=== PATIENT | female | born 1985 | race Caucasian/White ===

== ENCOUNTER → 2016-05-26 | Outpatient (CLI) | payer OTHER ==
[2016-05-26 08:51] LABS: FERRITIN 7 NG/ML (8-252); MAGNESIUM LEVEL 2.4 MG/DL (1.8-2.4)
[2016-05-26 09:04] LABS: CORTISOL AM 15.9 UG/DL (4.3-22.4); THYROID PEROXIDASE ANTIBODY < 28.0 U/ML (<60.0)
[2016-05-26 09:05] LABS: VITAMIN B12 LEVEL 273 PG/ML (247-911)
[2016-05-30 00:10] LABS: Lyme Disease IgG/IgM Antibodie <0.91 ISR (0.00-0.90); Lyme Disease IgM Ab Quantitati <0.80 index (0.00-0.79); VITAMIN E LEVEL 8.3 mg/L (5.3-16.8)
== END ==
LOC: M LAB 07:33
PROVIDERS: ATTEND Physician Assistant
DX: Q79.6 Ehlers-Danlos syndromes (principal)

== ENCOUNTER → 2016-05-27 | Outpatient (REF) | payer OTHER | LOC: M SFHCLERA 14:50 | PROVIDERS: ATTEND Nurse Practitioner Family | DX: R50.9 Fever, unspecified (principal) ==

== ENCOUNTER → 2016-06-09 | Outpatient (CLI) | payer OTHER ==
--- NOTE | 2016-06-09 16:21 | REP ---
THYROID ULTRASOUND: Real-time sonographic evaluation of the thyroid performed and demonstrates the right lobe to measure 5.3 x 1.4 x 1.6 cm and left lobe 4.6 x 1.5 x 1.3 cm. In the upper right lobe is a tiny cyst with a calcification measuring 3 x 2 x 2 mm. A 2 mm cyst is also seen in the lower right lobe. In the isthmus, there is a 3 mm nodule identified. There is a 2 mm cyst in the mid left lobe. IMPRESSION: Mildly enlarged right lobe. Tiny cysts are identified as described above with one 3 mm solid nodule in the isthmus. Signed by Lg Duarte MD 06/09/2016 04:50 P
== END ==
LOC: M RAD 15:12
PROVIDERS: ATTEND Physician Assistant
DX: E05.90 Thyrotoxicosis, unspecified without thyrotoxic crisis or storm (principal)

== ENCOUNTER → 2016-06-12 | Outpatient (REF) | payer OTHER ==
[2016-06-12 09:46] LABS: TOTAL VOLUME, URINE 1350 ML
[2016-06-12 10:08] LABS: SODIUM 24 HOUR URINE 205 MEQ/24HR (40-220)
== END ==
LOC: M SFHCLERA 09:38
PROVIDERS: ATTEND Physician Assistant
DX: R39.89 Other symptoms and signs involving the genitourinary system (principal)

== ENCOUNTER → 2016-06-15 | Outpatient (CLI) | payer OTHER | LOC: M SMT 08:05 | PROVIDERS: ATTEND Physician Assistant | DX: Z00.00 Encounter for general adult medical examination without abnormal findings (principal); Z13.220 Encounter for screening for lipoid disorders; E55.9 Vitamin D deficiency, unspecified ==

== ENCOUNTER → 2016-06-16 | Outpatient (REF) | payer OTHER ==
[2016-06-16 21:22] LABS: CHOLESTEROL LEVEL 207 MG/DL (<200); FREE T4 1.06 NG/DL (0.76-1.46); PERCENT SATURATION 3.7 % (13.2-37.4); TOTAL IRON BINDING CAPACITY 643 UG/DL (250-450); TRIGLYCERIDES LEVEL 66 MG/DL (<150)
[2016-06-16 21:37] LABS: MEAN CORPUSCULAR HEMOGLOBIN 22.2 pg (27.0-33.0); MEAN CORPUSCULAR HGB CONC 29.3 g/dl (32.0-36.5); MEAN CORPUSCULAR VOLUME 75.7 fl (80.0-96.0); RED CELL DISTRIBUTION WIDTH 15.1 % (11.5-14.5); WHITE BLOOD COUNT 9.7 K/mm3 (4.0-10.0)
[2016-06-20 08:06] LABS: IgG P18 AB Absent (.); IgG P23 AB Absent (.); IgG P28 AB Absent (.); IgG P30 AB Present (.); IgG P41 AB Absent (.); IgG P45 AB Absent (.); IgG P58 AB Absent (.); IgG P66 AB Absent (.); IgG P93 AB Absent (.); IgM P39 AB Absent (.); IgM P41 AB Absent (.)
== END ==
LOC: M SFHCLERA 16:36
PROVIDERS: ATTEND Physician Assistant
DX: M25.50 Pain in unspecified joint (principal); D64.9 Anemia, unspecified; E04.1 Nontoxic single thyroid nodule; Z13.220 Encounter for screening for lipoid disorders; Q79.6 Ehlers-Danlos syndromes

== ENCOUNTER → 2016-07-28 | Outpatient (CLI) | payer OTHER | LOC: M SMT 15:14 | PROVIDERS: ATTEND Physician Assistant | DX: R23.2 Flushing (principal); R61 Generalized hyperhidrosis; R11.0 Nausea ==

== ENCOUNTER → 2016-08-04 | Outpatient (CLI) | payer OTHER ==
--- NOTE | 2016-08-04 10:22 | REP ---
GASTRIC EMPTYING STUDY: 08/04/2016. Clinical history: Nausea, bloating, reflux, dysphagia. Upper abdominal pain. Technique: The patient received 1.04 mCi technetium 99m sulfur colloid in two scrambled eggs with 6 ounces of water. Anterior and posterior imaging over the abdomen with region of interest drawn around the stomach with gastric emptying curve calculated by a semiautomated method. Findings: During the 90-minute observation period, there were no episodes of reflux demonstrated on the anterior or posterior images. Gastric emptying at 90 minutes is 13%. Normal T1/2 of gastric emptying is 90 minutes. Impression: 1. Gastroparesis with only 13% gastric emptying at 90 minutes. Signed by David Hazel MD 08/04/2016 02:45 P
== END ==
LOC: M RAD 08:11
PROVIDERS: ATTEND Physician Assistant
DX: R11.0 Nausea (principal); R14.0 Abdominal distension (gaseous); R12 Heartburn; K21.9 Gastro-esophageal reflux disease without esophagitis; R13.10 Dysphagia, unspecified; R49.0 Dysphonia; R07.0 Pain in throat; R10.9 Unspecified abdominal pain; K59.00 Constipation, unspecified; R10.84 Generalized abdominal pain; D50.9 Iron deficiency anemia, unspecified; R23.2 Flushing; R61 Generalized hyperhidrosis

== ENCOUNTER → 2016-09-29 | Outpatient (CLI) | payer OTHER ==
[2016-09-29 13:40] LABS: MEAN CORPUSCULAR HEMOGLOBIN 22.8 pg (27.0-33.0); MEAN CORPUSCULAR HGB CONC 29.4 g/dl (32.0-36.5); MEAN CORPUSCULAR VOLUME 77.4 fl (80.0-96.0); WHITE BLOOD COUNT 6.7 K/mm3 (4.0-10.0)
[2016-09-29 14:12] LABS: ALBUMIN 3.5 GM/DL (3.2-5.2); ALBUMIN/GLOBULIN RATIO 0.95 (1.00-1.93); ALKALINE PHOSPHATASE 67 U/L (45-117); ALT/SGPT 14 U/L (12-78); ANION GAP 7 MEQ/L (8-16); AST/SGOT 11 U/L (15-37); BILIRUBIN,TOTAL 0.2 MG/DL (0.2-1.0); BLOOD UREA NITROGEN 6 MG/DL (7-18); CALCIUM LEVEL 9.5 MG/DL (8.5-10.1); CARBON DIOXIDE LEVEL 25 MEQ/L (21-32); CHLORIDE LEVEL 105 MEQ/L (98-107); CREATININE FOR GFR 0.69 MG/DL (0.55-1.02); FERRITIN 5 NG/ML (8-252); FREE T4 1.07 NG/DL (0.76-1.46); GLOMERULAR FILTRATION RATE > 60.0 (>60); GLUCOSE, FASTING 133 MG/DL (70-105); POTASSIUM SERUM 4.5 MEQ/L (3.5-5.1); SODIUM LEVEL 137 MEQ/L (136-145); TOTAL PROTEIN 7.2 GM/DL (6.4-8.2)
== END ==
LOC: M SMT 08:11
PROVIDERS: ATTEND Physician Assistant
DX: D64.9 Anemia, unspecified (principal); G90.9 Disorder of the autonomic nervous system, unspecified; E05.90 Thyrotoxicosis, unspecified without thyrotoxic crisis or storm

== ENCOUNTER → 2017-01-27 | Outpatient (CLI) | payer OTHER ==
[2017-01-29 04:44] LABS: MAGNESIUM LEVEL 2.1 MG/DL (1.8-2.4)
== END ==
LOC: M WUC 15:22
PROVIDERS: ATTEND Internal Medicine Gastroenterology
DX: K21.9 Gastro-esophageal reflux disease without esophagitis (principal); K22.70 Barrett's esophagus without dysplasia; K44.9 Diaphragmatic hernia without obstruction or gangrene; R14.0 Abdominal distension (gaseous)

== ENCOUNTER → 2017-02-05 | Outpatient (REF) | payer OTHER | LOC: M LAB REF 09:53 | PROVIDERS: ATTEND Dermatology | DX: D23.4 Other benign neoplasm of skin of scalp and neck (principal) ==

== ENCOUNTER → 2017-05-30 | Outpatient (REF) | payer OTHER | LOC: M SFHCLERA 07:59 | DX: R42 Dizziness and giddiness (principal); Z53.20 Procedure and treatment not carried out because of patient's decision for unspecified reasons ==

== ENCOUNTER → 2017-05-30 | Outpatient (CLI) | payer OTHER ==
[2017-05-30 18:14] LABS: HEMATOCRIT 32.6 % (36.0-47.0); HEMOGLOBIN 10.1 g/dl (12.0-16.0); MEAN CORPUSCULAR HEMOGLOBIN 25.8 pg (27.0-33.0); MEAN CORPUSCULAR VOLUME 83.2 fl (80.0-96.0); PLATELET COUNT, AUTOMATED 402 10^3/uL (150-450); RED BLOOD COUNT 3.92 10^6/uL (4.00-5.40); WHITE BLOOD COUNT 10.2 10^3/uL (4.0-10.0)
[2017-05-30 18:30] LABS: VITAMIN B12 LEVEL 249 PG/ML (247-911)
[2017-05-30 18:31] LABS: ALBUMIN 3.6 GM/DL (3.2-5.2); ALBUMIN/GLOBULIN RATIO 0.95 (1.00-1.93); ALKALINE PHOSPHATASE 64 U/L (45-117); ALT/SGPT 14 U/L (12-78); ANION GAP 8 MEQ/L (8-16); AST/SGOT 15 U/L (7-37); BILIRUBIN,TOTAL 0.3 MG/DL (0.2-1.0); BLOOD UREA NITROGEN 10 MG/DL (7-18); CALCIUM LEVEL 8.4 MG/DL (8.5-10.1); CARBON DIOXIDE LEVEL 27 MEQ/L (21-32); CHLORIDE LEVEL 98 MEQ/L (98-107); GLOMERULAR FILTRATION RATE > 60.0 (>60); GLUCOSE, FASTING 81 MG/DL (70-100); POTASSIUM SERUM 3.2 MEQ/L (3.5-5.1); SODIUM LEVEL 133 MEQ/L (136-145); THYROID STIMULATING HORMONE 0.758 uIU/ML (0.358-3.740); TOTAL PROTEIN 7.4 GM/DL (6.4-8.2)
== END ==
LOC: M LAB 17:22
DX: R42 Dizziness and giddiness (principal)
CPT/HCPCS: 84443

== ENCOUNTER → 2017-07-03 | Outpatient (CLI) | payer OTHER ==
[2017-07-03 18:50] LABS: BASO # 0.1 10^3/uL (0.0-0.2); BASO % 0.6 % (0.0-1.0); EOS # 0.1 10^3/uL (0.0-0.50); EOS % 1.3 % (0.0-3.0); HEMATOCRIT 35.2 % (36.0-47.0); IMMATURE GRANULOCYTE % 0.2 % (0-3.0); LYMPH # 3.1 10^3/uL (1.5-4.5); LYMPH % 33.6 % (24.0-44.0); MEAN CORPUSCULAR HEMOGLOBIN 25.3 pg (27.0-33.0); MEAN CORPUSCULAR HGB CONC 31.3 g/dl (32.0-36.5); MEAN CORPUSCULAR VOLUME 80.9 fl (80.0-96.0); MONO # 0.5 10^3/uL (0.0-0.8); MONO % 5.1 % (0.0-5.0); NEUTROPHILS # 5.5 10^3/uL (1.8-7.7); NEUTROPHILS % 59.2 % (36.0-66.0); PLATELET COUNT, AUTOMATED 376 10^3/uL (150-450); RED BLOOD COUNT 4.35 10^6/uL (4.00-5.40); RED CELL DISTRIBUTION WIDTH 13.4 % (11.5-14.5); WHITE BLOOD COUNT 9.3 10^3/uL (4.0-10.0)
[2017-07-03 19:22] LABS: COMPLEMENT C3 131 MG/DL (90-180)
[2017-07-03 19:22] LABS: C REACTIVE PROTEIN QUANTITATIV 0.32 MG/DL (0.00-0.30); COMPLEMENT C4 15.4 MG/DL (10-40)
[2017-07-03 19:46] LABS: APPEARANCE, URINE CLEAR (CLEAR); BACTERIA, URINE AUTO NEGATIVE (NEGATIVE); BILIRUBIN, URINE AUTO NEGATIVE (NEGATIVE); BLOOD, URINE BLOOD 1+ (NEGATIVE); COLOR, URINE COLORLESS (YELLOW); GLUCOSE, URINE (UA) AUTO NEGATIVE (NEGATIVE); KETONE, URINE AUTO NEGATIVE (NEGATIVE); LEUKOCYTE ESTERASE, URINE AUTO NEGATIVE (NEGATIVE); NITRITE, URINE AUTO NEGATIVE (NEGATIVE); PROTEIN, URINE AUTO NEGATIVE (NEGATIVE); RBC, URINE AUTO 0 /HPF (0-3); SQUAMOUS EPITHELIAL CELL UR AU 0 /HPF (0-6); UROBILINOGEN, URINE AUTO 0.2 mg/dL (0.0-2.0); WBC, URINE AUTO 0 /HPF (0-3)
[2017-07-03 22:43] LABS: ERYTHROCYTE SEDIMENTATION RATE 12 mm/hr (0-20)
== END ==
LOC: M LAB 17:31
DX: R50.9 Fever, unspecified (principal)
CPT/HCPCS: 86160

== ENCOUNTER → 2017-07-27 | Outpatient (CLI) | payer OTHER ==
[2017-07-27 13:32] LABS: HEMATOCRIT 38.5 % (36.0-47.0); HEMOGLOBIN 11.6 g/dl (12.0-15.5); MEAN CORPUSCULAR HEMOGLOBIN 24.8 pg (27.0-33.0); MEAN CORPUSCULAR HGB CONC 30.1 g/dl (32.0-36.5); MEAN CORPUSCULAR VOLUME 82.4 fl (80.0-96.0); PLATELET COUNT, AUTOMATED 369 10^3/uL (150-450); RED BLOOD COUNT 4.67 10^6/uL (4.00-5.40); RED CELL DISTRIBUTION WIDTH 13.7 % (11.5-14.5); WHITE BLOOD COUNT 5.8 10^3/uL (4.0-10.0)
[2017-07-27 13:50] LABS: VITAMIN B12 LEVEL 894 PG/ML (247-911)
[2017-07-27 13:57] LABS: ALBUMIN 3.9 GM/DL (3.2-5.2); ALBUMIN/GLOBULIN RATIO 0.93 (1.00-1.93); ALKALINE PHOSPHATASE 67 U/L (45-117); ALT/SGPT 15 U/L (12-78); ANION GAP 6 MEQ/L (8-16); AST/SGOT 16 U/L (7-37); BILIRUBIN,TOTAL 0.3 MG/DL (0.2-1.0); BLOOD UREA NITROGEN 9 MG/DL (7-18); CALCIUM LEVEL 8.8 MG/DL (8.5-10.1); CARBON DIOXIDE LEVEL 29 MEQ/L (21-32); CHLORIDE LEVEL 104 MEQ/L (98-107); CREATININE FOR GFR 0.85 MG/DL (0.55-1.30); GLOMERULAR FILTRATION RATE > 60.0 (>60); GLUCOSE, FASTING 95 MG/DL (70-100); POTASSIUM SERUM 3.7 MEQ/L (3.5-5.1); SODIUM LEVEL 139 MEQ/L (136-145); TOTAL PROTEIN 8.1 GM/DL (6.4-8.2)
== END ==
LOC: M SMT 08:05
DX: R42 Dizziness and giddiness (principal)
CPT/HCPCS: 84443

== ENCOUNTER → 2017-08-06 | Outpatient (REF) | payer OTHER ==
[2017-08-07 12:33] LABS: BASO # 0.1 10^3/uL (0.0-0.2); BASO % 1.2 % (0.0-1.0); EOS # 0.1 10^3/uL (0.0-0.50); EOS % 1.5 % (0.0-3.0); HEMATOCRIT 36.1 % (36.0-47.0); HEMOGLOBIN 10.9 g/dl (12.0-15.5); IMMATURE GRANULOCYTE % 0.2 % (0-3.0); LYMPH # 2.2 10^3/uL (1.5-4.5); LYMPH % 36.2 % (24.0-44.0); MEAN CORPUSCULAR HEMOGLOBIN 24.7 pg (27.0-33.0); MEAN CORPUSCULAR HGB CONC 30.2 g/dl (32.0-36.5); MEAN CORPUSCULAR VOLUME 81.9 fl (80.0-96.0); MONO # 0.4 10^3/uL (0.0-0.8); MONO % 6.1 % (0.0-5.0); NEUTROPHILS # 3.3 10^3/uL (1.8-7.7); NEUTROPHILS % 54.8 % (36.0-66.0); PLATELET COUNT, AUTOMATED 327 10^3/uL (150-450); RED BLOOD COUNT 4.41 10^6/uL (4.00-5.40); RED CELL DISTRIBUTION WIDTH 13.6 % (11.5-14.5); WHITE BLOOD COUNT 6.1 10^3/uL (4.0-10.0)
[2017-08-07 13:39] LABS: MAGNESIUM LEVEL 2.2 MG/DL (1.8-2.4)
[2017-08-07 13:39] LABS: FERRITIN 4 NG/ML (8-252); IRON (FE) 86 UG/DL (50-170); PERCENT SATURATION 16.2 % (13.2-45.0); TOTAL IRON BINDING CAPACITY 532 UG/DL (250-450)
== END ==
LOC: M SFHCLERA 08:19
DX: D50.9 Iron deficiency anemia, unspecified (principal); M62.838 Other muscle spasm

== ENCOUNTER → 2017-08-09 | Outpatient (CLI) | payer OTHER ==
[2017-08-10 10:56] LABS: HEPATITIS B SURFACE ANTIGEN NEGATIVE (NEGATIVE)
[2017-08-10 11:17] LABS: HEPATITIS C VIRUS ABY INDEX 0.1 INDEX (<0.8)
[2017-08-10 11:17] LABS: HEPATITIS B CORE ANTIBODY IGM NEGATIVE (NEGATIVE)
[2017-08-10 11:18] LABS: HIV 1&2 SCREEN CENTAUR NEGATIVE (NEGATIVE)
[2017-08-10 11:19] LABS: HEPATITIS A ANTIBODY IGM NEGATIVE (NEGATIVE)
[2017-08-10 13:05] LABS: CHLAMYDIA DNA AMPLIFICATION NEGATIVE (NEGATIVE); GC DNA AMPLIFICATION NEGATIVE (NEGATIVE)
[2017-08-16 14:16] LABS: HPV HYBRID CAPTURE II Negative (Negative)
== END ==
LOC: M SMT 08:40
DX: Z11.3 Encounter for screening for infections with a predominantly sexual mode of transmission (principal); Z11.51 Encounter for screening for human papillomavirus (HPV)
CPT/HCPCS: 87340

== ENCOUNTER → 2017-08-24 | Outpatient (REF) | payer OTHER ==
[2017-08-28 14:16] LABS: HPV HYBRID CAPTURE II Negative (Negative)
== END ==
LOC: M LAB REF 17:11
DX: R87.615 Unsatisfactory cytologic smear of cervix (principal)

== ENCOUNTER 2017-08-28 07:04 | Outpatient (CLI) | payer OTHER ==
[2017-08-28] MEDS: IRON SUCROSE 100 MG in NS 100 ML IV (07:47)
== END 2017-08-28 09:20 | disposition home or self-care (01) ==
LOC: M INFU 07:04
DX: D50.9 Iron deficiency anemia, unspecified (principal); Z91.040 Latex allergy status; Z88.8 Allergy status to other drugs, medicaments and biological substances; Z91.02 Food additives allergy status; Z79.899 Other long term (current) drug therapy
CPT/HCPCS: J1756

== ENCOUNTER 2017-09-03 06:58 | Outpatient (CLI) | payer OTHER ==
[2017-09-03] MEDS: IRON SUCROSE 100 MG in NS 100 ML IV (07:56)
== END 2017-09-03 10:15 | disposition home or self-care (01) ==
LOC: M INFU 06:58
DX: D50.9 Iron deficiency anemia, unspecified (principal); I49.9 Cardiac arrhythmia, unspecified; K21.9 Gastro-esophageal reflux disease without esophagitis; M12.9 Arthropathy, unspecified; Z79.899 Other long term (current) drug therapy; Z91.040 Latex allergy status; Z88.8 Allergy status to other drugs, medicaments and biological substances
CPT/HCPCS: J1756

== ENCOUNTER 2017-09-03 12:34 | Emergency (ER) | payer OTHER ==
[2017-09-03] MEDS: NS 1,000 ML IV (15:15)
[2017-09-03] MEDS: ONDANSETRON 4MG/2ML VIAL (J2405) IV (15:15)
[2017-09-03 15:53] LABS: BASO # 0.1 10^3/uL (0.0-0.2); BASO % 0.7 % (0.0-1.0); EOS # 0.1 10^3/uL (0.0-0.50); HEMATOCRIT 37.8 % (36.0-47.0); HEMOGLOBIN 11.6 g/dl (12.0-15.5); IMMATURE GRANULOCYTE % 0.3 % (0-3.0); LYMPH # 1.7 10^3/uL (1.5-4.5); LYMPH % 19.3 % (24.0-44.0); MEAN CORPUSCULAR HEMOGLOBIN 24.6 pg (27.0-33.0); MEAN CORPUSCULAR HGB CONC 30.7 g/dl (32.0-36.5); MEAN CORPUSCULAR VOLUME 80.1 fl (80.0-96.0); MONO # 0.3 10^3/uL (0.0-0.8); MONO % 3.9 % (0.0-5.0); NEUTROPHILS # 6.5 10^3/uL (1.8-7.7); NEUTROPHILS % 74.8 % (36.0-66.0); PLATELET COUNT, AUTOMATED 319 10^3/uL (150-450); RED BLOOD COUNT 4.72 10^6/uL (4.00-5.40); RED CELL DISTRIBUTION WIDTH 15.9 % (11.5-14.5); WHITE BLOOD COUNT 8.7 10^3/uL (4.0-10.0)
[2017-09-03 15:59] LABS: CONTROL LINE UCG INT CTR LINE PRESENT; URINE PREG TEST NEGATIVE (NEGATIVE)
[2017-09-03 16:03] LABS: KETONE, URINE AUTO RFX NEGATIVE (NEGATIVE); LEUKOCYTE ESTERASE UR AUTO RFX NEGATIVE (NEGATIVE); MUCUS, URINE RFX LARGE (NEGATIVE); NITRITE, URINE AUTO RFX NEGATIVE (NEGATIVE); RBC, URINE AUTO RFX 3 /HPF (0-3); SPECIFIC GRAVITY UR AUTO RFX 1.014 (1.002-1.035); SQUAM EPITHELIAL CELL UR AURFX 1 /HPF (0-6); WBC, URINE AUTO RFX 4 /HPF (0-3)
[2017-09-03 16:25] LABS: ALBUMIN 3.5 GM/DL (3.2-5.2); ALKALINE PHOSPHATASE 56 U/L (45-117); ALT/SGPT 13 U/L (12-78); AMYLASE 47 U/L (25-115); ANION GAP 10 MEQ/L (8-16); AST/SGOT 10 U/L (7-37); BILIRUBIN,DIRECT < 0.1 MG/DL (0.0-0.2); BILIRUBIN,TOTAL 0.2 MG/DL (0.2-1.0); BLOOD UREA NITROGEN 10 MG/DL (7-18); CALCIUM LEVEL 8.3 MG/DL (8.5-10.1); CARBON DIOXIDE LEVEL 24 MEQ/L (21-32); CHLORIDE LEVEL 108 MEQ/L (98-107); CK-MB VALUE MASS < 1.0 NG/ML (<3.6); CPK CREATINE PHOSPHOKINASE 57 U/L (26-192); CREATININE FOR GFR 0.82 MG/DL (0.55-1.30); GLOMERULAR FILTRATION RATE > 60.0 (>60); GLUCOSE, FASTING 85 MG/DL (70-100); LIPASE 82 U/L (73-393); MB/CK RELATIVE INDEX 1.75 (< OR =4); POTASSIUM SERUM 3.8 MEQ/L (3.5-5.1); SODIUM LEVEL 142 MEQ/L (136-145); TOTAL PROTEIN 7.4 GM/DL (6.4-8.2); TROPONIN I < 0.02 NG/ML (< 0.10)
== END 2017-09-03 16:54 | disposition home or self-care (01) ==
LOC: M ED 12:34
DX: R51 Headache (principal); R11.0 Nausea; D50.9 Iron deficiency anemia, unspecified; K21.9 Gastro-esophageal reflux disease without esophagitis; Z79.899 Other long term (current) drug therapy; Z86.69 Personal history of other diseases of the nervous system and sense organs; Z87.19 Personal history of other diseases of the digestive system; Z88.8 Allergy status to other drugs, medicaments and biological substances; Z91.040 Latex allergy status; Z91.02 Food additives allergy status
CPT/HCPCS: J2405

== ENCOUNTER 2017-09-10 12:19 | Outpatient (CLI) | payer OTHER ==
[2017-09-10] MEDS: ONDANSETRON 4MG/2ML VIAL (J2405) IV (12:57)
[2017-09-10] MEDS: IRON SUCROSE 100 MG in NS 100 ML IV (13:00)
[2017-09-10] MEDS ORDERED: NS 500 ML IV (14:00)
== END 2017-09-10 16:00 | disposition home or self-care (01) ==
LOC: M INFU 12:19
DX: D50.9 Iron deficiency anemia, unspecified (principal); Z88.8 Allergy status to other drugs, medicaments and biological substances; Z91.02 Food additives allergy status; Z91.040 Latex allergy status; Z79.899 Other long term (current) drug therapy
CPT/HCPCS: J2405

== ENCOUNTER → 2017-09-11 | Outpatient (REF) | payer OTHER | LOC: M SFHCLERA 17:04 | DX: N30.00 Acute cystitis without hematuria (principal) ==

== ENCOUNTER → 2017-09-21 | Outpatient (REF) | payer OTHER ==
[2017-09-21 17:41] LABS: BLOOD UREA NITROGEN 9 MG/DL (7-18); CREATININE FOR GFR 0.87 MG/DL (0.55-1.30); GLUCOSE, FASTING 80 MG/DL (70-100)
[2017-09-21 17:42] LABS: ALBUMIN 3.9 GM/DL (3.2-5.2); ANION GAP 7 MEQ/L (8-16); CALCIUM LEVEL 8.6 MG/DL (8.5-10.1); CARBON DIOXIDE LEVEL 29 MEQ/L (21-32); CHLORIDE LEVEL 102 MEQ/L (98-107); GLOMERULAR FILTRATION RATE > 60.0 (>60); HCG, SERUM QUANTITATIVE < 1.0 MIU/ML; PHOSPHORUS LEVEL 3.1 MG/DL (2.5-4.9); POTASSIUM SERUM 4.2 MEQ/L (3.5-5.1); SODIUM LEVEL 138 MEQ/L (136-145)
[2017-09-21 20:31] LABS: APPEARANCE, URINE CLEAR (CLEAR); BACTERIA, URINE AUTO NEGATIVE (NEGATIVE); BILIRUBIN, URINE AUTO NEGATIVE (NEGATIVE); BLOOD, URINE BLOOD NEGATIVE (NEGATIVE); COLOR, URINE STRAW (YELLOW); GLUCOSE, URINE (UA) AUTO NEGATIVE (NEGATIVE); KETONE, URINE AUTO NEGATIVE (NEGATIVE); LEUKOCYTE ESTERASE, URINE AUTO NEGATIVE (NEGATIVE); MUCUS, URINE SMALL (NEGATIVE); NITRITE, URINE AUTO NEGATIVE (NEGATIVE); PROTEIN, URINE AUTO NEGATIVE (NEGATIVE); RBC, URINE AUTO 1 /HPF (0-3); SPECIFIC GRAVITY URINE AUTO 1.002 (1.002-1.035); SQUAMOUS EPITHELIAL CELL UR AU 0 /HPF (0-6); UROBILINOGEN, URINE AUTO 0.2 mg/dL (0.0-2.0); WBC, URINE AUTO 0 /HPF (0-3)
== END ==
LOC: M SFHCLERA 11:36
DX: R31.9 Hematuria, unspecified (principal)

== ENCOUNTER 2017-09-25 19:37 | Emergency (ER) | payer OTHER ==
[2017-09-25] MEDS: predniSONE 20 MG TAB PO (22:41)
[2017-09-25 23:01] LABS: BASO # 0.1 10^3/uL (0.0-0.2); BASO % 0.9 % (0.0-1.0); EOS # 0.2 10^3/uL (0.0-0.50); HEMATOCRIT 36.6 % (36.0-47.0); HEMOGLOBIN 11.3 g/dl (12.0-15.5); IMMATURE GRANULOCYTE % 0.2 % (0-3.0); LYMPH # 2.5 10^3/uL (1.5-4.5); LYMPH % 29.3 % (24.0-44.0); MEAN CORPUSCULAR HEMOGLOBIN 26.1 pg (27.0-33.0); MEAN CORPUSCULAR HGB CONC 30.9 g/dl (32.0-36.5); MEAN CORPUSCULAR VOLUME 84.5 fl (80.0-96.0); MONO # 0.4 10^3/uL (0.0-0.8); MONO % 4.7 % (0.0-5.0); NEUTROPHILS # 5.4 10^3/uL (1.8-7.7); NEUTROPHILS % 62.9 % (36.0-66.0); PLATELET COUNT, AUTOMATED 317 10^3/uL (150-450); RED BLOOD COUNT 4.33 10^6/uL (4.00-5.40); RED CELL DISTRIBUTION WIDTH 18.2 % (11.5-14.5); WHITE BLOOD COUNT 8.6 10^3/uL (4.0-10.0)
[2017-09-25 23:26] LABS: ERYTHROCYTE SEDIMENTATION RATE 13 mm/hr (0-20)
[2017-09-25 23:32] LABS: ANION GAP 5 MEQ/L (8-16); BLOOD UREA NITROGEN 12 MG/DL (7-18); CALCIUM LEVEL 8.8 MG/DL (8.5-10.1); CARBON DIOXIDE LEVEL 29 MEQ/L (21-32); CHLORIDE LEVEL 107 MEQ/L (98-107); CREATININE FOR GFR 0.79 MG/DL (0.55-1.30); FREE THYROXINE INDEX 3.9 % (1.3-4.8); GLOMERULAR FILTRATION RATE > 60.0 (>60); GLUCOSE, FASTING 98 MG/DL (70-100); MAGNESIUM LEVEL 2.3 MG/DL (1.8-2.4); SODIUM LEVEL 141 MEQ/L (136-145); T UPTAKE 30 % (30-39); THYROID STIMULATING HORMONE 0.965 uIU/ML (0.358-3.740); THYROXINE (T4) 12.9 UG/DL (4.5-12.0)
== END 2017-09-26 00:43 | disposition home or self-care (01) ==
LOC: M ED 09-26 00:43
DX: R20.2 Paresthesia of skin (principal); R51 Headache; D50.9 Iron deficiency anemia, unspecified; K31.84 Gastroparesis; E03.9 Hypothyroidism, unspecified; Z79.899 Other long term (current) drug therapy; Z91.040 Latex allergy status; Z91.02 Food additives allergy status; Z88.8 Allergy status to other drugs, medicaments and biological substances
CPT/HCPCS: 70450

== ENCOUNTER → 2017-10-05 | Outpatient (REF) | payer OTHER ==
[2017-10-05 17:54] LABS: APPEARANCE, URINE HAZY (CLEAR); BACTERIA, URINE AUTO 1+ (NEGATIVE); BILIRUBIN, URINE AUTO NEGATIVE (NEGATIVE); BLOOD, URINE BLOOD NEGATIVE (NEGATIVE); COLOR, URINE YELLOW (YELLOW); GLUCOSE, URINE (UA) AUTO NEGATIVE (NEGATIVE); KETONE, URINE AUTO NEGATIVE (NEGATIVE); LEUKOCYTE ESTERASE, URINE AUTO 1+ (NEGATIVE); MUCUS, URINE SMALL (NEGATIVE); NITRITE, URINE AUTO NEGATIVE (NEGATIVE); PROTEIN, URINE AUTO NEGATIVE (NEGATIVE); RBC, URINE AUTO 6 /HPF (0-3); SPECIFIC GRAVITY URINE AUTO 1.021 (1.002-1.035); SQUAMOUS EPITHELIAL CELL UR AU 0 /HPF (0-6); UROBILINOGEN, URINE AUTO 0.2 mg/dL (0.0-2.0); WBC, URINE AUTO 2 /HPF (0-3)
== END ==
LOC: M SMT 17:00
DX: R31.0 Gross hematuria (principal)

== ENCOUNTER → 2017-10-19 | Outpatient (CLI) | payer OTHER ==
[2017-10-19 10:41] LABS: BASO # 0.1 10^3/uL (0.0-0.2); BASO % 0.5 % (0.0-1.0); EOS # 0.1 10^3/uL (0.0-0.50); EOS % 0.9 % (0.0-3.0); HEMATOCRIT 40.8 % (36.0-47.0); HEMOGLOBIN 12.7 g/dl (12.0-15.5); IMMATURE GRANULOCYTE % 0.3 % (0-3.0); LYMPH # 1.6 10^3/uL (1.5-4.5); MEAN CORPUSCULAR HEMOGLOBIN 26.7 pg (27.0-33.0); MEAN CORPUSCULAR HGB CONC 31.1 g/dl (32.0-36.5); MEAN CORPUSCULAR VOLUME 85.7 fl (80.0-96.0); MONO # 0.4 10^3/uL (0.0-0.8); MONO % 3.7 % (0.0-5.0); NEUTROPHILS # 7.5 10^3/uL (1.8-7.7); NEUTROPHILS % 77.6 % (36.0-66.0); PLATELET COUNT, AUTOMATED 331 10^3/uL (150-450); RED BLOOD COUNT 4.76 10^6/uL (4.00-5.40); RED CELL DISTRIBUTION WIDTH 15.9 % (11.5-14.5); WHITE BLOOD COUNT 9.6 10^3/uL (4.0-10.0)
[2017-10-19 11:05] LABS: ESTIMATED AVERAGE GLUCOSE 105 MG/DL (60-110); HEMOGLOBIN A1c 5.3 %
[2017-10-19 11:10] LABS: ERYTHROCYTE SEDIMENTATION RATE 8 mm/hr (0-20)
[2017-10-19 11:32] LABS: VITAMIN B12 LEVEL 589 PG/ML
[2017-10-19 11:33] LABS: FOLATE > 24.0 NG/ML
[2017-10-19 11:34] LABS: ALBUMIN 4.1 GM/DL (3.2-5.2); ALBUMIN/GLOBULIN RATIO 0.98 (1.00-1.93); ALKALINE PHOSPHATASE 59 U/L (45-117); ALT/SGPT 17 U/L (12-78); ANION GAP 7 MEQ/L (8-16); AST/SGOT 9 U/L (7-37); BILIRUBIN,TOTAL 0.3 MG/DL (0.2-1.0); BLOOD UREA NITROGEN 15 MG/DL (7-18); CALCIUM LEVEL 9.5 MG/DL (8.5-10.1); CARBON DIOXIDE LEVEL 27 MEQ/L (21-32); CHLORIDE LEVEL 107 MEQ/L (98-107); CREATININE FOR GFR 0.82 MG/DL (0.55-1.30); GLOMERULAR FILTRATION RATE > 60.0 (>60); GLUCOSE, FASTING 96 MG/DL (70-100); POTASSIUM SERUM 4.2 MEQ/L (3.5-5.1); RHEUMATOID FACTOR QUANT < 10.0 IU/ML (<15.0); SODIUM LEVEL 141 MEQ/L (136-145); THYROID STIMULATING HORMONE 0.544 uIU/ML (0.358-3.740); TOTAL PROTEIN 8.3 GM/DL (6.4-8.2)
[2017-10-21 00:06] LABS: Lyme Disease IgG/IgM Antibodie <0.91 ISR (0.00-0.90); Lyme Disease IgM Ab Quantitati <0.80 index (0.00-0.79); SSA SJOGRENS A <0.2 AI (0.0-0.9); SSB SJOGRENS B <0.2 AI (0.0-0.9)
[2017-10-23 00:06] LABS: VITAMIN E(ALPHA TOCOPHEROL) 9.6 mg/L (5.9-19.4); VITAMIN E(GAMMA TOCOPHEROL) 1.6 mg/L (0.7-4.9)
[2017-10-23 08:44] LABS: ANCA-ATYPICAL <1:20 titer (Neg:<1:20); ANTI DOUBLE STRAND-DNA AB 2 IU/mL (0-9); ANTINUCLEAR ANTIBODIES DIRECT Negative (Negative); COPPER PLASMA 120 ug/dL (72-166); CYTOPLASMIC NEUTROP AB ANCA-C <1:20 titer (Neg:<1:20); LEAD BLOOD ADULT <1 ug/dL (0-19); MERCURY LEVEL None Detected ug/L (0.0-14.9); PERINUCLEAR AB ANCA-P <1:20 titer (Neg:<1:20)
[2017-10-23 10:12] LABS: PTT LUPUS TYPE ANTICOAG SCREEN 0.9 (0-1.2)
[2017-10-24 08:06] LABS: VITAMIN B1 LEVEL WHOLE BLOOD 73.7 nmol/L (66.5-200.0); VITAMIN B6,PYRIDOXAL PHOSPHATE 3.2 ug/L (2.0-32.8)
[2017-10-24 11:39] LABS: ALBUMIN 4.61 GM/DL (3.29-5.55); ALBUMIN % 55.6 % (55.8-66.1); ALPHA-1-GLOBULIN % 5.1 % (2.9-4.9); ALPHA-1-GLOBULINS 0.42 GM/DL (0.17-0.41); ALPHA-2-GLOBULINS 0.81 GM/DL (0.42-0.99); ALPHA-2-GLOBULINS % 9.8 % (7.1-11.8); BETA-1-GLOBULINS 0.66 GM/DL (0.28-0.60); BETA-1-GLOBULINS % 7.9 % (4.7-7.2); BETA-2-GLOBULINS 0.38 GM/DL (0.19-0.55); BETA-2-GLOBULINS % 4.6 % (3.2-6.5); GAMMA GLOBULINS 1.41 GM/DL (0.65-1.58)
== END ==
LOC: M LAB 09:59
DX: G62.9 Polyneuropathy, unspecified (principal)
CPT/HCPCS: 82525

== ENCOUNTER → 2017-11-02 | Outpatient (REF) | payer OTHER | LOC: M SFHCLERA 18:11 | DX: J02.9 Acute pharyngitis, unspecified (principal) ==

== ENCOUNTER → 2017-11-06 | Outpatient (CLI) | payer OTHER | LOC: M LRY 17:57 | DX: R59.1 Generalized enlarged lymph nodes (principal) | CPT/HCPCS: 71046 ==

== ENCOUNTER → 2017-11-06 | Outpatient (REF) | payer OTHER ==
[2017-11-06 19:38] LABS: BASO # 0.1 10^3/uL (0.0-0.2); BASO % 1.4 % (0.0-1.0); EOS # 0.4 10^3/uL (0.0-0.50); EOS % 4.6 % (0.0-3.0); HEMATOCRIT 33.3 % (36.0-47.0); HEMOGLOBIN 10.1 g/dl (12.0-15.5); IMMATURE GRANULOCYTE % 0.1 % (0-3.0); LYMPH # 2.4 10^3/uL (1.5-4.5); LYMPH % 26.7 % (24.0-44.0); MEAN CORPUSCULAR HEMOGLOBIN 26.4 pg (27.0-33.0); MEAN CORPUSCULAR HGB CONC 30.3 g/dl (32.0-36.5); MEAN CORPUSCULAR VOLUME 86.9 fl (80.0-96.0); MONO # 0.5 10^3/uL (0.0-0.8); MONO % 5.4 % (0.0-5.0); NEUTROPHILS # 5.5 10^3/uL (1.8-7.7); NEUTROPHILS % 61.8 % (36.0-66.0); PLATELET COUNT, AUTOMATED 267 10^3/uL (150-450); RED BLOOD COUNT 3.83 10^6/uL (4.00-5.40); RED CELL DISTRIBUTION WIDTH 14.8 % (11.5-14.5); WHITE BLOOD COUNT 8.9 10^3/uL (4.0-10.0)
[2017-11-06 20:32] LABS: ERYTHROCYTE SEDIMENTATION RATE 26 mm/hr (0-20)
== END ==
LOC: M SFHCLERA 17:53
DX: R59.1 Generalized enlarged lymph nodes (principal)

== ENCOUNTER → 2017-11-20 | Outpatient (CLI) | payer OTHER ==
[2017-11-20 19:20] LABS: BASO # 0.1 10^3/uL (0.0-0.2); BASO % 1.6 % (0.0-1.0); EOS # 0.2 10^3/uL (0.0-0.50); EOS % 2.9 % (0.0-3.0); HEMATOCRIT 34.4 % (36.0-47.0); HEMOGLOBIN 10.8 g/dl (12.0-15.5); IMMATURE GRANULOCYTE % 0.1 % (0-3.0); LYMPH # 2.5 10^3/uL (1.5-4.5); LYMPH % 34.3 % (24.0-44.0); MEAN CORPUSCULAR HEMOGLOBIN 26.1 pg (27.0-33.0); MEAN CORPUSCULAR HGB CONC 31.4 g/dl (32.0-36.5); MEAN CORPUSCULAR VOLUME 83.1 fl (80.0-96.0); MONO # 0.4 10^3/uL (0.0-0.8); NEUTROPHILS # 4.1 10^3/uL (1.8-7.7); NEUTROPHILS % 56.1 % (36.0-66.0); PLATELET COUNT, AUTOMATED 323 10^3/uL (150-450); RED BLOOD COUNT 4.14 10^6/uL (4.00-5.40); RED CELL DISTRIBUTION WIDTH 13.6 % (11.5-14.5); RETIC HEMOGLOBIN EQUIVALENT 27.7 pg (24-36); RETICULOCYTE # 38.9 10^9/L (17-77); RETICULOCYTE % 0.9 % (0.5-1.5); WHITE BLOOD COUNT 7.3 10^3/uL (4.0-10.0)
[2017-11-20 19:43] LABS: ERYTHROCYTE SEDIMENTATION RATE 15 mm/hr (0-20)
[2017-11-20 19:54] LABS: ALBUMIN/GLOBULIN RATIO 1.03 (1.00-1.93); ALKALINE PHOSPHATASE 72 U/L (45-117); ALT/SGPT 20 U/L (12-78); ANION GAP 10 MEQ/L (8-16); AST/SGOT 17 U/L (7-37); BILIRUBIN,TOTAL 0.2 MG/DL (0.2-1.0); BLOOD UREA NITROGEN 11 MG/DL (7-18); C REACTIVE PROTEIN QUANTITATIV 0.44 MG/DL (0.00-0.30); CALCIUM LEVEL 9.1 MG/DL (8.5-10.1); CARBON DIOXIDE LEVEL 26 MEQ/L (21-32); CHLORIDE LEVEL 100 MEQ/L (98-107); CREATININE FOR GFR 0.78 MG/DL (0.55-1.30); FERRITIN 8 NG/ML (8-252); GLOMERULAR FILTRATION RATE > 60.0 (>60); GLUCOSE, FASTING 84 MG/DL (70-100); IRON (FE) 104 UG/DL (50-170); LDH LACTATE DEHYDROGENASE 108 U/L (84-246); PERCENT SATURATION 20.6 % (13.2-45.0); POTASSIUM SERUM 3.4 MEQ/L (3.5-5.1); SODIUM LEVEL 136 MEQ/L (136-145); TOTAL IRON BINDING CAPACITY 504 UG/DL (250-450); TOTAL PROTEIN 7.9 GM/DL (6.4-8.2)
[2017-11-21 12:08] LABS: HEPATITIS B SURFACE ANTIGEN NEGATIVE (NEGATIVE)
[2017-11-21 12:32] LABS: HEPATITIS C VIRUS ABY INDEX 0.2 INDEX (<0.8)
[2017-11-21 12:33] LABS: HEPATITIS B CORE ANTIBODY IGM NEGATIVE (NEGATIVE)
[2017-11-21 12:34] LABS: HIV 1&2 SCREEN CENTAUR NEGATIVE (NEGATIVE)
[2017-11-21 12:35] LABS: HEPATITIS A ANTIBODY IGM NEGATIVE (NEGATIVE)
[2017-11-23 00:06] LABS: EBV VIRAL CAPSID AG IgM <36.0 U/mL (0.0-35.9); QUANTIFERON GOLD TB Negative (Negative); TB Test (QFT) Antigen 0.04 IU/mL (.); TB Test (QFT) Antigen Minus Ni <0.01 IU/mL (.); TB Test (QFT) Mitogen 7.44 IU/mL (.); TB Test (QFT) Nil 0.05 IU/mL (.)
[2017-11-24 00:07] LABS: HAPTOGLOBIN 137 mg/dL (34-200)
[2017-11-24 00:07] LABS: TRYPTASE 3.5 ug/L (2.2-13.2)
== END ==
LOC: M LAB 17:33
DX: R50.9 Fever, unspecified (principal); D50.9 Iron deficiency anemia, unspecified
CPT/HCPCS: 83010

== ENCOUNTER → 2017-11-20 | Outpatient (CLI) | payer OTHER ==
[2017-11-20 20:06] LABS: IMMUNOGLOBULIN G 1390 MG/DL (681-1648); IMMUNOGLOBULIN M 93.5 MG/DL (40-230); THYROID STIMULATING HORMONE 0.568 uIU/ML (0.358-3.740); THYROXINE (T4) 9.5 UG/DL (4.5-12.0)
[2017-11-20 20:27] LABS: IMMUNOGLOBULIN E 12.6 IU/ML (<100)
[2017-11-20 20:34] LABS: RUBELLA IgG QUALITATIVE IMMUNE (IMMUNE)
[2017-11-24 14:10] LABS: DIPTHERIA ANTIBODY TITER 1.02 IU/mL (<0.10)
[2017-11-26 14:17] LABS: STREP PNEUMO TYPE 1 6.4 ug/mL (>1.3); STREP PNEUMO TYPE 12F <0.1 ug/mL (>1.3); STREP PNEUMO TYPE 14 2.5 ug/mL (>1.3); STREP PNEUMO TYPE 18C 1.1 ug/mL (>1.3); STREP PNEUMO TYPE 19F 5.4 ug/mL (>1.3); STREP PNEUMO TYPE 23F 1.6 ug/mL (>1.3); STREP PNEUMO TYPE 3 6.8 ug/mL (>1.3); STREP PNEUMO TYPE 4 <0.1 ug/mL (>1.3); STREP PNEUMO TYPE 6B 7.9 ug/mL (>1.3); STREP PNEUMO TYPE 7F 0.4 ug/mL (>1.3); STREP PNEUMO TYPE 8 2.5 ug/mL (>1.3); STREP PNEUMO TYPE 9N 1.4 ug/mL (>1.3); STREP PNEUMO TYPE 9V 6.8 ug/mL (>1.3)
[2017-11-27 00:07] LABS: IGE RECEPTOR ABY 1 3.2 (<10); IgG SUBCLASS 4(ONLY) 51 mg/dL (2-96)
== END ==
LOC: M LAB 17:39
DX: J32.9 Chronic sinusitis, unspecified (principal); L50.1 Idiopathic urticaria
CPT/HCPCS: 82785

== ENCOUNTER 2017-12-05 08:02 | Outpatient (CLI) | payer OTHER ==
[2017-12-05] MEDS: ONDANSETRON 4MG/2ML VIAL (J2405) IV (08:36)
[2017-12-05] MEDS: IRON SUCROSE 100 MG in NS 100 ML IV (09:02)
[2017-12-05] MEDS ORDERED: NS 500 ML IV (09:30)
== END 2017-12-05 11:15 | disposition home or self-care (01) ==
LOC: M INFU 08:02
DX: D50.9 Iron deficiency anemia, unspecified (principal); R51 Headache; K21.9 Gastro-esophageal reflux disease without esophagitis; Z79.899 Other long term (current) drug therapy; Z88.8 Allergy status to other drugs, medicaments and biological substances
CPT/HCPCS: J2405

== ENCOUNTER 2017-12-12 07:54 | Outpatient (CLI) | payer OTHER ==
[2017-12-12] MEDS: ONDANSETRON 4MG/2ML VIAL (J2405) IV (08:21)
[2017-12-12] MEDS: IRON SUCROSE 100 MG in NS 100 ML OVER 1 HR IV (08:46)
[2017-12-12] MEDS ORDERED: NS 500 ML IV (10:00)
== END 2017-12-12 11:15 | disposition home or self-care (01) ==
LOC: M INFU 07:54
DX: D50.9 Iron deficiency anemia, unspecified (principal); Z91.040 Latex allergy status; Z88.8 Allergy status to other drugs, medicaments and biological substances
CPT/HCPCS: J2405

== ENCOUNTER → 2017-12-12 | Outpatient (CLI) | payer OTHER | LOC: M LRY 17:20 | DX: J06.9 Acute upper respiratory infection, unspecified (principal) ==

== ENCOUNTER 2017-12-14 16:45 | Emergency (ER) | payer OTHER ==
[2017-12-14] MEDS: IPRATROPIUM 0.5MG/ALBUTEROL 2.5MG INH SOL UD 3ML (DUONEB)(J7620) NEB ×3 (18:22→18:31)
[2017-12-14] MEDS: NS 1,000 ML IV (18:26)
[2017-12-14 18:33] LABS: BASO # 0.1 10^3/uL (0.0-0.2); BASO % 1.7 % (0.0-1.0); EOS # 0.2 10^3/uL (0.0-0.50); EOS % 3.9 % (0.0-3.0); HEMATOCRIT 38.5 % (36.0-47.0); IMMATURE GRANULOCYTE % 0.2 % (0-3.0); LYMPH # 1.7 10^3/uL (1.5-4.5); LYMPH % 35.7 % (24.0-44.0); MEAN CORPUSCULAR HEMOGLOBIN 26.8 pg (27.0-33.0); MEAN CORPUSCULAR HGB CONC 31.2 g/dl (32.0-36.5); MEAN CORPUSCULAR VOLUME 85.9 fl (80.0-96.0); MONO # 0.5 10^3/uL (0.0-0.8); MONO % 10.3 % (0.0-5.0); NEUTROPHILS # 2.3 10^3/uL (1.8-7.7); NEUTROPHILS % 48.2 % (36.0-66.0); PLATELET COUNT, AUTOMATED 272 10^3/uL (150-450); RED BLOOD COUNT 4.48 10^6/uL (4.00-5.40); RED CELL DISTRIBUTION WIDTH 14.4 % (11.5-14.5); WHITE BLOOD COUNT 4.8 10^3/uL (4.0-10.0)
[2017-12-14 19:10] LABS: ALBUMIN 4.1 GM/DL (3.2-5.2); ALBUMIN/GLOBULIN RATIO 1.03 (1.00-1.93); ALKALINE PHOSPHATASE 72 U/L (45-117); ALT/SGPT 23 U/L (12-78); ANION GAP 8 MEQ/L (8-16); AST/SGOT 15 U/L (7-37); BILIRUBIN,DIRECT < 0.1 MG/DL (0.0-0.2); BILIRUBIN,TOTAL 0.2 MG/DL (0.2-1.0); BLOOD UREA NITROGEN 15 MG/DL (7-18); CALCIUM LEVEL 9.6 MG/DL (8.5-10.1); CARBON DIOXIDE LEVEL 30 MEQ/L (21-32); CHLORIDE LEVEL 104 MEQ/L (98-107); CK-MB VALUE MASS < 1.0 NG/ML (<3.6); CPK CREATINE PHOSPHOKINASE 86 U/L (26-192); CREATININE FOR GFR 0.79 MG/DL (0.55-1.30); GLOMERULAR FILTRATION RATE > 60.0 (>60); GLUCOSE, FASTING 90 MG/DL (70-100); MB/CK RELATIVE INDEX 1.16 (< OR =4); POTASSIUM SERUM 3.7 MEQ/L (3.5-5.1); SODIUM LEVEL 142 MEQ/L (136-145); THYROID STIMULATING HORMONE 0.819 uIU/ML (0.358-3.740); THYROXINE (T4) 10.4 UG/DL (4.5-12.0); TOTAL PROTEIN 8.1 GM/DL (6.4-8.2); TROPONIN I < 0.02 NG/ML (< 0.10)
[2017-12-14 19:30] LABS: D-DIMER QUANT 324.8 ng/ml (<500)
== END 2017-12-14 20:32 | disposition home or self-care (01) ==
LOC: M ED 16:45
DX: J98.01 Acute bronchospasm (principal); B34.9 Viral infection, unspecified; Z98.0 Intestinal bypass and anastomosis status; Z82.49 Family history of ischemic heart disease and other diseases of the circulatory system; Z91.040 Latex allergy status; Z88.8 Allergy status to other drugs, medicaments and biological substances; Z79.899 Other long term (current) drug therapy; Z86.2 Personal history of diseases of the blood and blood-forming organs and certain disorders involving the immune mechanism
CPT/HCPCS: 93005

== ENCOUNTER 2017-12-19 12:23 | Outpatient (CLI) | payer OTHER ==
[2017-12-19] MEDS: ONDANSETRON 4MG/2ML VIAL (J2405) IV (12:45)
[2017-12-19] MEDS: SODIUM CHLORIDE 0.9% 1000ML IV (12:45)
[2017-12-19] MEDS: IRON SUCROSE 100 MG in NS 100 ML IV (13:00)
== END 2017-12-19 15:30 | disposition home or self-care (01) ==
LOC: M INFU 12:23
DX: D50.9 Iron deficiency anemia, unspecified (principal); Z88.8 Allergy status to other drugs, medicaments and biological substances; Z91.040 Latex allergy status
CPT/HCPCS: J2405

== ENCOUNTER 2018-01-01 12:12 | Outpatient (CLI) | payer OTHER ==
[2018-01-01] MEDS ORDERED: NS 500 ML IV (13:00)
[2018-01-01] MEDS: ONDANSETRON 4MG/2ML VIAL (J2405) IV (13:03)
[2018-01-01] MEDS: IRON SUCROSE 100 MG in NS 100 ML OVER 1 HR IV (13:17)
== END 2018-01-01 15:30 | disposition home or self-care (01) ==
LOC: M INFU 12:12
DX: D50.9 Iron deficiency anemia, unspecified (principal); Z91.040 Latex allergy status; Z88.8 Allergy status to other drugs, medicaments and biological substances
CPT/HCPCS: J2405

== ENCOUNTER → 2018-01-25 | Outpatient (REF) | payer OTHER ==
[2018-01-25 17:50] LABS: APPEARANCE, URINE HAZY (CLEAR); BACTERIA, URINE AUTO 2+ (NEGATIVE); BILIRUBIN, URINE AUTO NEGATIVE (NEGATIVE); BLOOD, URINE BLOOD 1+ (NEGATIVE); COLOR, URINE YELLOW (YELLOW); GLUCOSE, URINE (UA) AUTO NEGATIVE (NEGATIVE); KETONE, URINE AUTO TRACE mg/dL (NEGATIVE); LEUKOCYTE ESTERASE, URINE AUTO 2+ (NEGATIVE); MUCUS, URINE MODERATE (NEGATIVE); NITRITE, URINE AUTO NEGATIVE (NEGATIVE); PROTEIN, URINE AUTO NEGATIVE (NEGATIVE); RBC, URINE AUTO 7 /HPF (0-3); SPECIFIC GRAVITY URINE AUTO 1.018 (1.002-1.035); SQUAMOUS EPITHELIAL CELL UR AU 2 /HPF (0-6); UROBILINOGEN, URINE AUTO 0.2 mg/dL (0.0-2.0); WBC, URINE AUTO 24 /HPF (0-3)
== END ==
LOC: M SMT 17:04
DX: R39.13 Splitting of urinary stream (principal)

== ENCOUNTER → 2018-02-15 | Outpatient (CLI) | payer OTHER ==
[2018-02-15 19:56] LABS: APPEARANCE, URINE HAZY (CLEAR); BACTERIA, URINE AUTO 2+ (NEGATIVE); BILIRUBIN, URINE AUTO NEGATIVE (NEGATIVE); BLOOD, URINE BLOOD NEGATIVE (NEGATIVE); COLOR, URINE YELLOW (YELLOW); GLUCOSE, URINE (UA) AUTO NEGATIVE (NEGATIVE); KETONE, URINE AUTO NEGATIVE (NEGATIVE); LEUKOCYTE ESTERASE, URINE AUTO 3+ (NEGATIVE); MUCUS, URINE SMALL (NEGATIVE); NITRITE, URINE AUTO NEGATIVE (NEGATIVE); PROTEIN, URINE AUTO NEGATIVE (NEGATIVE); RBC, URINE AUTO 8 /HPF (0-3); SPECIFIC GRAVITY URINE AUTO 1.015 (1.002-1.035); SQUAMOUS EPITHELIAL CELL UR AU 4 /HPF (0-6); UROBILINOGEN, URINE AUTO 0.2 mg/dL (0.0-2.0); WBC, URINE AUTO 18 /HPF (0-3); YEAST LIKE CELL URINE AUTO SMALL
== END ==
LOC: M LAB 19:09
DX: R30.0 Dysuria (principal)
CPT/HCPCS: 36415

== ENCOUNTER → 2018-02-15 | Outpatient (CLI) | payer OTHER ==
[2018-02-15 20:06] LABS: POTASSIUM SERUM 3.6 MEQ/L (3.5-5.1)
== END ==
LOC: M LAB 19:05
DX: L70.0 Acne vulgaris (principal)
CPT/HCPCS: 84132

== ENCOUNTER 2018-03-02 02:10 | Emergency (ER) | payer BC, OTHER ==
[2018-03-02] MEDS: NS 1,000 ML IV (03:30)
[2018-03-02] MEDS ORDERED: VECURONIUM BROMIDE 10 MG VIAL IV (04:15)
[2018-03-02 04:33] LABS: ANION GAP 6 MEQ/L (8-16); BLOOD UREA NITROGEN 21 MG/DL (7-18); CALCIUM LEVEL 7.9 MG/DL (8.5-10.1); CARBON DIOXIDE LEVEL 32 MEQ/L (21-32); CHLORIDE LEVEL 101 MEQ/L (98-107); CREATININE FOR GFR 0.74 MG/DL (0.55-1.30); GLOMERULAR FILTRATION RATE > 60.0 (>60); GLUCOSE, FASTING 92 MG/DL (70-100); POTASSIUM SERUM 3.7 MEQ/L (3.5-5.1); SODIUM LEVEL 139 MEQ/L (136-145)
[2018-03-02] MEDS: CALCIUM CARBONATE 500 MG CHEW U/D PO (05:01)
== END 2018-03-02 05:14 | disposition home or self-care (01) ==
LOC: M ED 02:10
DX: E86.0 Dehydration (principal); E83.51 Hypocalcemia; K21.9 Gastro-esophageal reflux disease without esophagitis; G35 Multiple sclerosis; K58.9 Irritable bowel syndrome, unspecified; D50.9 Iron deficiency anemia, unspecified; Z79.899 Other long term (current) drug therapy; Z88.8 Allergy status to other drugs, medicaments and biological substances; Z91.040 Latex allergy status
CPT/HCPCS: 80048

== ENCOUNTER 2018-03-07 04:16 | Day surgery (SDC) | payer BC ==
[~2018-03-07] VITALS: Ht 165.1 cm; Wt 66.4 kg
[~2018-03-07 04:16] MED LIST: AMIT10TA PO; BOTO10VL IM; CARB20TA PO; CONC36TA4 PO; FURO20TA2 PO; INTR1TAB PO; K-TA10TA2 PO; LANS30CA PO; MIDO2.5T PO; MIDRCAP PO; NADO20TA PO; NEUR300C PO; PROAAER10 INH; PROT1TAB2 PO; QUASTAB PO; SPIR100T3 PO; SUMA4INJ3 INJ; TRET0.1C19 TOP; VALA1TAB2 PO; VITA10002 PO
[2018-03-07] MEDS ORDERED: CARB20TA PO (04:22)
[2018-03-07 05:36] LABS: HEMATOCRIT 29.6 % (36.0-47.0); HEMOGLOBIN 9.5 g/dl (12.0-15.5); MEAN CORPUSCULAR HEMOGLOBIN 29.9 pg (27.0-33.0); MEAN CORPUSCULAR HGB CONC 32.1 g/dl (32.0-36.5); MEAN CORPUSCULAR VOLUME 93.1 fl (80.0-96.0); PLATELET COUNT, AUTOMATED 304 10^3/uL (150-450); RED BLOOD COUNT 3.18 10^6/uL (4.00-5.40); WHITE BLOOD COUNT 17.2 10^3/uL (4.0-10.0)
[2018-03-07 05:40] LABS: HCG, SERUM QUALITATIVE NEGATIVE (NEGATIVE)
[2018-03-07 05:52] LABS: ALBUMIN 3.3 GM/DL (3.2-5.2); ALT/SGPT 18 U/L (12-78); BILIRUBIN,DIRECT < 0.1 MG/DL (0.0-0.2); BILIRUBIN,TOTAL 0.1 MG/DL (0.2-1.0); BLOOD UREA NITROGEN 10 MG/DL (7-18); CALCIUM LEVEL 8.2 MG/DL (8.5-10.1); CARBON DIOXIDE LEVEL 28 MEQ/L (21-32); CHLORIDE LEVEL 103 MEQ/L (98-107); CREATININE FOR GFR 0.77 MG/DL (0.55-1.30); GLOMERULAR FILTRATION RATE > 60.0 (>60); GLUCOSE, FASTING 95 MG/DL (70-100); LIPASE 79 U/L (73-393); SODIUM LEVEL 140 MEQ/L (136-145); TOTAL PROTEIN 6.6 GM/DL (6.4-8.2)
[2018-03-07] MEDS ORDERED: MORPHINE 2 MG/ML 1ML SYRINGE (J2270) IV ONE (06:00)
[2018-03-07] MEDS ORDERED: NS 1,000 ML IV ONE (06:00)
[2018-03-07] MEDS ORDERED: ONDANSETRON 4MG/2ML VIAL (J2405) IV ONE ×2 (06:00→09:00)
[2018-03-07 06:09] LABS: LYMPHOCYTES 37 % (16-52); MONOCYTES 2 % (0-8); NEUTROPHILS 61 % (35-75)
[2018-03-07 06:15] LABS: ANISOCYTOSIS 1+; POLYCHROMASIA 1+
[2018-03-07 06:16] LABS: PLATELET ESTIMATE NORMAL (NORMAL)
[2018-03-07] MEDS: GASTROGRAFIN SOLUTION 30ML PO SCH (06:45)
[2018-03-07] MEDS ORDERED: ISOVUE-370 76% 100ML VIAL (Q9967) As Ordered ONE (07:40)
--- NOTE | 2018-03-07 08:27 | REPVR ---
EXAM: CT Abdomen and Pelvis With Contrast EXAM DATE/TIME: 03/07/18 (5:59am) CLINICAL HISTORY: 32 year old female with RLQ pain TECHNIQUE: Axial computed tomography images of the abdomen and pelvis with intravenous contrast. All CT scans at this facility use at least one of these dose optimization techniques: automated exposure control; mA and/or kV adjustment per patient size (includes targeted exams where dose is matched to clinical indication); or iterative reconstruction. Coronal and sagittal reformatted images were created and reviewed. CONTRAST: 100 ml of Isovue 370 administered intravenously COMPARISON: US PELVIS of 12/02/14 FINDINGS: Lower thorax: No acute findings. No pleural effusions. ABDOMEN: Liver: Normal. No solid mass. Gallbladder and bile ducts: Normal. No calcified stones. No ductal dilatation. Pancreas: Normal. No ductal dilatation. Spleen: Normal. No splenomegaly. Adrenals: Normal. No mass. Kidneys and ureters: Normal. No hydronephrosis. Stomach and bowel: Distended stomach, filled with oral contrast, food debris and air. No bowel obstruction. No mucosal thickening. Appendix: Distended, inflamed appendix, with a large appendicolith (6 mm size) at its origin. Additional smaller appendicoliths noted more distally in the dilated appendix. its origin PELVIS: Bladder: Distended urinary bladder. No mass nor stones. Reproductive: Unremarkable as visualized. ABDOMEN and PELVIS: Intraperitoneal space: Normal. No free air. No significant fluid collection. Bones/joints: No acute fracture nor dislocation. Soft tissues: Unremarkable. Vasculature: Normal. No abdominal aortic aneurysm. Lymph nodes: Normal. No enlarged lymph nodes. IMPRESSION: Findings compatible with acute nonperforated appendicitis. Appendicoliths are present. No abscess. No free air. No bowel obstruction. Electronically signed by: Liz Mayer On 03/07/2018 08:27:09 AM
[2018-03-07] MEDS: MORPHINE 4 MG/ML 1ML VIAL/SYRINGE (J2270) IV PRN ×2 (08:57→11:44)
[2018-03-07] MEDS ORDERED: PIPERACILLIN/TAZOBACTAM SOD 3.375 GM in D5W MINI-BAG PLUS 50 ML IV ONE (09:00)
[2018-03-07] MEDS ORDERED: KCL 10MEQ/100ML SWI (KRUN) 10 MEQ in APPROPRIATE DILUENT 1 EA IV ONE (09:00)
[2018-03-07] MEDS ORDERED: ESOM1CAP5 PO (09:37)
[2018-03-07] MEDS ORDERED: CEFD1CAP8 PO (09:37)
[2018-03-07] MEDS ORDERED: TRUL3TAB PO (09:37)
[2018-03-07] MEDS ORDERED: VENTAER INH (09:41)
[2018-03-07] MEDS ORDERED: MONT10TA2 PO (09:41)
[2018-03-07] MEDS ORDERED: RANI15TA PO (09:41)
[2018-03-07] MEDS ORDERED: ERYT25CAEC PO (09:55)
[2018-03-07] MEDS ORDERED: LEVOTAB10 PO (10:00)
[2018-03-07] MEDS ORDERED: NS 1,000 ML IV SCH (10:45)
[2018-03-07] MEDS ORDERED: ROCURONIUM BROMIDE 50 MG/5 ML VIAL ONE (12:01)
[2018-03-07] MEDS ORDERED: PROPOFOL 200 MG/20 ML VIAL ONE (12:01)
[2018-03-07] MEDS ORDERED: SUGAMMADEX SODIUM 500 MG/5 ML VIAL (BRIDION) ONE (12:01)
[2018-03-07] MEDS ORDERED: KETOROLAC 60 MG/2 ML VIAL (J1885) ONE (12:01)
[2018-03-07] MEDS ORDERED: ONDANSETRON 4MG/2ML VIAL (J2405) ONE (12:01)
[2018-03-07] MEDS ORDERED: dexameTHASONE 4 MG/ML 1ML VIAL (J1100) ONE (12:01)
[2018-03-07] MEDS ORDERED: LIDOCAINE 2% INJ 100 MG/5 ML SDV (FOR ANES.) ONE (12:01)
--- NOTE | 2018-03-07 14:37 | REP ---
Chest two views HISTORY: Chest pain Comparison: 04/18/2015 There is tenting of the left hemidiaphragm consistent with scarring. The lungs are clear. The heart is normal in size. The pulmonary vasculature is normal in appearance. The bony structure is intact. IMPRESSION: No acute disease. Electronically Signed by Salvatore Liang MD 03/07/2018 02:29 P
[2018-03-07] MEDS ORDERED: MORPHINE 2 MG/ML 1ML SYRINGE (J2270) As Ordered ONE (14:44)
[2018-03-07] MEDS ORDERED: ZOSYN 3.375 GM VIAL (J2543) As Ordered ONE (14:44)
[2018-03-07] MEDS ORDERED: ONDANSETRON 4MG/2ML VIAL (J2405) IV PRN (14:45)
[2018-03-07] MEDS ORDERED: ONDANSETRON 4MG/2ML VIAL (J2405) As Ordered ONE (14:45)
[2018-03-07] MEDS ORDERED: MORPHINE 4 MG/ML 1ML VIAL/SYRINGE (J2270) IV PRN ×3 (14:45→17:30)
[2018-03-07] MEDS ORDERED: PIPERACILLIN/TAZOBACTAM SOD 3.375 GM in D5W MINI-BAG PLUS 50 ML IV SCH ×2 (15:00→18:00)
[2018-03-07] MEDS ORDERED: LR 1,000 ML IV SCH ×2 (15:15→18:00)
[2018-03-07] MEDS ORDERED: BUPIVACAINE/EPIN 0.25% 30 ML VIAL As Ordered ONE (15:53)
[2018-03-07] MEDS ORDERED: MIDAZOLAM INJ 2 MG/2 ML VIAL (J2250) ONE (15:55)
[2018-03-07] MEDS ORDERED: fentaNYL 100 MCG/2 ML INJECTION (J3010) ONE ×2 (15:56→17:04)
[2018-03-07] MEDS ORDERED: fentaNYL 100 MCG/2 ML INJECTION (J3010) As Ordered ONE (17:29)
[2018-03-07] MEDS ORDERED: PROMETHAZINE INJ 25 MG/ML VIAL (J2550) IV PRN (17:30)
[2018-03-07] MEDS ORDERED: KETOROLAC 30 MG/ML VIAL (J1885) IV PRN (17:30)
[2018-03-07] MEDS ORDERED: NORCO, ANEXSIA 5/325MG TABLET (HYDROcodone/ACETAMINOPHEN) PO PRN (18:00)
[2018-03-07] MEDS ORDERED: fentaNYL 100 MCG/2 ML INJECTION (J3010) IV PRN (18:00)
[2018-03-07] MEDS: PERCOCET 5MG/325MG TAB PO PRN ×2 (18:05→19:50)
[2018-03-07] MEDS: ONDANSETRON 4MG/2ML VIAL (J2405) IV PRN (18:06)
[2018-03-07 18:26] VITALS: BP 125/73
[2018-03-07] MEDS: D5W/LR 1,000 ML IV SCH (18:54)
[2018-03-07 19:00] VITALS: BP 132/77
[2018-03-07 19:30] VITALS: BP 116/61
[2018-03-07 20:30] VITALS: BP 112/61
[2018-03-07] MEDS: PIPERACILLIN/TAZOBACTAM SOD 3.375 GM in D5W MINI-BAG PLUS 50 ML IV SCH (20:41)
[2018-03-07 21:30] VITALS: BP 103/62
[2018-03-07 22:30] VITALS: BP 110/68
[2018-03-08 02:00] VITALS: BP 103/52
[2018-03-08] MEDS: PIPERACILLIN/TAZOBACTAM SOD 3.375 GM in D5W MINI-BAG PLUS 50 ML IV SCH ×4 (03:05→20:47)
[2018-03-08] MEDS: D5W/LR 1,000 ML IV SCH ×2 (03:05→14:28)
[2018-03-08] MEDS: PERCOCET 5MG/325MG TAB PO PRN ×4 (03:06→20:48)
[2018-03-08 06:00] VITALS: BP 102/66
[2018-03-08] MEDS: ONDANSETRON 4MG/2ML VIAL (J2405) IV PRN ×2 (08:51→20:47)
[2018-03-08 10:00] VITALS: BP 97/57
[2018-03-08] MEDS: KETOROLAC 30 MG/ML VIAL (J1885) IV SCH ×2 (11:52→17:16)
[2018-03-08 14:00] VITALS: BP 96/54
[2018-03-08] MEDS ORDERED: PERCOCET PO (15:36)
[2018-03-08] MEDS ORDERED: AMOX500T2 PO (15:36)
--- NOTE | 2018-03-08 15:36 | RO ---
DATE OF PROCEDURE: 03/07/2018 PREOPERATIVE DIAGNOSIS: Acute appendicitis. POSTOPERATIVE DIAGNOSIS: Acute appendicitis. PROCEDURE: Laparoscopic appendectomy. SURGEON: Micah Alan MD ANESTHESIA: General endotracheal anesthesia. ESTIMATED BLOOD LOSS: Minimal. FLUIDS: Crystalloid. BRIEF OPERATIVE SUMMARY: The patient was taken operating room and was given general anesthesia. After adequate anesthesia and preoperative antibiotics were given the patient was prepped and draped in sterile fashion. Next, a supraumbilical incision was made with skin knife. Blunt dissection was carried down to fascia. Fascia was grasped with Stephanie clamps, elevated and Veress needle placed into the abdominal cavity insufflated to 15 mm of pressure. A dilating 12 mm trocar was placed at this time and under direct visualization a suprapubic left lower quadrant 5 mm trocars were placed. Next, the patient was placed in Trendelenburg position left side down and the appendix was seen mobilized off the right pelvic wall using blunt dissection and harmonic scalpel. The base of the appendix was cleared of surrounding mesentery and that is mesoappendix was taken down with the harmonic scalpel. Once this was mobilized adequately the FERMIN endoscopic blue load was used to transect the base of the appendix. The appendix was placed in an EndoCatch bag brought out through the umbilicus. Right lower quadrant was copiously irrigated until clear. Staple line and right lower quadrant was clean, dry without any drainage or perforation. All her trocars were removed under direct visualization. #0 Vicryl was used close the fascia at the umbilicus and all incisions were used were closed with #4-0 Vicryl. Steri-Strips and a dry sterile dressing was applied. The patient was awakened, extubated, brought to recovery room, awake, alert and hemodynamically stable. Sponge and needle counts correct times two.
--- NOTE | 2018-03-08 15:48 | HPE ---
DATE: 03/07/2018 PRINCIPAL DIAGNOSIS: Appendicitis. BRIEF HISTORY OF PRESENT ILLNESS: The patient is a 32-year-old female who presents with right lower quadrant pain for 24 hours initially was feeling poorly over several days but noticed that really within the last 12 days that she has had some right lower quadrant pain that was acute in onset. She has had some sinus infections and treatment for this and she has been recently treated with some steroids for questionable MS diagnosis. In any case, presents with his right lower quadrant pain without diarrhea, without nausea, without vomiting. PAST MEDICAL HISTORY: Her past medical history is significant for history of attention deficit disorder, chronic headaches, irritable bowel syndrome (IBS), esophageal reflux, allergic rhinitis, hematuria, gastroparesis, gastritis, history of gastric ulcers, Humberto-Danlos syndrome, postural orthostatic tachycardia syndrome, hyperhidrosis of axilla. MEDICATIONS: Medications include the following: albuterol, Tegretol, vitamin B12, erythromycin, Concerta, montelukast, nadolol, ranitidine, spironolactone, and valacyclovir. PHYSICAL EXAMINATION: Reveals a 32-year-old female who looks older than stated age. HEENT is unremarkable. Neck: Supple without adenopathy. Lungs: Are clear to auscultation without crackles, wheezes or rhonchi. Heart is regular without murmur. Abdomen: Softly distended, tender in the right lower quadrant with guarding, rebound, and without peritoneal signs. Extremities: Warm and well-perfused. IMPRESSION AND PLAN: The patient has evidence of appendicitis on CAT scan, evidence of right lower quadrant pain with elevated white count, all consistent with acute appendicitis. Does not appear to have perforation at this time. We will plan with proceeding with laparoscopic appendectomy. Risks as well as benefits have been discussed with her and she would like to proceed with this as soon as possible.
[2018-03-08 18:00] VITALS: BP 114/68
[2018-03-08 22:00] VITALS: BP 100/53
[2018-03-09] MEDS: KETOROLAC 30 MG/ML VIAL (J1885) IV SCH ×4 (00:11→18:00)
[2018-03-09 02:00] VITALS: BP 103/51
[2018-03-09] MEDS: PIPERACILLIN/TAZOBACTAM SOD 3.375 GM in D5W MINI-BAG PLUS 50 ML IV SCH ×3 (03:52→15:35)
[2018-03-09 06:00] VITALS: BP 112/58
[2018-03-09] MEDS: ONDANSETRON 4MG/2ML VIAL (J2405) IV PRN (09:17)
[2018-03-09 10:00] VITALS: BP 98/61
[2018-03-09 14:00] VITALS: BP 107/59
[2018-03-09] MEDS: PERCOCET 5MG/325MG TAB PO PRN (17:59)
--- NOTE | 2018-03-10 10:55 | IPN ---
DATE: 03/09/2018 HISTORY: The patient is now postop day 2 from a laparoscopic appendectomy for appendicitis. Dr. Alan did not feel she was ready for discharge yesterday and she is here today with the expectation that she would likely be ready for discharge home. She reports little pain and has been tolerating a diet. Vital signs show that she has been afebrile with the exception of a single low grade temperature to 100.2 this morning. Her pulse and blood pressure are good. Intake and output: She had 1420 of oral intake yesterday with an excellent urine output and she has an adequate intake and urine output today. PHYSICAL EXAMINATION: The patient is a thin woman lying quietly in the hospital bed. She is alert and oriented. She denies significant pain currently. She has had some mild nausea. Heart exam reveals a regular rate and rhythm. The lungs are clear. The abdomen shows active bowel sounds. Her small Tegaderm covered dressings remain intact with no staining. The abdomen is soft without undue tenderness. LABORATORY STUDIES: The patient has no new labs today. IMPRESSION: The patient is doing very well now two days postop from her laparoscopic appendectomy. She has been tolerating a diet well. She has had some mild nausea, which may well be related to her pain medication. PLAN: The patient will be discharged home today as anticipated by Dr. Alan. He had already sent in prescriptions for Percocet and for an antibiotic. She should follow up in his office. She can take a diet as tolerated and shower when she sees fit.
--- NOTE | 2018-03-27 11:24 | DSES ---
DATE OF ADMISSION: 03/07/2018 DATE OF DISCHARGE: 03/09/2018 PRINCIPAL DIAGNOSIS: Acute appendicitis. ASSOCIATED DIAGNOSES: History of attention deficit disorder. History of chronic headaches. History of irritable bowel syndrome. History of gastroesophageal reflux. History of allergic rhinitis. History of hematuria. Gastroparesis. Gastritis. History of gastric ulcers. History of Humberto-Danlos syndrome. History of postural orthostatic tachycardia syndrome. BRIEF HISTORY OF PRESENT ILLNESS: The patient is a 32-year-old female with right lower quadrant pain, for 24 hours prior to admission. Developed increasing pain and discomfort over the last 12 hours prior to admission. She was seen in the emergency room with an elevated white count and evidence of appendicitis on CT scan. HOSPITAL COURSE SUMMARY: The patient was admitted with the above diagnosis. She was taken to the operating room where she underwent laparoscopic appendectomy and tolerated the procedure quite well. Postoperatively the patient did well, had some postoperative discomfort and pain that eventually improved by the time of discharge and was discharged home on her usual medications, which include albuterol, Tegretol, vitamin B12, Nexium, Introvale, Prevacid, levocetirizine, hydrochloride, Concerta montelukast, Trulance, Zantac, and sumatriptan. She was discharged to home with instruction to follow-up in my office in 2 weeks, or sooner if there is any question, concerns, fevers or chills. Otherwise, will follow-up with her primary care provider for her numerous multiple medical issues as well.
== END 2018-03-09 18:32 | disposition home or self-care (01) ==
LOC: M ED 04:16 → M SDC 12:00 → M MSPAV 18:30 → M SDC 03-09 18:32
PROVIDERS: ATTEND Surgery
DX: K35.890 Other acute appendicitis without perforation or gangrene (principal); K58.8 Other irritable bowel syndrome; K21.9 Gastro-esophageal reflux disease without esophagitis; Q79.6 Ehlers-Danlos syndromes; Z79.899 Other long term (current) drug therapy; F90.9 Attention-deficit hyperactivity disorder, unspecified type
CPT/HCPCS: 44970; 71046; 74177; 80048; 80076; 81001; 83690; 84703; 85025; 88302; 96361; 96365; 96366; 96375; 96376; 99284; J1100; J1885; J2250; J2270; J2405; J2543; J3010; Q9963; Q9967

== ENCOUNTER 2018-03-14 14:15 | Inpatient (IN) | payer BC ==
[~2018-03-14] VITALS: Ht 165.1 cm; Wt 62.2 kg
[~2018-03-14 14:15] MED LIST changes: +AMOX500T2 PO; +CEFD1CAP8 PO; +ERYT25CAEC PO; +ESOM1CAP5 PO; +LEVOTAB10 PO; +MONT10TA2 PO; +PERCOCET PO; +RANI15TA PO; +TRUL3TAB PO; +VENTAER INH
[2018-03-14] MEDS ORDERED: NS 1,000 ML IV ONE ×2 (14:45→16:00)
[2018-03-14 15:08] LABS: BASO % 0.4 % (0.0-1.0); HEMATOCRIT 34.3 % (36.0-47.0); HEMOGLOBIN 11.1 g/dl (12.0-15.5); LYMPH # 0.6 10^3/uL (1.5-4.5); LYMPH % 8.5 % (24.0-44.0); MEAN CORPUSCULAR HEMOGLOBIN 29.1 pg (27.0-33.0); MEAN CORPUSCULAR HGB CONC 32.4 g/dl (32.0-36.5); MONO # 0.1 10^3/uL (0.0-0.8); MONO % 1.2 % (0.0-5.0); NEUTROPHILS # 6.2 10^3/uL (1.8-7.7); NEUTROPHILS % 89.6 % (36.0-66.0); PLATELET COUNT, AUTOMATED 437 10^3/uL (150-450); RED BLOOD COUNT 3.81 10^6/uL (4.00-5.40)
--- NOTE | 2018-03-14 15:26 | REP ---
Portable chest x-ray: Single view. History: Chest pain. Comparison study: March 07, 2018. Findings: There is slight tenting of the left hemidiaphragm again noted unchanged from several prior studies. The lungs are well inflated and otherwise clear. Pleural angles are sharp. Cardiomediastinal silhouette is unremarkable. EKG monitoring electrodes overlie the chest. Impression: No active disease. Electronically Signed by Tc James MD 03/14/2018 03:18 P
[2018-03-14 15:27] LABS: INR 1.01; PROTHROMBIN TIME 13.4 SECONDS (12.1-14.4)
[2018-03-14 15:28] LABS: PARTIAL THROMBOPLASTIN TIME 26.4 SECONDS (25.4-37.6)
[2018-03-14 15:45] LABS: HCG, SERUM QUALITATIVE NEGATIVE (NEGATIVE)
[2018-03-14 15:49] LABS: ALT/SGPT 18 U/L (12-78); BILIRUBIN,DIRECT < 0.1 MG/DL (0.0-0.2); BILIRUBIN,TOTAL 0.3 MG/DL (0.2-1.0); BLOOD UREA NITROGEN 19 MG/DL (7-18); CALCIUM LEVEL 9.4 MG/DL (8.5-10.1); CARBON DIOXIDE LEVEL 27 MEQ/L (21-32); CHLORIDE LEVEL 99 MEQ/L (98-107); CK-MB VALUE MASS < 1.0 NG/ML (<3.6); CPK CREATINE PHOSPHOKINASE 30 U/L (26-192); CREATININE FOR GFR 1.08 MG/DL (0.55-1.30); GLOMERULAR FILTRATION RATE > 60.0 (>60); GLUCOSE, FASTING 137 MG/DL (70-100); LIPASE 75 U/L (73-393); MB/CK RELATIVE INDEX 3.33 (< OR =4); POTASSIUM SERUM 3.3 MEQ/L (3.5-5.1); SODIUM LEVEL 138 MEQ/L (136-145); THYROID STIMULATING HORMONE 0.349 uIU/ML (0.358-3.740); TOTAL PROTEIN 7.9 GM/DL (6.4-8.2); TROPONIN I < 0.02 NG/ML (< 0.10)
[2018-03-14] MEDS ORDERED: ISOVUE-370 76% 100ML VIAL (Q9967) As Ordered ONE (16:14)
--- NOTE | 2018-03-14 16:35 | REP ---
CT pulmonary angiogram: With IV contrast. History: Tachycardia. Comparison studies: Comparison CT pulmonary angiogram September 08, 2013. Contrast dose: 100 cc's of Isovue [address] technique: Helical scanning is acquired and overlapping 1.5 mm and contiguous 3 mm axial images are reformatted. In addition, maximum intensity projection and multiplanar re-formation images are generated in sagittal and coronal imaging projections. CT pulmonary angiographic findings: There is good opacification of the pulmonary arterial tree. There is no CT evidence of pulmonary embolus. Maximal intensity projection images show no vessel cutoff or filling defect. The thoracic aorta enhances homogeneously and it is normal in course and caliber. There is no evidence of aneurysm or dissection. No hilar or mediastinal mass or adenopathy is observed. The lung sanchez are clear. No pleural or pericardial effusion is seen. Bone window settings show no fracture or other acute bony abnormality. Impression: No CT evidence of pulmonary embolus. Normal CT pulmonary angiogram with IV contrast. Electronically Signed by Tc James MD 03/14/2018 04:27 P
--- NOTE | 2018-03-14 17:14 | REP ---
CT abdomen and pelvis with IV but without oral contrast: History: Tachycardia. CT contrast dose: 100 ml of intravenous Isovue [address] findings: Digital preliminary side seam machine operator radiograph is unremarkable. The liver and the spleen are normal in size homogeneous in texture. No adrenal lesion is seen. The pancreas is unremarkable. No gallbladder abnormality is observed. The kidneys enhance symmetrically and are morphologically intact. No hydronephrosis is seen. No retroperitoneal mass or adenopathy is observed. The appendix is surgically absent. The urinary bladder is moderately distended at the time of CT scanning. No uterine or ovarian abnormality is seen. Small and large intestinal bowel loops are normal in the pelvis. Impression: The urinary bladder is moderately distended at the time of scanning. Otherwise negative CT study of the abdomen and pelvis with IV contrast. The appendix is surgically absent. Electronically Signed by Tc James MD 03/14/2018 06:21 P
[2018-03-14 19:14] LABS: CK-MB VALUE MASS < 1.0 NG/ML (<3.6); CPK CREATINE PHOSPHOKINASE 28 U/L (26-192); MB/CK RELATIVE INDEX 3.57 (< OR =4); TROPONIN I < 0.02 NG/ML (< 0.10)
[2018-03-14] MEDS ORDERED: NADOLOL 20MG TABLET PO ONE (20:00)
[2018-03-14] MEDS ORDERED: NADOLOL 20MG TABLET PO SCH (21:00)
[2018-03-14] MEDS ORDERED: BISACODYL 5 MG TAB PO PRN (21:30)
[2018-03-14] MEDS ORDERED: BISACODYL 10 MG SUPP PR PRN (21:30)
[2018-03-14] MEDS ORDERED: POTASSIUM CHLORIDE 10 MEQ SR TABLET PO ONE (21:45)
[2018-03-14] MEDS ORDERED: MAGNESIUM OXIDE 400 MG TAB (MAG-OX) PO ONE (21:45)
--- NOTE | 2018-03-14 21:53 | HPEPDOC ---
[facility] Medical History & Physical Date of Admission Mar 14, 2018 Attending Physician: KATHRYN BAY MD History and Physical CHIEF COMPLAINT: [Palpitation] HISTORY OF PRESENT ILLNESS: [31-year-old female with significant past medical history of postural orthostatic tachycardia syndrome seeing a oil lease broker in [place], ADHD, chronic in a, IBS, GERD, history of gastric ulcer, gastroparesis, gastritis who presented complaining at palpitation, chest discomfort, dizziness, weakness, blurry vision, that seems to worsen with ambulation. Patient was evaluated in emergency room and noted to have heart rate of 170. Patient was given increased propanolol with decrease in heart rate into the 110s with improvement of her symptoms. Patient denies any prodrome illness prior to this. Patient denies of smoking, drinking, drug abuse, denies of any caffeine, tea, or energy drink use . Patient also denies of any preceding fact ors or any worsening pain from her recent appendix surgery. Patient was evaluated in the emergency room without significant finding on the CTA of the chest and CT abdomen. Patient had serial cardiac enzyme 2 negative. Surprisingly her lactic was elevated initially but normalized. Patient is being admitted for further evaluation and monitoring along with cardiology consult in the morning either in-house or via phone with patients own oil lease broker at [place]. Review system: 12 point review systems negative other than those described in HPI Past medical history: ADHD, chronic headaches, irritable bowel syndrome (IBS), and GERD, allergic rhinitis, hematuria, gastroparesis, gastritis, history of gastric ulcers, Humberto-Danlos syndrome, postural orthostatic tachycardia syndrome, hyperhidrosis of axilla. Surgical history: Appendectomy March 07 of this year Social history: Patient denies of smoking, drinking, drug abuse, denies of any caffeine, tea, or energy drink use Family medical history: Father has some cholesterol assuring glaucoma, mother has hypertension ALLERGIES: Please see below. HOME MEDICATIONS: Please see below. PHYSICAL EXAMINATION: VITAL SIGNS: Please see below GENERAL APPEARANCE: Resting comfortably HEENT: Normocephalic, PERRLA, Mucous moist, CARDIOVASCULAR: S1,S2, pulse present, tachycardia LUNGS: Equal air entry b/l, no wheezes or crackle ABDOMEN: Soft, BS present, no tenderness, no guarding GENITOURINARY: No [place] EXTREMITIES: B/L no edema, capillary refill present SKIN: Warm, No fever NEUROLOGICAL: Cranial nerves grossly intact PSYCHIATRIC: Normal mood and affect for current situation, father at the bedside EKG: Heart rate of 133, sinus tachycardia LABORATORY DATA: See below. IMAGING: [CXR: No active disease. CTA chest: No CT evidence of pulmonary embolus. Normal CT pulmonary angiogram with IV contrast. CT abd/pelvis: The urinary bladder is moderately distended at the time of scanning. Otherwise negative CT study of the abdomen and pelvis with IV contrast. The appendix is surgically absent.] MICROBIOLOGY: Please see below. Assessment and plan: 31-year-old female with significant past medical history of postural orthostatic tachycardia syndrome seeing a oil lease broker in [place], ADHD, chronic in a, IBS, GERD, history of gastric ulcer, gastroparesis, gastritis who presented complaining at palpitation, chest discomfort, dizziness, weakness, blurry vision, that seems to worsen with ambulation. Sinus tachycardia, etiology unknown at this time and history of positional orthostatic tachycardia syndrome, Hypokalemia and low-dose TSH likely contributing Extra dose of propanolol given in the ER Telemetry, electrolyte replacement, electrolyte monitoring Cardiology consult in a.m. either in-house or via phone with patients own oil lease broker in [place] if no improvement overnight, defer to a.m. team Urine toxicology testing Resume nodolol, spironolactone Hold methylphenidate Recent appendectomy Resume Augmentin and oxycodone Resume essential medication but hold nonessential medicine including any stimulants DVT prophylaxis with heparin subcutaneous and early ambulation Vital Signs Vital Signs Date Time Temp Pulse Resp B/P (MAP) Pulse Ox O2 Delivery O2 Flow Rate FiO2 03/14/18 20:50 115 18 121/81 (94) 96 Room Air 03/14/18 14:16 97.7 Laboratory Data Labs 24H Laboratory Tests 2 03/14/18 14:45: Immature Granulocyte % (Auto) 0.3, White Blood Count 7.0, Red Blood Count 3.81L, Hemoglobin 11.1L, Hematocrit 34.3L, Mean Corpuscular Volume 90.0, Mean Corpuscular Hemoglobin 29.1, Mean Corpuscular Hemoglobin Concent 32.4, Red Cell Distribution Width 13.9, Platelet Count 437, Neutrophils (%) (Auto) 89.6H, Lymphocytes (%) (Auto) 8.5L, Monocytes (%) (Auto) 1.2, Eosinophils (%) (Auto) 0.0, Basophils (%) (Auto) 0.4, Neutrophils # (Auto) 6.2, Lymphocytes # (Auto) 0.6L, Monocytes # (Auto) 0.1, Eosinophils # (Auto) 0.0, Basophils # (Auto) 0.0, Nucleated Red Blood Cells % (auto) 0.0, Prothrombin Time 13.4, Prothromb Time International Ratio 1.01, Activated Partial Thromboplast Time 26.4, Anion Gap 12, Glomerular Filtration Rate > 60.0, Lactic Acid Level 4.2*H, Calcium Level 9.4, Aspartate Amino Transf (AST/SGOT) 12, Alanine Aminotransferase (ALT/SGPT) 18, Alkaline Phosphatase 51, Total Bilirubin 0.3, Direct Bilirubin < 0.1, Total Creatine Kinase 30, Creatine Kinase MB < 1.0, Creatine Kinase MB Relative Index 3.33, Troponin I < 0.02, Total Protein 7.9, Albumin 4.0, Albumin/Globulin Ratio 1.03, Lipase 75, Thyroid Stimulating Hormone (TSH) 0.349L, Free Thyroxine 1.00, Human Chorionic Gonadotropin, Qual NEGATIVE 03/14/18 16:24: Urine Color COLORLESS, Urine Appearance CLEAR, Urine pH 7.0, Urine Specific [employer] 1.004, Urine Protein NEGATIVE, Urine Glucose (UA) NEGATIVE, Urine Ketones NEGATIVE, Urine Blood 1+H, Urine Nitrite NEGATIVE, Urine Bilirubin NEGATIVE, Urine Urobilinogen 0.2, Urine Leukocyte Esterase NEGATIVE, Urine WBC (Auto) 0, Urine RBC (Auto) 1, Urine Hyaline Casts (Auto) 6, Urine Bacteria (Auto) NEGATIVE, Urine Squamous Epithelial Cells 1, Urine Mucus (Auto) SMALL, Urine Sperm (Auto) 03/14/18 18:33: Total Creatine Kinase 28, Creatine Kinase MB < 1.0, Creatine Kinase MB Relative Index 3.57, Troponin I < 0.02 03/14/18 18:50: Lactic Acid Level 1.5 CBC/BMP Laboratory Tests 03/14/18 14:45 Red Blood Count 3.81 L, Mean Corpuscular Volume 90.0, Mean Corpuscular Hemoglobin 29.1, Mean Corpuscular Hemoglobin Concent 32.4, Red Cell Distribution Width 13.9, Neutrophils (%) (Auto) 89.6 H, Lymphocytes (%) (Auto) 8.5 L, Monocytes (%) (Auto) 1.2, Eosinophils (%) (Auto) 0.0, Basophils (%) (Auto) 0.4, Neutrophils # (Auto) 6.2, Lymphocytes # (Auto) 0.6 L, Monocytes # (Auto) 0.1, Eosinophils # (Auto) 0.0, Basophils # (Auto) 0.0 Microbiology Microbiology 03/14/18 Blood Culture, Received Pending 03/14/18 Blood Culture, Received Pending Home Medications Scheduled (Introvale 0.15-0.03 mg) 1 Tab Tab, 1 TAB PO DAILY (Esomeprazole Magnesium) 40 Mg Cap, 40 MG PO BID Amoxicillin/Clavulanate Potas (Amoxicillin/Clavulanate P 500-125 mg) 1 Tab Tab, 1 TAB PO BID STARTED 03/08/2018 Botulinum Toxin Type A (Botox) Unknown Strength Soln, Unknown Dose IM [id number] EVERY TWO MONTHS, LAST INJ 01/18/2018 Carbamazepine (TEGretol) 200 Mg Tab, 200 MG PO BID Cyanocobalamin (Vitamin B-12) 1,000 Mcg Tab, 1,000 MCG PO DAILY Erythromycin (Erythromycin) 250 Mg Cap, 250 MG PO ASDIRECTED USES NEEDED Lansoprazole (Lansoprazole) 30 Mg Cap, 30 MG PO BID Levocetirizine Hydrochloride (Levocetirizine Dihydrochl) 5 Mg Tab, 5 MG PO QHS Methylphenidate HCl (Concerta) 36 Mg Tab, 36 MG PO DAILY Montelukast Sodium (Montelukast Sodium) 10 Mg Tab, 10 MG PO QHS Nadolol (Nadolol) 20 Mg Tab, 20 MG PO BID Plecanatide (Trulance) 3 Mg Tab, 3 MG PO DAILY Ranitidine Hcl (Zantac) 150 Mg Tab, 1 TAB PO BID Spironolactone (Spironolactone) 100 Mg Tab, 100 MG PO QHS Tretinoin (Tretinoin) 0.1 % Cre, 1 APLCT TOP QHS Valacyclovir HCl (Valacyclovir HCl) 1 Gm Tab, 1 GM PO ASDIRECTED USES NEEDED Scheduled PRN Albuterol Sulfate (Ventolin Hfa) 108 Mcg/Act Aer, 2 PUFFS INH Q4-6HP PRN for SHORTNESS OF BREATH Oxycodone/Acetaminophen (Percocet 5-325 mg) 1 Tab Tab, 2 TAB PO Q4H PRN for PAIN Sumatriptan Succinate (Sumatriptan Succinate) 4 Mg/0.5 Ml Inj, 1 DOSE INJ PRN PRN for MIGRAINE Allergies Coded Allergies: Latex (Verified Allergy, Unknown, 08/28/17) Lubiprostone (Verified Allergy, Unknown, 08/28/17) Metoclopramide (Verified Allergy, Unknown, 08/28/17) RAJINDER EASLEY MD Mar 14, 2018 21:53
[2018-03-14] MEDS ORDERED: AMOX500T2 PO (22:12)
[2018-03-14] MEDS ORDERED: PERC5TAB12 PO (22:12)
[2018-03-14] MEDS ORDERED: PERCOCET 5MG/325MG TAB PO PRN (23:15)
[2018-03-15] MEDS: FAMOTIDINE 20 MG TAB PO SCH ×3 (00:22→21:00)
[2018-03-15] MEDS: carBAMazepine 200 MG TAB PO SCH ×3 (00:23→21:00)
[2018-03-15] MEDS: SPIRONOLACTONE 50 MG TAB PO SCH ×2 (00:23→21:00)
[2018-03-15] MEDS: AUGMENTIN 500 MG TAB PO SCH ×2 (01:34→09:15)
[2018-03-15 05:57] LABS: HEMATOCRIT 32.7 % (36.0-47.0); HEMOGLOBIN 10.6 g/dl (12.0-15.5); MEAN CORPUSCULAR HEMOGLOBIN 28.9 pg (27.0-33.0); MEAN CORPUSCULAR HGB CONC 32.4 g/dl (32.0-36.5); MEAN CORPUSCULAR VOLUME 89.1 fl (80.0-96.0); PLATELET COUNT, AUTOMATED 422 10^3/uL (150-450); RED BLOOD COUNT 3.67 10^6/uL (4.00-5.40); WHITE BLOOD COUNT 12.6 10^3/uL (4.0-10.0)
[2018-03-15 06:24] LABS: BLOOD UREA NITROGEN 13 MG/DL (7-18); CARBON DIOXIDE LEVEL 31 MEQ/L (21-32); CHLORIDE LEVEL 100 MEQ/L (98-107); CREATININE FOR GFR 0.71 MG/DL (0.55-1.30); GLOMERULAR FILTRATION RATE > 60.0 (>60); GLUCOSE, FASTING 109 MG/DL (70-100); MAGNESIUM LEVEL 2.4 MG/DL (1.8-2.4); POTASSIUM SERUM 3.9 MEQ/L (3.5-5.1); SODIUM LEVEL 139 MEQ/L (136-145)
[2018-03-15] MEDS: HEPARIN SOD (PORCINE) 5000 UNITS/ML VIAL SC SCH ×3 (06:50→22:00)
[2018-03-15] MEDS: ACETAMINOPHEN TAB 650MG DOSE (2X325MG) PO PRN ×2 (06:51→18:43)
[2018-03-15 08:00] VITALS: BP 121/84
[2018-03-15] MEDS ORDERED: NADOLOL 20MG TABLET PO SCH (09:00)
[2018-03-15] MEDS: CYANOCOBALAMIN 500 MCG TAB PO SCH (09:14)
[2018-03-15] MEDS: PANTOPRAZOLE 40MG TAB (PROTONIX) PO SCH (09:14)
--- NOTE | 2018-03-15 11:07 | ECGEPIP ---
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
--- NOTE | 2018-03-15 11:20 | ECGEPIP ---
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
[2018-03-15 12:00] VITALS: BP 118/72
[2018-03-15] MEDS ORDERED: ERYTHROMYCIN 250 MG TABLET PO PRN (15:30)
[2018-03-15 16:00] VITALS: BP 99/70
--- NOTE | 2018-03-15 16:16 | IPN ---
DATE: 03/15/2018 Was seen in the emergency room (ER) while on an interim bed. She was with tachycardia. I reviewed her history and physical. I reviewed her past history. She had had a recent appendectomy. She felt she was recovering well. She began to be tachycardic yesterday. She has a history of autonomic dysfunction manifested by postural orthostatic tachycardia syndrome (POTS) as well as documented gastroparesis. She is no nadolol 20 mg twice a day. Her feed grinder is in [place], Young Wisdom MD, . Call made. Dr. Wisdom was out of the office today, but his nurse practitioner has been given a message to kindly call me back. PHYSICAL EXAMINATION: Blood pressure 118/72, pulse is between 90-150 over several minutes of examination, 80% oxygen saturation. GENERAL APPEARANCE: She is resting in bed. She looks quite comfortable. Her heart rate will quite abruptly go from 92-140 to as high as 150, all appearing to be sinus tachycardic on telemetry. No thyromegaly. No tremor. LUNGS: Clear. HEART: Regular rate and rhythm. No murmur. Tachycardic. ABDOMEN: Soft, nontender. No peripheral edema. SKIN: No rash. LABORATORY DATA: Looked unremarkable. CBC, CMP unremarkable. TSH was essentially normal at 3.5, free T4 normal at 1. (This patient has had her thyroid functions checked seven time in the last 9 months at this facility alone: It is not her thyroid.) Troponins are flat. IMPRESSION: 1. Tachycardia, probably related to her postural orthostatic tachycardia syndrome (POTS)/autonomic dysfunction. I have a call in to Dr. Wisdom office. He is out of the office today, but his nurse practitioner was given my cell phone number to return to the call. In the meantime, I am increasing the dose of her nadolol. POTS is a challenging condition, and treatment is complicated. We will increase her nadolol dose. 2. Gastroparesis. She takes erythromycin 250 mg on a scheduled basis, which she can continue. 3. She is on Valtrex for suppression. Will continue this. 4. Recent appendectomy. Abdominal exam is unremarkable. 5. Recent sinusitis. She is on Augmentin and will continue. Received a call from Dr. Gonzalez, [facility] feed grinder, from [facility]. He was consulted last night by the admitting physician. At this point, I have cancelled the consultation, as I do have a call in to the patient's personal feed grinder, who is more familiar with the case. Dr. Gonzalez agrees to become involved should the patient's condition become unstable, but at this point I think we would be better served relying on the expertise of the feed grinder who is more familiar with the patient.
[2018-03-15] MEDS ORDERED: SLF 3 ML SYR IV PRN (18:15)
[2018-03-15] MEDS: MONTELUKAST 10 MG TAB PO SCH (21:00)
[2018-03-15] MEDS: SLF 3 ML SYR IV SCH (22:00)
[2018-03-16] VITALS (7 sets, daily range): BP systolic 111–140; BP diastolic 65–85
[2018-03-16] MEDS: NADOLOL 20MG TABLET PO SCH ×3 (00:44→22:25)
[2018-03-16] MEDS: AUGMENTIN 500 MG TAB PO SCH ×3 (00:44→23:00)
[2018-03-16] MEDS: SLF 3 ML SYR IV SCH ×3 (06:00→22:22)
[2018-03-16] MEDS: HEPARIN SOD (PORCINE) 5000 UNITS/ML VIAL SC SCH ×3 (06:49→22:23)
[2018-03-16] MEDS: METHYLPHENIDATE ER 18 MG TABLET (CONCERTA) PO SCH (06:50)
[2018-03-16] MEDS: CYANOCOBALAMIN 500 MCG TAB PO SCH (08:07)
[2018-03-16] MEDS: PANTOPRAZOLE 40MG TAB (PROTONIX) PO SCH (08:07)
[2018-03-16] MEDS: FAMOTIDINE 20 MG TAB PO SCH ×2 (08:07→22:23)
[2018-03-16] MEDS ORDERED: valACYclovir HCL 500 MG TAB PO PRN (09:00)
[2018-03-16] MEDS: carBAMazepine 200 MG TAB PO SCH ×2 (13:04→22:23)
[2018-03-16] MEDS: HYDROCORTISONE 100 MG/2 ML VIAL (J1720) IV SCH (13:05)
--- NOTE | 2018-03-16 13:42 | IPN ---
DATE: 03/16/2018 Lela is seen in progressive care unit (PCU). After rounds yesterday, I spoke with Tena (question exact spelling of her name), who is a provider at Dr. Wisdom' cardiology office in [place]. I appreciate her assistance in managing Lela. We discussed the case. She agreed with increasing the dose of nadolol to 40 mg twice a day and they plan to see her in followup in their office. Lela feels better. She has had no recurrence of the tachycardia that she had in the emergency room, since her nadolol dose was increased. In the emergency room, she would have an abrupt increase in her heart rate from 90 to 100 to 150 to 200 with a sudden abrupt return to previous heart rate, not associated with any perceived change in blood pressure or other symptoms. It happened recurrently during my examination, as documented in the history and physical. She is wondering about empiric steroids. Apparently she had several days of steroids around the time of her recent appendectomy and her legs feel weak and shaky when she tries to walk, which previously responded to empiric mineralocorticoids. PHYSICAL EXAMINATION: 120/78, pulse of 94, sinus rhythm on monitor. Oxygen saturation 100% on room air. GENERAL: Alert, conversant and in no distress. LUNGS: Clear. HEART: Regular rhythm. ABDOMEN: Soft, nontender. EXTREMITIES: No tremor. LABORATORIES: Sodium and potassium are both normal. Electrolytes are unremarkable. White count 12.6, hemoglobin 10.6, platelets 422. IMPRESSION: 1. Tachycardia, probably related to postural orthostatic tachycardia syndrome. Again, I spoke to Dr. Wisdom' nurse practitioner, who increased the nadolol to 40 mg twice a day. I appreciate their assistance with this. She has seemed to have responded well to this. She has had no recurrence of tachycardia on telemetry. 2. Leg weakness. She is concerned about being adrenally insufficient. Her sodium and potassium are normal and I think that this is unlikely. However, she previously has responded to steroid therapy, so I will give her hydrocortisone 50 mg IV today. I expect that she is going to be discharged tomorrow. 3. Gastroparesis. She takes erythromycin 250 mg daily as a prokinetic agent. She has documented delayed gastric emptying on nuclear medicine testing. The rest of her medical conditions are stable.
[2018-03-16] MEDS: SPIRONOLACTONE 50 MG TAB PO SCH (22:23)
[2018-03-16] MEDS: MONTELUKAST 10 MG TAB PO SCH (22:23)
[2018-03-17] VITALS (8 sets, daily range): BP systolic 88–130; BP diastolic 52–83
[2018-03-17] MEDS ORDERED: ONDANSETRON 4MG/2ML VIAL (J2405) IV SCH (03:30)
[2018-03-17] MEDS ORDERED: ONDANSETRON 4MG/2ML VIAL (J2405) IV PRN (03:45)
[2018-03-17 05:47] LABS: HEMOGLOBIN 9.2 g/dl (12.0-15.5); MEAN CORPUSCULAR HEMOGLOBIN 28.2 pg (27.0-33.0); MEAN CORPUSCULAR HGB CONC 31.7 g/dl (32.0-36.5); PLATELET COUNT, AUTOMATED 383 10^3/uL (150-450); RED BLOOD COUNT 3.26 10^6/uL (4.00-5.40)
[2018-03-17] MEDS: SLF 3 ML SYR IV SCH ×3 (06:00→21:02)
[2018-03-17 06:19] LABS: BLOOD UREA NITROGEN 19 MG/DL (7-18); CALCIUM LEVEL 8.7 MG/DL (8.5-10.1); CARBON DIOXIDE LEVEL 31 MEQ/L (21-32); CHLORIDE LEVEL 101 MEQ/L (98-107); CREATININE FOR GFR 0.68 MG/DL (0.55-1.30); GLOMERULAR FILTRATION RATE > 60.0 (>60); GLUCOSE, FASTING 94 MG/DL (70-100); SODIUM LEVEL 140 MEQ/L (136-145)
[2018-03-17] MEDS: HEPARIN SOD (PORCINE) 5000 UNITS/ML VIAL SC SCH ×3 (06:37→21:01)
[2018-03-17] MEDS: METHYLPHENIDATE ER 18 MG TABLET (CONCERTA) PO SCH (06:37)
[2018-03-17] MEDS ORDERED: POTASSIUM CHLORIDE 10 MEQ SR TABLET PO ONE ×2 (08:00→17:00)
[2018-03-17] MEDS: HYDROCORTISONE 100 MG/2 ML VIAL (J1720) IV SCH (08:22)
[2018-03-17] MEDS: CYANOCOBALAMIN 500 MCG TAB PO SCH (08:23)
[2018-03-17] MEDS: FAMOTIDINE 20 MG TAB PO SCH ×2 (08:23→21:01)
[2018-03-17] MEDS: carBAMazepine 200 MG TAB PO SCH ×2 (08:23→21:01)
[2018-03-17] MEDS: PANTOPRAZOLE 40MG TAB (PROTONIX) PO SCH (08:24)
[2018-03-17] MEDS: AUGMENTIN 500 MG TAB PO SCH (08:24)
[2018-03-17] MEDS: NADOLOL 20MG TABLET PO SCH ×2 (08:25→18:46)
[2018-03-17] MEDS ORDERED: NS 1,000 ML IV ONE (17:30)
--- NOTE | 2018-03-17 17:33 | IPNPDOC ---
Date Seen The patient was seen on 03/17/18. Progress Note SUBJECTIVE: pt seen and examined at bedside, in no apparent distress, continues to have episodes of tachycardia up to 160's with minimal exertion, dizziness has improved, now having some loose stools, likely 2/2 Augmentin therapy. pt was to be on augmentin for 1 week post op,. will d/c antbx OBJECTIVE PHYSICAL EXAMINATION: VITAL SIGNS: Please see below. GENERAL: well nourished, NAD HEENT: normocephalic, atraumatic CARDIOVASCULAR: tachycardic, normal s1 and s2, no MGR RESPIRATORY: CTA b/l , no crackles or wheezing ABDOMINAL: soft, non tender, non distended, + BS EXTREMITIES: no edema, no calf tenderness NEUROLOGICAL: alert and oriented X 3. no focal deficits LABORATORY DATA, IMAGING STUDIES, MICROBIOLOGY: Please see below. DVT prophylaxis ordered?: ASSESSMENT AND PLAN: 32 year old w hx of POTS presents with symptomatic tachycardia PROBLEMS: 1. SVT/ symptomatic tachycardia: likely 2/2 POTS. trops neg X 2, eletcrolytes replenishes, FT4 wnl, TSH low ? subclincal hyperthyroid contributing unclear. IVF hydration, nadolol increase. 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 will getr echo 2. Recent appendectomy: stable, atbx stopped 3. acne: continue spironolactone 4. anemia: Hb stable 5. hx of gastric ulcer/ gastritis DISPOSITION: pending echo and improvement of tachycardia VS, I&O, 24H, Fishbone Vital Signs/I&O Vital Signs Date Time Temp Pulse Resp B/P (MAP) Pulse Ox O2 Delivery O2 Flow Rate FiO2 03/17/18 10:00 98.6 114 17 124/79 (94) 98 Room Air I&O- Last 24 Hours up to 6 AM 03/17/18 05:59 Intake Total 1380 ml Output Total 0 ml Balance 1380 ml Laboratory Data 24H LABS Laboratory Tests 2 03/17/18 04:54: Nucleated Red Blood Cells % (auto) 0.0, Anion Gap 8, Glomerular Filtration Rate > 60.0, Blood Urea Nitrogen 19H, Creatinine 0.68, Sodium Level 140, Potassium Level 3.0#L, Chloride Level 101, Carbon Dioxide Level 31, Calcium Level 8.7 CBC/BMP Laboratory Tests 03/17/18 04:54 Red Blood Count 3.26 L, Mean Corpuscular Volume 89.0, Mean Corpuscular Hemo globin 28.2, Mean Corpuscular Hemoglobin Concent 31.7 L, Red Cell Distribution Width 13.9, Calcium Level 8.7 Microbiology Microbiology 03/14/18 Blood Culture - Preliminary, Resulted No Growth after 48 hours. All Specime... 03/14/18 Blood Culture - Preliminary, Resulted No Growth after 72 hours. All specime... SUNDAY,GENESIS SORIANO Mar 17, 2018 17:33
[2018-03-17] MEDS: MONTELUKAST 10 MG TAB PO SCH (21:01)
[2018-03-18] MEDS ORDERED: NS 1,000 ML IV ONE (00:30)
[2018-03-18] MEDS ORDERED: NS 500 ML IV SCH (00:45)
[2018-03-18 02:00] VITALS: BP 89/53
[2018-03-18 05:46] LABS: HEMATOCRIT 28.6 % (36.0-47.0); HEMOGLOBIN 8.8 g/dl (12.0-15.5); MEAN CORPUSCULAR HEMOGLOBIN 28.3 pg (27.0-33.0); MEAN CORPUSCULAR HGB CONC 30.8 g/dl (32.0-36.5); PLATELET COUNT, AUTOMATED 355 10^3/uL (150-450); RED BLOOD COUNT 3.11 10^6/uL (4.00-5.40); WHITE BLOOD COUNT 8.6 10^3/uL (4.0-10.0)
[2018-03-18 06:00] VITALS: BP 98/55
[2018-03-18] MEDS: SLF 3 ML SYR IV SCH ×3 (06:00→21:12)
[2018-03-18 06:22] LABS: BLOOD UREA NITROGEN 26 MG/DL (7-18); CALCIUM LEVEL 8.3 MG/DL (8.5-10.1); CARBON DIOXIDE LEVEL 32 MEQ/L (21-32); CHLORIDE LEVEL 106 MEQ/L (98-107); CREATININE FOR GFR 0.75 MG/DL (0.55-1.30); GLOMERULAR FILTRATION RATE > 60.0 (>60); GLUCOSE, FASTING 90 MG/DL (70-100); POTASSIUM SERUM 3.8 MEQ/L (3.5-5.1); SODIUM LEVEL 142 MEQ/L (136-145)
[2018-03-18] MEDS: HEPARIN SOD (PORCINE) 5000 UNITS/ML VIAL SC SCH ×3 (06:32→21:11)
[2018-03-18] MEDS: METHYLPHENIDATE ER 18 MG TABLET (CONCERTA) PO SCH (06:32)
[2018-03-18] MEDS: PANTOPRAZOLE 40MG TAB (PROTONIX) PO SCH (09:17)
[2018-03-18] MEDS: FAMOTIDINE 20 MG TAB PO SCH ×2 (09:17→21:11)
[2018-03-18] MEDS: CYANOCOBALAMIN 500 MCG TAB PO SCH (09:17)
[2018-03-18] MEDS: HYDROCORTISONE 100 MG/2 ML VIAL (J1720) IV SCH (09:17)
[2018-03-18] MEDS: carBAMazepine 200 MG TAB PO SCH ×2 (09:17→21:11)
[2018-03-18] MEDS: NADOLOL 20MG TABLET PO SCH (09:38)
[2018-03-18 10:00] VITALS: BP 109/60
[2018-03-18 14:00] VITALS: BP 108/62
[2018-03-18] MEDS ORDERED: NS 1,250 ML IV ONE (16:00)
[2018-03-18] MEDS ORDERED: FUROSEMIDE 20 MG/2 ML VIAL (J1940) IV ONE (16:00)
--- NOTE | 2018-03-18 16:12 | IPNPDOC ---
Date Seen The patient was seen on 03/18/18. Progress Note SUBJECTIVE: pt seen and examined at bedside, in no apparent distress, tachycardia has improved w/ dose increase of nadolol 120 mg. pt now complains of oliguria. states she was only able to urinate small amount over last 24 hrs and urine was darkish red as per pt OBJECTIVE PHYSICAL EXAMINATION: VITAL SIGNS: Please see below. GENERAL: well nourished, NAD HEENT: normocephalic, atraumatic CARDIOVASCULAR: RR, normal s1 and s2, no MGR RESPIRATORY: CTA b/l , no crackles or wheezing ABDOMINAL: soft, non tender, non distended, + BS EXTREMITIES: no edema, no calf tenderness NEUROLOGICAL: alert and oriented X 3. no focal deficits LABORATORY DATA, IMAGING STUDIES, MICROBIOLOGY: Please see below. DVT prophylaxis ordered?: ASSESSMENT AND PLAN: 32 year old w hx of POTS presents with symptomatic tachycardia PROBLEMS: 1. Symptomatic tachycardia: likely 2/2 POTS. trops neg X 2, eletcrolytes replenishes, FT4 wnl, TSH low ? subclincal hyperthyroid contributing unclear. IVF hydration, nadolol increase. negative checker [place] pt private negative checker aware. will get echo. Improved with Nadolol 120 mg daily 2. Recent appendectomy: stable, atbx stopped 3. acne: continue spironolactone 4. anemia: Hb stable 5. hx of gastric ulcer/ gastritis 6. Hx of Multiple sclerosis: not on meds 7. Hematuria/ oliguria: will send Urine lytes, UA, CT stone protocol, fluid hydration . DISPOSITION: pending workup for tea colored urine/ oliguria. HR has improved VS, I&O, 24H, Fishbone Vital Signs/I&O Vital Signs Date Time Temp Pulse Resp B/P (MAP) Pulse Ox O2 Delivery O2 Flow Rate FiO2 03/18/18 14:00 97.9 75 20 108/62 (77) 98 Room Air I&O- Last 24 Hours up to 6 AM 03/18/18 05:59 Intake Total 2700 ml Output Total 0 ml Balance 2700 ml Laboratory Data 24H LABS Laboratory Tests 2 03/18/18 05:09: Nucleated Red Blood Cells % (auto) 0.0, Anion Gap 4L, Glomerular Filtration Rate > 60.0, Blood Urea Nitrogen 26H, Creatinine 0.75, Sodium Level 142, Potassium Level 3.8#, Chloride Level 106, Carbon Dioxide Level 32, Calcium Level 8.3L CBC/BMP Laboratory Tests 03/18/18 05:09 Red Blood Count 3.11 L, Mean Corpuscular Volume 92.0, Mean Corpuscular Hemoglobin 28.3, Mean Corpuscular Hemoglobin Concent 30.8 L, Red Cell Distribution Width 14.1, Calcium Level 8.3 L Microbiology Microbiology 03/14/18 Blood Culture - Preliminary, Resulted No Growth after 72 hours. All specime... 03/14/18 Blood Culture - Preliminary, Resulted No Growth after 72 hours. All specime... SUNDAY,GENESIS SORIANO Mar 18, 2018 16:12
[2018-03-18 16:48] LABS: BLOOD UREA NITROGEN 17 MG/DL (7-18); CALCIUM LEVEL 8.5 MG/DL (8.5-10.1); CARBON DIOXIDE LEVEL 31 MEQ/L (21-32); CHLORIDE LEVEL 101 MEQ/L (98-107); CREATININE FOR GFR 0.75 MG/DL (0.55-1.30); GLOMERULAR FILTRATION RATE > 60.0 (>60); GLUCOSE, FASTING 120 MG/DL (70-100); POTASSIUM SERUM 3.7 MEQ/L (3.5-5.1); SODIUM LEVEL 139 MEQ/L (136-145)
--- NOTE | 2018-03-18 16:49 | REP ---
Clinical: Flank pain. Technique: Axial noncontrast images from the lung bases to the pubic symphysis with coronal and sagittal re-formations. Comparison: 03/14/2018. Findings: Lung bases are clear. Liver, spleen, pancreas, gallbladder, bilateral adrenal glands and kidneys are normal. No perinephric stranding, hydroureteronephrosis, intrarenal or obstructing ureteral calculi identified. The enteric system is without obstruction or acute inflammatory process. Findings suggest prior appendectomy. Sigmoid diverticula noted without acute diverticulitis. Pelvis demonstrates normal bladder and age-appropriate uterus/adnexa. No ascites. No free air. No adenopathy. Abdominal aorta without aneurysm. Musculoskeletal structures intact. Impression: Normal noncontrast CT of the abdomen and pelvis. Electronically Signed by Ruy Grubbs MD 03/18/2018 04:41 P
[2018-03-18] MEDS: MONTELUKAST 10 MG TAB PO SCH (21:11)
[2018-03-18 22:00] VITALS: BP 105/53
[2018-03-19 02:00] VITALS: BP 105/55
[2018-03-19 05:29] LABS: AMORPHOUS SEDIMENT SMALL (NEGATIVE); APPEARANCE, URINE CLEAR (CLEAR); BACTERIA, URINE AUTO 1+ (NEGATIVE); BILIRUBIN, URINE AUTO NEGATIVE (NEGATIVE); BLOOD, URINE BLOOD NEGATIVE (NEGATIVE); COLOR, URINE YELLOW (YELLOW); GLUCOSE, URINE (UA) AUTO NEGATIVE (NEGATIVE); KETONE, URINE AUTO NEGATIVE (NEGATIVE); LEUKOCYTE ESTERASE, URINE AUTO NEGATIVE (NEGATIVE); MUCUS, URINE SMALL (NEGATIVE); NITRITE, URINE AUTO NEGATIVE (NEGATIVE); PROTEIN, URINE AUTO NEGATIVE (NEGATIVE); RBC, URINE AUTO 1 /HPF (0-3); SQUAMOUS EPITHELIAL CELL UR AU 1 /HPF (0-6); TRANSITIONAL EPITHELIAL AUTO <1 /HPF; UROBILINOGEN, URINE AUTO 0.2 mg/dL (0.0-2.0); WBC, URINE AUTO 0 /HPF (0-3)
[2018-03-19 05:32] LABS: POTASSIUM RANDOM URINE 28.8 MEQ/L
[2018-03-19 06:00] VITALS: BP 117/62
[2018-03-19 06:24] LABS: HEMATOCRIT 31.5 % (36.0-47.0); HEMOGLOBIN 9.8 g/dl (12.0-15.5); MEAN CORPUSCULAR HEMOGLOBIN 28.2 pg (27.0-33.0); MEAN CORPUSCULAR HGB CONC 31.1 g/dl (32.0-36.5); MEAN CORPUSCULAR VOLUME 90.8 fl (80.0-96.0); PLATELET COUNT, AUTOMATED 371 10^3/uL (150-450); RED BLOOD COUNT 3.47 10^6/uL (4.00-5.40); WHITE BLOOD COUNT 9.8 10^3/uL (4.0-10.0)
[2018-03-19 06:39] LABS: BLOOD UREA NITROGEN 16 MG/DL (7-18); CALCIUM LEVEL 8.6 MG/DL (8.5-10.1); CARBON DIOXIDE LEVEL 30 MEQ/L (21-32); CHLORIDE LEVEL 103 MEQ/L (98-107); CREATININE FOR GFR 0.65 MG/DL (0.55-1.30); GLOMERULAR FILTRATION RATE > 60.0 (>60); GLUCOSE, FASTING 84 MG/DL (70-100); POTASSIUM SERUM 3.6 MEQ/L (3.5-5.1); SODIUM LEVEL 140 MEQ/L (136-145)
[2018-03-19] MEDS: METHYLPHENIDATE ER 18 MG TABLET (CONCERTA) PO SCH (06:47)
[2018-03-19] MEDS: HEPARIN SOD (PORCINE) 5000 UNITS/ML VIAL SC SCH (06:47)
[2018-03-19] MEDS: SLF 3 ML SYR IV SCH (06:48)
[2018-03-19 09:00] VITALS: BP 82/60
[2018-03-19] MEDS: NADOLOL 20MG TABLET PO SCH (09:00)
[2018-03-19] MEDS: carBAMazepine 200 MG TAB PO SCH (09:31)
[2018-03-19] MEDS: FAMOTIDINE 20 MG TAB PO SCH (09:31)
[2018-03-19] MEDS: PANTOPRAZOLE 40MG TAB (PROTONIX) PO SCH (09:31)
[2018-03-19] MEDS: CYANOCOBALAMIN 500 MCG TAB PO SCH (09:31)
[2018-03-19 10:00] VITALS: BP 100/62
[2018-03-19] MEDS ORDERED: NADO80TA PO (10:27)
[2018-03-19] MEDS ORDERED: A-4MIS XX (10:30)
--- NOTE | 2018-03-19 18:30 | DSES ---
DATE OF ADMISSION: 03/17/2018 DATE OF DISCHARGE: 03/19/2018 PRIMARY CARE PROVIDER: Lg Cheng MD FINAL DIAGNOSES: 1. Symptomatic tachycardia. 2. Recent appendectomy. 3. Acne. 4. Anemia. 5. History of gastric ulcer. 6. History of multiple sclerosis. 7. Oliguria. HISTORY OF PRESENT ILLNESS: This is a 31-year-old female patient with underlying medical history of postural orthostatic tachycardia syndrome, sees lining layer in [place], attention deficit hyperactivity disorder (ADHD), chronic irritable bowel syndrome, gastroesophageal reflux disease (GERD), history of gastric ulcer, gastroparesis, gastritis, who presents with complaints of palpitations, chest discomfort, dizziness, weakness, blurry vision, which seems to be worsened with ambulation. The patient was evaluated in the emergency department and was noted to have a heart rate of 170. The patient was given increased dose of nadolol with decreasing heart rate to about 110 with improvement of her symptoms. Denies any prodromal illness prior to this episode. The patient denies smoking, drinking, or other drug abuse. Denies any caffeine, tea or energy drinks. Denies any significant pain from her appendix surgery that was done recently. CT angio of the chest and CT of the abdomen were done and found to be negative. Serial cardiac enzymes were done. The patient subsequently was admitted. HOSPITAL COURSE: The patient was admitted. Case was discussed with the patient's lining layer in [place]. The patient's nadolol dose has been increased. Serial cardiac enzymes have been negative. Electrolytes were supplemented. Thyroid function was appreciated. IV fluids were given. The patient's spironolactone was on hold secondary to hypotension. Other home medication was continued. UA was sent given the patient reported oliguria. IV fluids were provided. The patient's UA has been negative. The patient currently is comfortable, tolerating oral and in no acute distress. Ready to be discharged for further care as an outpatient. VITAL SIGNS: Temperature 97.8, pulse 76, respirations 16, blood pressure 100/62, pulse oximetry 100% on room air. GENERAL: The patient is alert, comfortable and in no acute distress. HEENT: Normocephalic, atraumatic. PULMONARY: Bilaterally clear. CARDIAC: Regular. S1, S2. ABDOMEN: Soft, nontender. Positive bowel sounds. EXTREMITIES: No clubbing, cyanosis or edema. LABORATORY: WBC 9.8, hemoglobin and hematocrit 9.8/31.5, platelets 371. Chemistry: Sodium 140, potassium 3.6, chloride 103, bicarbonate 30, BUN 16, creatinine 0.65. DISCHARGE MEDICATIONS: - continue nadolol 80 mg by mouth daily - Ventolin inhaler every 6 hours as needed - complete course of Augmentin 500/125 by mouth twice a day - Botox every 2 months - Tegretol 200 mg by mouth twice a day - vitamin B12 1000 mcg by mouth daily - erythromycin 250 mg by mouth three times a day as needed - Nexium 40 mg by mouth twice a day - lansoprazole 30 mg by mouth twice a day - Zyrtec 5 mg by mouth at night - Concerta 36 mg by mouth daily - montelukast 10 mg by mouth at night - Percocet 5/325 mg two tablets by mouth every 4 hours as needed - Trulance 3 mg by mouth daily - Zantac 150 mg by mouth twice a day - sumatriptan injections as needed - Tretinoin 0.1% at night - valacyclovir 1 gram by mouth as needed DISCHARGE INSTRUCTIONS: Oral hydration. Please see primary care provider in 7 days. Please see cardiology in 14 days. Adjust nadolol as per lining layer. Please take blood pressure daily at home. Above knee compression stockings. Fall precautions. Return to the hospital if symptoms worsen.
--- NOTE | 2018-03-20 07:21 | ECHO ---
DATE OF PROCEDURE: 03/18/2018 AGE: 32 GENDER: Female REFERRING PHYSICIAN: Dr. Multani Sunday. HEIGHT: 65 inches. WEIGHT: 141 pounds. BODY SURFACE AREA: 1.7 sq m. [facility] INDICATION: Abnormal EKG. MEASUREMENTS: 2D MEASUREMENTS: RV - 3.4 cm LV- 4.4 cm Septum - 1.0 cm Posterior wall - 1.0 cm Aortic root - 2.7 cm LA - 2.9 cm LVEF - 65% DOPPLER MEASUREMENTS: AV - 1.1 m/s LVOT - 0.87 m/s LVOT diameter - 2.0 cm MV-E: 57 A: 30 EA ratio 1.9 Early mitral deacceleration time 236 ms E-prime - 10.6 A-prime - 5 E/E prime ratio 5.4 PV - 0.8 m/s Pulmonary artery acceleration time 140 ms RVSP - 26 mmHg IVC - 1.8 cm COMMENTS: Normal sinus rhythm without intraventricular conduction disturbance. M-mode and two-dimensional echocardiography was performed with pulsed, continuous wave, color flow and tissue Doppler studies. Normal left ventricular size, wall thickness and wall motion. Normal left atrial size and Doppler assessment of LV diastolic function and estimated mean left atrial pressure. Normal right heart chamber sizes and motion and estimated pulmonary arterial pressure. Normal IVC size and collapse against an elevated central venous pressure. Normal-appearing mitral and aortic valvular apparatus without functional valvular abnormality. No apparent intracardiac mass or pericardial effusion. Normal aortic root size.
== END 2018-03-19 12:21 | disposition home or self-care (01) | DRG 201 ==
LOC: M ED 14:15 → M ED INP 21:22 → M PCU 03-16 00:08 → M MSPAV 03-16 21:35 → OBSVTOIN 03-17 07:10
PROVIDERS: ADMIT Internal Medicine; ATTEND Hospitalist
DX: I49.8 Other specified cardiac arrhythmias (principal); E87.6 Hypokalemia; F90.9 Attention-deficit hyperactivity disorder, unspecified type; R00.2 Palpitations; K58.9 Irritable bowel syndrome, unspecified; K21.9 Gastro-esophageal reflux disease without esophagitis; L70.9 Acne, unspecified; D64.9 Anemia, unspecified; R51 Headache; Z90.49 Acquired absence of other specified parts of digestive tract; Z79.899 Other long term (current) drug therapy; Z91.040 Latex allergy status; Z88.8 Allergy status to other drugs, medicaments and biological substances

== ENCOUNTER → 2018-03-25 | Outpatient (REF) | payer BC ==
[~2018-03-25] MED LIST changes: +A-4MIS XX; +NADO80TA PO; +PERC5TAB12 PO
== END ==
LOC: M SFHCLERA 15:44
PROVIDERS: ATTEND Family Medicine
DX: Z53.9 Procedure and treatment not carried out, unspecified reason (principal); D64.9 Anemia, unspecified

== ENCOUNTER → 2018-03-25 | Outpatient (CLI) | payer BC ==
[2018-03-25 18:23] LABS: BASO # 0.1 10^3/uL (0.0-0.2); BASO % 0.5 % (0.0-1.0); EOS # 0.1 10^3/uL (0.0-0.50); EOS % 0.7 % (0.0-3.0); HEMATOCRIT 29.7 % (36.0-47.0); LYMPH % 33.6 % (24.0-44.0); MEAN CORPUSCULAR HEMOGLOBIN 26.9 pg (27.0-33.0); MEAN CORPUSCULAR HGB CONC 30.3 g/dl (32.0-36.5); MEAN CORPUSCULAR VOLUME 88.9 fl (80.0-96.0); MONO # 0.6 10^3/uL (0.0-0.8); MONO % 4.8 % (0.0-5.0); NEUTROPHILS # 7.2 10^3/uL (1.8-7.7); NEUTROPHILS % 60.1 % (36.0-66.0); PLATELET COUNT, AUTOMATED 409 10^3/uL (150-450); RED BLOOD COUNT 3.34 10^6/uL (4.00-5.40)
[2018-03-25 18:27] LABS: PERCENT SATURATION 5.3 % (13.2-45.0)
== END ==
LOC: M LAB 17:21
PROVIDERS: ATTEND Family Medicine
DX: D64.9 Anemia, unspecified (principal)

== ENCOUNTER 2018-04-08 15:26 | Outpatient (CLI) | payer BC ==
[~2018-04-08] VITALS: Ht 167.6 cm; Wt 67.6 kg
[2018-04-08 15:35] VITALS: BP 137/79
[2018-04-08] MEDS ORDERED: IRON SUCROSE 100 MG in NS 100 ML OVER 1 HR IV ONE (16:00)
[2018-04-08] MEDS ORDERED: ONDANSETRON 4MG/2ML VIAL (J2405) IV ONE (16:00)
[2018-04-08 16:45] VITALS: BP 123/75
[2018-04-08] MEDS ORDERED: NS 500 ML IV ONE (17:00)
[2018-04-08 17:30] VITALS: BP 119/70
[2018-04-08 18:40] VITALS: BP 113/77
== END 2018-04-08 18:40 | disposition home or self-care (01) ==
LOC: M INFU 15:26
PROVIDERS: ATTEND Internal Medicine
DX: D50.9 Iron deficiency anemia, unspecified (principal); Z88.8 Allergy status to other drugs, medicaments and biological substances; Z91.040 Latex allergy status
CPT/HCPCS: 96361; 96365; 96375; J1756; J2405

== ENCOUNTER 2018-04-15 15:30 | Outpatient (CLI) | payer BC ==
[~2018-04-15] VITALS: Ht 165.1 cm; Wt 67.7 kg
[~2018-04-15 15:30] MED LIST changes: +IRON SUCROSE 100 MG in NS 100 ML OVER 1 HR IV ONE; +ONDANSETRON 4MG/2ML VIAL (J2405) IV ONE
[2018-04-15 15:35] VITALS: BP 121/62
[2018-04-15 17:15] VITALS: BP 112/61
[2018-04-15] MEDS: NS 1,000 ML IV SCH ×2 (17:16→17:24)
[2018-04-15 18:25] VITALS: BP 110/70
== END 2018-04-15 18:30 | disposition home or self-care (01) ==
LOC: M INFU 15:30
PROVIDERS: ATTEND Internal Medicine
DX: D50.9 Iron deficiency anemia, unspecified (principal); Z88.8 Allergy status to other drugs, medicaments and biological substances; Z91.040 Latex allergy status
CPT/HCPCS: 96361; 96365; 96375; J1756; J2405

== ENCOUNTER → 2018-04-15 | Outpatient (CLI) | payer BC ==
--- NOTE | 2018-04-15 08:05 | REP ---
Clinical: Right upper quadrant abdominal pain. Technique: Duarte scale ultrasound using curved array transducer. Findings: The liver and pancreas are normal in contour, size, and echogenicity without focal hepatic or pancreatic lesions identified. The gallbladder is normal without gallstones, wall thickening or pericholecystic fluid. There is suggestion for a 2 mm posterior wall gallbladder polyp likely benign. No biliary ductal dilatation is appreciated, and the common bile duct measures 2.3 mm diameter. The right kidney is normal in reniform shape without hydronephrosis and measures 11.8 x 5.5 x 4.6 cm with sub centimeter lower pole cyst. No ascites. Visualized portions of the abdominal aorta normal. Impression: 1. Essentially normal right upper quadrant ultrasound. 2. A 2 mm gallbladder polyp suggested. 3. Sub centimeter lower pole right renal cyst. Electronically Signed by Ruy Grubbs MD 04/15/2018 07:57 A
== END ==
LOC: M RAD 07:15
PROVIDERS: ATTEND Family Medicine
DX: R10.11 Right upper quadrant pain (principal); N28.1 Cyst of kidney, acquired

== ENCOUNTER → 2018-04-16 | Outpatient (CLI) | payer BC ==
[~2018-04-16] MED LIST changes: -IRON SUCROSE 100 MG in NS 100 ML OVER 1 HR IV ONE; -ONDANSETRON 4MG/2ML VIAL (J2405) IV ONE
[2018-04-16 18:40] LABS: HEMATOCRIT 28.3 % (36.0-47.0); HEMOGLOBIN 8.5 g/dl (12.0-15.5); MEAN CORPUSCULAR HEMOGLOBIN 26.3 pg (27.0-33.0); MEAN CORPUSCULAR VOLUME 87.6 fl (80.0-96.0); PLATELET COUNT, AUTOMATED 386 10^3/uL (150-450); RED BLOOD COUNT 3.23 10^6/uL (4.00-5.40); WHITE BLOOD COUNT 9.6 10^3/uL (4.0-10.0)
[2018-04-16 18:54] LABS: LIPASE 74 U/L (73-393)
[2018-04-17 08:52] LABS: ALBUMIN 3.2 GM/DL (3.2-5.2); ALT/SGPT 16 U/L (12-78); BILIRUBIN,DIRECT < 0.1 MG/DL (0.0-0.2); BILIRUBIN,TOTAL 0.1 MG/DL (0.2-1.0); TOTAL PROTEIN 6.1 GM/DL (6.4-8.2)
== END ==
LOC: M LAB 17:20
PROVIDERS: ATTEND Internal Medicine Gastroenterology
DX: R10.9 Unspecified abdominal pain (principal); Z88.8 Allergy status to other drugs, medicaments and biological substances; Z91.040 Latex allergy status

== ENCOUNTER 2018-04-22 15:30 | Outpatient (CLI) | payer BC ==
[~2018-04-22] VITALS: Ht 167.6 cm; Wt 67.7 kg
[~2018-04-22 15:30] MED LIST changes: +IRON SUCROSE 100 MG in NS 100 ML OVER 1 HR IV ONE; +NS 500 ML IV ONE; +ONDANSETRON 4MG/2ML VIAL (J2405) IV ONE
[2018-04-22 15:35] VITALS: BP 124/70
[2018-04-22 17:35] VITALS: BP 115/70
[2018-04-22 18:28] VITALS: BP 109/62
== END 2018-04-22 18:30 | disposition home or self-care (01) ==
LOC: M INFU 15:30
PROVIDERS: ATTEND Internal Medicine
DX: D50.9 Iron deficiency anemia, unspecified (principal); Z91.040 Latex allergy status; Z88.8 Allergy status to other drugs, medicaments and biological substances
CPT/HCPCS: 96361; 96365; 96375; J1756; J2405

== ENCOUNTER 2018-04-29 15:24 | Outpatient (CLI) | payer BC ==
[~2018-04-29] VITALS: Ht 165.1 cm; Wt 67.7 kg
[~2018-04-29 15:24] MED LIST changes: +NS 1,000 ML IV SCH; -NS 500 ML IV ONE
[2018-04-29 15:32] VITALS: BP 117/71
[2018-04-29 16:20] VITALS: BP 104/70
[2018-04-29 17:20] VITALS: BP 109/69
[2018-04-29 18:45] VITALS: BP 120/64
== END 2018-04-29 18:50 | disposition home or self-care (01) ==
LOC: M INFU 15:24
PROVIDERS: ATTEND Internal Medicine
DX: D50.9 Iron deficiency anemia, unspecified (principal); Z88.8 Allergy status to other drugs, medicaments and biological substances; Z91.040 Latex allergy status
CPT/HCPCS: 96361; 96365; 96375; J1756; J2405

== ENCOUNTER → 2018-05-10 | Outpatient (CLI) | payer BC ==
[~2018-05-10] MED LIST changes: -IRON SUCROSE 100 MG in NS 100 ML OVER 1 HR IV ONE; -NS 1,000 ML IV SCH; -ONDANSETRON 4MG/2ML VIAL (J2405) IV ONE
--- NOTE | 2018-05-10 17:04 | REP ---
MR BRAIN WITHOUT AND WITH CONTRAST: HISTORY: Abnormal MR. CONTRAST: ProHance [address]: 09/25/2017 Several punctate areas of increased signal intensity on T2 weighted images are present in the subcortical white matter on the frontal lobes. There is no intraparenchymal hemorrhage, infarct mass or midline shift. There is no abnormal enhancement. The ventricular system is normal in appearance. There is no extracerebral collection. Minimal mucosal thickening is present in the right maxillary sinus. IMPRESSION:There are several punctate areas of increased signal intensity on the subcortical white matter of the frontal lobes. This is nonspecific finding. Electronically Signed by Salvatore Liang MD 05/13/2018 08:58 A
== END ==
LOC: M PLARAD 15:21
PROVIDERS: ATTEND Psychiatry & Neurology Neurology
DX: R93.0 Abnormal findings on diagnostic imaging of skull and head, not elsewhere classified (principal)

== ENCOUNTER → 2018-06-16 | Outpatient (CLI) | payer BC ==
[2018-06-16 16:35] LABS: BASO # 0.1 10^3/uL (0.0-0.2); BASO % 0.7 % (0.0-1.0); EOS # 0.5 10^3/uL (0.0-0.50); EOS % 4.5 % (0.0-3.0); HEMATOCRIT 40.3 % (36.0-47.0); HEMOGLOBIN 12.7 g/dl (12.0-15.5); LYMPH # 4.3 10^3/uL (1.5-4.5); LYMPH % 35.7 % (24.0-44.0); MEAN CORPUSCULAR HEMOGLOBIN 27.1 pg (27.0-33.0); MEAN CORPUSCULAR HGB CONC 31.5 g/dl (32.0-36.5); MEAN CORPUSCULAR VOLUME 86.1 fl (80.0-96.0); MONO # 0.7 10^3/uL (0.0-0.8); MONO % 5.4 % (0.0-5.0); NEUTROPHILS # 6.4 10^3/uL (1.8-7.7); NEUTROPHILS % 53.4 % (36.0-66.0); PLATELET COUNT, AUTOMATED 255 10^3/uL (150-450); RED BLOOD COUNT 4.68 10^6/uL (4.00-5.40)
[2018-06-16 17:07] LABS: ALBUMIN 4.2 GM/DL (3.2-5.2); ALT/SGPT 19 U/L (12-78); BILIRUBIN,DIRECT < 0.1 MG/DL (0.0-0.2); BILIRUBIN,TOTAL 0.3 MG/DL (0.2-1.0); BLOOD UREA NITROGEN 12 MG/DL (7-18); CALCIUM LEVEL 8.9 MG/DL (8.5-10.1); CARBAMAZEPINE (TEGRETOL) LEVEL 4.4 UG/ML (4.0-10.0); CARBON DIOXIDE LEVEL 30 MEQ/L (21-32); CHLORIDE LEVEL 96 MEQ/L (98-107); CREATININE FOR GFR 0.76 MG/DL (0.55-1.30); GLOMERULAR FILTRATION RATE > 60.0 (>60); GLUCOSE, FASTING 89 MG/DL (70-100); POTASSIUM SERUM 3.3 MEQ/L (3.5-5.1); SODIUM LEVEL 135 MEQ/L (136-145); TOTAL PROTEIN 7.5 GM/DL (6.4-8.2)
[2018-06-17 09:16] LABS: TOTAL 25(OH) VITAMIN D 45.6 NG/ML (30.0-100.0)
== END ==
LOC: M LAB 16:09
PROVIDERS: ATTEND Psychiatry & Neurology Neurology
DX: G35 Multiple sclerosis (principal)

== ENCOUNTER 2018-08-06 12:25 | Inpatient (IN) | payer BC ==
[~2018-08-06] VITALS: Ht 165.1 cm; Wt 69.6 kg
[2018-08-06] MEDS ORDERED: NS 500 ML IV ONE (13:15)
[2018-08-06 13:51] LABS: BASO # 0.1 10^3/uL (0.0-0.2); BASO % 0.8 % (0.0-1.0); EOS # 0.4 10^3/uL (0.0-0.50); EOS % 3.9 % (0.0-3.0); HEMATOCRIT 38.4 % (36.0-47.0); HEMOGLOBIN 12.3 g/dl (12.0-15.5); LYMPH # 3.3 10^3/uL (1.5-4.5); LYMPH % 31.5 % (24.0-44.0); MEAN CORPUSCULAR HEMOGLOBIN 28.7 pg (27.0-33.0); MEAN CORPUSCULAR VOLUME 89.7 fl (80.0-96.0); MONO # 0.5 10^3/uL (0.0-0.8); NEUTROPHILS # 6.1 10^3/uL (1.8-7.7); NEUTROPHILS % 58.4 % (36.0-66.0); PLATELET COUNT, AUTOMATED 260 10^3/uL (150-450); RED BLOOD COUNT 4.28 10^6/uL (4.00-5.40); WHITE BLOOD COUNT 10.4 10^3/uL (4.0-10.0)
[2018-08-06 14:05] LABS: INR 0.95; PARTIAL THROMBOPLASTIN TIME 26.3 SECONDS (25.4-37.6); PROTHROMBIN TIME 12.8 SECONDS (12.1-14.4)
[2018-08-06 14:18] LABS: HCG, SERUM QUALITATIVE NEGATIVE (NEGATIVE)
[2018-08-06 14:23] LABS: ALBUMIN 4.3 GM/DL (3.2-5.2); ALT/SGPT 19 U/L (12-78); BILIRUBIN,DIRECT 0.1 MG/DL (0.0-0.2); BILIRUBIN,TOTAL 0.3 MG/DL (0.2-1.0); BLOOD UREA NITROGEN 11 MG/DL (7-18); CALCIUM LEVEL 9.1 MG/DL (8.5-10.1); CARBON DIOXIDE LEVEL 26 MEQ/L (21-32); CHLORIDE LEVEL 104 MEQ/L (98-107); CPK CREATINE PHOSPHOKINASE 230 U/L (26-192); GLOMERULAR FILTRATION RATE > 60.0 (>60); GLUCOSE, FASTING 101 MG/DL (70-100); MB/CK RELATIVE INDEX 0.87 (< OR =4); POTASSIUM SERUM 3.6 MEQ/L (3.5-5.1); SODIUM LEVEL 139 MEQ/L (136-145); TOTAL PROTEIN 7.3 GM/DL (6.4-8.2); TROPONIN I < 0.02 NG/ML (< 0.10)
[2018-08-06 14:52] LABS: AMPHETAMINES LEVEL URINE NEGATIVE (NEGATIVE); BARBITURATES URINE NEGATIVE (NEGATIVE); BENZODIAZEPINES URINE NEGATIVE (NEGATIVE); CANNABINOIDS URINE NEGATIVE (NEGATIVE); COCAINE METABOLITE URINE NEGATIVE (NEGATIVE); METHADONE URINE NEGATIVE (NEGATIVE); OPIATES URINE NEGATIVE (NEGATIVE); PHENCYCLIDINE URINE NEGATIVE (NEGATIVE)
--- NOTE | 2018-08-06 14:55 | REP ---
CT Head without contrast HISTORY: Double vision COMPARISON: 09/25/2017 There is no intraparenchymal hemorrhage, acute infarct, mass or midline shift. The ventricular system is normal in appearance. There is no extra cerebral collection. There is no fracture. The visualized sinuses are clear. IMPRESSION: There is no intracranial lesion. Electronically Signed by Salvatore Liang MD 08/06/2018 02:47 P
[2018-08-06] MEDS ORDERED: ONDANSETRON 4MG/2ML VIAL (J2405) IV ONE (15:15)
--- NOTE | 2018-08-06 18:07 | REP ---
Chest two views HISTORY: Shortness of breath Comparison: 03/14/2018 There is tenting of the left hemidiaphragm consistent with scarring. The lungs are clear. The heart is normal in size. The pulmonary vasculature is normal in appearance. The bony structure is intact. IMPRESSION: No acute disease. Electronically Signed by Salvatore Liang MD 08/06/2018 05:59 P
--- NOTE | 2018-08-06 18:09 | HPEPDOC ---
General Date of Admission August 06, 2018 at 17:15 Date of Service: August 06, 2018 Chief Complaint The patient is a 33-year-old female admitted with a reason for visit of Multiple Sclerosis. Source: Patient Exam Limitations: No limitations Timing/Duration: 24 hours (6 AM this morning) Severity: Mild, Moderate Associated Symptoms: Nausea History of Present Illness Pt is a 33 yo female with PMH of Humberto-Danlos, POTS, ADHD and reported MS presented to [facility] due to diplopia, blurry vision, and difficulty walking that started this morning at 6AM. Pt said she was diagnosed with MS in [facility] via MRI head in Feb 2018, and she had several MS attacks since then. She gets Tysabri every 28 months through neurologist, and last infusion was around Jul 17 2018. This is the first MS attack she has after being started on Tysabri. Pt states her difficulty walking is d/t blurry vision but denies any weakness/imbalance/ataxia, scotoma, No pain in body reported. She reported she has afferent pupillary defect but otherwise at baseline she has no other symptoms. She has chronic intermittent palpitation due to POTS. Nausea w/o vomiting; denies any numbness, tingling, loss of sensation, chest pain, SOB, abdominal pain, constipation, diarrhea, hematochezia, or urinary symptoms. Home Medications Scheduled Botulinum Toxin Type A (Botox) Unknown Strength Soln, Unknown Dose IM Q3M, (Reported) EVERY 3 MONTHS: LAST ONE GIVEN IN MAY, NEXT DOSE DUE IN AUGUST Carbamazepine (Carbamazepine) 200 Mg Tab, 200 MG PO BID, (Reported) Esomeprazole Magnesium (Esomeprazole Magnesium) 40 Mg Cap, 40 MG PO QPM, (Reported) BEFORE DINNER Levonorgestrel-Ethin Estradiol (Introvale 0.15-0.03 mg Tablet) 1 Tab Tab, 1 TAB PO DAILY, (Reported) Methylphenidate HCl (Concerta) 54 Mg Tab.er.24, 54 MG PO DAILY, (Reported) Nadolol (Nadolol) 80 Mg Tablet, 80 MG PO DAILY, (Reported) HOLD IF SBP<100 OR DBP<70 Spironolactone (Spironolactone) 100 Mg Tablet, 100 MG PO DAILY, (Reported) Scheduled PRN Albuterol Sulfate (Ventolin Hfa) 108 Mcg/Act Aer, 2 PUFFS INH Q4H PRN for SHORTNESS OF BREATH, (Reported) Erythromycin (Erythromycin) 250 Mg Cap, 250 MG PO TID PRN for GASTROPARESIS, (Reported) Furosemide (Furosemide) 20 Mg Tablet, 20 MG PO DAILY PRN for SWELLING, (Reported) Levocetirizine Dihydrochloride (Levocetirizine Dihydrochloride) 5 Mg Tab, 5 MG PO QHS PRN for ALLERGIES, (Reported) Ondansetron HCl (Ondansetron HCl) 8 Mg Tablet, 8 MG PO BID PRN for NAUSEA, (Reported) Promethazine Hcl (Promethazine HCl) 50 Mg Tablet, 50 MG PO Q4H PRN for NAUSEA, (Reported) Ranitidine Hcl (Ranitidine HCl) 150 Mg Tab, 1 TAB PO BID PRN for ACID REFLUX, (Reported) Sumatriptan Succinate (Sumatriptan Succinate) 50 Mg Tablet, 50 MG PO DAILY PRN for MIGRAINE, (Reported) Valacyclovir HCl (Valacyclovir) 1 Gm Tab, 1 GM PO BID PRN for COLD SORES, (Reported) FOR 2 DAYS Allergies Coded Allergies: latex (Verified Allergy, Unknown, 08/06/18) lubiprostone (Verified Allergy, Unknown, 08/06/18) metoclopramide (Verified Allergy, Unknown, 08/06/18) Past Medical History Medical History ADHD Chronic headaches IBS GERD Postural orthostatic tachycardia syndrome(POTS) allergic rhinitis hematuria gastroparesis gastritis hx of gastric ulcers Humberto-Danlos, 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 Surgical History Appendectomy 03/07/2018 Family History Father-dyslipidemia and glaucoma Mother-HTN Social History * Smoker: Denies A-FIB/CHADSVASC A-FIB History Current/History of A-Fib/PAF?: No Review of Systems Constitutional: Denies: Chills, Fever, Weakness Eyes: Reports: Vision change (blurry vision with diplopia); Denies: Pain Pulmonary: Denies: Dyspnea, Pleuritic Chest Pain Cardiovascular: Reports: Palpitations; Denies: Chest Pain Gastrointestinal: Reports: Nausea; Denies: Vomiting, Abdominal Pain, Diarrhea, Constipation, Hematochezia Genitourinary: Denies: Retention Neurological: Denies: Weakness, Numbness, Incoordination Physical Examination General Exam: Positive: Alert, Cooperative, No Acute Distress Eye Exam: Positive: Conjunctiva & lids normal, EOMI, Other Eye Symptoms (left Efferent pupillary defect noted; right afferent and effect pupillary reflex intact); Negative: PERRLA, Ptosis ENT Exam: Positive: Atraumatic, Mucous membr. moist/pink Neck Exam: Positive: Supple Chest Exam: Positive: Clear to auscultation, Normal air movement; Negative: Rales, Rhonchi Heart Exam: Positive: Tachycardic, Regular Rhythm, Normal S1, Normal S2; Negative: Murmurs Abdomen Exam: Positive: Normal bowel sounds, Soft Skin Exam: Positive: Nl turgor and temperature Neuro Exam: Positive: Normal Speech, Strength at 5/5 X4 ext, Normal Tone, Sensation Intact, Cranial Nerves 3-12 NL Psych Exam: Positive: Mental status NL, Mood NL, Memory Intact, Oriented x 3 Vital Signs Vital Signs Date Time Temp Pulse Resp B/P (MAP) Pulse Ox O2 Delivery O2 Flow Rate FiO2 08/06/18 17:00 135 138/89 (105) 100 Room Air 08/06/18 15:42 98.0 08/06/18 12:25 17 Laboratory Data Labs 24H Laboratory Tests 2 08/06/18 13:40: Immature Granulocyte % (Auto) 0.4, White Blood Count 10.4H, Red Blood Count 4.28, Hemoglobin 12.3, Hematocrit 38.4, Mean Corpuscular Volume 89.7, Mean Corpuscular Hemoglobin 28.7, Mean Corpuscular Hemoglobin Concent 32.0, Red Cell Distribution Width 13.9, Platelet Count 260, Neutrophils (%) (Auto) 58.4, Lymphocytes (%) (Auto) 31.5, Monocytes (%) (Auto) 5.0, Eosinophils (%) (Auto) 3.9H, Basophils (%) (Auto) 0.8, Neutrophils # (Auto) 6.1, Lymphocytes # (Auto) 3.3, Monocytes # (Auto) 0.5, Eosinophils # (Auto) 0.4, Basophils # (Auto) 0.1, Nucleated Red Blood Cells % (auto) 0.2H, Prothrombin Time 12.8, Prothromb Time International Ratio 0.95, Activated Partial Thromboplast Time 26.3, Anion Gap 9, Glomerular Filtration Rate > 60.0, Calcium Level 9.1, Aspartate Amino Transf (AST/SGOT) 18, Alanine Aminotransferase (ALT/SGPT) 19, Alkaline Phosphatase 62, Total Bilirubin 0.3, Direct Bilirubin 0.1, Total Creatine Kinase 230H, Creatine Kinase MB 2.0, Creatine Kinase MB Relative Index 0.87, Troponin I < 0.02, Total Protein 7.3, Albumin 4.3, Albumin/Globulin Ratio 1.43, Human Chorionic Gonadotropin, Qual NEGATIVE 08/06/18 14:11: Urine Color STRAW, Urine Appearance CLEAR, Urine pH 6.0, Urine Specific [place] 1.004, Urine Protein NEGATIVE, Urine Glucose (UA) NEGATIVE, Urine Ketones TRACEH, Urine Blood 1+H, Urine Nitrite NEGATIVE, Urine Bilirubin NEGATIVE, Urine Urobilinogen 0.2, Urine Leukocyte Esterase NEGATIVE, Urine WBC (Auto) 0, Urine RBC (Auto) 0, Urine Hyaline Casts (Auto) 0, Urine Bacteria (Auto) 1+H, Urine Squamous Epithelial Cells 0, Urine Sperm (Auto) , Urine Amphetamines Screen NEGATIVE, Urine Benzodiazepines Screen NEGATIVE, Urine Opiates Screen NEGATIVE, Urine Methadone Screen NEGATIVE, Urine Barbiturates Screen NEGATIVE, Urine Phencyclidine Screen NEGATIVE, Urine Cocaine Metabolite Screen NEGATIVE, Urine Cannabinoids Screen NEGATIVE CBC/BMP Laboratory Tests 08/06/18 13:40 Red Blood Count 4.28, Mean Corpuscular Volume 89.7, Mean Corpuscular Hemoglobin 28.7, Mean Corpuscular Hemoglobin Concent 32.0, Red Cell Distribution Width 13.9, Neutrophils (%) (Auto) 58.4, Lymphocytes (%) (Auto) 31.5, Monocytes (%) (Auto) 5.0, Eosinophils (%) (Auto) 3.9 H, Basophils (%) (Auto) 0.8, Neutrophils # (Auto) 6.1, Lymphocytes # (Auto) 3.3, Monocytes # (Auto) 0.5, Eosinophils # (Auto) 0.4, Basophils # (Auto) 0.1 Problems (1) Multiple sclerosis exacerbation Status: Acute Problem Text: - Diagnosed with MS 02/2018; on Tysabri outpt - Several exacerbations before with similar symptoms; resolved after steroid tx per pt - Neurologist consulted; MRI brain ordered. - If MRI brain shows signs of MS exacerbation, start IV Solumedrol 1000mg daily - Diplopia w/ blurry vision; Dr. Duggan contacted by ER - wants to follow as an outpatient - Nausea; zofran PRN. Cont Carbamazepine - Efferent pupillary defect noted on pt; pt reported PMH of afferent pupillary defect which may be associated with MS - POTS; vital signs as scheduled - PT/OT, fall precaution, neurochecks (2) POTS (postural orthostatic tachycardia syndrome) Status: Chronic Problem Text: - PMH of POTS. 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 -May dc if HR cont to be elevated (7) Migraine Problem Text: PMH of chronic headache; cont home med Sumatriptan Plan / VTE VTE Prophylaxis Ordered?: Yes (heparin SC) Plan Activity: Bedrest Therapy: PT, OT Diagnostics: Check Labs, Repeat Labs in AM Anticipated Discharge: Home GME ATTESTATION GME ATTESTATION My faculty preceptor for this patient encounter was physically present during the encounter and was fully available. All aspects of the patient interview, examination, medical decision making process, and medical care plan development were reviewed and approved by the faculty preceptor. The faculty preceptor is aware and concurs with the plan as stated in the body of this note and will attest to such by his/her cosignature. ATTENDING NOTE I, Lisandra Moss, have both independently examined this patient as well as reviewed the documentation. I have discussed in detail with the resident the findings and plan of treatment as documented by the resident. I agree with their findings and treatment plan. I will continue to follow the patient and offer further guidance to the patients care as necessary during this hospital stay. EH JARRETT DO August 06, 2018 18:09 LISANDRA MOSS MD August 07, 2018 10:17
[2018-08-06 20:36] VITALS: BP 137/91
[2018-08-06 20:50] VITALS: BP 137/91
[2018-08-06] MEDS ORDERED: ENTER DRUG NAME HERE (PATIENT'S OWN MED) PO SCH (21:00)
[2018-08-06] MEDS ORDERED: PROM50TA4 PO (21:20)
[2018-08-06] MEDS ORDERED: CONC54TA4 PO (21:20)
[2018-08-06] MEDS ORDERED: SPIR100T3 PO (21:20)
[2018-08-06] MEDS ORDERED: FURO20TA2 PO (21:20)
[2018-08-06] MEDS ORDERED: NADO80TA PO (21:20)
[2018-08-06] MEDS ORDERED: ONDA8TAB7 PO (21:20)
[2018-08-06] MEDS ORDERED: SUMA50TA2 PO (21:20)
[2018-08-06] MEDS ORDERED: PROHANCE 279.3MG/ML 15ML VIAL (A9576) As Ordered ONE (21:54)
[2018-08-06] MEDS ORDERED: PROHANCE 279.3MG/ML 5ML VIAL (A9576) As Ordered ONE (21:54)
[2018-08-06] MEDS: HEPARIN SOD (PORCINE) 5000 UNITS/ML VIAL SC SCH (22:37)
--- NOTE | 2018-08-06 23:09 | REPVR ---
EXAM: MR Head Without and With Contrast EXAM DATE/TIME: 08/06/2018 10:14 PM CLINICAL HISTORY: 33 years old, female; Signs and symptoms; Dizziness and visual disturbance and other: ? Ms flair; Patient HX: Dx with ms 02/03; Additional info: Monocular diplopia TECHNIQUE: Imaging protocol: MR of the head without and with intravenous contrast. Contrast material: PROHANCE; Contrast volume: 13 ml; Contrast route: IV; COMPARISON: MRI-Brain W/O FOLL BY WITH 05/10/2018 3:42 PM FINDINGS: Brain: Scattered foci of increased T2/FLAIR signal intensity in the periventricular and subcortical white matter, similar to prior. No hemorrhage. No edema. No abnormal enhancement. Ventricles: Normal. No ventriculomegaly. Bones/joints: Unremarkable. Soft tissues: Normal. Sinuses: Minimal ethmoid and right greater than left maxillary sinus mucosal thickening. No acute sinusitis. Mastoid air cells: Normal as visualized. No mastoid effusion. Orbits: Unremarkable. IMPRESSION: 1. Scattered foci of increased T2/FLAIR signal intensity in the periventricular and subcortical white matter, similar to prior. No abnormal enhancement to suggest active demyelination. 2. Additional findings, as above. Electronically signed by: Alberto Matamoros On 08/06/2018 23:08:30 PM
[2018-08-06] MEDS ORDERED: SUMAtriptan SUCCINATE 25 MG TAB PO PRN (23:30)
[2018-08-06] MEDS ORDERED: FUROSEMIDE 20 MG TAB PO PRN (23:30)
[2018-08-06] MEDS ORDERED: PROMETHAZINE 25 MG TAB PO PRN (23:30)
[2018-08-06] MEDS ORDERED: ALBUTEROL 90 MCG/ACT 8GM HFA INHALER INH PRN (23:30)
[2018-08-07] VITALS (7 sets, daily range): BP systolic 115–142; BP diastolic 55–94
[2018-08-07] MEDS: carBAMazepine 200 MG TAB PO SCH ×3 (01:31→20:11)
[2018-08-07] MEDS: OMEPRAZOLE 20 MG CAP PO SCH ×2 (01:31→18:34)
--- NOTE | 2018-08-07 06:10 | ECGEPIP ---
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
[2018-08-07] MEDS: HEPARIN SOD (PORCINE) 5000 UNITS/ML VIAL SC SCH ×3 (06:13→21:17)
[2018-08-07 06:22] LABS: BASO # 0.1 10^3/uL (0.0-0.2); BASO % 1.1 % (0.0-1.0); EOS # 0.3 10^3/uL (0.0-0.50); EOS % 2.9 % (0.0-3.0); HEMOGLOBIN 12.5 g/dl (12.0-15.5); LYMPH # 3.2 10^3/uL (1.5-4.5); LYMPH % 36.5 % (24.0-44.0); MEAN CORPUSCULAR HEMOGLOBIN 28.7 pg (27.0-33.0); MEAN CORPUSCULAR HGB CONC 32.1 g/dl (32.0-36.5); MEAN CORPUSCULAR VOLUME 89.4 fl (80.0-96.0); MONO # 0.7 10^3/uL (0.0-0.8); MONO % 7.4 % (0.0-5.0); NEUTROPHILS # 4.5 10^3/uL (1.8-7.7); NEUTROPHILS % 51.9 % (36.0-66.0); PLATELET COUNT, AUTOMATED 247 10^3/uL (150-450); RED BLOOD COUNT 4.36 10^6/uL (4.00-5.40); WHITE BLOOD COUNT 8.8 10^3/uL (4.0-10.0)
[2018-08-07] MEDS: ONDANSETRON 4MG/2ML VIAL (J2405) IV PRN ×2 (06:44→13:38)
[2018-08-07 06:50] LABS: BLOOD UREA NITROGEN 9 MG/DL (7-18); CARBON DIOXIDE LEVEL 26 MEQ/L (21-32); CHLORIDE LEVEL 104 MEQ/L (98-107); CREATININE FOR GFR 0.82 MG/DL (0.55-1.30); GLOMERULAR FILTRATION RATE > 60.0 (>60); GLUCOSE, FASTING 82 MG/DL (70-100); MAGNESIUM LEVEL 2.2 MG/DL (1.8-2.4); POTASSIUM SERUM 3.4 MEQ/L (3.5-5.1); SODIUM LEVEL 138 MEQ/L (136-145)
[2018-08-07] MEDS ORDERED: POTASSIUM CHLORIDE 10 MEQ SR TABLET PO ONE (09:00)
[2018-08-07] MEDS ORDERED: methylPREDNISolone INJ 125 MG/2 ML VIAL (J2930) IV SCH (09:00)
[2018-08-07] MEDS ORDERED: ENTER DRUG NAME HERE (PATIENT'S OWN MED) PO SCH (09:00)
[2018-08-07] MEDS: SPIRONOLACTONE 50 MG TAB PO SCH (09:45)
[2018-08-07] MEDS: NADOLOL 20MG TABLET PO SCH (09:46)
[2018-08-07] MEDS ORDERED: PROPARACAINE 0.5% OPHTH SOL 15ML As Ordered ONE (11:08)
[2018-08-07] MEDS ORDERED: TROPICAMIDE 1% OPHTH SOLN 2ML As Ordered ONE (11:10)
[2018-08-07] MEDS ORDERED: PHENYLEPHRINE 2.5% OPHTH SOL 2ML As Ordered ONE (11:10)
[2018-08-07] MEDS: METHYLPHENIDATE ER 18 MG TABLET (CONCERTA) PO SCH (11:51)
[2018-08-07] MEDS ORDERED: ERYTHROMYCIN 250 MG TABLET PO PRN (12:00)
--- NOTE | 2018-08-07 12:00 | IPNPDOC ---
Text Note Date of Service The patient was seen on 08/07/18. NOTE Subjective: Pt is a 33 yo female with PMH of Humberto-Danlos, POTS, ADHD and reported MS presented to [facility] ER due to diplopia, blurry vision, and difficulty walking that started this morning at 6AM. Pt said she was diagnosed with MS in [facility] via MRI head in Feb 2018, and she had several MS attacks since then. She gets Tysabri every 28 months through neurologist, and last infusion was around Jul 17 2018. This is the first MS attack she has after being started on Tysabri. Pt states her difficulty walking is d/t blurry vision but denies any weakness/imbalance/at axia, scotoma, No pain in body reported. She reported she has afferent pupillary defect but otherwise at baseline she has no other symptoms. Patient was seen and examined at the bedside. Patient reports that she's still experiencing ghosting of her images, despite having her eyes covered. Patient d enies any chest pain, shortness of breath or palpitations. Has not experienced any abdominal pain or diarrhea. Denies any nausea, vomiting, denies any urinary symptoms. Objective: Vitals (See below) General: Lying in bed, appears porter, no acute distress, comfortable, AAOx3 HEENT: NC, AT CVS: RRR, +S1S2 Lungs: Fair air entry b/l, no auscultated evidence of rhonchi, rales or wheezing Abdomen: Soft, nondistended, without tenderness Extremities: - Edema, - Calf tenderness Assessment and plan: Monocular diplopia - possibly 2/2 Multiple sclerosis exacerbation - Diagnosed with MS 02/2018; on Tysabri as an outpatient - Presented with visual problems and gait instability - Lab work unremarkable - MRI Brain 08/06: 1. Scattered foci of increased T2/FLAIR signal intensity in the periventricular and subcortical white matter, similar to prior. No abnormal enhancement to suggest active demyelination. 2. Additional findings, as above. - Ophthalmology has a valid patient on 08/07; patient was reported to have 3+ APD which is worse than her baseline of 2+ - Will start the patient on 1000 mg of Solu-Medrol (1 of 5 days) - Neurology and ophthalmology on consultation - Patient with physical therapy today Hx of POTS (postural orthostatic tachycardia syndrome) - PT currently tachycardic while supine; reported at times HR may go up to 200s - Intermittent chronic palpitation - c/w Nadalol - c/w Telemetry Humberto-Danlos syndrome type III - Diagnosed at younger age - Follows with rheumatology as an outpatient Hx of Gastroparesis - Restarted Erythromycin PRN ADHD - c/w Methylphenidate Hx of Migraine headaches - c/w Sumatriptan GI prophylaxis - c/w Omeprazole - Will restart Famotidine DVT prophylaxis - c/w Heparin Disposition: - Patient will receive 5 days of Solu-Medrol - She will continue to work with physical therapy until she is cleared for discharge home VS,Fishbone, I+O VS, Fishbone, I+O Laboratory Tests 08/06/18 13:40 Red Blood Count 4.28, Mean Corpuscular Volume 89.7, Mean Corpuscular Hemoglobin 28.7, Mean Corpuscular Hemoglobin Concent 32.0, Red Cell Distribution Width 13.9, Neutrophils (%) (Auto) 58.4, Lymphocytes (%) (Auto) 31.5, Monocytes (%) ( Auto) 5.0, Eosinophils (%) (Auto) 3.9 H, Basophils (%) (Auto) 0.8, Neutrophils # (Auto) 6.1, Lymphocytes # (Auto) 3.3, Monocytes # (Auto) 0.5, Eosinophils # (Auto) 0.4, Basophils # (Auto) 0.1 08/07/18 05:55 Red Blood Count 4.36, Mean Corpuscular Volume 89.4, Mean Corpuscular Hemoglobin 28.7, Mean Corpuscular Hemoglobin Concent 32.1, Red Cell Distribution Width 13.8, Neutrophils (%) (Auto) 51.9, Lymphocytes (%) (Auto) 36.5, Monocytes (%) (Auto) 7.4 H, Eosinophils (%) (Auto) 2.9, Basophils (%) (Auto) 1.1 H, Neutrophils # (Auto) 4.5, Lymphocytes # (Auto) 3.2, Monocytes # (Auto) 0.7, Eosinophils # (Auto) 0.3, Basophils # (Auto) 0.1, Calcium Level 9.0 Vital Signs Date Time Temp Pulse Resp B/P (MAP) Pulse Ox O2 Delivery O2 Flow Rate FiO2 5/22/19 09:46 85 129/87 08/07/18 08:00 99.3 18 100 08/06/18 20:15 Room Air I&O- Last 24 Hours up to 6 AM 08/07/18 06:00 Intake Total 620 ml Output Total 800 ml Balance -180 ml OBEY MOSS MD August 07, 2018 12:00
[2018-08-07] MEDS: FAMOTIDINE 20 MG TAB PO SCH ×2 (13:38→20:11)
[2018-08-07] MEDS: methylPREDNISolone 1,000 MG, VIAL MATE ADAPTER 1 EACH in D5W 250 ML IV SCH (13:38)
--- NOTE | 2018-08-07 17:14 | CR ---
DATE OF CONSULTATION: 08/07/2018 CONSULTATION REPORT FOR: Dr. Lisandra Bennett HISTORY AND CHIEF COMPLAINT: Mrs. Deshpande is a 33-year-old female who has a known history of multiple sclerosis, relapsing and remitting, Humberto-Danlos syndrome. Mrs. Deshpnade presented to [facility] on 08/06/2018 with a complaint of blurry vision in the left eye, difficulty with walking, and what she describes as shadows in the vision of the left eye. She has some increased light sensitivity,pain on eye movement of the left eye. She does not have diplopia. She was diagnosed with multiple sclerosis at [facility] ([facility]) in [place] by Dr. Faustino Murdock. She was diagnosed with retrobulbar optic neuritis of the left eye on 02/01/2018 and was treated with intravenous Solu-Medrol. PAST OCULAR HISTORY: See history of present illness. PAST MEDICAL HISTORY: Please refer to the history and physical examination by Dr. Kaitlin Wang. Attention deficit hyperactivity disorder (ADHD), chronic headaches, irritable bowel syndrome (IBS), gastroesophageal reflux disease (GERD), postural orthostatic tachycardia syndrome (POTS), allergic rhinitis, gastroparesis, gastritis, hematuria. MEDICATIONS: Please refer to the history and physical examination report by Dr. Kaitlin Wang. Tysabri, Botox, carbamazepine, esomeprazole, Concerta, Introvale, nadolol, spironolactone. ALLERGIES: LATEX, LUBIPROSTONE, METOCLOPRAMIDE. PHYSICAL EXAMINATION: The visual acuity with current glasses: Right eye: 20/25, left eye: 20/30-. Pupils: Both eyes: Round, regular and reactive to light. 4 mm. 3+ relative afferent pupillary defect left eye. Extraocular movements: Both eyes: Orthophoric on cover testing, no evidence of eye deviation. Extraocular movements: Both eyes: Full. Cranial nerves: Number III, IV, and VII normal bilaterally. External examination: Normal lids, lashes, conjunctiva. Slit lamp examination: Cornea: Both eyes: Mild superficial punctate keratitis, dry eye. Anterior chamber: Both eyes: Deep and quiet. Iris: Both eyes: Normal. Lens: Both eyes: Clear. Fundal examination: Disc: Right eye: Normal. No evidence of papilledema, no evidence of optic neuritis anteriorly, no hemorrhages of the optic disc. Left eye: No papilledema, mild hyperemia 1+ temporally, no hemorrhages of the optic disc. Macular: Both eyes: Normal. Blood vessels: Both eyes: Normal. Peripheral retina: Both eyes: Normal. Intraocular pressure by Jayant-Pen: Both eyes: 16 mmHg. IMPRESSION: 1. Multiple sclerosis, relapsing and remitting. 2. Recurrent retrobulbar optic neuritis, left eye. PLAN: I discussed the findings with Ms. Deshpande. I called Dr. Lisandra Bennett and notified him that Mrs. Deshpande has left retrobulbar optic neuritis. He decided to start intravenous Solu-Medrol. Dr. Hill from neurology will be assessing the patient later this afternoon. BANDAR
[2018-08-08 04:00] VITALS: BP 128/70
[2018-08-08 05:17] LABS: BASO % 0.3 % (0.0-1.0); HEMATOCRIT 39.4 % (36.0-47.0); HEMOGLOBIN 12.7 g/dl (12.0-15.5); LYMPH # 1.6 10^3/uL (1.5-4.5); LYMPH % 20.4 % (24.0-44.0); MEAN CORPUSCULAR HEMOGLOBIN 27.9 pg (27.0-33.0); MEAN CORPUSCULAR HGB CONC 32.2 g/dl (32.0-36.5); MEAN CORPUSCULAR VOLUME 86.6 fl (80.0-96.0); MONO # 0.4 10^3/uL (0.0-0.8); MONO % 4.9 % (0.0-5.0); NEUTROPHILS # 5.9 10^3/uL (1.8-7.7); NEUTROPHILS % 74.1 % (36.0-66.0); PLATELET COUNT, AUTOMATED 291 10^3/uL (150-450); RED BLOOD COUNT 4.55 10^6/uL (4.00-5.40)
[2018-08-08 05:40] LABS: BLOOD UREA NITROGEN 15 MG/DL (7-18); CALCIUM LEVEL 9.5 MG/DL (8.5-10.1); CARBON DIOXIDE LEVEL 27 MEQ/L (21-32); CHLORIDE LEVEL 102 MEQ/L (98-107); CREATININE FOR GFR 0.94 MG/DL (0.55-1.30); GLOMERULAR FILTRATION RATE > 60.0 (>60); GLUCOSE, FASTING 130 MG/DL (70-100); MAGNESIUM LEVEL 2.3 MG/DL (1.8-2.4); POTASSIUM SERUM 3.6 MEQ/L (3.5-5.1); SODIUM LEVEL 138 MEQ/L (136-145)
[2018-08-08] MEDS: HEPARIN SOD (PORCINE) 5000 UNITS/ML VIAL SC SCH (06:00)
[2018-08-08 08:00] VITALS: BP 142/80
[2018-08-08] MEDS: methylPREDNISolone 1,000 MG, VIAL MATE ADAPTER 1 EACH in D5W 250 ML IV SCH (08:46)
[2018-08-08 08:47] VITALS: BP 142/80
[2018-08-08] MEDS: carBAMazepine 200 MG TAB PO SCH (08:47)
[2018-08-08] MEDS: FAMOTIDINE 20 MG TAB PO SCH (08:47)
[2018-08-08] MEDS: NADOLOL 20MG TABLET PO SCH (08:47)
[2018-08-08] MEDS: SPIRONOLACTONE 50 MG TAB PO SCH (08:47)
[2018-08-08] MEDS: METHYLPHENIDATE ER 18 MG TABLET (CONCERTA) PO SCH (08:51)
[2018-08-08] MEDS ORDERED: SOLU500I IV (09:38)
[2018-08-08] MEDS: ONDANSETRON 4MG/2ML VIAL (J2405) IV PRN (10:44)
--- NOTE | 2018-08-08 16:25 | DS.PDOC ---
Discharge Summary General Date of Admission August 06, 2018 at 17:15 Date of Discharge 08/08/2018 Discharge Summary PROCEDURES PERFORMED DURING STAY: [None]. ADMITTING DIAGNOSES / DISCHARGE DIAGNOSES: Monocular diplopia - possibly 2/2 Multiple sclerosis exacerbation Hx of POTS (postural orthostatic tachycardia syndrome) Humberto-Danlos syndrome type III Hx of Gastroparesis ADHD Hx of Migraine headaches GI prophylaxis DVT prophylaxis COMPLICATIONS/CHIEF COMPLAINT: Blurred vision and difficulty walking HISTORY OF PRESENT ILLNESS: Pt is a 33 yo female with PMH of Humberto-Danlos, POTS, ADHD and reported MS presented to [facility] ER due to diplopia, blurry vision, and difficulty walking that started this morning at 6AM. Pt said she was diagnosed with MS in [facility] via MRI head in Feb 2018, and she had several MS attacks since then. She gets Tysabri every 28 months through neurologist, and last infusion was around Jul 17 2018. This is the first MS attack she has after being started on Tysabri. Pt states he r difficulty walking is d/t blurry vision but denies any weakness/imbalance/ataxia, scotoma, No pain in body reported. She reported she has afferent pupillary defect but otherwise at baseline she has no other symptoms. HOSPITAL COURSE: Monocular diplopia - possibly 2/2 Multiple sclerosis exacerbation - Diagnosed with MS 02/2018; on Tysabri as an outpatient - Presented with visual problems and gait instability - has reported improvement - Lab work unremarkable - MRI Brain 08/06: 1. Scattered foci of increased T2/FLAIR signal intensity in the periventricular and subcortical white matter, similar to prior. No abnormal enhancement to suggest active demyelination. 2. Additional findings, as above. - Ophthalmology has a valid patient on 08/07; patient was reported to have 3+ APD which is worse than her baseline of 2+ - c/w 1000 mg of Solu-Medrol (2 of 5 days); will continue with outpatient infusions, which have been approved - Neurology and ophthalmology on consultation - Cleared PT today Hx of POTS (postural orthostatic tachycardia syndrome) - PT currently tachycardic while supine; reported at times HR may go up to 200s - Intermittent chronic palpitation - c/w Nadalol - c/w Telemetry Humberto-Danlos syndrome type III - Diagnosed at younger age - Follows with rheumatology as an outpatient Hx of Gastroparesis - Will c/w Erythromycin as an outpatient ADHD - c/w Methylphenidate Hx of Migraine headaches - c/w Sumatriptan GI prophylaxis - c/w Omeprazole and Famotidine DVT prophylaxis - c/w Heparin DISCHARGE MEDICATIONS: Please see below. ALLERGIES: Please see below. PHYSICAL EXAMINATION ON DISCHARGE: Vitals (See below) General: Lying in bed, porter, no acute distress, comfortable, AAOx3 HEENT: NC, AT CVS: RRR, +S1S2 Lungs: Air entry is fair bilaterally. No wheezing, rhonchi or rales Abdomen: Soft, negative distention. Negative tenderness Extremities: No lower extremity edema, - Calf tenderness LABORATORY DATA: Please see below. ACTIVITY: [As tolerated]. DISCHARGE PLAN: Follow-up with Dr. Cheng, Dr. Priest, Dr. Hill / Neurology DISPOSITION: Home, Self-Care. DISCHARGE CONDITION: [Stable]. TIME SPENT ON DISCHARGE: 40 minutes Vital Signs/I&Os Vital Signs Date Time Temp Pulse Resp B/P (MAP) Pulse Ox O2 Delivery O2 Flow Rate FiO2 08/08/18 08:47 117 142/80 08/08/18 08:00 97.7 20 100 08/06/18 20:15 Room Air I&O- Last 24 Hours up to 6 AM 08/08/18 06:00 Intake Total 840 ml Output Total 750 ml Balance 90 ml Laboratory Data Labs 24H Laboratory Tests 2 08/08/18 05:06: Immature Granulocyte % (Auto) 0.3, White Blood Count 8.0, Red Blood Count 4.55, Hemoglobin 12.7, Hematocrit 39.4, Mean Corpuscular Volume 86.6, Mean Corpuscular Hemoglobin 27.9, Mean Corpuscular Hemoglobin Concent 32.2, Red Cell Distribution Width 13.7, Platelet Count 291, Neutrophils (%) (Auto) 74.1H, Lymph ocytes (%) (Auto) 20.4L, Monocytes (%) (Auto) 4.9, Eosinophils (%) (Auto) 0.0, Basophils (%) (Auto) 0.3, Neutrophils # (Auto) 5.9, Lymphocytes # (Auto) 1.6, Monocytes # (Auto) 0.4, Eosinophils # (Auto) 0.0, Basophils # (Auto) 0.0, Nucleated Red Blood Cells % (auto) 2.1H, Anion Gap 9, Glomerular Filtration Rate > 60.0, Blood Urea Nitrogen 15#, Creatinine 0.94, Sodium Level 138, Potassium Level 3.6, Chloride Level 102, Carbon Dioxide Level 27, Calcium Level 9.5, Magnesium Level 2.3 CBC/BMP Laboratory Tests 08/08/18 05:06 Red Blood Count 4.55, Mean Corpuscular Volume 86.6, Mean Corpuscular Hemoglobin 27.9, Mean Corpuscular Hemoglobin Concent 32.2, Red Cell Distribution Width 13.7, Neutrophils (%) (Auto) 74.1 H, Lymphocytes (%) (Auto) 20.4 L, Monocytes (%) (Auto) 4.9, Eosinophils (%) (Auto) 0.0, Basophils (%) (Auto) 0.3, Neutrophils # (Auto) 5.9, Lymphocytes # (Auto) 1.6, Monocytes # (Auto) 0.4, Eosinophils # (Auto) 0.0, Basophils # (Auto) 0.0, Calcium Level 9.5 Discharge Medications Scheduled Botulinum Toxin Type A (Botox) Unknown Strength Soln, Unknown Dose IM Q3M, (Reported) EVERY 3 MONTHS: LAST ONE GIVEN IN MAY, NEXT DOSE DUE IN AUGUST Carbamazepine (Carbamazepine) 200 Mg Tab, 200 MG PO BID, (Reported) Esomeprazole Magnesium (Esomeprazole Magnesium) 40 Mg Cap, 40 MG PO QPM, (Reported) BEFORE DINNER Levonorgestrel-Ethin Estradiol (Introvale 0.15-0.03 mg Tablet) 1 Tab Tab, 1 TAB PO DAILY, (Reported) Methylphenidate HCl (Concerta) 54 Mg Tab.er.24, 54 MG PO DAILY, (Reported) Nadolol (Nadolol) 80 Mg Tablet, 80 MG PO DAILY, (Reported) HOLD IF SBP<100 OR DBP<70 Spironolactone (Spironolactone) 100 Mg Tablet, 100 MG PO DAILY, (Reported) Scheduled PRN Albuterol Sulfate (Ventolin Hfa) 108 Mcg/Act Aer, 2 PUFFS INH Q4H PRN for SHORTNESS OF BREATH, (Reported) Erythromycin (Erythromycin) 250 Mg Cap, 250 MG PO TID PRN for GASTROPARESIS, (Reported) Furosemide (Furosemide) 20 Mg Tablet, 20 MG PO DAILY PRN for SWELLING, (Reported) Levocetirizine Dihydrochloride (Levocetirizine Dihydrochloride) 5 Mg Tab, 5 MG PO QHS PRN for ALLERGIES, (Reported) Ondansetron HCl (Ondansetron HCl) 8 Mg Tablet, 8 MG PO BID PRN for NAUSEA, (Reported) Promethazine Hcl (Promethazine HCl) 50 Mg Tablet, 50 MG PO Q4H PRN for NAUSEA, (Reported) Ranitidine Hcl (Ranitidine HCl) 150 Mg Tab, 1 TAB PO BID PRN for ACID REFLUX, (Reported) Sumatriptan Succinate (Sumatriptan Succinate) 50 Mg Tablet, 50 MG PO DAILY PRN for MIGRAINE, (Reported) Valacyclovir HCl (Valacyclovir) 1 Gm Tab, 1 GM PO BID PRN for COLD SORES, (Reported) FOR 2 DAYS Allergies Coded Allergies: latex (Verified Allergy, Unknown, 08/06/18) lubiprostone (Verified Allergy, Unknown, 08/06/18) metoclopramide (Verified Allergy, Unknown, 08/06/18) OBEY MOSS MD August 08, 2018 16:25
--- NOTE | 2018-08-08 16:26 | DS.PDOC ---
Discharge Summary General Date of Admission August 06, 2018 at 17:15 Date of Discharge 08/08/18 Discharge Summary PROCEDURES PERFORMED DURING STAY: [None]. ADMITTING DIAGNOSES: 1. . DISCHARGE DIAGNOSES: 1. . COMPLICATIONS/CHIEF COMPLAINT: Multiple Sclerosis. HISTORY OF PRESENT ILLNESS: Pt is a 33 yo female with PMH of Humberto-Danlos, POTS, ADHD and reported MS presented to [facility] ER due to diplopia, blurry vision, and difficulty walking that started this morning at 6AM. Pt said she was diagnosed with MS in [facility] via MRI head in Feb 2018, and she had several MS attacks since then. She gets Tysabri every 28 months through neurologist, and last infusion was around Jul 17 2018. This is the first MS attack she has after being started on Tysabri. Pt states her difficulty walking is d/t blurry vision but denies any weakness/imbalance/ataxia, scotoma, No pain in body reported. She reported she has afferent pupillary defect but otherwise at baseline she has no other symptoms. She has chronic intermittent palpitation due to POTS. Nausea w/o vomiting; denies any numbness, tingling, loss of sensation, chest pain, SOB, abdominal pain, constipation, diarrhea, hematochezia, or urinary symptoms. HOSPITAL COURSE: MRI head was ordered and showed cattered foci of increased T2/FLAIR signal intensity in the periventricular and subcortical white matter which was similar to prior. Ophthamologist Dr. Donato was consulted and noted that pt has DISCHARGE MEDICATIONS: Please see below. ALLERGIES: Please see below. PHYSICAL EXAMINATION ON DISCHARGE: VITAL SIGNS: Please see below. GENERAL: HEENT: NECK: CARDIOVASCULAR EXAMINATION: RESPIRATORY EXAMINATION: ABDOMINAL EXAMINATION: EXTREMITIES: SKIN: NEUROLOGICAL EXAMINATION: PSYCHIATRIC EXAMINATION: LABORATORY DATA: Please see below. IMAGING: PROGNOSIS: ACTIVITY: [As tolerated]. DIET: DISCHARGE PLAN: DISPOSITION: Home, Self-Care. DISCHARGE INSTRUCTIONS: 1. . ITEMS TO FOLLOWUP ON ON OUTPATIENT: 1. . DISCHARGE CONDITION: [Stable]. TIME SPENT ON DISCHARGE: Greater than minutes. Vital Signs/I&Os Vital Signs Date Time Temp Pulse Resp B/P (MAP) Pulse Ox O2 Delivery O2 Flow Rate FiO2 08/08/18 08:47 117 142/80 08/08/18 08:00 97.7 20 100 08/06/18 20:15 Room Air I&O- Last 24 Hours up to 6 AM 5/23/19 06:00 Intake Total 840 ml Output Total 750 ml Balance 90 ml Laboratory Data Labs 24H Laboratory Tests 2 08/08/18 05:06: Immature Granulocyte % (Auto) 0.3, White Blood Count 8.0, Red Blood Count 4.55, Hemoglobin 12.7, Hematocrit 39.4, Mean Corpuscular Volume 86.6, Mean Corpuscular Hemoglobin 27.9, Mean Corpuscular Hemoglobin Concent 32.2, Red Cell Distribution Width 13.7, Platelet Count 291, Neutrophils (%) (Auto) 74.1H, Lymphocytes (%) (Auto) 20.4L, Monocytes (%) (Auto) 4.9, Eosinophils (%) (Auto) 0.0, Basophils (%) (Auto) 0.3, Neutrophils # (Auto) 5.9, Lymphocytes # (Auto) 1.6, Monocytes # (Auto) 0.4, Eosinophils # (Auto) 0.0, Basophils # (Auto) 0.0, Nucleated Red Blood Cells % (auto) 2.1H, Anion Gap 9, Glomerular Filtration Rate > 60.0, Blood Urea Nitrogen 15#, Creatinine 0.94, Sodium Level 138, Potassium Level 3.6, Chloride Level 102, Carbon Dioxide Level 27, Calcium Level 9.5, Magnesium Level 2.3 CBC/BMP Laboratory Tests 08/08/18 05:06 Red Blood Count 4.55, Mean Corpuscular Volume 86.6, Mean Corpuscular Hemoglobin 27.9, Mean Corpuscular Hemoglobin Concent 32.2, Red Cell Distribution Width 13.7, Neutrophils (%) (Auto) 74.1 H, Lymphocytes (%) (Auto) 20.4 L, Monocytes (%) (Auto) 4.9, Eosinophils (%) (Auto) 0.0, Basophils (%) (Auto) 0.3, Neutrophils # (Auto) 5.9, Lymphocytes # (Auto) 1.6, Monocytes # (Auto) 0.4, Eosinophils # (Auto) 0.0, Basophils # (Auto) 0.0, Calcium Level 9.5 Discharge Medications Scheduled Botulinum Toxin Type A (Botox) Unknown Strength Soln, Unknown Dose IM Q3M, (Reported) EVERY 3 MONTHS: LAST ONE GIVEN IN MAY, NEXT DOSE DUE IN AUGUST Carbamazepine (Carbamazepine) 200 Mg Tab, 200 MG PO BID, (Reported) Esomeprazole Magnesium (Esomeprazole Magnesium) 40 Mg Cap, 40 MG PO QPM, (Reported) BEFORE DINNER Levonorgestrel-Ethin Estradiol (Introvale 0.15-0.03 mg Tablet) 1 Tab Tab, 1 TAB PO DAILY, (Reported) Methylphenidate HCl (Concerta) 54 Mg Tab.er.24, 54 MG PO DAILY, (Reported) Nadolol (Nadolol) 80 Mg Tablet, 80 MG PO DAILY, (Reported) HOLD IF SBP<100 OR DBP<70 Spironolactone (Spironolactone) 100 Mg Tablet, 100 MG PO DAILY, (Reported) Scheduled PRN Albuterol Sulfate (Ventolin Hfa) 108 Mcg/Act Aer, 2 PUFFS INH Q4H PRN for SHORTNESS OF BREATH, (Reported) Erythromycin (Erythromycin) 250 Mg Cap, 250 MG PO TID PRN for GASTROPARESIS, (Reported) Furosemide (Furosemide) 20 Mg Tablet, 20 MG PO DAILY PRN for SWELLING, (Reporte d) Levocetirizine Dihydrochloride (Levocetirizine Dihydrochloride) 5 Mg Tab, 5 MG PO QHS PRN for ALLERGIES, (Reported) Ondansetron HCl (Ondansetron HCl) 8 Mg Tablet, 8 MG PO BID PRN for NAUSEA, (Reported) Promethazine Hcl (Promethazine HCl) 50 Mg Tablet, 50 MG PO Q4H PRN for NAUSEA, (Reported) Ranitidine Hcl (Ranitidine HCl) 150 Mg Tab, 1 TAB PO BID PRN for ACID REFLUX, (Reported) Sumatriptan Succinate (Sumatriptan Succinate) 50 Mg Tablet, 50 MG PO DAILY PRN for MIGRAINE, (Reported) Valacyclovir HCl (Valacyclovir) 1 Gm Tab, 1 GM PO BID PRN for COLD SORES, (Reported) FOR 2 DAYS Allergies Coded Allergies: latex (Verified Allergy, Unknown, 08/06/18) lubiprostone (Verified Allergy, Unknown, 08/06/18) metoclopramide (Verified Allergy, Unknown, 08/06/18) EH JARRETT DO August 08, 2018 16:26
--- NOTE | 2018-08-09 08:46 | CR ---
DATE OF CONSULTATION: 08/07/2018 REFERRING PROVIDER: Lisandra Bennett MD REASON FOR CONSULTATION: Suspected multiple sclerosis (MS) flare-up. Lela Deshpande was admitted to [facility] after a chief complaint of having blurring of her vision out of both eyes. She describes it as monocular diplopia. The patient has had an history of left optic neuritis in January 2018 requiring five days of IV Solu-Medrol. The patient was evaluated by Dr. Priest who concurred the patient has recurrent left-sided optic neuritis. The patient was having difficulty ambulating, but she states that was secondary to not being able to see. She denies any focal weakness or numbness or any sensory level. She denies any change in her bowel or bladder function. She denies any change her cognition. The patient denies any dysarthria, dysphasia. The patient is agreeable to have IV Solu-Medrol for five days. She wishes to complete most of therapy as an outpatient which is fine as the patient has normal neurological exam other than her vision. The patient did have an MRI of the brain with and without contrast which did not reveal any enhancing lesions within the brain. For maintenance of her MS, she does receive Tysabri every 28 days and last received it on July 17, 2018. PAST MEDICAL HISTORY: Relapsing remitting multiple sclerosis. Left eye optic neuritis. Humberto-Danlos. Postural orthostatic tachycardia syndrome (POTS). Attention deficit hyperactivity disorder (ADHD). Irritable bowel syndrome (IBS). Gastroesophageal reflux disease (GERD). Chronic intractable migraines headaches. History of hematuria. Allergic rhinitis. Gastritis. History of gastric ulcer. HOME MEDICATIONS: - Botox every three months - carbamazepine 200 mg by mouth twice a day - esomeprazole 40 mg by mouth at bedtime - Introvale 0.15-0.03 mg tablet daily - methylphenidate 54 mg extended release once a day - nadolol 80 mg by mouth daily - spironolactone 100 mg by mouth daily - albuterol as needed - furosemide as needed - levocetirizine - ondansetron - promethazine - ranitidine - sumatriptan - valacyclovir ALLERGIES: 1. LATEX. 2. METOCLOPRAMIDE. 3. LUBIPROSTONE. PAST SURGICAL HISTORY: Appendectomy in March 07, 2018. FAMILY HISTORY: Noncontributory. SOCIAL HISTORY: The patient denies use of tobacco, alcohol or illicit drugs. REVIEW OF SYSTEMS: 14-point review of systems obtained and is negative except as per HPI. PHYSICAL EXAMINATION: Blood pressure is 134/82, pulse rate is 95, respiratory rate is 18, oxygenation 97% on room air, temperature is 98.9 degrees Fahrenheit. The patient is awake, alert, oriented to person, place and time. Speech, language, comprehension, and repetition are intact. Pupils are 4 mm, APD noted in the left eye minimum. Right eye is round, reactive. Extraocular movements are intact in all directions without nystagmus. Sensation V1, V2, and V3 is intact to light touch. No facial asymmetry to activation. Palate elevates symmetrically. Tongue is midline. No weakness of sternocleidomastoids bilaterally. Hearing is subjectively intact to finger rub equally. Strength testing reveals 5/5 strength in bilateral deltoids, biceps, triceps, handgrip, iliopsoas, quadriceps, anterior tibialis. Deep tendon reflexes are 2+ throughout. Babinski signs are absent. Romberg testing deferred. Sensory is intact to light touch in all four extremities. Coordination normal [id number] without any gross signs of ataxia or dysmetria. ASSESSMENT: Retrobulbar optic neuritis of the left eye, acute attack. History of relapsing remitting multiple sclerosis on [facility]. PLAN: 1. Continue Solu-Medrol 1000 mg IV daily for five days. Follow with prednisone taper, prednisone 60 mg, 40 mg, 20 mg, and 10 mg, two days each. 2. Followup with the patient's own neurologist at [facility], Dr. Faustino Murdock. The case discussed with Dr. Bennett.
== END 2018-08-08 11:58 | disposition home or self-care (01) | DRG 43 ==
LOC: M ED 12:25 → M ED INP 17:15 → M PCU 20:38
PROVIDERS: ADMIT Internal Medicine; ATTEND Internal Medicine
DX: G35 Multiple sclerosis (principal); I95.89 Other hypotension; Q79.6 Ehlers-Danlos syndromes; K31.84 Gastroparesis; K58.9 Irritable bowel syndrome, unspecified; F90.9 Attention-deficit hyperactivity disorder, unspecified type; H53.2 Diplopia; K21.9 Gastro-esophageal reflux disease without esophagitis; J30.9 Allergic rhinitis, unspecified; G43.909 Migraine, unspecified, not intractable, without status migrainosus; H46.12 Retrobulbar neuritis, left eye; R26.2 Difficulty in walking, not elsewhere classified; Z90.49 Acquired absence of other specified parts of digestive tract; Z88.8 Allergy status to other drugs, medicaments and biological substances; Z91.040 Latex allergy status; Z79.899 Other long term (current) drug therapy

== ENCOUNTER 2018-08-10 10:00 | Outpatient (CLI) | payer BC ==
[~2018-08-10 10:00] MED LIST changes: +CONC54TA4 PO; +ONDA8TAB7 PO; +PROM50TA4 PO; +SOLU500I IV; +SUMA50TA2 PO
[2018-08-10 10:05] VITALS: BP 123/80
[2018-08-10] MEDS ORDERED: methylPREDNISolone 1,000 MG, VIAL MATE ADAPTER 1 EACH in D5W 250 ML IV ONE (11:00)
[2018-08-10 12:59] VITALS: BP 123/80
== END 2018-08-10 13:00 | disposition home or self-care (01) ==
LOC: M MS5PR 10:00 → M INFU 10:00 → M OPCLI4PR 10:00 → M INFU 13:00
PROVIDERS: ATTEND Internal Medicine
DX: G35 Multiple sclerosis (principal)
CPT/HCPCS: 96365; J2930

== ENCOUNTER 2018-08-11 10:03 | Outpatient (CLI) | payer BC ==
[~2018-08-11] VITALS: Ht 165.1 cm; Wt 70.9 kg
[2018-08-11 10:30] VITALS: BP 134/82
[2018-08-11] MEDS ORDERED: methylPREDNISolone 1,000 MG, VIAL MATE ADAPTER 1 EACH in D5W 250 ML IV ONE (10:30)
[2018-08-11 12:10] VITALS: BP 126/76
== END 2018-08-11 12:10 | disposition home or self-care (01) ==
LOC: M OPCLI5PR 10:03 → M PED 10:07 → M OPCLI5PR 12:10
PROVIDERS: ATTEND Internal Medicine
DX: G35 Multiple sclerosis (principal); Z91.040 Latex allergy status; Z88.8 Allergy status to other drugs, medicaments and biological substances
CPT/HCPCS: 96365; J2930

== ENCOUNTER → 2018-08-28 | Outpatient (CLI) | payer BC ==
--- NOTE | 2018-08-28 19:29 | REP ---
BILATERAL HANDS, EIGHT VIEWS: HISTORY: Hand pain. RIGHT HAND: There is no acute fracture or dislocation. The joint spaces are normal in appearance. IMPRESSION: There is no acute fracture or dislocation. LEFT HAND: There is no acute fracture or dislocation. The joint spaces are normal in appearance. IMPRESSION: There is no acute fracture or dislocation. Electronically Signed by Salvatore Liang MD 08/28/2018 07:30 P
== END ==
LOC: M WUC 18:02
PROVIDERS: ATTEND Family Medicine
DX: M79.641 Pain in right hand (principal)

== ENCOUNTER → 2018-09-25 | Outpatient (CLI) | payer BC ==
[~2018-09-25] MED LIST changes: +CYAN100049 PO; -VITA10002 PO
--- NOTE | 2018-10-01 07:06 | ECHO ---
DATE OF PROCEDURE: 09/25/2018 REFERRING PHYSICIAN: Callie Sandhu NP LOCATION: Outpatient. REASON FOR ECHOCARDIOGRAM: Tachycardia, unspecified. 2D MEASUREMENT: IVS: 0.8 cm LV: 5.0 cm LVPW: 0.9 cm LA: 3.5 cm Aorta: 2.8 cm LV: 2.7 cm DOPPLER MEASUREMENT: Peak velocity across the aortic valve 1.3 m/s Peak velocity across the LVOT 1.1 m/s Mitral E 0.75, Mitral A 0.68 with a ratio of 1.1 Maximum tricuspid valve velocity 2.4 m/s 2D COMMENTS: 1. Normal left ventricular size, wall thickness, and normal global left ventricular systolic function. The estimated left ventricular systolic ejection is 65-70%. 2. Normal left atrium. Normal right atrium and right ventricle. 3. The atrial septum appeared to be normal without evidence of defect or shunt. 4. Normal aortic root. 5. No pericardial effusion seen. 6. The aortic valve appeared to be normal. Minimally calcified mitral annulus with normal anterior mitral valve leaflet motion. Normal tricuspid valve and pulmonic valve. The proximal pulmonary artery branches also appear to be normal. 7. The inferior vena cava was not well visualized. Doppler detects mild tricuspid regurgitation. The calculated pulmonary artery systolic pressure is about 30 mmHg. IMPRESSION: 1. Normal global left ventricular systolic and diastolic function. 2. Mild tricuspid regurgitation.
== END ==
LOC: M CARPUL 08:25
PROVIDERS: ATTEND Nurse Practitioner Adult Health
DX: R00.0 Tachycardia, unspecified (principal); I95.1 Orthostatic hypotension; R60.1 Generalized edema

== ENCOUNTER → 2018-09-30 | Outpatient (CLI) | payer BC ==
[~2018-09-30] MED LIST changes: +ONDA8TAB10 PO; -ONDA8TAB7 PO; +TYSA1INJ IV; -VALA1TAB2 PO; +VALA1TAB64 PO
[2018-09-30 18:26] LABS: BLOOD UREA NITROGEN 14 MG/DL (7-18); CALCIUM LEVEL 8.7 MG/DL (8.5-10.1); CARBON DIOXIDE LEVEL 21 MEQ/L (21-32); CHLORIDE LEVEL 107 MEQ/L (98-107); CREATININE FOR GFR 0.76 MG/DL (0.55-1.30); GLOMERULAR FILTRATION RATE > 60.0 (>60); GLUCOSE, FASTING 87 MG/DL (70-100); NT-PRO BNP 61 PG/ML (<125); POTASSIUM SERUM 3.8 MEQ/L (3.5-5.1); SODIUM LEVEL 138 MEQ/L (136-145)
[2018-09-30 18:44] LABS: TOTAL PROTEIN,RANDOM URINE 16.3 MG/DL (0.0-12.0)
== END ==
LOC: M LAB 17:15
PROVIDERS: ATTEND Family Medicine
DX: R60.9 Edema, unspecified (principal)

== ENCOUNTER → 2018-11-01 | Outpatient (CLI) | payer BC ==
[~2018-11-01] MED LIST changes: -ONDA8TAB10 PO; +ONDA8TAB7 PO; +PROHANCE 279.3MG/ML 15ML VIAL (A9576) As Ordered ONE; -TYSA1INJ IV; +VALA1TAB2 PO; -VALA1TAB64 PO
--- NOTE | 2018-11-04 12:30 | REP ---
MRI brain without and with IV gadolinium: History: Multiple sclerosis. Six month followup. Comparison MRI study August 06, 2018 and May 10, 2018. Technique: Axial and sagittal imaging planes are utilized for T1 and T2-weighted scans. Sequences include spin-echo, fast spin echo, FLAIR, and diffusion weighted sequences. The gadolinium enhancement dose is 14 mL of intravenous ProHance. MRI findings: Craniocervical junction and upper cervical cord remain unremarkable. There is no MR evidence of significant paranasal sinus disease. No intraorbital abnormality is seen. The deep facial soft tissues are unremarkable and symmetric. There is no evidence of intracranial hemorrhage. No mass, extra-axial fluid collection, hemorrhage, or midline shift is seen. There are multiple scattered foci of subcortical and periventricular white matter hyperintensity on FLAIR and turbo spin-echo T2-weighted scans in the frontal lobes bilaterally unchanged from two comparison studies of May 10, 2018 and August 06, 2018. No abnormal contrast enhancement is appreciated. No new lesion is seen. Impression: Scattered foci of bilateral frontal lobe subcortical and periventricular white matter hyperintensity unchanged from the prior study. No abnormal enhancement seen. Electronically Signed by Tc James MD 11/04/2018 03:09 P
== END ==
LOC: M RAD 16:34
PROVIDERS: ATTEND Psychiatry & Neurology Neurology
DX: G35 Multiple sclerosis (principal)
CPT/HCPCS: 70553; A9576

== ENCOUNTER → 2018-11-13 | Outpatient (REF) | payer BC ==
[~2018-11-13] MED LIST changes: -PROHANCE 279.3MG/ML 15ML VIAL (A9576) As Ordered ONE
[2018-11-13 20:09] LABS: BLOOD UREA NITROGEN 16 MG/DL (7-18); CALCIUM LEVEL 8.8 MG/DL (8.5-10.1); CARBON DIOXIDE LEVEL 31 MEQ/L (21-32); CHLORIDE LEVEL 99 MEQ/L (98-107); CREATININE FOR GFR 0.88 MG/DL (0.55-1.30); GLOMERULAR FILTRATION RATE > 60.0 (>60); GLUCOSE, FASTING 77 MG/DL (70-100); POTASSIUM SERUM 3.5 MEQ/L (3.5-5.1); SODIUM LEVEL 138 MEQ/L (136-145)
== END ==
LOC: M SFHCLERA 17:26
PROVIDERS: ATTEND Family Medicine
DX: R60.9 Edema, unspecified (principal)

== ENCOUNTER → 2018-11-17 | Outpatient (CLI) | payer BC ==
[2018-11-17 15:52] LABS: HEMOGLOBIN 10.6 g/dl (12.0-15.5); MEAN CORPUSCULAR HEMOGLOBIN 28.8 pg (27.0-33.0); MEAN CORPUSCULAR HGB CONC 32.1 g/dl (32.0-36.5); MEAN CORPUSCULAR VOLUME 89.7 fl (80.0-96.0); PLATELET COUNT, AUTOMATED 227 10^3/uL (150-450); RED BLOOD COUNT 3.68 10^6/uL (4.00-5.40); WHITE BLOOD COUNT 9.7 10^3/uL (4.0-10.0)
[2018-11-17 16:20] LABS: MAGNESIUM LEVEL 2.4 MG/DL (1.8-2.4); PERCENT SATURATION 9.5 % (13.2-45.0)
[2018-11-19 09:07] LABS: TOTAL 25(OH) VITAMIN D 34.4 NG/ML (30.0-100.0)
== END ==
LOC: M LAB 15:19
PROVIDERS: ATTEND Internal Medicine Gastroenterology
DX: K59.00 Constipation, unspecified (principal); K44.9 Diaphragmatic hernia without obstruction or gangrene; K31.84 Gastroparesis; K22.70 Barrett's esophagus without dysplasia

== ENCOUNTER 2018-12-06 14:45 | Outpatient (CLI) | payer BC ==
[~2018-12-06] VITALS: Ht 167.6 cm; Wt 73.0 kg
[~2018-12-06 14:45] MED LIST changes: +ONDA8TAB10 PO; -ONDA8TAB7 PO; -VALA1TAB2 PO; +VALA1TAB64 PO
[2018-12-06 14:50] VITALS: BP 114/77
[2018-12-06 15:45] VITALS: BP 115/74
[2018-12-06] MEDS ORDERED: ONDANSETRON 4MG/2ML VIAL (J2405) IV ONE (15:45)
[2018-12-06] MEDS ORDERED: IRON SUCROSE 100 MG in NS 100 ML OVER 1 HR IV ONE (16:00)
[2018-12-06 16:28] VITALS: BP 122/74
[2018-12-06] MEDS ORDERED: NS 500 ML IV ONE (17:00)
[2018-12-06 17:45] VITALS: BP 126/66
== END 2018-12-06 17:50 | disposition home or self-care (01) ==
LOC: M INFU 14:45
PROVIDERS: ATTEND Family Medicine
DX: D50.9 Iron deficiency anemia, unspecified (principal); Z79.899 Other long term (current) drug therapy
CPT/HCPCS: 96361; 96365; 96375; J1756; J2405

== ENCOUNTER 2018-12-13 15:00 | Outpatient (CLI) | payer BC ==
[~2018-12-13] VITALS: Ht 167.6 cm; Wt 73.0 kg
[~2018-12-13 15:00] MED LIST changes: -ONDA8TAB10 PO; +ONDA8TAB7 PO; +VALA1TAB2 PO; -VALA1TAB64 PO
[2018-12-13 15:05] VITALS: BP 126/78
[2018-12-13] MEDS ORDERED: ONDANSETRON 4MG/2ML VIAL (J2405) IV ONE (15:15)
[2018-12-13] MEDS ORDERED: IRON SUCROSE 100 MG in NS 100 ML OVER 1 HR IV ONE (15:45)
[2018-12-13] MEDS ORDERED: TYSA1INJ IV (15:53)
[2018-12-13 16:20] VITALS: BP 114/75
[2018-12-13] MEDS ORDERED: SODIUM CHLORIDE 0.9% 1000ML IV ONE (16:30)
[2018-12-13 17:50] VITALS: BP 118/74
== END 2018-12-13 17:50 | disposition home or self-care (01) ==
LOC: M INFU 15:00
PROVIDERS: ATTEND Family Medicine
DX: D50.9 Iron deficiency anemia, unspecified (principal); Z91.040 Latex allergy status; Z88.8 Allergy status to other drugs, medicaments and biological substances
CPT/HCPCS: 96365; 96375; J1756; J2405

== ENCOUNTER 2018-12-20 14:47 | Outpatient (CLI) | payer BC ==
[~2018-12-20] VITALS: Ht 167.6 cm; Wt 73.3 kg
[~2018-12-20 14:47] MED LIST changes: +TYSA1INJ IV
[2018-12-20 14:50] VITALS: BP 114/85
[2018-12-20] MEDS ORDERED: ONDANSETRON 4MG/2ML VIAL (J2405) IV ONE (15:45)
[2018-12-20] MEDS ORDERED: IRON SUCROSE 100 MG in NS 100 ML IV ONE (16:00)
[2018-12-20 16:27] VITALS: BP 117/76
[2018-12-20] MEDS ORDERED: NS 500 ML IV ONE (17:00)
[2018-12-20 17:10] VITALS: BP 122/79
[2018-12-20 18:10] VITALS: BP 117/71
== END 2018-12-20 18:26 | disposition home or self-care (01) ==
LOC: M INFU 14:47
PROVIDERS: ATTEND Family Medicine
DX: D50.9 Iron deficiency anemia, unspecified (principal); Z88.8 Allergy status to other drugs, medicaments and biological substances; Z91.040 Latex allergy status
CPT/HCPCS: 96365; 96366; 96375; J1756; J2405

== ENCOUNTER 2018-12-27 14:44 | Outpatient (CLI) | payer BC ==
[~2018-12-27] VITALS: Ht 167.6 cm; Wt 73.0 kg
[2018-12-27 14:45] VITALS: BP 118/81
[2018-12-27] MEDS ORDERED: IRON SUCROSE 100 MG in NS 100 ML OVER 1 HR IV ONE (16:00)
[2018-12-27] MEDS ORDERED: ONDANSETRON 4MG/2ML VIAL (J2405) IV ONE (16:00)
[2018-12-27 16:15] VITALS: BP 105/65
[2018-12-27] MEDS ORDERED: SODIUM CHLORIDE 0.9% 1000ML IV ONE (18:00)
[2018-12-27 18:10] VITALS: BP 111/65
== END 2018-12-27 18:10 | disposition home or self-care (01) ==
LOC: M INFU 14:44
PROVIDERS: ATTEND Family Medicine
DX: D50.9 Iron deficiency anemia, unspecified (principal); Z91.040 Latex allergy status; Z88.8 Allergy status to other drugs, medicaments and biological substances
CPT/HCPCS: 96365; 96375; J1756; J2405

== ENCOUNTER → 2019-01-06 | Outpatient (CLI) | payer BC | LOC: M INFU 15:23 | PROVIDERS: ATTEND Psychiatry & Neurology Neurology | DX: G35 Multiple sclerosis (principal) ==

== ENCOUNTER → 2019-01-06 | Outpatient (CLI) | payer BC ==
[2019-01-07 10:17] LABS: DRVV SCREEN 45.8 SEC; PTT LUPUS TYPE ANTICOAG SCREEN 1.1 (0-1.2)
== END ==
LOC: M LAB 15:20
PROVIDERS: ATTEND Internal Medicine Rheumatology
DX: M25.50 Pain in unspecified joint (principal)

== ENCOUNTER 2019-01-10 14:19 | Outpatient (CLI) | payer BC ==
[~2019-01-10] VITALS: Ht 167.6 cm; Wt 73.0 kg
[2019-01-10 14:25] VITALS: BP 125/83
[2019-01-10 15:30] VITALS: BP 119/64
[2019-01-10] MEDS ORDERED: NATALIZUMAB OVER 1 HOUR IV ONE ×2 (15:30)
[2019-01-10 16:15] VITALS: BP 117/73
[2019-01-10 17:13] VITALS: BP 124/70
== END 2019-01-10 17:15 | disposition home or self-care (01) ==
LOC: M INFU 14:19
PROVIDERS: ATTEND Psychiatry & Neurology Neurology
DX: G35 Multiple sclerosis (principal); Z88.8 Allergy status to other drugs, medicaments and biological substances
CPT/HCPCS: 96365; J2323

== ENCOUNTER → 2019-02-03 | Outpatient (CLI) | payer BC ==
[2019-02-03 18:48] LABS: BASO # 0.1 10^3/uL (0.0-0.2); BASO % 0.6 % (0.0-1.0); EOS # 0.2 10^3/uL (0.0-0.5); EOS % 2.2 % (0.0-3.0); HEMATOCRIT 33.2 % (36.0-47.0); HEMOGLOBIN 10.2 g/dl (12.0-15.5); LYMPH # 2.8 10^3/uL (1.5-5.0); LYMPH % 25.3 % (24.0-44.0); MEAN CORPUSCULAR HGB CONC 30.7 g/dl (32.0-36.5); MEAN CORPUSCULAR VOLUME 94.3 fl (80.0-96.0); MONO # 0.5 10^3/uL (0.0-0.8); MONO % 4.4 % (0.0-5.0); NEUTROPHILS # 7.5 10^3/uL (1.5-8.5); NEUTROPHILS % 67.1 % (36.0-66.0); PLATELET COUNT, AUTOMATED 368 10^3/uL (150-450); RED BLOOD COUNT 3.52 10^6/uL (4.00-5.40); WHITE BLOOD COUNT 11.2 10^3/uL (4.0-10.0)
[2019-02-03 19:17] LABS: BLOOD UREA NITROGEN 9 MG/DL (7-18); CALCIUM LEVEL 9.3 MG/DL (8.5-10.1); CARBON DIOXIDE LEVEL 25 MEQ/L (21-32); CHLORIDE LEVEL 106 MEQ/L (98-107); CREATININE FOR GFR 0.58 MG/DL (0.55-1.30); FERRITIN 17 NG/ML (8-252); GLOMERULAR FILTRATION RATE > 60.0 (>60); GLUCOSE, FASTING 99 MG/DL (70-100); IRON (FE) 36 UG/DL (50-170); PERCENT SATURATION 7.1 % (13.2-45.0); POTASSIUM SERUM 4.2 MEQ/L (3.5-5.1); SODIUM LEVEL 138 MEQ/L (136-145); TOTAL IRON BINDING CAPACITY 506 UG/DL (250-450)
== END ==
LOC: M LAB 17:28
PROVIDERS: ATTEND Family Medicine
DX: D50.9 Iron deficiency anemia, unspecified (principal)

== ENCOUNTER → 2019-02-04 | Outpatient (REF) | payer BC | LOC: M SFHCLERA 07:53 | PROVIDERS: ATTEND Family Medicine | DX: Z53.9 Procedure and treatment not carried out, unspecified reason (principal); R63.5 Abnormal weight gain; D50.9 Iron deficiency anemia, unspecified ==

== ENCOUNTER 2019-02-07 11:47 | Outpatient (CLI) | payer BC ==
[~2019-02-07] VITALS: Ht 167.6 cm; Wt 73.0 kg
[2019-02-07 11:50] VITALS: BP 117/65
[2019-02-07 12:30] VITALS: BP 103/64
[2019-02-07] MEDS ORDERED: NATALIZUMAB OVER 1 HOUR IV ONE ×2 (12:30)
[2019-02-07 13:40] VITALS: BP 124/69
[2019-02-07 14:30] VITALS: BP 113/71
== END 2019-02-07 14:30 | disposition home or self-care (01) ==
LOC: M INFU 11:47
PROVIDERS: ATTEND Psychiatry & Neurology Neurology
DX: G35 Multiple sclerosis (principal); Z88.8 Allergy status to other drugs, medicaments and biological substances; Z91.040 Latex allergy status
CPT/HCPCS: 96365; J2323

== ENCOUNTER → 2019-02-07 | Outpatient (CLI) | payer BC ==
--- NOTE | 2019-02-07 09:55 | REP ---
RIGHT UPPER QUADRANT ULTRASOUND: Real-time sonographic evaluation of the right upper quadrant was performed. A 2 mm polyp is seen in and along the inner wall of the gallbladder without evidence of gallstones or gallbladder wall thickening. There is no pericholecystic fluid. There is no intrahepatic or extrahepatic biliary dilatation, common bile duct measuring 3 mm. The liver and pancreas demonstrate homogenous echotexture with no gross mass. Right kidney demonstrates no hydronephrosis with normal size 11.6 cm in length. A cyst in the lower pole of the right kidney measures 7 mm. IMPRESSION: 2 mm polyp in the gallbladder without gallstones, gallbladder wall thickening, pericholecystic fluid or biliary dilatation. Subcentimeter cyst lower pole right kidney. Electronically Signed by Lg Duarte MD 02/10/2019 09:05 A
== END ==
LOC: M RAD 06:36
PROVIDERS: ATTEND Internal Medicine Gastroenterology
DX: K59.00 Constipation, unspecified (principal); R14.0 Abdominal distension (gaseous); K22.70 Barrett's esophagus without dysplasia; R10.84 Generalized abdominal pain; K44.9 Diaphragmatic hernia without obstruction or gangrene; R13.10 Dysphagia, unspecified; R10.11 Right upper quadrant pain

== ENCOUNTER 2019-02-21 15:45 | Outpatient (CLI) | payer BC ==
[~2019-02-21] VITALS: Ht 167.6 cm; Wt 80.0 kg
[~2019-02-21 15:45] MED LIST changes: -VALA1TAB2 PO; +VALA1TAB64 PO
[2019-02-21 15:55] VITALS: BP 125/77
[2019-02-21] MEDS ORDERED: ONDANSETRON 4MG/2ML VIAL (J2405) IV ONE (16:00)
[2019-02-21] MEDS ORDERED: IRON SUCROSE 100 MG in NS 100 ML IV ONE (16:15)
[2019-02-21] MEDS ORDERED: NS 1,000 ML IV SCH (17:00)
[2019-02-21 17:15] VITALS: BP 112/74
[2019-02-21 18:26] VITALS: BP 148/77
== END 2019-02-21 18:30 | disposition home or self-care (01) ==
LOC: M INFU 15:45
PROVIDERS: ATTEND Family Medicine
DX: D50.9 Iron deficiency anemia, unspecified (principal); Z88.8 Allergy status to other drugs, medicaments and biological substances; Z91.040 Latex allergy status
CPT/HCPCS: 96361; 96365; J1756; J2405

== ENCOUNTER 2019-02-28 14:58 | Outpatient (CLI) | payer BC ==
[~2019-02-28] VITALS: Ht 167.6 cm; Wt 176.8 kg
[2019-02-28 15:00] VITALS: BP 129/77
[2019-02-28] MEDS ORDERED: ONDANSETRON 4MG/2ML VIAL (J2405) IV ONE (15:15)
[2019-02-28] MEDS ORDERED: IRON SUCROSE 100 MG in NS 100 ML OVER 1 HR IV ONE (16:00)
[2019-02-28 17:51] VITALS: BP 121/80
[2019-02-28] MEDS ORDERED: SODIUM CHLORIDE 0.9% 1000ML IV ONE (18:00)
== END 2019-02-28 17:50 | disposition home or self-care (01) ==
LOC: M INFU 14:58
PROVIDERS: ATTEND Family Medicine
DX: D50.9 Iron deficiency anemia, unspecified (principal); Z88.8 Allergy status to other drugs, medicaments and biological substances; Z91.040 Latex allergy status
CPT/HCPCS: 96361; 96374; J1756; J2405

== ENCOUNTER 2019-03-05 15:17 | Outpatient (CLI) | payer BC ==
[~2019-03-05] VITALS: Ht 167.6 cm; Wt 79.8 kg
[2019-03-05 15:25] VITALS: BP 132/94
[2019-03-05] MEDS ORDERED: IRON SUCROSE 100 MG in NS 100 ML OVER 1 HR IV ONE (16:00)
[2019-03-05] MEDS ORDERED: ONDANSETRON 4MG/2ML VIAL (J2405) IV ONE (16:00)
[2019-03-05] MEDS ORDERED: NS 500 ML IV ONE (17:00)
[2019-03-05 17:45] VITALS: BP 138/78
== END 2019-03-05 17:47 | disposition home or self-care (01) ==
LOC: M INFU 15:17
PROVIDERS: ATTEND Family Medicine
DX: D50.9 Iron deficiency anemia, unspecified (principal); Z88.8 Allergy status to other drugs, medicaments and biological substances; Z91.040 Latex allergy status
CPT/HCPCS: 96361; 96365; J1756; J2405

== ENCOUNTER 2019-03-07 15:03 | Outpatient (CLI) | payer BC ==
[~2019-03-07] VITALS: Ht 165.1 cm; Wt 72.7 kg
[2019-03-07 15:05] VITALS: BP 126/74
[2019-03-07] MEDS ORDERED: NATALIZUMAB OVER 1 HOUR IV ONE ×2 (16:00)
[2019-03-07 16:15] VITALS: BP 136/71
[2019-03-07 17:00] VITALS: BP 124/74
[2019-03-07 18:05] VITALS: BP 142/76
== END 2019-03-07 18:05 | disposition home or self-care (01) ==
LOC: M INFU 15:03
PROVIDERS: ATTEND Psychiatry & Neurology Neurology
DX: G35 Multiple sclerosis (principal); Z88.8 Allergy status to other drugs, medicaments and biological substances; Z91.040 Latex allergy status
CPT/HCPCS: 96365; J2323

== ENCOUNTER 2019-03-14 15:36 | Outpatient (CLI) | payer BC ==
[~2019-03-14] VITALS: Ht 167.6 cm; Wt 72.7 kg
[2019-03-14 15:45] VITALS: BP 132/76
[2019-03-14] MEDS ORDERED: ONDANSETRON 4MG/2ML VIAL (J2405) IV ONE (16:00)
[2019-03-14] MEDS ORDERED: IRON SUCROSE 100 MG in NS 100 ML OVER 1 HR IV ONE (16:15)
[2019-03-14] MEDS ORDERED: NS 500 ML IV SCH (17:00)
[2019-03-14 17:30] VITALS: BP 122/70
[2019-03-14 18:49] VITALS: BP 121/67
== END 2019-03-14 18:50 | disposition home or self-care (01) ==
LOC: M INFU 15:36
PROVIDERS: ATTEND Family Medicine
DX: D50.9 Iron deficiency anemia, unspecified (principal)
CPT/HCPCS: 96365; 96366; 96375; J1756; J2405

== ENCOUNTER 2019-04-04 15:05 | Outpatient (CLI) | payer BC ==
[~2019-04-04] VITALS: Ht 167.6 cm; Wt 72.7 kg
[2019-04-04 15:00] VITALS: BP 129/73
[~2019-04-04 15:05] MED LIST changes: +ONDA8TAB10 PO; -ONDA8TAB7 PO
[2019-04-04] MEDS ORDERED: NATALIZUMAB OVER 1 HOUR IV ONE ×2 (16:00)
[2019-04-04 17:13] VITALS: BP 118/76
== END 2019-04-04 17:10 | disposition home or self-care (01) ==
LOC: M INFU 15:05
PROVIDERS: ATTEND Psychiatry & Neurology Neurology
DX: G35 Multiple sclerosis (principal); Z88.8 Allergy status to other drugs, medicaments and biological substances; Z91.040 Latex allergy status
CPT/HCPCS: 96365; J2323

== ENCOUNTER 2019-05-02 15:14 | Outpatient (CLI) | payer BC ==
[~2019-05-02] VITALS: Ht 167.6 cm; Wt 72.7 kg
[~2019-05-02 15:14] MED LIST changes: -MONT10TA2 PO; +MONT10TA4 PO; +VALA1TAB5 PO; -VALA1TAB64 PO
[2019-05-02 15:20] VITALS: BP 134/77
[2019-05-02] MEDS ORDERED: NATALIZUMAB OVER 1 HOUR IV ONE ×2 (16:00)
[2019-05-02 16:55] VITALS: BP 122/69
[2019-05-02 17:58] VITALS: BP 133/76
== END 2019-05-02 18:00 | disposition home or self-care (01) ==
LOC: M INFU 15:14
PROVIDERS: ATTEND Psychiatry & Neurology Neurology
DX: G35 Multiple sclerosis (principal); Z88.9 Allergy status to unspecified drugs, medicaments and biological substances
CPT/HCPCS: 96365; J2323

== ENCOUNTER → 2019-05-13 | Outpatient (REF) | payer BC | LOC: M SFHCLERA 16:14 | PROVIDERS: ATTEND Family Medicine | DX: D50.9 Iron deficiency anemia, unspecified (principal) ==

== ENCOUNTER → 2019-05-23 | Outpatient (CLI) | payer BC ==
[~2019-05-23] MED LIST changes: +FAMO40TA3
[2019-05-23 19:24] LABS: HEMATOCRIT 36.7 % (36.0-47.0); HEMOGLOBIN 11.7 g/dl (12.0-15.5); MEAN CORPUSCULAR HGB CONC 31.9 g/dl (32.0-36.5); MEAN CORPUSCULAR VOLUME 87.8 fl (80.0-96.0); PLATELET COUNT, AUTOMATED 268 10^3/uL (150-450); RED BLOOD COUNT 4.18 10^6/uL (4.00-5.40); WHITE BLOOD COUNT 14.1 10^3/uL (4.0-10.0)
[2019-05-23 19:54] LABS: BLOOD UREA NITROGEN 10 MG/DL (7-18); CALCIUM LEVEL 9.1 MG/DL (8.5-10.1); CARBON DIOXIDE LEVEL 28 MEQ/L (21-32); CHLORIDE LEVEL 104 MEQ/L (98-107); CREATININE FOR GFR 0.64 MG/DL (0.55-1.30); FERRITIN 22 NG/ML (8-252); FOLATE 8.5 NG/ML (>5.4); FREE T4 1.16 NG/DL (0.76-1.46); GLOMERULAR FILTRATION RATE > 60.0 (>60); GLUCOSE, FASTING 90 MG/DL (70-100); IRON (FE) 58 UG/DL (50-170); PERCENT SATURATION 12.9 % (13.2-45.0); POTASSIUM SERUM 3.5 MEQ/L (3.5-5.1); SODIUM LEVEL 138 MEQ/L (136-145); THYROID STIMULATING HORMONE 0.362 uIU/ML (0.358-3.740); TOTAL IRON BINDING CAPACITY 448 UG/DL (250-450); VITAMIN B12 LEVEL 409 PG/ML (247-911)
[2019-05-23 19:58] LABS: ATYPICAL LYMPH 5 % (0-5); LYMPHOCYTES 41 % (16-44); MONOCYTES 2 % (0-5); NEUTROPHILS 52 % (28-66)
[2019-05-23 19:59] LABS: ANISOCYTOSIS 2+; HYPOCHROMASIA 1+; PLATELET ESTIMATE NORMAL (NORMAL)
[2019-05-23 20:00] LABS: POLYCHROMASIA 1+; TEAR DROP CELLS 1+
== END ==
LOC: M LAB 18:39
PROVIDERS: ATTEND Family Medicine
DX: D50.9 Iron deficiency anemia, unspecified (principal)

== ENCOUNTER 2019-05-24 20:14 | Emergency (ER) | payer BC ==
[~2019-05-24] VITALS: Ht 165.1 cm; Wt 74.3 kg
[~2019-05-24 20:14] MED LIST changes: -FAMO40TA3
[2019-05-24] MEDS ORDERED: FAMO40TA3 (20:32)
[2019-05-24] MEDS ORDERED: NS 1,000 ML IV ONE (20:45)
[2019-05-24 20:52] LABS: BASO # 0.1 10^3/uL (0.0-0.2); BASO % 0.6 % (0.0-1.0); EOS # 0.1 10^3/uL (0.0-0.5); EOS % 0.4 % (0.0-3.0); LYMPH # 4.5 10^3/uL (1.5-5.0); LYMPH % 28.8 % (24.0-44.0); MEAN CORPUSCULAR HEMOGLOBIN 28.2 pg (27.0-33.0); MEAN CORPUSCULAR HGB CONC 32.4 g/dl (32.0-36.5); MEAN CORPUSCULAR VOLUME 87.1 fl (80.0-96.0); MONO # 0.7 10^3/uL (0.0-0.8); MONO % 4.2 % (0.0-5.0); NEUTROPHILS # 10.2 10^3/uL (1.5-8.5); NEUTROPHILS % 65.1 % (36.0-66.0); PLATELET COUNT, AUTOMATED 284 10^3/uL (150-450); RED BLOOD COUNT 4.25 10^6/uL (4.00-5.40); WHITE BLOOD COUNT 15.6 10^3/uL (4.0-10.0)
[2019-05-24] MEDS ORDERED: NADOLOL 20MG TABLET PO ONE (21:00)
[2019-05-24 21:10] VITALS: BP 130/89
[2019-05-24] MEDS ORDERED: ISOVUE-370 76% 100ML VIAL (Q9967) As Ordered ONE (21:15)
[2019-05-24 21:23] LABS: ALBUMIN 4.3 GM/DL (3.2-5.2); ALT/SGPT 58 U/L (12-78); BILIRUBIN,DIRECT 0.1 MG/DL (0.0-0.2); BILIRUBIN,TOTAL 0.5 MG/DL (0.2-1.0); BLOOD UREA NITROGEN 10 MG/DL (7-18); CALCIUM LEVEL 8.9 MG/DL (8.5-10.1); CARBON DIOXIDE LEVEL 27 MEQ/L (21-32); CHLORIDE LEVEL 103 MEQ/L (98-107); CK-MB VALUE MASS < 1.0 NG/ML (<3.6); CPK CREATINE PHOSPHOKINASE 94 U/L (26-192); CREATININE FOR GFR 0.86 MG/DL (0.55-1.30); GLOMERULAR FILTRATION RATE > 60.0 (>60); GLUCOSE, FASTING 88 MG/DL (70-100); LIPASE 66 U/L (73-393); MB/CK RELATIVE INDEX 1.06 (< OR =4); POTASSIUM SERUM 3.3 MEQ/L (3.5-5.1); SODIUM LEVEL 139 MEQ/L (136-145); THYROID STIMULATING HORMONE 0.573 uIU/ML (0.358-3.740); TOTAL PROTEIN 7.8 GM/DL (6.4-8.2); TROPONIN I < 0.02 NG/ML (< 0.10)
--- NOTE | 2019-05-24 21:52 | REPVR ---
PROCEDURE INFORMATION: Exam: CT Angiography Chest With Contrast Exam date and time: 05/24/2019 9:18 PM Age: 33 years old Clinical indication: Chest pain; Additional info: Chest pain, tachycardia, luq abd pain TECHNIQUE: Imaging protocol: Computed tomographic angiography of the chest with intravenous contrast. Axial, coronal and sagittal reformatted images were created and reviewed. 3D rendering: MIP and/or 3D reconstructed images were created by the technologist. Radiation optimization: All CT scans at this facility use at least one of these dose optimization techniques: automated exposure control; mA and/or kV adjustment per patient size (includes targeted exams where dose is matched to clinical indication); or iterative reconstruction. Contrast material: ISOVUE 370; Contrast volume: 100 ml; Contrast route: IV; COMPARISON: CT ANGIO CHEST 03/14/2018 4:03 PM FINDINGS: Pulmonary arteries: Contrast opacification satisfactory. No intraluminal filling defect. Aorta: Unremarkable. No aneurysm or dissection. Lungs: Unremarkable. No consolidation. No mass. Pleural space: Unremarkable. No pneumothorax. No pleural effusion. Heart: Unremarkable. No cardiomegaly. No pericardial effusion. Lymph nodes: No pathologically enlarged lymph nodes. Bones/joints: No acute osseous abnormality. Soft tissues: Unremarkable. IMPRESSION: No CT evidence of pulmonary embolism. Electronically signed by: Alberto Matamoros On 05/24/2019 21:51:38 PM
--- NOTE | 2019-05-24 21:53 | REPVR ---
PROCEDURE INFORMATION: Exam: CT Abdomen And Pelvis With Contrast Exam date and time: 05/24/2019 9:18 PM Age: 33 years old Clinical indication: Abdominal pain; Generalized; Additional info: Chest pain, tachycardia, luq abd pain TECHNIQUE: Imaging protocol: Computed tomography of the abdomen and pelvis with intravenous contrast. Axial, coronal and sagittal reformatted images were created and reviewed. Radiation optimization: All CT scans at this facility use at least one of these dose optimization techniques: automated exposure control; mA and/or kV adjustment per patient size (includes targeted exams where dose is matched to clinical indication); or iterative reconstruction. Contrast material: ISOVUE 370; Contrast volume: 100 ml; Contrast route: IV; COMPARISON: CT ABD/PEL W/IV CONTRAST ONLY 03/14/2018 4:03 PM FINDINGS: Liver: Unremarkable. Gallbladder and bile ducts: No radiodense gallstones. No biliary ductal dilatation. Pancreas: Unremarkable. Spleen: Unremarkable. Adrenals: Unremarkable. Kidneys and ureters: No mass. No radiodense calculi. No hydronephrosis. Stomach and bowel: No bowel wall thickening. No obstruction. No pneumatosis. Appendix: Findings suggestive of prior appendectomy. Intraperitoneal space: No free fluid. No organized fluid collection. No free air. Vasculature: Unremarkable. No aneurysm. Lymph nodes: No pathologically enlarged lymph nodes. Bladder: Mild urinary bladder distention. Reproductive: Unremarkable. Bones/joints: No acute osseous abnormality. Soft tissues: Unremarkable. IMPRESSION: 1. No CT evidence of acute intra-abdominal or pelvic pathology. 2. Additional findings, as above. Electronically signed by: Alberto Matamoros On 05/24/2019 21:53:09 PM
[2019-05-24] MEDS ORDERED: OSELTAMIVIR PHOSPHATE 75 MG CAP (TAMIFLU) PO ONE (23:00)
[2019-05-24] MEDS ORDERED: POTASSIUM CHLORIDE 10 MEQ SR TABLET PO ONE (23:00)
[2019-05-24 23:26] VITALS: BP 130/88
--- NOTE | 2019-05-25 07:54 | ECGEPIP ---
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
--- NOTE | 2019-05-25 08:28 | REP ---
Portable chest x-ray: Single view. History: Chest pain. Comparison chest x-ray: August 06, 2018. Findings: EKG monitoring electrodes overlie the chest. The lungs are well inflated and clear. The pleural angles are sharp. Heart size is normal. Pulmonary vasculature is not increased. No significant bony abnormality. Impression: No active disease. Electronically Signed by Tc James MD 05/25/2019 08:19 A
== END 2019-05-24 23:28 | disposition home or self-care (01) ==
LOC: M ED 20:14
DX: J11.89 Influenza due to unidentified influenza virus with other manifestations (principal); I49.8 Other specified cardiac arrhythmias; E87.6 Hypokalemia; G35 Multiple sclerosis; I25.10 Atherosclerotic heart disease of native coronary artery without angina pectoris; K27.9 Peptic ulcer, site unspecified, unspecified as acute or chronic, without hemorrhage or perforation; Z79.899 Other long term (current) drug therapy; Z79.3 Long term (current) use of hormonal contraceptives; Z88.8 Allergy status to other drugs, medicaments and biological substances; Z91.040 Latex allergy status
CPT/HCPCS: 71045; 71275; 74177; 80047; 80048; 80076; 82550; 82553; 83690; 84439; 84443; 84484; 84702; 85025; 93005; 93041; 94760; 96360; 99284; Q9967

== ENCOUNTER 2019-05-30 15:03 | Outpatient (CLI) | payer BC ==
[~2019-05-30] VITALS: Ht 167.6 cm; Wt 72.7 kg
[~2019-05-30 15:03] MED LIST changes: +FAMO40TA3
[2019-05-30 15:05] VITALS: BP 129/87
[2019-05-30] MEDS ORDERED: NATALIZUMAB OVER 1 HOUR IV ONE ×2 (16:00)
[2019-05-30 17:47] VITALS: BP 109/59
== END 2019-05-30 17:50 | disposition home or self-care (01) ==
LOC: M INFU 15:03
PROVIDERS: ATTEND Psychiatry & Neurology Neurology
DX: G35 Multiple sclerosis (principal); Z88.8 Allergy status to other drugs, medicaments and biological substances; Z91.040 Latex allergy status
CPT/HCPCS: 96365; J2323

== ENCOUNTER → 2019-06-10 | Outpatient (CLI) | payer BC ==
[2019-06-10 17:37] LABS: BASO # 0.1 10^3/uL (0.0-0.2); BASO % 0.4 % (0.0-1.0); EOS % 0.1 % (0.0-3.0); HEMATOCRIT 41.3 % (36.0-47.0); LYMPH # 4.6 10^3/uL (1.5-5.0); MEAN CORPUSCULAR HEMOGLOBIN 28.8 pg (27.0-33.0); MEAN CORPUSCULAR HGB CONC 31.5 g/dl (32.0-36.5); MEAN CORPUSCULAR VOLUME 91.6 fl (80.0-96.0); MONO # 0.6 10^3/uL (0.0-0.8); MONO % 4.1 % (0.0-5.0); NEUTROPHILS # 9.9 10^3/uL (1.5-8.5); NEUTROPHILS % 64.9 % (36.0-66.0); PLATELET COUNT, AUTOMATED 322 10^3/uL (150-450); RED BLOOD COUNT 4.51 10^6/uL (4.00-5.40); WHITE BLOOD COUNT 15.3 10^3/uL (4.0-10.0)
== END ==
LOC: M LAB 17:12
PROVIDERS: ATTEND Nurse Practitioner Family
DX: R79.89 Other specified abnormal findings of blood chemistry (principal)

== ENCOUNTER → 2019-06-27 | Outpatient (REF) | payer BC ==
[2019-06-27 20:12] LABS: BASO # 0.1 10^3/uL (0.0-0.2); BASO % 0.7 % (0.0-1.0); EOS # 0.1 10^3/uL (0.0-0.5); EOS % 1.1 % (0.0-3.0); HEMATOCRIT 41.6 % (36.0-47.0); HEMOGLOBIN 12.7 g/dl (12.0-15.5); LYMPH # 3.1 10^3/uL (1.5-5.0); LYMPH % 29.8 % (24.0-44.0); MEAN CORPUSCULAR HGB CONC 30.5 g/dl (32.0-36.5); MONO # 0.3 10^3/uL (0.0-0.8); MONO % 3.2 % (0.0-5.0); NEUTROPHILS # 6.8 10^3/uL (1.5-8.5); NEUTROPHILS % 64.7 % (36.0-66.0); PLATELET COUNT, AUTOMATED 293 10^3/uL (150-450); RED BLOOD COUNT 4.38 10^6/uL (4.00-5.40); WHITE BLOOD COUNT 10.5 10^3/uL (4.0-10.0)
[2019-06-27 20:32] LABS: ERYTHROCYTE SEDIMENTATION RATE 3 mm/hr (0-20)
== END ==
LOC: M SFHCLERA 14:43
PROVIDERS: ATTEND Family Medicine
DX: D72.829 Elevated white blood cell count, unspecified (principal)

== ENCOUNTER 2019-07-02 11:25 | Outpatient (CLI) | payer BC ==
[~2019-07-02] VITALS: Ht 162.6 cm; Wt 74.4 kg
[2019-07-02 11:30] VITALS: BP 127/80
[2019-07-02] MEDS ORDERED: ALBUTEROL SULFATE 2.5 MG/0.5 ML INH NEB SOLN INH PRN (11:45)
[2019-07-02] MEDS ORDERED: diphenhydrAMINE 50MG/ML VIAL (J1200) IV PRN (11:45)
[2019-07-02] MEDS ORDERED: NATALIZUMAB OVER 1 HOUR IV ONE ×2 (11:45)
[2019-07-02] MEDS ORDERED: EPINEPHrine INJ 1 MG/ML 1ML AMP IM PRN (11:45)
[2019-07-02] MEDS ORDERED: methylPREDNISolone INJ 125 MG/2 ML VIAL (J2930) IV PRN (11:45)
[2019-07-02] MEDS ORDERED: NS 1,000 ML IV SCH (11:45)
[2019-07-02 13:20] VITALS: BP 119/66
[2019-07-02 14:15] VITALS: BP 114/67
== END 2019-07-02 14:15 | disposition home or self-care (01) ==
LOC: M INFU 11:25
PROVIDERS: ATTEND Psychiatry & Neurology Neurology
DX: G35 Multiple sclerosis (principal); Z88.8 Allergy status to other drugs, medicaments and biological substances; Z91.040 Latex allergy status
CPT/HCPCS: 96361; 96365; J2323

== ENCOUNTER 2019-08-01 15:10 | Outpatient (CLI) | payer BC ==
[2019-08-01 15:15] VITALS: BP 126/76
[2019-08-01] MEDS ORDERED: methylPREDNISolone INJ 125 MG/2 ML VIAL (J2930) IV PRN (15:30)
[2019-08-01] MEDS ORDERED: NS 1,000 ML IV SCH (15:30)
[2019-08-01] MEDS ORDERED: diphenhydrAMINE 50MG/ML VIAL (J1200) IV PRN (15:30)
[2019-08-01] MEDS ORDERED: NATALIZUMAB OVER 1 HOUR IV ONE ×2 (15:30)
[2019-08-01] MEDS ORDERED: EPINEPHrine INJ 1 MG/ML 1ML AMP IM PRN (15:30)
[2019-08-01] MEDS ORDERED: ALBUTEROL SULFATE 2.5 MG/0.5 ML INH NEB SOLN INH PRN (15:30)
[2019-08-01 16:05] VITALS: BP 126/76
[2019-08-01 17:10] VITALS: BP 132/80
[2019-08-01 18:00] VITALS: BP 138/78
== END 2019-08-01 18:00 | disposition home or self-care (01) ==
LOC: M INFU 15:10
PROVIDERS: ATTEND Psychiatry & Neurology Neurology
DX: G35 Multiple sclerosis (principal)
CPT/HCPCS: 96365; J2323

== ENCOUNTER 2019-10-04 12:58 | Emergency (ER) | payer BC ==
[~2019-10-04] VITALS: Ht 165.1 cm; Wt 76.6 kg
[~2019-10-04 12:58] MED LIST changes: +ERYT1CAP2 PO; -ERYT25CAEC PO; +OCRE300I IV; +VITA100018 PO
[2019-10-04] MEDS ORDERED: METH54TA5 (13:15)
[2019-10-04 14:37] LABS: BASO # 0.1 10^3/uL (0.0-0.2); BASO % 0.7 % (0.0-1.0); EOS % 19.2 % (0.0-3.0); HEMATOCRIT 41.1 % (36.0-47.0); HEMOGLOBIN 12.5 g/dl (12.0-15.5); LYMPH % 29.2 % (24.0-44.0); MEAN CORPUSCULAR HEMOGLOBIN 25.4 pg (27.0-33.0); MEAN CORPUSCULAR HGB CONC 30.4 g/dl (32.0-36.5); MEAN CORPUSCULAR VOLUME 83.5 fl (80.0-96.0); MONO # 0.8 10^3/uL (0.0-0.8); MONO % 7.6 % (0.0-5.0); NEUTROPHILS # 4.4 10^3/uL (1.5-8.5); NEUTROPHILS % 43.1 % (36.0-66.0); PLATELET COUNT, AUTOMATED 297 10^3/uL (150-450); RED BLOOD COUNT 4.92 10^6/uL (4.00-5.40); WHITE BLOOD COUNT 10.3 10^3/uL (4.0-10.0)
[2019-10-04] MEDS ORDERED: ISOVUE-370 76% 100ML VIAL As Ordered ONE (14:40)
[2019-10-04 15:01] LABS: ERYTHROCYTE SEDIMENTATION RATE 5 mm/hr (0-20)
[2019-10-04] MEDS ORDERED: ceFAZolin SOD 1 GM in D5W MINI-BAG PLUS 50 ML IV ONE (15:15)
[2019-10-04] MEDS ORDERED: SODIUM CHLORIDE IV ONE (15:15)
[2019-10-04] MEDS ORDERED: diphenhydrAMINE 50MG/ML VIAL (J1200) IV STA (17:18)
[2019-10-04] MEDS ORDERED: POTASSIUM CHLORIDE 10 MEQ SR TABLET PO ONE (18:15)
[2019-10-04] MEDS ORDERED: methylPREDNISolone 125MG 2ML VIAL IM ONE (18:15)
[2019-10-04 18:25] VITALS: BP 118/67
[2019-10-04] MEDS ORDERED: methylPREDNISolone 125MG 2ML VIAL IV ONE (18:30)
--- NOTE | 2019-10-05 08:45 | REP ---
REASON: Dyspnea. COMPARISON: 4 months ago. CONTRAST: 75 mL of Isovue-370. There is no change from the prior exam. There is no pulmonary embolus. The thoracic aorta is normal. There is no mediastinal or hilar adenopathy. There are no pleural or pericardial effusions. The imaged upper abdomen is unremarkable. The imaged osseous structures are unremarkable. The lung sanchez are again seen to be clear. IMPRESSION: No change from the prior exam. No acute disease. Electronically Signed by Ryan Mckeon DO 10/05/2019 08:57 A
--- NOTE | 2019-10-05 09:22 | REP ---
DEEP VENOUS ULTRASOUND LEFT UPPER EXTREMITY: REASON: Pain and swelling. TECHNIQUE: Multiple ultrasonographic images of the deep venous structures of the left upper extremity were obtained to rule out deep venous thrombosis. FINDINGS: There is no abnormal echogenic material seen in any of the visualized deep venous structures of the left upper extremity. Coaptation where applicable is appropriate throughout. Augmentation shows an expected response throughout. IMPRESSION: Negative exam. Electronically Signed by Ryan Mckeon DO 10/05/2019 09:38 A
== END 2019-10-04 18:58 | disposition home or self-care (01) ==
LOC: M ED 12:58
DX: R22.32 Localized swelling, mass and lump, left upper limb (principal); R06.02 Shortness of breath; T45.4X5A Adverse effect of iron and its compounds, initial encounter; X58.XXXA Exposure to other specified factors, initial encounter; Y92.89 Other specified places as the place of occurrence of the external cause; G35 Multiple sclerosis; D64.9 Anemia, unspecified; Z79.899 Other long term (current) drug therapy; Z79.3 Long term (current) use of hormonal contraceptives; Z88.8 Allergy status to other drugs, medicaments and biological substances; Z91.040 Latex allergy status
CPT/HCPCS: 71275; 80047; 83605; 85025; 85652; 86140; 93971; 96361; 96365; 96366; 96375; 99284; J0690; J1200; J2930; Q9967

== ENCOUNTER 2019-10-06 02:04 | Emergency (ER) | payer BC ==
[~2019-10-06] VITALS: Ht 165.1 cm; Wt 76.4 kg
[~2019-10-06 02:04] MED LIST changes: +METH54TA5; -NADO80TA PO; +NADO80TA5 PO
[2019-10-06 03:38] LABS: BASO # 0.1 10^3/uL (0.0-0.2); BASO % 0.4 % (0.0-1.0); EOS # 2.4 10^3/uL (0.0-0.5); EOS % 12.8 % (0.0-3.0); HEMATOCRIT 39.4 % (36.0-47.0); HEMOGLOBIN 12.4 g/dl (12.0-15.5); LYMPH # 4.1 10^3/uL (1.5-5.0); LYMPH % 21.3 % (24.0-44.0); MEAN CORPUSCULAR HEMOGLOBIN 25.7 pg (27.0-33.0); MEAN CORPUSCULAR HGB CONC 31.5 g/dl (32.0-36.5); MEAN CORPUSCULAR VOLUME 81.6 fl (80.0-96.0); MONO # 1.3 10^3/uL (0.0-0.8); MONO % 6.8 % (0.0-5.0); NEUTROPHILS # 11.1 10^3/uL (1.5-8.5); NEUTROPHILS % 58.4 % (36.0-66.0); PLATELET COUNT, AUTOMATED 341 10^3/uL (150-450); RED BLOOD COUNT 4.83 10^6/uL (4.00-5.40)
[2019-10-06 03:42] LABS: INR 0.99; PROTHROMBIN TIME 12.8 SECONDS (11.8-14.0)
[2019-10-06 03:43] LABS: PARTIAL THROMBOPLASTIN TIME 25.4 SECONDS (25.0-38.4)
[2019-10-06 03:50] LABS: BLOOD UREA NITROGEN 8 MG/DL (7-18); CALCIUM LEVEL 8.3 MG/DL (8.5-10.1); CARBON DIOXIDE LEVEL 23 MEQ/L (21-32); CHLORIDE LEVEL 106 MEQ/L (98-107); CK-MB VALUE MASS < 1.0 NG/ML (<3.6); CPK CREATINE PHOSPHOKINASE 155 U/L (26-192); CREATININE FOR GFR 0.87 MG/DL (0.55-1.30); GLOMERULAR FILTRATION RATE > 60.0 (>60); GLUCOSE, FASTING 117 MG/DL (70-100); MB/CK RELATIVE INDEX 0.65 (< OR =4); POTASSIUM SERUM 2.7 MEQ/L (3.5-5.1); SODIUM LEVEL 141 MEQ/L (136-145); TROPONIN I < 0.02 NG/ML (< 0.10)
[2019-10-06] MEDS ORDERED: POTASSIUM CHLORIDE 10 MEQ SR TABLET PO ONE (04:15)
[2019-10-06] MEDS ORDERED: ISOVUE-370 76% 100ML VIAL As Ordered ONE (04:20)
--- NOTE | 2019-10-06 05:10 | REPVR ---
PROCEDURE INFORMATION: Exam: CT Angiography Chest With Contrast Exam date and time: 10/06/2019 4:33 AM Age: 34 years old Clinical indication: Chest pain; Additional info: Dysp TECHNIQUE: Imaging protocol: Computed tomographic angiography of the chest with intravenous contrast. 3D rendering: MIP and/or 3D reconstructed images were created by the technologist. Radiation optimization: All CT scans at this facility use at least one of these dose optimization techniques: automated exposure control; mA and/or kV adjustment per patient size (includes targeted exams where dose is matched to clinical indication); or iterative reconstruction. Contrast material: ISO 370; Contrast volume: 75 ml; Contrast route: INTRAVENOUS (IV); COMPARISON: CT ANGIO CHEST 2019-10-04 14:43 FINDINGS: Limitations: Limited by patient's body habitus. Pulmonary arteries: No filling defects in the pulmonary arteries to suggest pulmonary emboli. Aorta: Unremarkable. No aortic aneurysm. No aortic dissection. Lungs: Dependent subsegmental pulmonary atelectasis. Pleural space: Unremarkable. No pneumothorax. No pleural effusion. Heart: Mild moderate cardiac enlargement. Lymph nodes: Unremarkable. No enlarged lymph nodes. Liver: Enlarged low attenuating liver, evidence of hepatic steatosis. Liver enlargement. Stomach and bowel: Question gastric wall thickening. Bones/joints: Unremarkable. No acute fracture. Soft tissues: Unremarkable. IMPRESSION: 1. No filling defects in the pulmonary arteries to suggest pulmonary emboli. 2. Question gastric wall thickening. Electronically signed by: Young Heath On 10/06/2019 05:10:13 AM
--- NOTE | 2019-10-06 05:43 | ECGEPIP ---
[facility] - ED Test Date: 2019-10-06 Pat Name: UMER BALLESTEROS Department: Room: - Gender: Female Receiving Associate: : 1985 Requested By: BEENA BLACKBURN Order Number: [id number] Reading MD: Driss Monsalve Measurements Intervals [place] Rate: 86 P: 60 [place]: 184 QRS: 61 QRSD: 97 T: 49 QT: 382 QTc: 458 Interpretive Statements SINUS RHYTHM NSTTW ABNORMALITIES RATE CHANGE COMPARED TO 05/24/19 Electronically Signed on 10-06-2019 5:43:19 EDT by Driss Monsalve
[2019-10-06 05:52] VITALS: BP 105/55
[2019-10-06] MEDS ORDERED: B-12100021 PO (15:00)
[2019-10-06] MEDS ORDERED: VITA500C24 PO (15:02)
--- NOTE | 2019-10-07 07:06 | ECGEPIP ---
[facility] - ED Test Date: 2019-10-06 Pat Name: UMER BALLESTEROS Department: Room: - Gender: Female Mat Gauger: : 1985 Requested By: BEENA BLACKBURN Order Number: [id number] Reading MD: Young Rousseau Measurements Intervals [place] Rate: 87 P: 60 MD: 184 QRS: 59 QRSD: 90 T: 48 QT: 386 QTc: 466 Interpretive Statements SINUS RHYTHM Nonspecific ST-T wave abnormalities Similar to tracing done 10-06-19 at 0328 Electronically Signed on 10-07-2019 7:06:10 EDT by Young Rousseau
== END 2019-10-06 05:55 | disposition home or self-care (01) ==
LOC: M ED 02:04
DX: E87.6 Hypokalemia (principal); T50.995A Adverse effect of other drugs, medicaments and biological substances, initial encounter; X58.XXXA Exposure to other specified factors, initial encounter; Y92.89 Other specified places as the place of occurrence of the external cause; G35 Multiple sclerosis; D50.9 Iron deficiency anemia, unspecified; G90.9 Disorder of the autonomic nervous system, unspecified; Z79.899 Other long term (current) drug therapy; Z88.8 Allergy status to other drugs, medicaments and biological substances; Z91.040 Latex allergy status
CPT/HCPCS: 36415; 36600; 71275; 80047; 80048; 82550; 82553; 82803; 84484; 85025; 85610; 85730; 93005; 99284; Q9967

== ENCOUNTER → 2019-10-14 | Outpatient (CLI) | payer BC ==
[~2019-10-14] MED LIST changes: +B-12100021 PO; +VITA500C24 PO
--- NOTE | 2019-12-08 09:24 | REP ---
HEPATOBILIARY SCAN WITH GALLBLADDER EJECTION FRACTION: HISTORY: Abdominal pain, esophageal spasm dyskinesia, iron deficiency anemia. TECHNIQUE: 6.6 mCi of technetium-99m mebrofenin is infected and sequential 5 minute images are acquired for 60 minutes post injection. At the 60 minute chyna, 8 ounces of Ensure was ingested by the patient and an additional 60 minutes of sequential imaging was acquired with regions of interest plotted around the gallbladder. FINDINGS: The initial hepatocellular parenchymal uptake phase is normal and homogeneous. The gallbladder and the intrahepatic bile ducts are first labeled at 10 minutes. There is normal washout from the liver parenchyma into the gallbladder on subsequent images. The small intestine is not labeled until the post Ensure portion of the study. The ejection fraction is somewhat reduced at 17%. Values greater than 35% are considered normal. IMPRESSION: Mildly delayed biliary to bowel transit time, which is nonspecific. Decreased gallbladder ejection fraction. MTDD
== END ==
LOC: M RAD 08:01
PROVIDERS: ATTEND Internal Medicine Gastroenterology
DX: R10.11 Right upper quadrant pain (principal); K22.4 Dyskinesia of esophagus; R13.10 Dysphagia, unspecified; R10.12 Left upper quadrant pain; K59.00 Constipation, unspecified; D50.9 Iron deficiency anemia, unspecified

== ENCOUNTER → 2019-12-18 | Outpatient (CLI) | payer BC ==
--- NOTE | 2019-12-21 17:58 | ECHO ---
DATE OF PROCEDURE: 12/18/2019 Height: 165 cm Weight: 73 kg. REFERRING PHYSICIAN: Cong Mendez INDICATION: Cardiomegaly MEASUREMENTS: IVS 0.8 LV 4.0 LVPW 1.0 LA 2.5 Aorta 2.9 IVC 1.0 Mitral E wave velocity 73, A wave 66 E prime septal 11.1 E prime lateral 16.0 FINDINGS: The study is of good technical quality. The patient is in sinus rhythm/ mild sinus tachycardia with ventricular rate approximately 100 beats per minute. Left ventricle is of normal size and normal systolic function. Estimated left ventricular ejection fraction (LVEF) approximately 60 to 65%. Right ventricle is also normal size and systolic function. Both atria appear normal. All four cardiac valves are well seen and appear normal. No pericardial effusion is present. Inferior vena cava is of normal size and appropriately collapses with inspiration indicative of normal central venous pressure. Aortic root, aortic arch and abdominal aorta all appear normal. Doppler interrogation reveals competency of all four valves without significant stenosis or insufficiency of either one. Mitral inflow pattern and tissue Doppler imaging of mitral annulus reveals normal diastolic functional left ventricle. Left ventricular global longitudinal strain was calculated at negative 18.8%, which is within normal limits. CONCLUSIONS: 1. Study is of good technical quality. The patient is in mild sinus tachycardia. 2. Normal LV size with normal LV systolic and diastolic function. Estimated left ventricular ejection fraction (LVEF) 60 to 65%. 3. No valvular disease. 4. Normal central venous pressure. 5. Unable to estimate pulmonary artery pressure, but no signs to suggest pulmonary hypertension. 6. Normal echocardiogram. COMMENTS: The study does not support diagnosis of cardiomegaly. [facility]
== END ==
LOC: M CARPUL 08:37
PROVIDERS: ATTEND Family Medicine
DX: Z86.79 Personal history of other diseases of the circulatory system (principal)

== ENCOUNTER → 2020-02-16 | Outpatient (CLI) | payer BC ==
[2020-02-16 18:57] LABS: BLOOD UREA NITROGEN 12 MG/DL (7-18); CREATININE FOR GFR 0.74 MG/DL (0.55-1.30); GLOMERULAR FILTRATION RATE > 60.0 (>60)
== END ==
LOC: M LAB 17:55
PROVIDERS: ATTEND Internal Medicine Gastroenterology
DX: K20.0 Eosinophilic esophagitis (principal); R13.10 Dysphagia, unspecified; K22.70 Barrett's esophagus without dysplasia; Z80.0 Family history of malignant neoplasm of digestive organs; R10.12 Left upper quadrant pain; K82.8 Other specified diseases of gallbladder; K76.0 Fatty (change of) liver, not elsewhere classified; R19.4 Change in bowel habit

== ENCOUNTER → 2020-04-23 | Outpatient (CLI) | payer BC ==
[~2020-04-23] MED LIST changes: +GASTROGRAFIN SOLUTION 30ML (Q9963) As Ordered ONE; +ISOVUE-370 76% 100ML VIAL As Ordered ONE; +MONT10TA10 PO; -MONT10TA4 PO; +PLEC3TAB PO; -TRUL3TAB PO
--- NOTE | 2020-04-25 05:13 | REP ---
INDICATION: FATTY LIVER, ABD PAIN LUQ, CHANGE IN BOWEL HABITS. COMPARISON: 05/24/2019 TECHNIQUE: Axial contrast-enhanced images from the lung bases to the pubic symphysis using oral and 100 cc Isovue 370 intravenous contrast material. Precontrast images of the abdomen along with coronal and sagittal reformations obtained.. This CT examination was performed using the following dose reduction techniques: Automated exposure control, adjustment of mA and/or kv according to the patient's size, and the use of iterative reconstruction technique. FINDINGS: Lung bases are clear. Visualized heart and pericardium normal. Liver, spleen, pancreas, gallbladder, bilateral adrenal glands and kidneys are normal. The enteric system including stomach, small, and large bowel appears normal. No evidence for obstruction or acute inflammatory process. Normal terminal ileum and cecum are identified in the right lower quadrant. Pelvis demonstrates normal bladder and age-appropriate uterus/adnexa. No ascites. No free air. No intraperitoneal or retroperitoneal adenopathy. Abdominal aorta and vasculature appear normal. Musculoskeletal structures are intact and without acute osseous abnormality. IMPRESSION: No acute abdominopelvic pathology appreciated. <Electronically signed by Ruy Grubbs > 04/25/20 [id number]
== END ==
LOC: M RAD 11:10
PROVIDERS: ATTEND Internal Medicine Gastroenterology
DX: K20.0 Eosinophilic esophagitis (principal); R13.10 Dysphagia, unspecified; K22.70 Barrett's esophagus without dysplasia; R10.12 Left upper quadrant pain; K82.8 Other specified diseases of gallbladder; K76.0 Fatty (change of) liver, not elsewhere classified; R19.4 Change in bowel habit; Z80.0 Family history of malignant neoplasm of digestive organs
CPT/HCPCS: 74178; Q9963; Q9967

== ENCOUNTER → 2020-07-09 | Outpatient (CLI) | payer BC ==
[~2020-07-09] MED LIST changes: -AMIT10TA PO; +AMIT10TA7 PO; -GASTROGRAFIN SOLUTION 30ML (Q9963) As Ordered ONE; -ISOVUE-370 76% 100ML VIAL As Ordered ONE
[2020-07-09 17:56] LABS: BASO # 0.1 10^3/uL (0.0-0.2); BASO % 0.6 % (0.0-1.0); EOS # 0.2 10^3/uL (0.0-0.5); EOS % 1.9 % (0.0-3.0); HEMATOCRIT 38.3 % (36.0-47.0); HEMOGLOBIN 11.7 g/dl (12.0-15.5); LYMPH # 2.3 10^3/uL (1.5-5.0); MEAN CORPUSCULAR HEMOGLOBIN 27.3 pg (27.0-33.0); MEAN CORPUSCULAR HGB CONC 30.5 g/dl (32.0-36.5); MEAN CORPUSCULAR VOLUME 89.5 fl (80.0-96.0); MONO # 0.6 10^3/uL (0.0-0.8); MONO % 7.1 % (2.0-8.0); NEUTROPHILS # 4.7 10^3/uL (1.5-8.5); NEUTROPHILS % 60.3 % (36.0-66.0); PLATELET COUNT, AUTOMATED 271 10^3/uL (150-450); RED BLOOD COUNT 4.28 10^6/uL (4.00-5.40); WHITE BLOOD COUNT 7.8 10^3/uL (4.0-10.0)
[2020-07-09 18:00] LABS: APPEARANCE, URINE HAZY (CLEAR); BACTERIA, URINE AUTO NEGATIVE (NEGATIVE); BILIRUBIN, URINE AUTO NEGATIVE (NEGATIVE); BLOOD, URINE BLOOD 1+ (NEGATIVE); COLOR, URINE YELLOW (YELLOW); GLUCOSE, URINE (UA) AUTO NEGATIVE (NEGATIVE); KETONE, URINE AUTO TRACE mg/dL (NEGATIVE); LEUKOCYTE ESTERASE, URINE AUTO NEGATIVE (NEGATIVE); MUCUS, URINE LARGE (NEGATIVE); NITRITE, URINE AUTO NEGATIVE (NEGATIVE); PROTEIN, URINE AUTO NEGATIVE (NEGATIVE); RBC, URINE AUTO 13 /HPF (0-3); SPECIFIC GRAVITY URINE AUTO 1.021 (1.002-1.035); SQUAMOUS EPITHELIAL CELL UR AU 0 /HPF (0-6); UROBILINOGEN, URINE AUTO 0.2 mg/dL (0.0-2.0); WBC, URINE AUTO 1 /HPF (0-3)
[2020-07-09 18:32] LABS: ALBUMIN 3.6 GM/DL (3.2-5.2); ALT/SGPT 21 U/L (12-78); BILIRUBIN,TOTAL 0.2 MG/DL (0.2-1.0); BLOOD UREA NITROGEN 14 MG/DL (7-18); CARBON DIOXIDE LEVEL 27 MEQ/L (21-32); CHLORIDE LEVEL 109 MEQ/L (98-107); CREATININE FOR GFR 0.56 MG/DL (0.55-1.30); FOLLICLE STIMULATING HORMONE 2.9 mIU/mL; FREE T4 1.02 NG/DL (0.76-1.46); GLOMERULAR FILTRATION RATE > 60.0 (>60); GLUCOSE, FASTING 85 MG/DL (70-100); LUTEINIZING HORMONE 0.2 mIU/mL; POTASSIUM SERUM 4.1 MEQ/L (3.5-5.1); SODIUM LEVEL 140 MEQ/L (136-145); THYROID STIMULATING HORMONE 0.345 uIU/ML (0.358-3.740); TOTAL PROTEIN 6.8 GM/DL (6.4-8.2)
[2020-07-12 07:42] LABS: HIV 1&2 SCREEN CENTAUR NEGATIVE (NEGATIVE)
== END ==
LOC: M LAB 15:39
PROVIDERS: ATTEND Family Medicine
DX: R61 Generalized hyperhidrosis (principal)

== ENCOUNTER → 2020-07-16 | Outpatient (REF) | payer BC | LOC: M LAB REF 15:03 | PROVIDERS: ATTEND Physician Assistant | DX: D04.62 Carcinoma in situ of skin of left upper limb, including shoulder (principal) ==

== ENCOUNTER → 2020-07-30 | Outpatient (REF) | payer BC | LOC: M LAB REF 13:52 | PROVIDERS: ATTEND Dermatology | DX: D04.60 Carcinoma in situ of skin of unspecified upper limb, including shoulder (principal) ==

== ENCOUNTER → 2020-10-01 | Outpatient (CLI) | payer BC ==
[2020-10-01 17:14] LABS: ESTRADIOL < 19.0 PG/ML; FOLLICLE STIMULATING HORMONE < 0.3 mIU/mL; LUTEINIZING HORMONE < 0.1 mIU/mL
== END ==
LOC: M LAB 14:59
PROVIDERS: ATTEND Advanced Practice Midwife
DX: N95.9 Unspecified menopausal and perimenopausal disorder (principal)

== ENCOUNTER → 2020-10-19 | Outpatient (CLI) | payer BC ==
[~2020-10-19] MED LIST changes: -CEFD1CAP8 PO; +CEFD300C41 PO; -MONT10TA10 PO; +MONT10TA97 PO; +ONDA-84 PO; -ONDA8TAB10 PO; -SUMA4INJ3 INJ; +SUMA4INJ6 INJ
[2020-10-19 18:42] LABS: HEMOGLOBIN A1c 5.3 %
[2020-10-19 19:02] LABS: FREE T4 0.94 NG/DL (0.76-1.46); THYROID STIMULATING HORMONE 0.178 uIU/ML (0.358-3.740)
== END ==
LOC: M LAB 17:16
PROVIDERS: ATTEND Student in an Organized Health Care Education/Training Program
DX: E05.90 Thyrotoxicosis, unspecified without thyrotoxic crisis or storm (principal); R73.02 Impaired glucose tolerance (oral)

== ENCOUNTER → 2020-11-05 | Outpatient (CLI) | payer BC ==
[~2020-11-05] MED LIST changes: +CEFD1CAP8 PO; -CEFD300C41 PO; +MONT10TA10 PO; -MONT10TA97 PO; -ONDA-84 PO; +ONDA8TAB10 PO; +SUMA4INJ3 INJ; -SUMA4INJ6 INJ
[2020-11-05 19:43] LABS: ESTRADIOL < 19.0 PG/ML; FOLLICLE STIMULATING HORMONE 6.9 mIU/mL; LUTEINIZING HORMONE 0.6 mIU/mL
[2020-11-08 14:08] LABS: DEHYDROEPIANDROSTERONE SULFATE 38.4 ug/dL (57.3-279.2); TESTOSTERONE FREE (DIRECT) 1.3 pg/mL (0.0-4.2)
== END ==
LOC: M LAB 18:19
PROVIDERS: ATTEND Advanced Practice Midwife
DX: N92.6 Irregular menstruation, unspecified (principal)

== ENCOUNTER → 2020-11-08 | Outpatient (REF) | payer BC | LOC: M PLALAB 12:26 | PROVIDERS: ATTEND Advanced Practice Midwife | DX: N92.6 Irregular menstruation, unspecified (principal) ==

== ENCOUNTER → 2020-11-23 | Outpatient (CLI) | payer BC | LOC: M LAB 10:01 | PROVIDERS: ATTEND Advanced Practice Midwife | DX: N92.6 Irregular menstruation, unspecified (principal) ==

== ENCOUNTER → 2020-11-23 | Outpatient (CLI) | payer BC ==
--- NOTE | 2020-11-23 11:45 | REP ---
INDICATION: PAIN IN RIGHT HIP-LABS FIRST. COMPARISON: Comparison is made with images from CT study of the pelvis April 23, 2020. TECHNIQUE: AP and frogleg views of the right hip are provided. FINDINGS: Right femoral head is smooth and rounded hip joint space is preserved. Periarticular soft tissues are unremarkable. There is a small subcortical cyst at the head neck junction. This is unchanged from comparison CT study April 23, 2020. Head neck junction morphology is otherwise normal. IMPRESSION: Negative right hip radiographs. <Electronically signed by Ricardo James > 11/23/20 [id number]
== END ==
LOC: M RAD 10:04
PROVIDERS: ATTEND Student in an Organized Health Care Education/Training Program
DX: M25.551 Pain in right hip (principal)

== ENCOUNTER → 2020-12-06 | Outpatient (CLI) | payer BC | LOC: M SOG 10:09 | PROVIDERS: ATTEND Orthopaedic Surgery Adult Reconstructive Orthopaedic Surgery | DX: M25.551 Pain in right hip (principal); Z53.8 Procedure and treatment not carried out for other reasons ==

== ENCOUNTER → 2020-12-13 | Outpatient (REF) | payer BC | LOC: M LAB REF 19:17 | PROVIDERS: ATTEND Physician Assistant | DX: L57.0 Actinic keratosis (principal) ==

== ENCOUNTER → 2020-12-31 | Outpatient (CLI) | payer BC ==
--- NOTE | 2020-12-31 15:39 | REP ---
INDICATION: PAIN IN RT HIP LOW SET PELVIS WB. COMPARISON: None. TECHNIQUE: Single AP view of the pelvis FINDINGS: Osseous structures, joint spaces, and surrounding soft tissues are essentially age-appropriate and normal. IMPRESSION: Normal age-appropriate pelvic radiograph. <Electronically signed by Ruy Grubbs > 12/31/20 [id number]
== END ==
LOC: M SOG 08:37
PROVIDERS: ATTEND Orthopaedic Surgery Adult Reconstructive Orthopaedic Surgery
DX: M25.551 Pain in right hip (principal)

== ENCOUNTER → 2021-01-25 | Outpatient (REF) | payer BC | LOC: M LAB REF 16:24 | PROVIDERS: ATTEND Physician Assistant Medical | DX: R50.9 Fever, unspecified (principal); R05.9 Cough, unspecified ==

== ENCOUNTER 2021-01-26 13:52 | Outpatient (CLI) | payer BC ==
[~2021-01-26] VITALS: Ht 165.1 cm; Wt 75.0 kg
[~2021-01-26 13:52] MED LIST changes: +ALBUTEROL 90 MCG/ACT 8GM HFA INHALER INH PRN; +ALBUTEROL SULFATE 2.5 MG/0.5 ML INH NEB SOLN INH PRN; +EPINEPHrine INJ 1 MG/ML 1ML AMP IM PRN; +NS 1,000 ML IV SCH; +diphenhydrAMINE 50MG/ML VIAL (J1200) IV PRN; +methylPREDNISolone 125MG 2ML VIAL IV PRN
[2021-01-26] MEDS ORDERED: ACETAMINOPHEN TAB 650MG DOSE (2X325MG) PO ONE (14:15)
[2021-01-26] MEDS ORDERED: CASIRIVIMAB (REGN10933) 600 MG, IMDEVIMAB (REGN10987) 600 MG in NS 250 ML IV ONE (14:15)
[2021-01-26 14:43] VITALS: BP_SYST 121; BP_SYST 132; BP_DIAS 76; BP_DIAS 80
[2021-01-26 15:13] VITALS: BP 114/70
[2021-01-26 15:43] VITALS: BP 105/61
[2021-01-26 16:43] VITALS: BP 105/58
== END 2021-01-26 16:43 | disposition home or self-care (01) ==
LOC: M OPCLI4PR 13:52
PROVIDERS: ATTEND Student in an Organized Health Care Education/Training Program
DX: U07.1 COVID-19 (principal); Z88.8 Allergy status to other drugs, medicaments and biological substances; Z91.040 Latex allergy status

== ENCOUNTER 2021-01-27 08:36 | Emergency (ER) | payer BC ==
[~2021-01-27] VITALS: Ht 165.1 cm; Wt 75.5 kg
[~2021-01-27 08:36] MED LIST changes: -ALBUTEROL 90 MCG/ACT 8GM HFA INHALER INH PRN; -ALBUTEROL SULFATE 2.5 MG/0.5 ML INH NEB SOLN INH PRN; -EPINEPHrine INJ 1 MG/ML 1ML AMP IM PRN; -NS 1,000 ML IV SCH; -diphenhydrAMINE 50MG/ML VIAL (J1200) IV PRN; -methylPREDNISolone 125MG 2ML VIAL IV PRN
--- OUTSIDE RECORDS SUMMARY | 2021-01-27 08:45 | CCD ---
Author Author [facility] Organization [facility] Address Unknown Phone Unavailable Care Team Providers Care Inspector Technician Name Role Phone Yessy Shrestha Unavailable PROBLEMS Type Condition ICD9-CM Code JEM21-DU Code Onset Dates Condition S tatus W/U Status Risk SNOMED Code Notes Problem POTS (postural orthostatic tachycardia syndrome) R 00.0 Active confirmed 830747746 Problem Gastroesophageal reflux disease, esophagitis pre sence not specified K21.9 Active confirmed 327361897 Problem Allergic rhinitis, unspecifi ed allergic rhinitis trigger, unspecified rhinitis seasonality J30.9 Active confirmed 97598950 Problem Thyroid nodule E04.1 Active confirmed 22628 5005 Problem Vitamin D deficiency E55.9 Active confirmed 22298768 Problem Gastroparesis K31.84 Active confirmed 601768 006 Problem Dysautonomia G90.9 Active confirmed 6560520 6 Problem Hyperhidrosis L74.519 Active confirmed 02237 0002 Problem Dysuria R30.0 Active confirmed 58956787 Problem Attention deficit disorder (ADD) without hyperactivity F98.8 Active confirmed 45542750 Problem Multiple sclerosis G35 Active confirmed 2 8105167 Problem Subclinical hyperthyroidism E05.90 Active confirmed 636249478 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 confirme d 544517149 Problem Neoplasm of uncertain behavior of skin D48.5 A ctive confirmed 96893031 Problem Iron deficiency anemia, unspecified iron deficiency an emia type D50.9 Active confirmed 67424564 Problem Leukocytosis, unspecified type D72.829 Active confi rmed 954741924 Problem Attention or concentration deficit R41.840 Activ e confirmed 17100069 Problem Migraine without status migr ainosus, not intractable, unspecified migraine type G43.909 Active confirmed 11630731 Problem 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 Code:09862-75892) iv iron - swelling Drug Allergy Active lubiprostone Amitiza([facility] Code:[address]-13) Confusion Drug Allergy Active metoclopramide Reglan([facility] Code:[address]-13) anxiety Drug Allergy Active ENCOUNTERS from 1985 to 2021-01-14 Encounter Location Date Provider Diagnosis [facility] [address] [facility] [phone] [place] [address] Dec, Yessy Shrestha IMMUNIZATIONS Vaccine Route Administration Date Status Hepatitis A & B 1mL Twinrix IM Intramuscular Dec 23, 2010 Adm inistered Hepatitis A & B 1mL Twinrix IM Intramuscular Nov 10, 2010 Adm inistered Hepatitis A & B 1mL Twinrix IM Intramuscular June 10, 2010 Adm inistered Gardasil IM Intramuscular Dec 23, 2010 Administered Gardasil IM Intramuscular Nov 10, 2010 Administered TDAP 0.5mL (Boostrix) IM Intramuscular June 10, 2010 Administe red Meningococcal IM Intramuscular Nov 10, 2010 Administered Influenza 6mo & up Fluzone Unknown Dec 27, 2017 Admin istered Influenza 6mo & up Fluzone Unknown Dec 26, 2013 Admin istered SOCIAL HISTORY Tobacco Use: Social History Observation Description Date Details (start date - stop date) Never Smoker Sex Assigned At : Social History Observation Description Sex Assigned At Unknown Education: Question Answer Notes Level of Education: Finished College Audit Question Answer Notes Total Score: 1 Interpretation: Alcohol Education Language: Question Answer Notes Languages spoken: Greenlandic Sikh: Question Answer Notes Sikh 21 Yarsanism Drug and Alcohol Question Answer Notes Total Score: 0 Interpretation: No problems reported Tobacco Use: Question Answer Notes Are you a: never smoker REASON FOR REFERRAL No Information VITAL SIGNS No information MEDICATIONS Medication SIG (Take, Route, Frequency, Duration) Notes Start Da te End Date Status Methylphenidate HCl ER 54 MG 1 tablet in the morning O rally Once a day for 30 days Dec, Active Estrace 0.1 MG/GM one applicatorfull Vaginal Once a day for 30 d ay(s) Sep, Active Albuterol Sulfate HFA 108 (90 Base) MCG/ACT 1 puff as needed Inhalation every 4 hrs for 30 days Sep, Active NexIUM 40 MG 1 capsule Orally Twice a day Active Levonorgest-Eth Estrad -Day 0.15-0.03 MG TAKE 1 TABL ET BY MOUTH EVERY DAY Oral for Not-Taking Famotidine 40 MG 1 tablet Orally Twice a day for 30 days Active Ocrevus infusion for MS Active Diflucan 150 MG 1 tablet Orally one time, may repeat in 3 days f or 1 day(s) Sep, Not-Taking Diflucan 100 MG 1 tablet Orally once a day for 10 day(s) 2 9 Aug, 2020 Not-Taking valACYclovir HCl 1 GM 2 tablet Orally bid x 1 day prn for 5 day( s) Sep, Active Ventolin HFA 108 (90 Base) MCG/ACT 2 puffs as needed I nhalation every 6 hrs for 30 day(s) Not-Taking Ondansetron HCl 8 mg 1 tablet orally Twice a day as needed for nausea for 15 days Active Qbrexza 2.4 % as directed Externally Every 2 days to armpits Active Fluocinonide 0.05 % 1 application Externally Twice a day for 14 days Aug, Not-Taking Premarin 0.625 MG/GM as directed Vaginal Once a day at HS for 30 day(s) Sep, Not-Taking SUMAtriptan Succinate 50 MG 1 tablet at onset of heada ignacio, may repeat once in 2 hours if needed Oral MMD: 2 SOW/month 10 for 30 Days Active Furosemide 40 MG TAKE 1 TABLET BY MOUTH EVERY DAY NEEDED FOR LOWER EXTREMITY SWELLING Orally Daily as needed for 90 Active Triamcinolone Acetonide 0.1 % 1 application Externally Twice a day to affected areas of feet as needed for 14 days Aug, Not-Taking PROCEDURES No Information RESULTS No Results REASON FOR VISIT Concerta Refill MEDICAL (GENERAL) HISTORY Type Description Date Medical History ADD Medical History Chronic headaches Medical History IBS Medical History esophageal reflux Medical History allergic rhinitis Medical History HEMATURIA GROSS Medical History Gastroporesis, gastritis, history gastri c ulcers Medical History HUMBERTO-DANLOS SYNDROME (ELASTIC SKIN, OV ER FLEXIBLE JOINTS) Medical History POTS (POSTURAL ORTHOSATIC TACHYCARDIA SY NDROME) Medical History Hyperhydrosis of axillae, on Botox Medical History Multiple Sclerosis Surgical History L arthroscopic knee surgery 2001 Surgical History wisdom teeth removed Surgical History CYSTOSCOPY 11/07/2017 Surgical History endoscopy 01/10/18 Surgical History appendectomy 03/07/18 Surgical History hysteroscopy 12/2018 Hospitalization History see surgeries Hospitalization History [facility] appendectomy 03/09/18 Hospitalization History [facility] tachycardia 03/14-03/19/18 Hospitalization History [facility] MS exacerbation 08/06/18-08/08/18 Goals Section No Information Health Concerns No Information MEDICAL EQUIPMENT No Information MENTAL STATUS No Information FUNCTIONAL STATUS No Information ASSESSMENTS No Information PLAN OF TREATMENT Medication Medication Name Sig Start Date Stop Date Methylphenidate HCl ER 54 MG 1 tablet in the morning O rally Once a day for 30 days Dec, Next Appt Details Provider Name:Varsha Mohamud, 2021-02-14 08:15:00 AM, [address] [place], [place] [id number], [address] [place], [place] [address] Provider Name:Larry Zaidi, 03-24 11:00:00 AM, [address] [place] [address] [place] [address], [address] [place], [place] [address] Insurance Providers Payer Name Payer Address Payer Phone Insured Name Patient Relati onship to Insured Coverage Start Date [facility]age End Date [facility] [phone] [id number] UMER BALLESTEROS
--- OUTSIDE RECORDS SUMMARY | 2021-01-27 08:45 | CCD | Continuity of Care Document ---
Author Author Lela DEE Organization Unknown Address [address] [place] [address] Phone [phone] Problems Active Problems Provider Date Allergic rhinitis Onset: 01/20/2011 Social History Type Date Description Comments Sex Unknown Allergies and adverse reactions Description No Known Drug Allergies Medications Active Medications SIG Qnty Indications Ordering Provide r Date Doxycycline Hyclate 100mg Tablets take 1 tablet (100 mg) by oral route every 12 hours for 21 days 42tabs J01 .00 Warren Dee M.D. 06/02/2020 Denavir 1% Cream Apply to lesion tid 5gm Warren Dee M.D. 06/02/2019 Immunizations Description No Information Available Vital Signs Date Vital Result Comment 01/20/2011 1:27pm BMI (Body Mass Index) 22.31 kg/m2 01/20/2011 1:27pm Weight 130.00 lb Height 64 inches Heart Rate 68 /min Respiratory Rate 16 /min BP Systolic 120 mmHg BP Diastolic 68 mmHg BMI (Body Mass Index) 22.3142 kg/m2 Results Description No Information Available Procedures Description No Information Available Medical Devices Description No Information Available Encounters Description No Information Available Assessments Description No Information Available Plan of Treatment Future Appointment(s):* 02/14/2021 8:00 am - Warren Dee M.D. at Main Office * 02/02/2021 1:00 pm - Warren Dee M.D. at Main Office * 01/21/2021 7:00 am - Warren Dee M.D. at Main Office Functional Status Description No Information Available Mental Status Description No Information Available Referrals Description No Information Available
--- OUTSIDE RECORDS SUMMARY | 2021-01-27 08:45 | CCD | Continuity of Care Document ---
Author Author Lela DEE Organization Unknown Address [address], [place] [address] Phone [phone] Problems Active Problems Provider Date Allergic rhinitis [...]
--- OUTSIDE RECORDS SUMMARY | 2021-01-27 08:45 | CCD | Continuity of Care Document ---
Author Author Lela DEE Organization Unknown Address [address] [place] [address] Phone [phone] Problems Active Problems Provider Date Allergic rhinitis [...]
--- OUTSIDE RECORDS SUMMARY | 2021-01-27 08:45 | CCD ---
Continuity of Care Document (CCD) Created on: 01/21/2021 Lela Deshpande External Reference #: [id number] : [id number] Sex: Female Author Author Lela DEE Organization Unknown Address [address] [place] [address] Phone [phone] Problems Active Problems Provider Date Allergic rhinitis [...]
--- OUTSIDE RECORDS SUMMARY | 2021-01-27 08:45 | CCD | Continuity of Care Document ---
Author Author Lela DEE Organization Unknown Address [address], [place] [address] Phone [phone] Problems Active Problems Provider Date Allergic rhinitis [...] Warren Dee M.D. at Main Office * 01/17/2021 2:30 pm - Warren Dee M.D. at Main Office Functional Status Description No Information Available Mental Status Description No Information Available Referrals Description No Information Available
--- OUTSIDE RECORDS SUMMARY | 2021-01-27 08:46 | CCD | Continuity of Care Document ---
Author Author Lela DEE Organization Unknown Address [address], [place] [address] Phone [phone] Problems Active Problems Provider Date Allergic rhinitis Onset: 01/20/2011 Social History Type Date Description Comments Sex Unknown Allergies, Adverse Reactions, Alerts Description No Known Drug Allergies Medications Active [...] Warren Dee M.D. at Main Office * 01/14/2021 1:30 pm - Warren Dee M.D. at Main Office * 01/13/2021 1:00 pm - Warren Dee M.D. at Main Office * 12/30/2020 2:30 pm - Warren Dee M.D. at Main Office 06/02/2020 - Warren Dee M.D.* J01.00 Acute maxillary sinusitis, unspecified* New Medication:* Doxycycline Hyclate 100 mg - take 1 tablet (100 mg) by oral route every 12 hours for 21 days * All * Recommendations:* Follow up PCP if not better within 1 week. Functional Status Description No Information Available Mental Status Description No Information Available Referrals Description No Information Available
--- OUTSIDE RECORDS SUMMARY | 2021-01-27 08:46 | CCD ---
Author Author [facility] Organization [facility] Address Unknown Phone Unavailable Care Team Providers Care Allergist/Pediatric Pulmonologist Name Role Phone Varsha Mohamud Unavailable PROBLEMS Type Condition ICD9-CM Code [id number] Code Onset Dates Condition S tatus W/U Status Risk SNOMED Code Notes Problem POTS (postural orthostatic tachycardia syndrome) R 00.0 Active confirmed 582568666 Problem Gastroesophageal reflux disease, esophagitis pre sence not specified K21.9 Active confirmed 854676646 Problem Allergic rhinitis, unspecifi ed allergic rhinitis trigger, unspecified rhinitis seasonality J30.9 Active confirmed 90753628 Problem Thyroid nodule E04.1 Active confirmed 16958 5005 Problem Vitamin D deficiency E55.9 Active confirmed 03528112 Problem Gastroparesis K31.84 Active confirmed 849105 006 Problem Dysautonomia G90.9 Active confirmed 5656682 6 Problem Hyperhidrosis L74.519 Active confirmed 05380 0002 Problem Dysuria R30.0 Active confirmed 55822554 Problem Attention deficit disorder (ADD) without hyperactivity F98.8 Active confirmed 23907435 Problem Multiple sclerosis G35 Active confirmed 2 4227794 Problem Subclinical hyperthyroidism E05.90 Active confirmed 838695013 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 confirme d 704110100 Problem Neoplasm of uncertain behavior of skin D48.5 A ctive confirmed 76967570 Problem Iron deficiency anemia, unspecified iron deficiency an emia type D50.9 Active confirmed 66413236 Problem Leukocytosis, unspecified type D72.829 Active confi rmed 742217919 Problem Attention or concentration deficit R41.840 Activ e confirmed 19015970 Problem Migraine without status migr ainosus, not intractable, unspecified migraine type G43.909 Active confirmed 06326951 Problem 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 Ac tive confirmed 09204226875598418 ALLERGIES Allergen (clinical drug ingredient) Drug/Non Drug Allergy do cumented on EMR Reaction Allergy Type Onset Date Status Latex latex rash Non Drug Allergy Active Iron([facility] Code:12783-80812) iv iron - swelling Drug Allergy Active lubiprostone Amitiza([facility] Code:[address]-67) Confusion Drug Allergy Active metoclopramide Reglan([facility] Code:[address]-96) anxiety Drug Allergy Active ENCOUNTERS from 1984 to 2020-12-14 Encounter Location Date Provider Diagnosis [facility] Dermatology [address] [facility] [place] [phone] [place] [address] Nov, Varsha Cade Neoplasm of uncertain behavi or of skin D48.5 IMMUNIZATIONS Vaccine Route Administration Date Status Hepatitis [...] Education Language: Question Answer Notes Languages spoken: Luxembourger Samaritan: Question Answer Notes Samaritan 21 Yazidism Drug and Alcohol Question Answer Notes Total Score: 0 Interpretation: No problems reported Tobacco Use: Question Answer Notes Are you a: never smoker REASON FOR REFERRAL No Information VITAL SIGNS Weight 180 lbs Nov, Weight-kg 81.65 kg Nov, Height 66 in Nov, BMI 29.05 kg/m2 Nov, Blood pressure systolic 120 mm Hg Nov, Blood pressure diastolic 74 mm Hg Nov, MEDICATIONS Medication SIG (Take, Route, Frequency, Duration) Notes Start Da te End Date Status Levonorgest-Eth Estrad -Day 0.15-0.03 MG TAKE 1 TABL ET BY MOUTH EVERY DAY Oral for 91 Not-Taking Estrace 0.1 MG/GM one applicatorfull Vaginal Once a day for 30 d ay(s) Sep, Active NexIUM 40 MG 1 capsule Orally Twice a day Active Albuterol Sulfate HFA 108 (90 Base) MCG/ACT 1 puff as needed Inhalation every 4 hrs for 30 days Sep, Active Famotidine 40 MG 1 tablet Orally Twice a day for 30 days Active Ocrevus infusion for MS Active Diflucan 150 MG 1 tablet Orally one time, may repeat in 3 days f or 1 day(s) Sep, Not-Taking Diflucan 100 MG 1 tablet Orally once a day for 10 day(s) 2 Aug, Not-Taking valACYclovir HCl 1 GM 2 tablet [...] needed for 14 days Aug, Not-Taking PROCEDURES from 1984 to 2020-12-14 Procedure Date Ordered Result Body Site Med: Derm 1% Lidocaine with Epinephrine Injection Intr adermally to marked areas 2020-12-13 N/A RESULTS No Results REASON FOR VISIT SPOT CHECK RIGHT FOREARM MEDICAL (GENERAL) HISTORY Type Description Date Medical [...] 12/2018 Hospitalization History see surgeries Hospitalization History [facility] appendectomy 03/09/18 Hospitalization History [facility] tachycardia 03/14-03/19/18 Hospitalization History [facility] MS exacerbation 08/06/18-08/08/18 Goals Section No Information Health Concerns No Information MEDICAL EQUIPMENT No Information MENTAL STATUS No Information FUNCTIONAL STATUS No Information ASSESSMENTS Encounter Date Diagnosis Assessment Notes Treatment Notes Treatm ent Clinical Notes Nov, Neoplasm of uncertain behavior of skin (ICD-10 - D48.5) Procedure: Shave removal [place] protocol was followed in compliance with [facility] standards. The patient was educated on the potential risks and benefits of the procedure and gave his/her informed consent. Location of shave removal noted in the physical exam and images uploaded to the medical record. Area(s) treated with EtOH. Local anesthesia performed with <1mL of 1% lidocaine with epinephrine per site. Site(s) verified with patient via timeout utilizing patient name and date of . Procedure performed. Dual site-specimen cup verification performed verbally between provider and clinic staff. Hemostasis achieved with hyfrecation or aluminum chloride/styptic. Closure: secondary intent Petrolatum and bandage applied. Wound care instruction addressed with patient by provider or clinic staff and wound care handout given. Patient tolerated the procedure well and left in stable condition. Pain reports that his/her pain was well-managed. Patient was educated to use acetaminophen 500mg up to 4 times daily. If not sufficient, patient was educated to re-present to the dermatology clinic or, if after hours, the emergency department. Patient was informed they would be notified in 10-14 days by telephone for all malignant conditions and scheduled for definitive management. PLAN OF TREATMENT Treatment Notes Assessment Notes Clinical Notes Neoplasm of uncertain behavior of skin P rocedure: Shave removalUniversal protocol was followed in compliance with [facility] standards. The patient was educated on the potential risks and benefitsof the procedure and gave his/her informed consent. Location of shave removal noted in the physical exam and images uploaded to the medical record. Area(s) treated with EtOH. Local anesthesia performed with<1mL of 1% lidocaine with epinephrine per site. Site(s) verified withpatient via timeout utilizing patient name and date of . Procedureperformed. Dual site-specimen cup verification performed verbally betweenprovider and clinic staff. Hemostasis achieved with hyfrecation or aluminumchloride/styptic.Closure: secondary intentPetrolatum and bandage applied. Wound care instruction addressed withpatient by provider or clinic staff and wound care handout given.Patient tolerated the procedure well and left in stable condition.Pain reports that his/her pain was well-managed. Patient was educated to useacetaminophen 500mg up to 4 times daily. If not sufficient, patient waseducated to re-present to the dermatology clinic or, if after hours, theemergency department. Patient was informed they would be notified in 10-14 daysby telephone for all malignant conditions and scheduled for definitivemanagement. Next Appt Details As scheduled for Nov Reason: Provider Name:Varsha Mohamud, 2021-02-14 08:15:00 AM, [address] [place] [address] [place], [address], Provider Name:Larry Zaidi, 03-24 11:00:00 AM, [address] [place] [address], [place], [place], [facility] [phone] Insurance Providers Payer Name Payer Address Payer Phone Insured Name Patient Relati onship to Insured Coverage Start Date Coverage End Date [facility] PPO [phone] [address] U[employer] BALLESTEROS
--- OUTSIDE RECORDS SUMMARY | 2021-01-27 08:46 | CCD ---
Author Author [facility] Organization [facility] Address Unknown Phone Unavailable Care Team Providers Care First Beater Name Role Phone Larry Zaidi Unavailable PROBLEMS Type Condition ICD9-CM Code [id number] Code Onset Dates Condition S tatus W/U Status Risk SNOMED Code Notes Problem Gastroesophageal reflux disease, esophagitis pre sence not specified K21.9 Active confirmed 680929887 Problem Thyroid nodule E04.1 Active confirmed 20027 5005 Problem POTS (postural orthostatic tachycardia syndrome) R 00.0 Active confirmed 372817679 Problem Gastroparesis K31.84 Active confirmed 608965 006 Problem Allergic rhinitis, unspecifi ed allergic rhinitis trigger, unspecified rhinitis seasonality J30.9 Active confirmed 47138914 Problem Hyperhidrosis L74.519 Active confirmed 57443 0002 Problem Vitamin D deficiency E55.9 Active confirmed 10677054 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 confirme d 357895141 Problem Dysuria R30.0 Active confirmed 87844721 Problem Attention deficit disorder (ADD) without hyperactivity F98.8 Active confirmed 90703834 Problem 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 Ac tive confirmed 54404860763184191 Problem Iron deficiency anemia, unspecified iron deficiency an emia type D50.9 Active confirmed 09090053 Problem Subclinical hyperthyroidism E05.90 Active confirmed 717948927 Problem Dysautonomia G90.9 Active confirmed 0921826 6 Problem Multiple sclerosis G35 Active confirmed 2 6325876 Problem Leukocytosis, unspecified type D72.829 Active confi rmed 047299831 Problem Attention or concentration deficit R41.840 Activ e confirmed 73505006 Problem Migraine without status migr ainosus, not intractable, unspecified migraine type G43.909 Active confirmed 98674435 ALLERGIES Allergen (clinical drug ingredient) Drug/Non Drug Allergy do cumented on EMR Reaction Allergy Type Onset Date Status Latex latex rash Non Drug Allergy Active Iron([facility] Code:11262-55232) iv iron - swelling Drug Allergy Active lubiprostone Amitiza([facility] Code:[address]-77) Confusion Drug Allergy Active metoclopramide Reglan([facility] Code:[address]-92) anxiety Drug Allergy Active ENCOUNTERS from 1984 to 2020-12-08 Encounter Location Date Provider Diagnosis [facility] Dermatology [address] [facility] [phone] [place] [address] Nov, [facility] [place] Axillary hyperhidrosis L74.5 10 IMMUNIZATIONS Vaccine Route Administration Date Status Gardasil IM Intramuscular Dec 23, 2010 Administered Hepatitis A & B 1mL Twinrix IM Intramuscular Dec 23, 2010 Adm inistered Hepatitis A & B 1mL Twinrix IM Intramuscular Nov 10, 2010 Adm inistered Hepatitis A & B 1mL Twinrix IM Intramuscular June 10, 2010 Adm inistered Gardasil IM Intramuscular Nov 10, 2010 Administered [...] Education Language: Question Answer Notes Languages spoken: Zimbabwean Jewish: Question Answer Notes Jewish 21 Zoroastrian Drug and Alcohol Question Answer Notes Total Score: 0 Interpretation: No problems reported Tobacco Use: Question Answer Notes Are you a: never smoker REASON FOR REFERRAL No Information VITAL SIGNS Weight 179.2 lbs Nov, Weight-kg 81.28 kg Nov, Height 66 in Nov, BMI 28.92 kg/m2 Nov, Blood pressure systolic 108 mm Hg Nov, Blood pressure diastolic 74 mm Hg Nov, MEDICATIONS Medication SIG (Take, Route, Frequency, Duration) Notes Start Da te End Date Status Furosemide 40 MG TAKE 1 TABLET BY MOUTH EVERY DAY NEEDED FOR LOWER EXTREMITY SWELLING Orally Daily as needed for 90 Active Qbrexza 2.4 % as directed Externally Every 2 days to armpits Active Ondansetron HCl 8 mg 1 tablet orally Twice a day as needed for nausea for 15 days Active Fluocinonide 0.05 % 1 application Externally Twice a day for 14 days Aug, Not-Taking Diflucan 100 MG 1 tablet Orally once a day for 10 day(s) 2 Aug, Not-Taking Triamcinolone Acetonide 0.1 % 1 application Externally Twice a day to affected areas of feet as needed for 14 days Aug, Not-Taking SUMAtriptan Succinate 50 MG 1 tablet at onset of heada ignacio, may repeat once in 2 hours if needed Oral MMD: 2 SOW/month 10 for 30 Days Active Premarin 0.625 MG/GM as directed Vaginal Once a day at HS for 30 day(s) Sep, Not-Taking Estrace 0.1 MG/GM one applicatorfull Vaginal Once a day for 30 d ay(s) Sep, Active Albuterol Sulfate HFA 108 (90 Base) MCG/ACT 1 puff as needed Inhalation every 4 hrs for 30 days Sep, Active Ocrevus infusion for MS Active Ventolin HFA 108 (90 Base) MCG/ACT 2 puffs as needed I nhalation every 6 hrs for 30 day(s) Not-Taking Famotidine 40 MG 1 tablet Orally Twice a day for 30 days Active NexIUM 40 MG 1 capsule Orally Twice a day Active valACYclovir HCl 1 GM 2 tablet Orally bid x 1 day prn for 5 day( s) Sep, Active Diflucan 150 MG 1 tablet Orally one time, may repeat in 3 days f or 1 day(s) Sep, Not-Taking Levonorgest-Eth Estrad -Day 0.15-0.03 MG TAKE 1 TABL ET BY MOUTH EVERY DAY Oral for 91 Not-Taking PROCEDURES from 1984 to 2020-12-08 Procedure Date Ordered Result Body Site Medication: Botox Therapeutic intradermal 2020-12-07 N/A RESULTS No Results REASON FOR VISIT axillary hyperhidrosis MEDICAL (GENERAL) HISTORY Type Description Date Medical [...] Hospitalization History [facility] tachycardia 03/14-03/19/18 Hospitalization History [facility] MS exacerbation 08/06/18-08/08/18 Goals Section No Information Health Concerns No Information MEDICAL EQUIPMENT No Information MENTAL STATUS No Information FUNCTIONAL STATUS No Information ASSESSMENTS Encounter Date Diagnosis Assessment Notes Treatment Notes Treatm ent Clinical Notes Nov, Axillary hyperhidrosis (ICD-10 - L74.510) The axillae were cleaned with rubbing alcohol. Botox was diluted with 4 mL of saline for the 100 U vial. 50 units were injected per axilla with each injection about 1 cm away from the others in an even pattern. The patient tolerated the procedure well. The area was massaged for 2 minutes and the patient was given post care instructions and expectations. PLAN OF TREATMENT Treatment Notes Assessment Notes Clinical Notes Axillary hyperhidrosis The axillae were cleaned with rubbing alcohol. Botox was diluted with 4 mL of saline for the 100 U vial. 50 units were injected per axilla with each injection about 1 cm away from the others in an even pattern. The patient tolerated the procedure well. The area was massaged for 2 minutes and the patient was given post care instructions and expectations. Next Appt Details Provider Name:Varsha Mohamud, 2021-02-14 08:15:00 AM, [address] [place] [address], , [place], [address], Provider Name:Larry Zaidi, 03-24 11:00:00 AM, [address] [place] [address], , [place], [address], Insurance Providers Payer Name Payer Address Payer Phone Insured Name Patient Relati onship to Insured Coverage Start Date Coverage End Date [employer] PPO [phone] [address] U[employer]LESTER[employer] self
--- OUTSIDE RECORDS SUMMARY | 2021-01-27 08:46 | CCD | Continuity of Care Document ---
Author Author Lela FINLEY MD Organization Unknown Address [address] , [facility] [place] [address] Phone [phone] Care Team Providers Care Delivery Rep Name Role Phone Brooklyn Alan M.D. AUTM [phone] AUTM Unavailable Yessy Shrestha M.D. AUTM [phone] Problems Active Problems Provider Date Essential hypertension Young Finley MD Onset: 12/31/2020 Social History Type Date Description Comments Sex Unknown ETOH Use Denies alcohol use Tobacco Use Start: Unknown Patient has never smoked Recreational Drug Use Denies Drug Use Tobacco Use Start: Unknown No Exposure To Second-Hand Smoke In The Home Smoking Status Reviewed: 12/31/20 No Exposure To Second-Hand Sm jeanie In The Home Exercise Type/Frequency Occasional Vigorous Exer cise Allergies and adverse reactions Active Allergies Criticality Reaction | Severity Comments Date Reglan Unable to assess criticality Restless Leg, Anxiety 08/22/2017 Amitiza Unable to assess criticality Nausea and Vomiting, Dizz iness 08/22/2017 Latex Unable to assess criticality Contact dermatitis 03/25/2018 Medications Active Medications SIG Qnty Indications Ordering Provide r Date Quasense 0.15-0.03mg Tablets take 1 tablet by mouth every day 91tabs Hannah Livingston CNM 12/06/2015 Nadolol 40mg Tablets 1 tab by mouth every day Unknown Concerta 36mg Tablets ER qam Unknown Ranitidine HCL 150mg Tablets bid Unknown Folic Acid 400mcg Tablets qd Unknown Nexium 40mg Capsules DR take 1 capsule by mouth twice daily. Unknown Famotidine 40mg Tablets Yessy Shrestha M.D. Flovent HFA 110mcg/Act Aerosol Brooklyn Katz MD Furosemide 40mg Tablets Paige Willis M.D. Sumatriptan Succinate 50mg Tablets Take 1 Tablet By Mouth AT Onset Of Headache. May Repeat 1 Time In 2 Hours as Paige Smith M.D. Immunizations Description No Information Available Vital Signs Date Vital Result Comment 12/31/2020 2:57pm Body Temperature 97.3 F 03/25/2018 11:20am BP Systolic 134 mmHg Ra BP Diastolic 90 mmHg Ra Heart Rate 64 /min Height 65 inches 5'5" Weight 150.00 lb BMI (Body Mass Index) 25.0 kg/m2 Aptos Body Weight 125 lb Weight 68.040 kg BSA (Body Surface Area) 1.75 m2 Results Description No Information Available Procedures Description No Information Available Medical Devices Description No Information Available Encounters Description No Information Available Assessments Date Code Description Provider 12/31/2020 M24.151 Acetabular labrum tear Young evans MD Plan of Treatment 12/31/2020 - Young Finley MD* M24.151 Acetabular labrum tear* New Xrays:* MRI, Lower Extremity, Any Joint; W/ Contrast, Right, Ordered: 12/31/20 * Comments:* The patient demonstrates signs and symptoms most consistent with some acetabular labral injury or tearing. I have discussed options with the patient including a diagnostic and therapeutic cortisone injection versus an MRI arthrogram of the hip. She would like to go ahead with the MRI arthrogram. In the interim I have given her a home therapy program for hip strengthening and range of motion. This is likely a longstanding issue that may be getting worse.I will see her for follow-up once the MRI arthrogram is complete. Functional Status Description No Information Available Mental Status Description No Information Available Referrals Description No Information Available
--- OUTSIDE RECORDS SUMMARY | 2021-01-27 08:46 | CCD | Continuity of Care Document ---
Author Author Lela DEE Organization Unknown Address [address], [place] [address] Phone [phone] Problems Active Problems Provider Date Allergic rhinitis [...] Warren Dee M.D. at Main Office * 12/17/2020 7:00 am - Warren Dee M.D. at [...]
--- OUTSIDE RECORDS SUMMARY | 2021-01-27 08:46 | CCD | Continuity of Care Document ---
Author Author Lela FINLEY MD Organization Unknown Address [address] , [facility] [place] [address] Phone [phone] Care Team Providers Care Anchor Tacker Name Role Phone Brooklyn Alan M.D. AUTM [phone] AUTM Unavailable Yessy Shrestha M.D. AUTM [phone] Problems Active Problems Provider Date Essential hypertension [...] Repeat 1 Time In 2 Hours as K[employer] Paige Willis M.D. Immunizations Description No Information Available Vital Signs Date Vital Result Comment 12/31/2020 2:57pm Body Temperature 97.3 F 03/25/2018 11:20am BP Systolic 134 mmHg Ra BP Diastolic 90 mmHg Ra Heart Rate 64 /min Height 65 inches 5'5" Weight 150.00 lb BMI (Body Mass Index) 25.0 kg/m2 Ryan Body Weight 125 lb Weight 68.040 kg BSA (Body Surface Area) 1.75 m2 Results Description No Information Available Procedures Date Code Description Status 12/31/2020 [address]85 Office/Outpatient New Moderate M DM 45-59 Minutes Completed Medical Devices Description No Information Available Encounters Type Date Location Provider Dx Diagnosis Office Visit 12/31/2020 3:00p [facility] Young Finley MD M24.151 Other articular cartilage disorders, right hip Assessments Date Code Description Provider 12/31/2020 M24.151 [...]
--- OUTSIDE RECORDS SUMMARY | 2021-01-27 08:46 | CCD ---
Author Author [facility] Organization [facility] Address Unknown Phone Unavailable Care Team Providers Care Orange Picker Machine Operator Name Role Phone Larry Zaidi Unavailable PROBLEMS Type Condition ICD9-CM Code ZGU58-UY Code Onset Dates Condition S tatus W/U Status Risk SNOMED Code Notes Problem Gastroesophageal reflux disease, esophagitis pre sence not specified K21.9 Active confirmed 969149780 Problem Thyroid nodule E04.1 Active confirmed 08437 5005 Problem POTS (postural orthostatic tachycardia syndrome) R 00.0 Active confirmed 084922366 Problem Gastroparesis K31.84 Active confirmed 298889 006 Problem Allergic rhinitis, unspecifi ed allergic rhinitis trigger, unspecified rhinitis seasonality J30.9 Active confirmed 26179972 Problem Hyperhidrosis L74.519 Active confirmed 59763 0002 Problem Vitamin D deficiency E55.9 Active confirmed 07450111 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 confirme d 212579725 Problem Dysuria R30.0 Active confirmed 30063931 Problem Attention deficit disorder (ADD) without hyperactivity F98.8 Active confirmed 99803420 Problem 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 Ac tive confirmed 81346992148777696 Problem Iron deficiency anemia, unspecified iron deficiency an emia type D50.9 Active confirmed 21169821 Problem Subclinical hyperthyroidism E05.90 Active confirmed 971187105 Problem Dysautonomia G90.9 Active confirmed 5371715 6 Problem Multiple sclerosis G35 Active confirmed 2 4886010 Problem Leukocytosis, unspecified type D72.829 Active confi rmed 664090584 Problem Attention or concentration deficit R41.840 Activ e confirmed 99183859 Problem Migraine without status migr ainosus, not intractable, unspecified migraine type G43.909 Active confirmed 60146300 ALLERGIES Allergen (clinical drug ingredient) Drug/Non Drug Allergy do cumented on EMR Reaction Allergy Type Onset Date Status Latex latex rash Non Drug Allergy Active Iron iv iron - swelling Drug Allergy Acti ve lubiprostone Amitiza([facility] Code:[address]-74) Confusion Drug Allergy Active Reglan anxiety Drug Allergy Active ENCOUNTERS from 1985 to 2020-12-07 Encounter Location Date Provider Diagnosis [facility] Dermatology 0 [facility] [phone] [place] [address] Nov, [facility] IMMUNIZATIONS Vaccine Route Administration Date Status Hepatitis [...] Education Language: Question Answer Notes Languages spoken: Palestinian Presybeterian: Question Answer Notes Presybeterian 21 [employer] Drug and Alcohol Question Answer Notes Total [...] 10 day(s) 2 9 Aug, 2020 Not-Taking Triamcinolone Acetonide 0.1 % 1 application [...] EVERY DAY Oral for 91 Not-Taking PROCEDURES No Information RESULTS No Results REASON FOR VISIT Medication MEDICAL (GENERAL) HISTORY Type Description Date Medical [...] 12/2018 Hospitalization History see surgeries Hospitalization History [facility] appendectomy 03/09/18 Hospitalization History [facility] tachycardia 03/14-03/19/18 Hospitalization History [facility] MS exacerbation 08/06/18-08/08/18 Goals Section No Information Health Concerns No Information MEDICAL EQUIPMENT No Information MENTAL STATUS No Information FUNCTIONAL STATUS No Information ASSESSMENTS No Information PLAN OF TREATMENT Next Appt Details Provider Name:Varsha Mohamud, 2021-02-14 08:15:00 AM, [address] [place] [address], , [place] [place], [facility], Provider Name:Larry Zaidi, 03-24 11:00:00 AM, [address] [place] [address], , [place] [place], [facility], Insurance Providers Payer Name Payer Address Payer Phone Insured Name Patient Relati onship to Insured Coverage Start Date Coverage End Date [employer] PPO [id number] [id number] UMER BALLESTEROS self
--- OUTSIDE RECORDS SUMMARY | 2021-01-27 08:46 | CCD | Continuity of Care Document ---
Author Author Lela FINLEY MD Organization Unknown Address [address] , [facility] [place] [address] Phone [phone] Care Team Providers Care Program Consultant Name Role Phone Brooklyn Alan M.D. AUTM [phone] AUTM Unavailable Yessy Shrestha M.D. AUTM [phone] Problems Active Problems Provider Date Essential hypertension [...] lb BMI (Body Mass Index) 25.0 kg/m2 [place] Body Weight 125 lb Weight 68.040 kg [...]
--- OUTSIDE RECORDS SUMMARY | 2021-01-27 08:46 | CCD | Continuity of Care Document ---
Author Author Lela DEE Organization Unknown Address [address] [place] [address] Phone [phone] Problems Active Problems Provider Date Allergic rhinitis [...]
--- OUTSIDE RECORDS SUMMARY | 2021-01-27 08:46 | CCD | Continuity of Care Document ---
Author Author Lela FINLEY MD Organization Unknown Address [address] , [facility] [place] [address] Phone [phone] Care Team Providers Care Bulking Machine Operator Name Role Phone Brooklyn Alan M.D. AUTM [phone] AUTM Unavailable Yessy Shrestha M.D. AUTM [phone] Problems Active Problems Provider Date Essential hypertension [...] lb BMI (Body Mass Index) 25.0 kg/m2 [place] Body Weight 125 lb Weight 68.040 kg [...]
--- OUTSIDE RECORDS SUMMARY | 2021-01-27 08:46 | CCD ---
Continuity of Care Document (CCD) Created on: 12/30/2020 Lela Deshpande External Reference #: [id number] : 1985 Sex: Female Author Author Lela DEE Organization Unknown Address [address] [place] [address] Phone [phone] Problems Active Problems Provider Date Allergic rhinitis [...]
--- OUTSIDE RECORDS SUMMARY | 2021-01-27 08:46 | CCD ---
Continuity of Care Document (CCD) Created on: 12/07/2020 Lela Deshpande External Reference #: [id number] : 1985 Sex: Female Author Author Lela DEE Organization Unknown Address [address] [place] [address] Phone [phone] Problems Active Problems Provider Date Allergic rhinitis [...] Warren Dee M.D. at Main Office * 12/16/2020 1:00 pm - Warren Dee M.D. at [...]
--- OUTSIDE RECORDS SUMMARY | 2021-01-27 08:46 | CCD | Continuity of Care Document ---
Author Author Lela FINLEY MD Organization Unknown Address [address] , [facility] [place] [address] Phone [phone] Care Team Providers Care Associate Theatre Professor Name Role Phone Brooklyn Alan M.D. AUTM [phone] AUTM Unavailable Yessy Shrestha M.D. AUTM [phone] Problems Active Problems Provider Date Essential hypertension [...] lb BMI (Body Mass Index) 25.0 kg/m2 [place] Body Weight 125 lb Weight 68.040 kg BSA (Body Surface Area) 1.75 m2 Results Description No Information Available Procedures Description No Information Available Medical Devices Description No Information Available Encounters Description No Information Available Assessments Date Code Description Provider 12/31/2020 M24.151 Acetabular labrum tear Young evans MD Plan of Treatment 12/31/2020 - Yuong Finley MD* M24.151 Acetabular labrum tear* New [...]
--- OUTSIDE RECORDS SUMMARY | 2021-01-27 08:46 | CCD | Continuity of Care Document ---
Author Author Lela DEE Organization Unknown Address [address] [place] [address] Phone [phone] Problems Active Problems Provider Date Allergic rhinitis [...] Warren Dee M.D. at Main Office * 12/07/2020 11:15 am - Warren Dee M.D. at Main [...]
--- OUTSIDE RECORDS SUMMARY | 2021-01-27 08:46 | CCD | Continuity of Care Document ---
Author Author Lela FINLEY MD Organization Unknown Address [address] , [facility] [place] [address] Phone [phone] Care Team Providers Care Poultry Debeaker Name Role Phone Brooklyn Alan M.D. AUTM [phone] AUTM Unavailable Yessy Shrestha M.D. AUTM [phone] Problems Active Problems Provider Date Essential hypertension [...] lb BMI (Body Mass Index) 25.0 kg/m2 [place] Body Weight 125 lb Weight 68.040 kg [...]
--- OUTSIDE RECORDS SUMMARY | 2021-01-27 08:49 | CCD ---
Author Author [facility] Organization [facility] Address Unknown Phone Unavailable Care Team Providers Care Vision Therapist Name Role Phone Apolinar ALACRAZ KEYANNA Unavailable [phone] Apolinar ALCARAZ KEYANNA Unavailable [phone] KIERAN, A. ANTISQUEAK APPLIER KEYANNA Unavailable [phone] KIERAN, A. ANTISQUEAK APPLIER KEYANNA Unavailable [phone] KIERAN, A. ANTISQUEAK APPLIER KEYANNA Unavailable [phone] KIERAN, A. ANTISQUEAK APPLIER KEYANNA Unavailable [phone] KIERAN, A. ANTISQUEAK APPLIER KEYANNA Unavailable [phone] KIERAN, A. ANTISQUEAK APPLIER KEYANNA Unavailable [phone] KIERAN, A. ANTISQUEAK APPLIER KEYANNA Unavailable [phone] KIERAN, A. ANTISQUEAK APPLIER KEYANNA Unavailable [phone] KIERAN, A. ANTISQUEAK APPLIER KEYANNA Unavailable [phone] KIERAN, A. ANTISQUEAK APPLIER KEYANNA Unavailable [phone] KIERAN, A. ANTISQUEAK APPLIER KEYANNA Unavailable [phone] KIERAN, A. ANTISQUEAK APPLIER KEYANNA Unavailable [phone] KIERAN, A. ANTISQUEAK APPLIER KEYANNA Unavailable [phone] KIERAN, A. ANTISQUEAK APPLIER KEYANNA Unavailable [phone] LUCINDA (JESS), Theron MYERS MD Unavailable Unavailab le LUCINDA (JESS), Theron MYERS MD Unavailable Unavailab le LUCINDA (JESS), Theron MYERS MD Unavailable Unavailab le LUCINDA (JESS), Theron MYERS MD Unavailable Unavailab le LUCINDA (JESS), Theron MYERS MD Unavailable Unavailab le LUCINDA (JESS), Theron MYERS MD Unavailable Unavailab le LUCINDA (JESS), Theron MYERS MD Unavailable Unavailab le LUCINDA (JESS), Theron MYERS MD Unavailable Unavailab le LUCINDA (JESS), Theron MYERS MD Unavailable Unavailab le LUCINDA (JESS), Theron MYERS MD Unavailable Unavailab le LUCINDA (JESS), Theron MYERS MD Unavailable Unavailab le LUCINDA (JESS), Theron MYERS MD Unavailable Unavailab le LUCINDA (JESS), Theron MYERS MD Unavailable Unavailab le LUCINDA (JESS), Theron MYERS MD Unavailable Unavailab le LUCINDA (JESS), Theron MYERS MD Unavailable Unavailab le LUCINDA (JESS), Theron MYERS MD Unavailable Unavailab le LUCINDA (JESS), Theron MYERS MD Unavailable Unavailab le LUCINDA (JESS), Theron MYERS MD Unavailable Unavailab le LUCINDA (JESS), Theron MYERS MD Unavailable Unavailab le LUCINDA (JSES), Theron MYERS MD Unavailable Unavailab le LUCINDA (JESS), Theron MYERS MD Unavailable Unavailab le LUCINDA (JESS), Theron MYERS MD Unavailable Unavailab le LUCINDA (JESS), Theron MYERS MD Unavailable Unavailab le LUCINDA (JESS), Theron MYERS MD Unavailable Unavailab le LUCINDA (JESS), Theron MYERS MD Unavailable Unavailab le LUCINDA (JESS), Theron MYERS MD Unavailable Unavailab le LUCINDA (JESS), Theron MYERS MD Unavailable Unavailab le LUCINDA (JESS), Theron MYERS MD Unavailable Unavailab le LUCINDA (JESS), Theron MYERS MD Unavailable Unavailab le LUCINDA (JESS), Theron MYERS MD Unavailable Unavailab le LUCINDA (JESS), Theron MYERS MD Unavailable Unavailab le LUCINDA (JESS), Theron MYERS MD Unavailable Unavailab le LUCINDA (JESS), Theron MYERS MD Unavailable Unavailab le LUCINDA (JESS), Theron MYERS MD Unavailable Unavailab le LUCINDA (JESS), Theron MYERS MD Unavailable Unavailab le LUCINDA (JESS), Theron MYERS MD Unavailable Unavailab le LUCINDA (JESS), Theron MYERS MD Unavailable Unavailab le LUCINDA (JESS), Theron MYERS MD Unavailable Unavailab le LUCINDA (JESS), Theron MYERS MD Unavailable Unavailab le LUCINDA (JESS), Theron MYERS MD Unavailable Unavailab le LUCINDA (JESS), Theron MYERS MD Unavailable Unavailab le LUCINDA (JESS), Theron MYERS MD Unavailable Unavailab le LUCNIDA (JESS), Theron MYERS MD Unavailable Unavailab le LUCINDA (JESS), Theron MYERS MD Unavailable Unavailab le LUCINDA (JESS), Theron MYERS MD Unavailable Unavailab le LUCINDA (JESS), Theron MYERS MD Unavailable Unavailab le LUCINDA (JESS), Theron MYERS MD Unavailable Unavailab le LUCINDA (JESS), Theron MYERS MD Unavailable Unavailab le LUCINDA (JESS), Theron MYERS MD Unavailable Unavailab le LUCINDA (JESS), Theron MYERS MD Unavailable Unavailab le LUCINDA (JESS), Theron MYERS MD Unavailable Unavailab le LUCINDA (JESS), Theron MYERS MD Unavailable Unavailab le LUCINDA (JESS), Theron MYERS MD Unavailable Unavailab le LUCINDA (JESS), Theron MYERS MD Unavailable Unavailab le LUCINDA (JESS), Theron MYERS MD Unavailable Unavailab le LUCINDA (JESS), Theron MYERS MD Unavailable Unavailab le LUCINDA (JESS), Theron MYERS MD Unavailable Unavailab le LUCINDA (JESS), Theron MYERS MD Unavailable Unavailab le LUCINDA (JESS), Theron MYERS MD Unavailable Unavailab le LUCINDA (JESS), Theron MYERS MD Unavailable Unavailab le LUCINDA (JESS), Theron MYERS MD Unavailable Unavailab le LUCINDA (JESS), Theron MYERS MD Unavailable Unavailab le LUCINDA (JESS), Theron MYERS MD Unavailable Unavailab le LUCINDA (JESS), Theron MYERS MD Unavailable Unavailab le LUCINDA (JESS), Theron MYERS MD Unavailable Unavailab le LUCINDA (JESS), Theron MYERS MD Unavailable Unavailab le LUCINDA (JESS), Theron MYERS MD Unavailable Unavailab le LUCINDA (JESS), Theron MYERS MD Unavailable Unavailab le LUCINDA (JESS), Theron MYERS MD Unavailable Unavailab le LUCINDA (JESS), Theron MYERS MD Unavailable Unavailab le LUCINDA (JESS), Theron MYERS MD Unavailable Unavailab le LUCINDA (JESS), Theron MYERS MD Unavailable Unavailab le LUCINDA (JESS), Theron MYERS MD Unavailable Unavailab le LUCINDA (JESS), Theron MYERS MD Unavailable Unavailab le LUCINDA (JESS), Theron MYERS MD Unavailable Unavailab le LUCINDA (JESS), Theron MYERS MD Unavailable Unavailab le LUCINDA (JESS), Theron MYERS MD Unavailable Unavailab le LUCINDA (JESS), Theron MYERS MD Unavailable Unavailab le LUCINDA (JESS), Theron MYERS MD Unavailable Unavailab le LUCINDA (JESS), Theron MYERS MD Unavailable Unavailab le LUCINDA (JESS), Theron MYERS MD Unavailable Unavailab le LUCINDA (JESS), Theron MYERS MD Unavailable Unavailab le LUCINDA (JESS), Theron MYERS MD Unavailable Unavailab le LUCINDA (JESS), Theron MYERS MD Unavailable Unavailab le LUCINDA (JESS), Theron MYERS MD Unavailable Unavailab le LUCINDA (EJSS), Theron MYERS MD Unavailable Unavailab le LUCINDA (JESS), Theron MYERS MD Unavailable Unavailab radha Murdock MD, A Faustino Unavailable Collette MD, A Faustino Unavailable Collette MD, A Faustino Unavailable Collette MD, A Faustino Unavailable Collette MD, A Faustino Unavailable Collette MD, A Faustino Unavailable Collette MD, A Faustino Unavailable Collette MD, A Faustino Unavailable Collette MD, A Faustino Unavailable Collette MD, A Faustino Unavailable Collette MD, A Faustino Unavailable Collette MD, A Faustino Unavailable Collette MD, A Faustino Unavailable Collette MD, A Faustino Unavailable Collette MD, A Faustino Unavailable Collette MD, A Faustino Unavailable Collette MD, A Faustino Unavailable Collette MD, A Faustino Unavailable Collette MD, A Faustino Unavailable Collette MD, A Faustino Unavailable Collette MD, A Faustino Unavailable Collette MD, A Faustino Unavailable Collette MD, A Faustino Unavailable Collette MD, A Faustino Unavailable Collette MD, A Faustino Unavailable Collette MD, A Faustino Unavailable Collette SORIANO, A Faustino Unavailable Collette SORIANO, A Faustino Unavailable Collette MD, A Faustino Unavailable Collette MD, A Faustino Unavailable Collette MD, A Faustino Unavailable Collette MD, A Faustino Unavailable Collette MD, A Faustino Unavailable Collette MD, A Faustino Unavailable Collette MD, A Faustino Unavailable Collette MD, A Faustino Unavailable Collette MD, A Faustino Unavailable Collette MD, A Faustino Unavailable Collette MD, A Faustino Unavailable Collette MD, A Faustino Unavailable Collette MD, A Faustino Unavailable Collette MD, A Faustino Unavailable Collette MD, A Faustino Unavailable Collette MD, A Faustino Unavailable Collette SORIANO, A Faustino Unavailable Collette SORIANO, A Faustino Unavailable Collette SORIANO, A Faustino Unavailable Benjy Donato, Preet Vidal MD, FACS Unavailable Unavailable Burleson Donato, Preet Vidal MD, FACS Unavailable Unavailable Burleson Donato, Preet Vidal MD, FACS Unavailable Unavailable Burleson Donato, Preet Vidal MD, FACS Unavailable Unavailable Burleson Donato, Preet Vidal MD, FACS Unavailable Unavailable Burleson Donato, Preet Vidal MD, FACS Unavailable Unavailable Burleson Donato, Preet Vidal MD, FACS Unavailable Unavailable Burleson Donato, Preet Vidal MD, FACS Unavailable Unavailable Burleson Donato, Preet Vidal MD, FACS Unavailable Unavailable Burleson Donato, Preet Vidal MD, FACS Unavailable Unavailable Burleson Donato, Preet Vidal MD, FACS Unavailable Unavailable Burleson Donato, Preet Vidal MD, FACS Unavailable Unavailable Burleson Donato, Preet Vidal MD, FACS Unavailable Unavailable Burleson Donato, Preet Vidal MD, FACS Unavailable Unavailable Burleson Donato, Preet Vidal MD, FACS Unavailable Unavailable Burleson Donato, Preet Vidal MD, FACS Unavailable Unavailable Burleson Donato, Preet Vidal MD, FACS Unavailable Unavailable Burleson Donato, Preet Vidal MD, FACS Unavailable Unavailable Burleson Donato, Preet Vidal MD, FACS Unavailable Unavailable Burleson Donato, Preet Vidal MD, FACS Unavailable Unavailable Burleson Donato, Preet Vidal MD, FACS Unavailable Unavailable Burleson Donato, Preet Vidal MD, FACS Unavailable Unavailable Burleson Donato, Preet Vidal MD, FACS Unavailable Unavailable Burleson Donato, Preet Vidal MD, FACS Unavailable Unavailable Burleson Donato, Preet Vidal MD, FACS Unavailable Unavailable Burleson Donato, Preet Vidal MD, FACS Unavailable Unavailable Burleson Donato, Preet Vidal MD, FACS Unavailable Unavailable Burleson Donato, Preet Vidal MD, FACS Unavailable Unavailable Burleson Donato, Preet Vidal MD, FACS Unavailable Unavailable Burleson Donato, Preet Vidal MD, FACS Unavailable Unavailable Burleson Donato, Preet Vidal MD, FACS Unavailable Unavailable Burleson Donato, Preet Vidal MD, FACS Unavailable Unavailable Burleson Donato, Preet Vidal MD, FACS Unavailable Unavailable Burleson Donato, Preet Vidal MD, FACS Unavailable Unavailable Burleson Donato, Preet Vidal MD, FACS Unavailable Unavailable Burleson Donato, Preet Vidal MD, FACS Unavailable Unavailable Burleson Donato, Preet Vidal MD, FACS Unavailable Unavailable Burleson Donato, Preet Vidal MD, FACS Unavailable Unavailable Burleson Donato, Preet Vidal MD, FACS Unavailable Unavailable ZIDASWAPNA RustSS Unavailable Unavailable ZIDAN, AWSS Unavailable Unavailable ZIDAN, SWAPNASS Unavailable Unavailable ZIDANSWAPNASS Unavailable Unavailable ZIDANSWAPNASS Unavailable Unavailable ZIDANSWAPNASS Unavailable Unavailable ZIDAN AWSS Unavailable Unavailable ZIDAN, AWSS MD Unavailable Unavailable ZIDAN, AWSS MD Unavailable Unavailable ZIDAN, AWSS MD Unavailable Unavailable ZIDAN, AWSS MD Unavailable Unavailable ZIDAN, AWSS MD Unavailable Unavailable ZIDAN, AWSS MD Unavailable Unavailable ZIDAN, AWSS MD Unavailable Unavailable ZIDAN, AWSS MD Unavailable Unavailable ZIDAN, AWSS MD Unavailable Unavailable ZIDAN, AWSS MD Unavailable Unavailable ZIDAN, AWSS MD Unavailable Unavailable ZIDAN, AWSS MD Unavailable Unavailable ZIDAN, AWSS MD Unavailable Unavailable ZIDAN, AWSS MD Unavailable Unavailable ZIDAN, AWSS MD Unavailable Unavailable ZIDAN, AWSS MD Unavailable Unavailable ZIDAN, AWSS MD Unavailable Unavailable ZIDAN, AWSS MD Unavailable Unavailable ZIDAN, AWSS MD Unavailable Unavailable ZIDAN, AWSS MD Unavailable Unavailable ZIDAN, AWSS MD Unavailable Unavailable ZIDAN, AWSS MD Unavailable Unavailable ZIDAN, AWSS MD Unavailable Unavailable ZIDAN, AWSS MD Unavailable Unavailable ZIDAN, AWSS MD Unavailable Unavailable ZIDAN, AWSS MD Unavailable Unavailable ZIDAN, AWSS MD Unavailable Unavailable ZIDAN, AWSS MD Unavailable Unavailable ZIDAN, AWSS MD Unavailable Unavailable ZIDAN, AWSS MD Unavailable Unavailable FRANCIS, M KAITLIN Unavailable Unavailable Dinwiddie, Gabriela ANTISQUEAK APPLIER Unavailable Unavailable Jeanie, Gabriela ANTISQUEAK APPLIER Unavailable Unavailable Jeanie, Gabriela ANTISQUEAK APPLIER Unavailable Unavailable Jeanie, Gabriela ANTISQUEAK APPLIER Unavailable Unavailable Dinwiddie, Gabriela ANTISQUEAK APPLIER Unavailable Unavailable Jeanie, Gabriela ANTISQUEAK APPLIER Unavailable Unavailable Jeanie, Gabriela ANTISQUEAK APPLIER Unavailable Unavailable Jeanie, Gabriela ANTISQUEAK APPLIER Unavailable Unavailable Jeanie, Gabriela ANTISQUEAK APPLIER Unavailable Unavailable Jeanie, Gabriela ANTISQUEAK APPLIER Unavailable Unavailable Jeanie, Gabriela ANTISQUEAK APPLIER Unavailable Unavailable Dinwiddie, Gabriela ANTISQUEAK APPLIER Unavailable Unavailable Dinwiddie, Gabriela ANTISQUEAK APPLIER Unavailable Unavailable Dinwiddie, Gabriela ANTISQUEAK APPLIER Unavailable Unavailable Jeanie, Gabriela ANTISQUEAK APPLIER Unavailable Unavailable Dinwiddie, Gabriela ANTISQUEAK APPLIER Unavailable Unavailable Dinwiddie, Gabriela ANTISQUEAK APPLIER Unavailable Unavailable Dinwiddie, Gabriela ANTISQUEAK APPLIER Unavailable Unavailable Dinwiddie, Gabriela ANTISQUEAK APPLIER Unavailable Unavailable Dinwiddie, Gabriela ANTISQUEAK APPLIER Unavailable Unavailable Dinwiddie, Gabriela ANTISQUEAK APPLIER Unavailable Unavailable Dinwiddie, Gabriela ANTISQUEAK APPLIER Unavailable Unavailable Dinwiddie, Gabriela ANTISQUEAK APPLIER Unavailable Unavailable Dinwiddie, Gabriela ANTISQUEAK APPLIER Unavailable Unavailable Dinwiddie, Gabriela ANTISQUEAK APPLIER Unavailable Unavailable Dinwiddie, Gabriela ANTISQUEAK APPLIER Unavailable Unavailable Dinwiddie, Gabriela ANTISQUEAK APPLIER Unavailable Unavailable Dinwiddie, Gabriela ANTISQUEAK APPLIER Unavailable Unavailable Dinwiddie, Gabriela ANTISQUEAK APPLIER Unavailable Unavailable Dinwiddie, Gabriela ANTISQUEAK APPLIER Unavailable Unavailable Dinwiddie, Gabriela ANTISQUEAK APPLIER Unavailable Unavailable Dinwiddie, Gabriela ANTISQUEAK APPLIER Unavailable Unavailable Dinwiddie, Gabriela ANTISQUEAK APPLIER Unavailable Unavailable Dinwiddie, Gabriela ANTISQUEAK APPLIER Unavailable Unavailable Dinwiddie, Gabriela ANTISQUEAK APPLIER Unavailable Unavailable KHAIRALLAH, RAMZI MD Unavailable Unavailable KHAIRALLAH, RAMZI MD Unavailable Unavailable KHAIRALLAH, RAMZI MD Unavailable Unavailable KHAIRALLAH, RAMZI MD Unavailable Unavailable KHAIRALLAH, RAMZI MD Unavailable Unavailable KHAIRALLAH, RAMZI MD Unavailable Unavailable KHAIRALLAH, RAMZI MD Unavailable Unavailable KHAIRALLAH, RAMZI MD Unavailable Unavailable KHAIRALLAH, RAMZI MD Unavailable Unavailable KHAIRALLAH, RAMZI MD Unavailable Unavailable KHAIRALLAH, RAMZI MD Unavailable Unavailable KHAIRALLAH, RAMZI MD Unavailable Unavailable KHAIRALLAH, RAMZI MD Unavailable Unavailable KHAIRALLAH, RAMZI MD Unavailable Unavailable KHAIRALLAH, RAMZI MD Unavailable Unavailable KHAIRALLAH, RAMZI MD Unavailable Unavailable KHAIRALLAH, RAMZI MD Unavailable Unavailable KHAIRALLAH, RAMZI MD Unavailable Unavailable KHAIRALLAH, RAMZI MD Unavailable Unavailable KHAIRALLAH, RAMZI MD Unavailable Unavailable KHAIRALLAH, RAMZI MD Unavailable Unavailable KHAIRALLAH, RAMZI MD Unavailable Unavailable KHAIRALLAH, RAMZI MD Unavailable Unavailable KHAIRALLAH, RAMZI MD Unavailable Unavailable KHAIRALLAH, RAMZI MD Unavailable Unavailable KHAIRALLAH, RAMZI MD Unavailable Unavailable KHAIRALLAH, RAMZI MD Unavailable Unavailable KHAIRALLAH, RAMZI MD Unavailable Unavailable KHAIRALLAH, RAMZI MD Unavailable Unavailable KHAIRALLAH, RAMZI MD Unavailable Unavailable KHAIRALLAH, RAMZI MD Unavailable Unavailable KHAIRALLAH, RAMZI MD Unavailable Unavailable KHAIRALLAH, RAMZI MD Unavailable Unavailable KHAIRALLAH, RAMZI MD Unavailable Unavailable KHAIRALLAH, RAMZI MD Unavailable Unavailable KHAIRALLAH, RAMZI MD Unavailable Unavailable KHAIRALLAH, RAMZI MD Unavailable Unavailable KHAIRALLAH, RAMZI MD Unavailable Unavailable KHAIRALLAH, RAMZI MD Unavailable Unavailable KHAIRALLAH, RAMZI MD Unavailable Unavailable KHAIRALLAH, RAMZI MD Unavailable Unavailable KHAIRALLAH, RAMZI MD Unavailable Unavailable KHAIRALLAH, RAMZI MD Unavailable Unavailable KHAIRALLAH, RAMZI MD Unavailable Unavailable KHAIRALLAH, RAMZI MD Unavailable Unavailable KHAIRALLAH, RAMZI MD Unavailable Unavailable KHAIRALLAH, RAMZI MD Unavailable Unavailable KHAIRALLAH, RAMZI MD Unavailable Unavailable KHAIRALLAH, RAMZI MD Unavailable Unavailable KHAIRALLAH, RAMZI MD Unavailable Unavailable KHAIRALLAH, RAMZI MD Unavailable Unavailable KHAIRALLAH, RAMZI MD Unavailable Unavailable KHAIRALLAH, RAMZI MD Unavailable Unavailable KHAIRALLAH, RAMZI MD Unavailable Unavailable KHAIRALLAH, RAMZI MD Unavailable Unavailable KHAIRALLAH, RAMZI MD Unavailable Unavailable KHAIRALLAH, RAMZI MD Unavailable Unavailable KHAIRALLAH, RAMZI MD Unavailable Unavailable KHAIRALLAH, RAMZI MD Unavailable Unavailable KHAIRALLAH, RAMZI MD Unavailable Unavailable KHAIRALLAH, RAMZI MD Unavailable Unavailable KHAIRALLAH, RAMZI MD Unavailable Unavailable KHAIRALLAH, RAMZI MD Unavailable Unavailable KHAIRALLAH, RAMZI MD Unavailable Unavailable KHAIRALLAH, RAMZI MD Unavailable Unavailable KHAIRALLAH, RAMZI MD Unavailable Unavailable KHAIRALLAH, RAMZI MD Unavailable Unavailable KHAIRALLAH, RAMZI MD Unavailable Unavailable KHAIRALLAH, RAMZI MD Unavailable Unavailable KHAIRALLAH, RAMZI MD Unavailable Unavailable KHAIRALLAH, RAMZI MD Unavailable Unavailable KHAIRALLAH, RAMZI MD Unavailable Unavailable KHAIRALLAH, RAMZI MD Unavailable Unavailable KHAIRALLAH, RAMZI MD Unavailable Unavailable KHAIRALLAH, RAMZI MD Unavailable Unavailable KHAIRALLAH, RAMZI MD Unavailable Unavailable KHAIRALLAH, RAMZI MD Unavailable Unavailable KHAIRALLAH, RAMZI MD Unavailable Unavailable KHAIRALLAH, RAMZI MD Unavailable Unavailable KHAIRALLAH, RAMZI MD Unavailable Unavailable KHAIRALLAH, RAMZI MD Unavailable Unavailable KHAIRALLAH, RAMZI MD Unavailable Unavailable KHAIRADEAH, RAMZI MD Unavailable Unavailable KHAIRADEAH, RAMZI MD Unavailable Unavailable KHAIRADEAH, RAMZI MD Unavailable Unavailable KHAIRDAEAH, RAMZI MD Unavailable Unavailable KHAIRADEAH, RAMZI MD Unavailable Unavailable KHFABIOLA, RAMZI MD Unavailable Unavailable ESTUARDO TITUS MD Unavailable Unavailable ESTUARDO TITUS MD Unavailable Unavailable ESTUARDO TITUS MD Unavailable Unavailable ESTUARDO TITUS MD Unavailable Unavailable PENNY PIMENTEL Unavailable Unavailable Young Sutton MD Unavailable Unavailable Young Sutton MD Unavailable Unavailable Young Sutton MD Unavailable Unavailable Young Sutton MD Unavailable Unavailable Young Sutton MD Unavailable Unavailable Young Sutton MD Unavailable Unavailable Young Sutton MD Unavailable Unavailable Young Sutton MD Unavailable Unavailable Young Sutton MD Unavailable Unavailable Young Sutton MD Unavailable Unavailable Theron Francis Unavailable Theron Francis Unavailable MAI, E Pam PA Unavailable Unavailable MAI, E Pam PA Unavailable Unavailable MAI, E Pam PA Unavailable Unavailable MAI, E Pam PA Unavailable Unavailable MAI, E Pam PA Unavailable Unavailable MAI, E Pam PA Unavailable Unavailable MAI, E Apm PA Unavailable Unavailable MAI, E Pam PA Unavailable Unavailable MAI, E Pam PA Unavailable Unavailable MAI, E Pam PA Unavailable Unavailable MAI, E Pam PA Unavailable Unavailable MAI, E Pam PA Unavailable Unavailable MAI, E Pam PA Unavailable Unavailable MAI, E Pam PA Unavailable Unavailable MAI, E Pam PA Unavailable Unavailable MAI, E Pam PA Unavailable Unavailable MAI, E Pam PA Unavailable Unavailable MAI, E Pam PA Unavailable Unavailable MAI, E Pam PA Unavailable Unavailable MAI, E Pam PA Unavailable Unavailable MAI, E Pam PA Unavailable Unavailable MAI, E Pam PA Unavailable Unavailable MAI, E Pam PA Unavailable Unavailable MAI, E Pam PA Unavailable Unavailable MAI, E Pam PA Unavailable Unavailable MAI, E Pam PA Unavailable Unavailable MAI, E Pam PA Unavailable Unavailable MAI, E Pam PA Unavailable Unavailable MAI, E Pam PA Unavailable Unavailable MAI, E Pam PA Unavailable Unavailable MAI, E Pam PA Unavailable Unavailable MAI, E Pam PA Unavailable Unavailable MAI, E Pam PA Unavailable Unavailable MAI, E Pam PA Unavailable Unavailable MAI, E Pam PA Unavailable Unavailable MAI, E Pam PA Unavailable Unavailable MAI, E Pam PA Unavailable Unavailable MAI, E Pam PA Unavailable Unavailable MAI, E Pam PA Unavailable Unavailable MAI, E Pam PA Unavailable Unavailable MAI, E Pam PA Unavailable Unavailable MAI, E Pam PA Unavailable Unavailable MAI, E Pam PA Unavailable Unavailable MAI, E Pam PA Unavailable Unavailable MAI, E Pam PA Unavailable Unavailable MAI, E Pam PA Unavailable Unavailable MAI, E Pam PA Unavailable Unavailable MAI, E Pam PA Unavailable Unavailable Re-disclosure Warning The records that you are about to access may contain information from federally-assisted alcohol or drug abuse programs. If such information is present, then the following federally mandated warning applies: This information has been disclosed to you from records protected by federal confidentiality rules (42 CFR part 2). The federal rules prohibit you from making any further disclosure of this information unless further disclosure is expressly permitted by the written consent of the person to whom it pertains or as otherwise permitted by 42 CFR part 2. A general authorization for the release of medical or other information is NOT sufficient for this purpose. The Federal rules restrict any use of the information to criminally investigate or prosecute any alcohol or drug abuse patient.The records that you are about to access may contain highly sensitive health information, the redisclosure of which is protected by Article 27-F of the [facility] Public Health law. If you continue you may have access to information: Regarding HIV / AIDS; Provided by facilities licensed or operated by the [facility] Office of Mental Health; or Provided by the [facility] Office for People With Developmental Disabilities. If such information is present, then the following [facility] mandated warning applies: This information has been disclosed to you from confidential records which are protected by state law. State law prohibits you from making any further disclosure of this information without the specific written consent of the person to whom it pertains, or as otherwise permitted by law. Any unauthorized further disclosure in violation of state law may result in a fine or usp sentence or both. A general authorization for the release of medical or other information is NOT sufficient authorization for further disc losure. Family History Family Member Name Family Member Gender Family Member Status Date o f Status Description Data Source(s) Unknown Female Problem (finding) 11/14/2016 12:00:00 AM EDT [facility] ([facility]) Unknown Male Problem [facility] ([facility], ) Encounters Encounter Providers Location Date Indications Data Source(s ) Outpatient Attender: SHAWN JIANG MDAttender: ESTUARDO PAIGE MD 04/18/2021 12:00:00 AM [facility] Outpatient 03/17/2021 12:00:00 AM [facility] Outpatient Attender: Faustino Murdock MD 02/02/2021 12:00:00 A M [facility] Outpatient Attender: KEYANNA ALCARAZ 09/2020 05:18:58 PM EST - 01/23/2021 05:42:43 PM EST [facility] ([facility] ) Outpatient Referrer: Faustino Murdock MD 01/21/2021 12:0 0:00 AM EDT Perineural cyst [facility] Perineural cyst Outpatient Referrer: Faustino Murdock MD 01/21/2021 12:0 0:00 AM EDT Multiple sclerosis [facility] Multiple sclerosis Outpatient Attender: Kaitlin Ramos doris: KAITLIN Herndoner: ESTUARDO TITUS MD [id number] 01/17/2021 12:00:00 AM EDT - 01/17/2021 03:34:12 PM EDT [facility] Outpatient Attender: Faustino Murdock MD 01/14/2021 12:00:00 A M EDT [facility] Unknown [address] [address] 01/12/2021 12:00:00 AM EDT [facility]CW1 ([facility]) Outpatient Attender: [place]/Sumeet/Heladio/Tammi rose 12/31/2020 03:00:00 PM EDT [facility] ([facility] [facility] [place] [address] [facility] [address] 12/13/2020 12:00:00 AM EDT eCW1 ([facility]) [place] [address] [facility] [address] 12/07/2020 12:00:00 AM EDT eCW1 ([facility]) Unknown [address] [address] 12/07/2020 12:00:00 AM EDT eCW1 ([facility]) [place] [address] [facility] [address] 11/23/2020 12:00:00 AM EDT eCW1 ([facility]) [place] [address] [address] 11/11/2020 12:00:00 AM EDT eCW1 ([facility]) [place] [address] [address] 11/08/2020 12:00:00 AM EDT eCW1 ([facility]) [place] [address] [address] 11/08/2020 12:00:00 AM EDT eCW1 ([facility]) Outpatient [address] [address] 11/05/2020 12:00:00 AM EDT eCW1 ([facility]) Unknown [address] [address] 11/02/2020 12:00:00 AM EDT eCW1 ([facility]) Outpatient Attender: Kaitlin Ramos doris: KAITLIN Garcia: ESTUARDO TITUS MD [id number] 10/25/2020 12:00:00 AM EDT Chronic migra ine without aura, not intractable, without status migrainosus [facility] Chronic migraine without aura, not intra ctable, without status migrainosus [place] [address] [address] 10/25/2020 12:00:00 AM EDT eCW1 ([facility]) Outpatient Referrer: Faustino Murdock MD 10/22/2020 12:0 0:00 AM EDT Benign intracranial hypertension [facility] Benign intracranial hypertension Outpatient Referrer: Faustino Murdock MD 10/22/2020 12:00:00 A M [facility] Outpatient Attender: Faustino Murdock MD [id number] 2020 12:00:00 AM EDT - 10/21/2020 10:27:47 AM T [facility] Unknown [address] [address] 10/21/2020 12:00:00 AM EDT eCW1 ([facility]) [place] [address] [address] 10/13/2020 12:00:00 AM EDT eCW1 ([facility]) Attender: LOUIS JANE MD ([place]) 07/23/202 1 08:21:07 PM EDT [facility] [place] [address] [address] 10/05/2020 12:00:00 AM EDT eCW1 ([facility]) [place] [address] [address] 10/05/2020 12:00:00 AM EDT eCW1 ([facility]) Unknown [address] [address] 10/04/2020 12:00:00 AM EDT eCW1 ([facility]) [place] [address] [address] 10/04/2020 12:00:00 AM EDT eCW1 ([facility]) [place] [address] [address] 10/04/2020 12:00:00 AM EDT eCW1 ([facility]) [place] [address] [address] 10/03/2020 12:00:00 AM EDT eCW1 ([facility]) [place]patient [address] [address] 10/01/2020 12:00:00 AM EDT eCW1 ([facility]) [place] [address] [address] 09/30/2020 12:00:00 AM EDT eCW1 ([facility]) [place] [address] [address] 09/21/2020 12:00:00 AM EDT eCW1 ([facility]) Unknown [address] [address] 09/16/2020 12:00:00 AM EDT eCW1 ([facility]) Outpatient Attender: Pam Rosas: Faustino Murdock MD [id number] 09/15/2020 12:00:00 AM EDT - 09/15/2020 01:52:21 PM EDT [facility] Outpatient [address] [facility] [address] 09/14/2020 12:00:00 AM EDT eCW1 ([facility]) [place] [address] [address] 09/14/2020 12:00:00 AM EDT eCW1 ([facility]) [place] [address] [address] 09/13/2020 12:00:00 AM EDT eCW1 ([facility]) [place] [address] [address] 09/13/2020 12:00:00 AM EDT eCW1 [facility] [place] [address] [address] 09/10/2020 12:00:00 AM EDT eCW1 ([facility]) Outpatient [address] [address] 08/23/2020 12:00:00 AM EDT eCW1 ([facility]) Attender: LOUIS JANE MD ([place]) 08:21:06 PM EDT [facility] Attender: LOUIS JANE MD (MITCHELL) 08:21:06 PM EDT [facility] [place] [address] [facility] [address] 08/12/2020 12:00:00 AM EDT eCW1 ([facility]) Unknown [address] [address] 08/12/2020 12:00:00 AM EDT eCW1 ([facility]) Outpatient [address] [address] 08/10/2020 12:00:00 AM EDT [facility]CW1 ([facility]) [place]patient [address] [address] 07/30/2020 12:00:00 AM EDT eCW1 ([facility]) Outpatient Attender: Gabriela Ware FNPReferrer: Gabriela ROBERTS 07/28/2020 12:00:00 AM EDT - 07/29/2020 12:00:[address] [facility] Multiple sclerosis Outpatient Attender: Pam MAI PAReferrer: BRIAN TITUS MD [id number] 07/28/2020 12:00:00 AM EDT Health system Unknown [address] [address] 07/21/2020 12:00:00 AM EDT eCW1 ([facility]) Outpatient Attender: ESTUARDO TITUS MD 07/19/2020 12:0 0:00 AM T [facility] Outpatient [address] [address] 07/16/2020 12:00:00 AM EDT eCW1 ([facility]) Unknown [address] [address] 07/15/2020 12:00:00 AM EDT eCW1 ([facility]) Outpatient<td ID="encounterTypeDescripti onID0">Rx Refills/Changes</td><td>Young Priest MD, FACS</td><td></td><td>07/19/2020</td><td>06/07/2020 8:18AM</td><td>06/07/2020 11:59PM</td><td><content ID="encounterDiagnosisID0- 0">Dry Eye Syndrome Both Eyes</content></td> Attender: Young Donato MD, FACS 06/07/2020 08:18:00 AM EDT - 06/07/2020 11:59:00 PM EDT Dry Eye Syndrome Both EyesDry Eye Syndrome Both Eyes SAMANTHA (Young Donato MD [facility]) Dry Eye Syndrome Both Eyes Dry Eye Syndrome Both Eyes Outpatient<td ID="encounterTypeDescripti onID1">7 Month Follow-Up</td><td>Young Priest MD, FACS</td><td>Young Priest MD [facility]</td><td>06/07/2020</td><td>8:16AM</td><td>9:10AM</td><td><content ID="encounterDiagnosisID1-0">Dry Eye Syndrome Both Eyes</content>, <content ID="encounterDiagnosisID1-1">Vitreous Disorders Degeneration</content>, <content ID="encounterDiagnosisID1-2">Optic Neuritis</content></td> Attender: Young Donato MD, FACS Young Priest MD [facility] 06/07/2020 08:16:00 AM EDT - 06/07/2020 09:10:00 AM EDT Optic NeuritisVitreous Disorders Degener ationDry Eye Syndrome Both EyesOptic NeuritisVitreous Disorders DegenerationDry Eye Syndrome Both EyesOptic NeuritisVitreous Disorders DegenerationDry Eye Syndrome Both Eyes SAMANTHA (Young Donato MD [facility]) Optic Neuritis 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 Optic Neuritis 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 Optic Neuritis 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 [place] [address] [address] 06/03/2020 12:00:00 AM EDT eCW1 ([facility]) [place] [address] [address] 06/02/2020 12:00:00 AM EDT eCW1 ([facility]) Outpatient [address] [address] 05/17/2020 12:00:00 AM EST eCW1 ([facility]) Unknown [address] [address] 05/10/2020 12:00:00 AM EST eCW1 ([facility]) Outpatient Attender: Gabriela Ware [facility] [id number] 04/23/2020 12:00:00 AM [facility] Unknown [address] [address] 04/23/2020 12:00:00 AM EST eCW1 ([facility]) Unknown [address] [address] 04/20/2020 12:00:00 AM EST eCW1 ([facility]) Outpatient Attender: ESTUARDO TITUS MDReferrer: ESTUARDO TITUS MD [id number] 04/19/2020 12:00:00 AM EST - 04/19/2020 01:58:10 PM ES T Chronic migraine without aura, not intractable, without status migrainosus [facility] Chronic migraine without aura, not intra ctable, without status migrainosus [place] [address] [facility] [address] 04/13/2020 12:00:00 AM EST eCW1 ([facility]) Unknown [address] [facility] [place] [address] 04/12/2020 12:00:00 AM EST eCW1 ([facility]) Outpatient Attender: Gabriela Ware [facility] 04/02/2020 12:00: 00 AM [facility] Outpatient Attender: Gabriela Ware [facility] 03/31/2020 12:00: 00 AM [facility] Attender: VINOD MELENDEZ MD [facility] 03/30/2020 07:07:00 PM EST - 03/30/2020 07:07:00 PM EST [employer] ( [facility]) Unknown [address] [address] 03/22/2020 12:00:00 AM EST eCW1 ([facility]) Outpatient Attender: Gabriela Ware FNPReferrer: Faustino edwards MD [id number] 03/18/2020 12:00:00 AM EST - 03/18/2020 03:11:50 PM EST Multiple sclerosis [facility] Multiple sclerosis Outpatient 03/16/2020 12:00:00 AM [facility] Outpatient [address] [address] 02/16/2020 12:00:00 AM EST eCW1 ([facility]) Attender: LOUIS NOLASCO) MDReferrer: Jarret REYNOSO LOREN 02/03/2020 08:20:11 PM EST [facility] Attender: LOUIS NOLASCO) MDReferrer: Jarret IBARRAARYCHELLE LOREN 02/03/2020 08:20:11 PM EST [facility] Outpatient Attender: ESTUARDO TITUS MDReferrer: ESTUARDO TITUS MD [id number] 01/26/2020 12:00:00 AM EST Health system Unknown [address] [facility] [address] 01/22/2020 12:00:00 AM EST [facility]CW1 ([facility]) [place] [address] [facility] [place] [address] 01/19/2020 12:00:00 AM EST eCW1 ([facility]) [place] [address] [facility] [address] 01/09/2020 12:00:00 AM EDT eCW1 ([facility]) Unknown [address] [address] 12/19/2019 12:00:00 AM EDT eCW1 ([facility]) Unknown [address] [facility] [address] 12/16/2019 12:00:00 AM EDT eCW1 ([facility]) Outpatient Referrer: Faustino Murdock MD 12/08/2019 12:0 0:[address] [facility] Multiple sclerosis Outpatient Referrer: Faustino Murdock MD 12/08/2019 12:0 0:[address] [facility] Multiple sclerosis Outpatient Attender: Faustino Murdock MD [id number] 10/17/2019 12:0 0:[address] [facility] Multiple sclerosis Immunizations Vaccine Date Status Description Data Source(s) COVID-19 VACCINE Moderna 04/19/2020 12:00:00 AM EST completed [facility] Vaccine Series Complete: YESThis Data wa s Submitted to [facility] Via [employer]. COVID-19 VACCINE Moderna 03/22/2020 12:00:00 AM EST completed [facility] Vaccine Series Complete: NOThis Data was Submitted to [facility] [employer]. Medications Medication Brand Name Start Date Product Form Dose Route Admi nistrative Instructions Pharmacy Instructions Status Indications Reaction Description Data Source(s) Methylphenidate HCl ER 54 MG Methylphenidate HCl ER 54 MG 12:00:00 AM EDT 1.0 {tablet_in_the_morning} active Methylphenidate HCl ER 54 MG eCW1 ([facility]) onabotulinumtoxinA 100 UNT/ML Injectable Solution onabotulinumtoxin type A (BOTOX) injection 185 Units onabotulinumtoxin type A (BOTOX) injecti on 185 Units 10/25/2020 03:45:00 PM EDT 185 U Intramuscular acti ve Chronic migraine [facility] Chronic migraine iohexol (OMNIPAQUE) 350 MG/ML contrast injection 100 mL 2805 8 10/22/2020 03:45:00 PM EDT 100 mL Intravenous completed 100 mL, Intravenous, 1 TIME IMAGING, On Sun10/22/20 at 1545, For 1 dose, Imaging [facility] Medication administered onsite Albuterol Sulfate HFA 108 (90 Base) MCG/ACT Albuterol Sulfate HFA 108 (90 Base) MCG/ACT 10/05/2020 12:00:00 AM EDT 1.0 {puff_as_needed} active Albuterol Sulfate HFA 108 (90 Base) MCG/ACT eCW1 ([facility]) Fluconazole 150 MG Oral Tablet [Diflucan] Diflucan 150 MG Di flucan 150 MG 10/05/2020 12:00:00 AM EDT 1.0 {tablet} active Diflucan 150 MG eCW1 ([facility]) Albuterol Sulfate HFA 108 (90 Base) MCG/ACT Albuterol Sulfate HFA 108 (90 Base) MCG/ACT 10/05/2020 12:00:00 AM EDT 1.0 {puff_as_needed} active Albuterol Sulfate HFA 108 (90 Base) MCG/ACT eCW1 ([facility]) Fluconazole 150 MG Oral Tablet [Diflucan] Diflucan 150 MG Di flucan 150 MG 10/05/2020 12:00:00 AM EDT 1.0 {tablet} active Diflucan 150 MG eCW1 ([facility]) Albuterol Sulfate HFA 108 (90 Base) MCG/ACT Albuterol Sulfate HFA 108 (90 Base) MCG/ACT 10/05/2020 12:00:00 AM EDT 1.0 {puff_as_needed} active Albuterol Sulfate HFA 108 (90 Base) MCG/ACT eCW1 ([facility]) Fluconazole 150 MG Oral Tablet [Diflucan] Diflucan 150 MG Di flucan 150 MG 10/05/2020 12:00:00 AM EDT 1.0 {tablet} suspended Diflucan 150 MG eCW1 ([facility]) Albuterol Sulfate HFA 108 (90 Base) MCG/ACT Albuterol Sulfate HFA 108 (90 Base) MCG/ACT 10/05/2020 12:00:00 AM EDT 1.0 {puff_as_needed} active Albuterol Sulfate HFA 108 (90 Base) MCG/ACT eCW1 ([facility]) Albuterol Sulfate HFA 108 (90 Base) MCG/ACT Albuterol Sulfate HFA 108 (90 Base) MCG/ACT 10/05/2020 12:00:00 AM EDT 1.0 {puff_as_needed} active eCW1 ([facility]) Fluconazole 150 MG Oral Tablet [Diflucan] Diflucan 150 MG Di flucan 150 MG 10/05/2020 12:00:00 AM EDT 1.0 {tablet} suspended Diflucan 150 MG eCW1 ([facility]) Fluconazole 150 MG Oral Tablet [Diflucan] Diflucan 150 MG Di flucan 150 MG 10/05/2020 12:00:00 AM EDT 1.0 {tablet} suspended Diflucan 150 MG eCW1 ([facility]) Fluconazole 150 MG Oral Tablet [Diflucan] Diflucan 150 MG Di flucan 150 MG 10/05/2020 12:00:00 AM EDT 1.0 {tablet} active Diflucan 150 MG eCW1 ([facility]) Fluconazole 150 MG Oral Tablet [Diflucan] Diflucan 150 MG Di flucan 150 MG 10/05/2020 12:00:00 AM EDT 1.0 {tablet} active eCW1 ([facility]) Albuterol Sulfate HFA 108 (90 Base) MCG/ACT Albuterol Sulfate HFA 108 (90 Base) MCG/ACT 10/05/2020 12:00:00 AM EDT 1.0 {puff_as_needed} active Albuterol Sulfate HFA 108 (90 Base) MCG/ACT eCW1 ([facility]) Fluconazole 150 MG Oral Tablet [Diflucan] Diflucan 150 MG Di flucan 150 MG 10/05/2020 12:00:00 AM EDT 1.0 {tablet} active Diflucan 150 MG eCW1 ([facility]) Fluconazole 150 MG Oral Tablet [Diflucan] Diflucan 150 MG Di flucan 150 MG 10/05/2020 12:00:00 AM EDT 1.0 {tablet} active Diflucan 150 MG eCW1 ([facility]) Albuterol Sulfate HFA 108 (90 Base) MCG/ACT Albuterol Sulfate HFA 108 (90 Base) MCG/ACT 10/05/2020 12:00:00 AM EDT 1.0 {puff_as_needed} active Albuterol Sulfate HFA 108 (90 Base) MCG/ACT eCW1 ([facility]) Fluconazole 150 MG Oral Tablet [Diflucan] Diflucan 150 MG Di flucan 150 MG 10/05/2020 12:00:00 AM EDT 1.0 {tablet} suspended Diflucan 150 MG eCW1 ([facility]) Albuterol Sulfate HFA 108 (90 Base) MCG/ACT Albuterol Sulfate HFA 108 (90 Base) MCG/ACT 10/05/2020 12:00:00 AM EDT 1.0 {puff_as_needed} active Albuterol Sulfate HFA 108 (90 Base) MCG/ACT eCW1 ([facility]) Albuterol Sulfate HFA 108 (90 Base) MCG/ACT Albuterol Sulfate HFA 108 (90 Base) MCG/ACT 10/05/2020 12:00:00 AM EDT 1.0 {puff_as_needed} active Albuterol Sulfate HFA 108 (90 Base) MCG/ACT eCW1 ([facility]) Fluconazole 150 MG Oral Tablet [Diflucan] Diflucan 150 MG Di flucan 150 MG 10/05/2020 12:00:00 AM EDT 1.0 {tablet} suspended Diflucan 150 MG eCW1 ([facility]) Albuterol Sulfate HFA 108 (90 Base) MCG/ACT Albuterol Sulfate HFA 108 (90 Base) MCG/ACT 10/05/2020 12:00:00 AM EDT 1.0 {puff_as_needed} active Albuterol Sulfate HFA 108 (90 Base) MCG/ACT eCW1 ([facility]) Albuterol Sulfate HFA 108 (90 Base) MCG/ACT Albuterol Sulfate HFA 108 (90 Base) MCG/ACT 10/05/2020 12:00:00 AM EDT 1.0 {puff_as_needed} active Albuterol Sulfate HFA 108 (90 Base) MCG/ACT eCW1 ([facility]) Fluconazole 150 MG Oral Tablet [Diflucan] Diflucan 150 MG Di flucan 150 MG 10/05/2020 12:00:00 AM EDT 1.0 {tablet} suspended Diflucan 150 MG eCW1 ([facility]) Albuterol Sulfate HFA 108 (90 Base) MCG/ACT Albuterol Sulfate HFA 108 (90 Base) MCG/ACT 10/05/2020 12:00:00 AM EDT 1.0 {puff_as_needed} active Albuterol Sulfate HFA 108 (90 Base) MCG/ACT eCW1 ([facility]) Albuterol Sulfate HFA 108 (90 Base) MCG/ACT Albuterol Sulfate HFA 108 (90 Base) MCG/ACT 10/05/2020 12:00:00 AM EDT 1.0 {puff_as_needed} active Albuterol Sulfate HFA 108 (90 Base) MCG/ACT eCW1 ([facility]) Albuterol Sulfate HFA 108 (90 Base) MCG/ACT Albuterol Sulfate HFA 108 (90 Base) MCG/ACT 10/05/2020 12:00:00 AM EDT 1.0 {puff_as_needed} active Albuterol Sulfate HFA 108 (90 Base) MCG/ACT eCW1 ([facility]) Albuterol Sulfate HFA 108 (90 Base) MCG/ACT Albuterol Sulfate HFA 108 (90 Base) MCG/ACT 10/05/2020 12:00:00 AM EDT 1.0 {puff_as_needed} active Albuterol Sulfate HFA 108 (90 Base) MCG/ACT eCW1 ([facility]) Fluconazole 150 MG Oral Tablet [Diflucan] Diflucan 150 MG Di flucan 150 MG 10/05/2020 12:00:00 AM EDT 1.0 {tablet} active Diflucan 150 MG eCW1 ([facility]) Albuterol Sulfate HFA 108 (90 Base) MCG/ACT Albuterol Sulfate HFA 108 (90 Base) MCG/ACT 10/05/2020 12:00:00 AM EDT 1.0 {puff_as_needed} active Albuterol Sulfate HFA 108 (90 Base) MCG/ACT eCW1 ([facility]) Fluconazole 150 MG Oral Tablet [Diflucan] Diflucan 150 MG Di flucan 150 MG 10/05/2020 12:00:00 AM EDT 1.0 {tablet} suspended Diflucan 150 MG eCW1 ([facility]) Fluconazole 150 MG Oral Tablet [Diflucan] Diflucan 150 MG Di flucan 150 MG 10/05/2020 12:00:00 AM EDT 1.0 {tablet} suspended Diflucan 150 MG eCW1 ([facility]) Albuterol Sulfate HFA 108 (90 Base) MCG/ACT Albuterol Sulfate HFA 108 (90 Base) MCG/ACT 10/05/2020 12:00:00 AM EDT 1.0 {puff_as_needed} active Albuterol Sulfate HFA 108 (90 Base) MCG/ACT eCW1 ([facility]) Fluconazole 150 MG Oral Tablet [Diflucan] Diflucan 150 MG Di flucan 150 MG 10/05/2020 12:00:00 AM EDT 1.0 {tablet} active Diflucan 150 MG eCW1 ([facility]) Fluconazole 150 MG Oral Tablet [Diflucan] Diflucan 150 MG Di flucan 150 MG 10/05/2020 12:00:00 AM EDT 1.0 {tablet} suspended Diflucan 150 MG eCW1 ([facility]) Estradiol 0.1 MG/ML Vaginal Cream [Estrace] Estrace 0.1 MG/G M Estrace 0.1 MG/GM 10/01/2020 12:00:00 AM EDT active Estrace 0.1 MG/GM eCW1 ([facility]) Estrogens, Conjugated (JAIL) 0.625 MG/ML Vaginal Cream [Premarin] Premarin 0.625 MG/GM Premarin 0.625 MG/GM 10/01/2020 12:00:00 AM EDT suspended Premarin 0.625 MG/GM eCW1 ([facility]) Estradiol 0.1 MG/ML Vaginal Cream [Estrace] Estrace 0.1 MG/G M Estrace 0.1 MG/GM 10/01/2020 12:00:00 AM EDT active Estrace 0.1 MG/GM eCW1 ([facility]) Estradiol 0.1 MG/ML Vaginal Cream [Estrace] Estrace 0.1 MG/G M Estrace 0.1 MG/GM 10/01/2020 12:00:00 AM EDT active Estrace 0.1 MG/GM eCW1 ([facility]) Estrogens, Conjugated (JAIL) 0.625 MG/ML Vaginal Cream [Premarin] Premarin 0.625 MG/GM Premarin 0.625 MG/GM 10/01/2020 12:00:00 AM EDT active Premarin 0.625 MG/GM eCW1 ([facility]) Estrogens, Conjugated (JAIL) 0.625 MG/ML Vaginal Cream [Premarin] Premarin 0.625 MG/GM Premarin 0.625 MG/GM 10/01/2020 12:00:00 AM EDT suspended Premarin 0.625 MG/GM eCW1 ([facility]) Estradiol 0.1 MG/ML Vaginal Cream [Estrace] Estrace 0.1 MG/G M Estrace 0.1 MG/GM 10/01/2020 12:00:00 AM EDT active Estrace 0.1 MG/GM eCW1 ([facility]) Estrogens, Conjugated (JAIL) 0.625 MG/ML Vaginal Cream [Premarin] Premarin 0.625 MG/GM Premarin 0.625 MG/GM 10/01/2020 12:00:00 AM EDT active Premarin 0.625 MG/GM eCW1 ([facility]) Estradiol 0.1 MG/ML Vaginal Cream [Estrace] Estrace 0.1 MG/G M Estrace 0.1 MG/GM 10/01/2020 12:00:00 AM EDT active Estrace 0.1 MG/GM eCW1 ([facility]) Estrogens, Conjugated (JAIL) 0.625 MG/ML Vaginal Cream [Premarin] Premarin 0.625 MG/GM Premarin 0.625 MG/GM 10/01/2020 12:00:00 AM EDT active Premarin 0.625 MG/GM eCW1 ([facility]) Estrogens, Conjugated (JAIL) 0.625 MG/ML Vaginal Cream [Premarin] Premarin 0.625 MG/GM Premarin 0.625 MG/GM 10/01/2020 12:00:00 AM EDT suspended Premarin 0.625 MG/GM eCW1 ([facility]) Estradiol 0.1 MG/ML Vaginal Cream [Estrace] Estrace 0.1 MG/G M Estrace 0.1 MG/GM 10/01/2020 12:00:00 AM EDT active Estrace 0.1 MG/GM eCW1 ([facility]) Estrogens, Conjugated (JAIL) 0.625 MG/ML Vaginal Cream [Premarin] Premarin 0.625 MG/GM Premarin 0.625 MG/GM 10/01/2020 12:00:00 AM EDT active Premarin 0.625 MG/GM eCW1 ([facility]) Estradiol 0.1 MG/ML Vaginal Cream [Estrace] Estrace 0.1 MG/G M Estrace 0.1 MG/GM 10/01/2020 12:00:00 AM EDT active Estrace 0.1 MG/GM eCW1 ([facility]) Estradiol 0.1 MG/ML Vaginal Cream [Estrace] Estrace 0.1 MG/G M Estrace 0.1 MG/GM 10/01/2020 12:00:00 AM EDT active Estrace 0.1 MG/GM eCW1 ([facility]) Estrogens, Conjugated (JAIL) 0.625 MG/ML Vaginal Cream [Premarin] Premarin 0.625 MG/GM Premarin 0.625 MG/GM 10/01/2020 12:00:00 AM EDT suspended Premarin 0.625 MG/GM eCW1 ([facility]) Estradiol 0.1 MG/ML Vaginal Cream [Estrace] Estrace 0.1 MG/G M Estrace 0.1 MG/GM 10/01/2020 12:00:00 AM EDT active Estrace 0.1 MG/GM eCW1 ([facility]) Estradiol 0.1 MG/ML Vaginal Cream [Estrace] Estrace 0.1 MG/G M Estrace 0.1 MG/GM 10/01/2020 12:00:00 AM EDT active Estrace 0.1 MG/GM eCW1 ([facility]) Estradiol 0.1 MG/ML Vaginal Cream [Estrace] Estrace 0.1 MG/G M Estrace 0.1 MG/GM 10/01/2020 12:00:00 AM EDT active Estrace 0.1 MG/GM eCW1 ([facility]) Estrogens, Conjugated (JAIL) 0.625 MG/ML Vaginal Cream [Premarin] Premarin 0.625 MG/GM Premarin 0.625 MG/GM 10/01/2020 12:00:00 AM EDT active Premarin 0.625 MG/GM eCW1 ([facility]) Estrogens, Conjugated (JAIL) 0.625 MG/ML Vaginal Cream [Premarin] Premarin 0.625 MG/GM Premarin 0.625 MG/GM 10/01/2020 12:00:00 AM EDT active eCW1 ([facility]) Estrogens, Conjugated (JAIL) 0.625 MG/ML Vaginal Cream [Premarin] Premarin 0.625 MG/GM Premarin 0.625 MG/GM 10/01/2020 12:00:00 AM EDT suspended Premarin 0.625 MG/GM eCW1 ([facility]) Estradiol 0.1 MG/ML Vaginal Cream [Estrace] Estrace 0.1 MG/G M Estrace 0.1 MG/GM 10/01/2020 12:00:00 AM EDT active Estrace 0.1 MG/GM eCW1 ([facility]) Estrogens, Conjugated (JAIL) 0.625 MG/ML Vaginal Cream [Premarin] Premarin 0.625 MG/GM Premarin 0.625 MG/GM 10/01/2020 12:00:00 AM EDT active Premarin 0.625 MG/GM eCW1 ([facility]) Estradiol 0.1 MG/ML Vaginal Cream [Estrace] Estrace 0.1 MG/G M Estrace 0.1 MG/GM 10/01/2020 12:00:00 AM EDT active Estrace 0.1 MG/GM eCW1 ([facility]) Estradiol 0.1 MG/ML Vaginal Cream [Estrace] Estrace 0.1 MG/G M Estrace 0.1 MG/GM 10/01/2020 12:00:00 AM EDT active Estrace 0.1 MG/GM eCW1 ([facility]) Estrogens, Conjugated (JAIL) 0.625 MG/ML Vaginal Cream [Premarin] Premarin 0.625 MG/GM Premarin 0.625 MG/GM 10/01/2020 12:00:00 AM EDT suspended Premarin 0.625 MG/GM eCW1 ([facility]) Estrogens, Conjugated (JAIL) 0.625 MG/ML Vaginal Cream [Premarin] Premarin 0.625 MG/GM Premarin 0.625 MG/GM 10/01/2020 12:00:00 AM EDT active Premarin 0.625 MG/GM eCW1 ([facility]) Estradiol 0.1 MG/ML Vaginal Cream [Estrace] Estrace 0.1 MG/G M Estrace 0.1 MG/GM 10/01/2020 12:00:00 AM EDT active Estrace 0.1 MG/GM eCW1 ([facility]) Estradiol 0.1 MG/ML Vaginal Cream [Estrace] Estrace 0.1 MG/G M Estrace 0.1 MG/GM 10/01/2020 12:00:00 AM EDT active Estrace 0.1 MG/GM eCW1 ([facility]) Estradiol 0.1 MG/ML Vaginal Cream [Estrace] Estrace 0.1 MG/G M Estrace 0.1 MG/GM 10/01/2020 12:00:00 AM EDT active Estrace 0.1 MG/GM eCW1 ([facility]) Estradiol 0.1 MG/ML Vaginal Cream [Estrace] Estrace 0.1 MG/G M Estrace 0.1 MG/GM 10/01/2020 12:00:00 AM EDT active eCW1 ([facility]) Estrogens, Conjugated (JAIL) 0.625 MG/ML Vaginal Cream [Premarin] Premarin 0.625 MG/GM Premarin 0.625 MG/GM 10/01/2020 12:00:00 AM EDT active Premarin 0.625 MG/GM eCW1 ([facility]) Estradiol 0.1 MG/ML Vaginal Cream [Estrace] Estrace 0.1 MG/G M Estrace 0.1 MG/GM 10/01/2020 12:00:00 AM EDT active Estrace 0.1 MG/GM eCW1 ([facility]) Estradiol 0.1 MG/ML Vaginal Cream [Estrace] Estrace 0.1 MG/G M Estrace 0.1 MG/GM 10/01/2020 12:00:00 AM EDT active Estrace 0.1 MG/GM eCW1 ([facility]) Estrogens, Conjugated (JAIL) 0.625 MG/ML Vaginal Cream [Premarin] Premarin 0.625 MG/GM Premarin 0.625 MG/GM 10/01/2020 12:00:00 AM EDT suspended Premarin 0.625 MG/GM eCW1 ([facility]) Estrogens, Conjugated (JAIL) 0.625 MG/ML Vaginal Cream [Premarin] Premarin 0.625 MG/GM Premarin 0.625 MG/GM 10/01/2020 12:00:00 AM EDT suspended Premarin 0.625 MG/GM eCW1 ([facility]) Estrogens, Conjugated (JAIL) 0.625 MG/ML Vaginal Cream [Premarin] Premarin 0.625 MG/GM Premarin 0.625 MG/GM 10/01/2020 12:00:00 AM EDT active Premarin 0.625 MG/GM eCW1 ([facility]) Estrogens, Conjugated (JAIL) 0.625 MG/ML Vaginal Cream [Premarin] Premarin 0.625 MG/GM Premarin 0.625 MG/GM 10/01/2020 12:00:00 AM EDT suspended Premarin 0.625 MG/GM eCW1 ([facility]) Estrogens, Conjugated (JAIL) 0.625 MG/ML Vaginal Cream [Premarin] Premarin 0.625 MG/GM Premarin 0.625 MG/GM 10/01/2020 12:00:00 AM EDT active Premarin 0.625 MG/GM eCW1 ([facility]) Fluconazole 100 MG Oral Tablet [Diflucan] Diflucan 100 MG Di flucan 100 MG 09/14/2020 12:00:00 AM EDT 1.0 {tablet} suspended Diflucan 100 MG eCW1 ([facility]) Triamcinolone Acetonide 1 MG/ML Topical Cream Triamcin olone Acetonide 0.1 % Triamcinolone Acetonide 0.1 % 09/14/2020 12:00:00 AM EDT 1.0 {appli cation} active Triamcinolone Acetonide 0 .1 % eCW1 ([facility]) Fluconazole 100 MG Oral Tablet [Diflucan] Diflucan 100 MG Di flucan 100 MG 09/14/2020 12:00:00 AM EDT 1.0 {tablet} suspended Diflucan 100 MG eCW1 ([facility]) Fluconazole 100 MG Oral Tablet [Diflucan] Diflucan 100 MG Di flucan 100 MG 09/14/2020 12:00:00 AM EDT 1.0 {tablet} active Diflucan 100 MG eCW1 ([facility]) Fluconazole 100 MG Oral Tablet [Diflucan] Diflucan 100 MG Di flucan 100 MG 09/14/2020 12:00:00 AM EDT 1.0 {tablet} suspended Diflucan 100 MG eCW1 ([facility]) Fluconazole 100 MG Oral Tablet [Diflucan] Diflucan 100 MG Di flucan 100 MG 09/14/2020 12:00:00 AM EDT 1.0 {tablet} suspended Diflucan 100 MG eCW1 ([facility]) Triamcinolone Acetonide 1 MG/ML Topical Cream Triamcin olone Acetonide 0.1 % Triamcinolone Acetonide 0.1 % 09/14/2020 12:00:00 AM EDT 1.0 {appli cation} active Triamcinolone Acetonide 0 .1 % eCW1 ([facility]) Fluconazole 100 MG Oral Tablet [Diflucan] Diflucan 100 MG Di flucan 100 MG 09/14/2020 12:00:00 AM EDT 1.0 {tablet} suspended Diflucan 100 MG eCW1 ([facility]) Fluconazole 100 MG Oral Tablet [Diflucan] Diflucan 100 MG Di flucan 100 MG 09/14/2020 12:00:00 AM EDT 1.0 {tablet} suspended Diflucan 100 MG eCW1 ([facility]) Fluconazole 100 MG Oral Tablet [Diflucan] Diflucan 100 MG Di flucan 100 MG 09/14/2020 12:00:00 AM EDT 1.0 {tablet} suspended Diflucan 100 MG eCW1 ([facility]) Fluconazole 100 MG Oral Tablet [Diflucan] Diflucan 100 MG Di flucan 100 MG 09/14/2020 12:00:00 AM EDT 1.0 {tablet} suspended Diflucan 100 MG eCW1 ([facility]) Triamcinolone Acetonide 1 MG/ML Topical Cream Triamcin olone Acetonide 0.1 % Triamcinolone Acetonide 0.1 % 09/14/2020 12:00:00 AM EDT 1.0 {appli cation} active Triamcinolone Acetonide 0 .1 % eCW1 ([facility]) Fluconazole 100 MG Oral Tablet [Diflucan] Diflucan 100 MG Di flucan 100 MG 09/14/2020 12:00:00 AM EDT 1.0 {tablet} active Diflucan 100 MG eCW1 ([facility]) Triamcinolone Acetonide 1 MG/ML Topical Cream Triamcin olone Acetonide 0.1 % Triamcinolone Acetonide 0.1 % 09/14/2020 12:00:00 AM EDT 1.0 {appli cation} active Triamcinolone Acetonide 0 .1 % eCW1 ([facility]) Fluconazole 100 MG Oral Tablet [Diflucan] Diflucan 100 MG Di flucan 100 MG 09/14/2020 12:00:00 AM EDT 1.0 {tablet} suspended Diflucan 100 MG eCW1 ([facility]) Triamcinolone Acetonide 1 MG/ML Topical Cream Triamcin olone Acetonide 0.1 % Triamcinolone Acetonide 0.1 % 09/14/2020 12:00:00 AM EDT 1.0 {appli cation} active Triamcinolone Acetonide 0 .1 % eCW1 ([facility]) Triamcinolone Acetonide 1 MG/ML Topical Cream Triamcin olone Acetonide 0.1 % Triamcinolone Acetonide 0.1 % 09/14/2020 12:00:00 AM EDT 1.0 {appli cation} active Triamcinolone Acetonide 0 .1 % eCW1 ([facility]) Fluconazole 100 MG Oral Tablet [Diflucan] Diflucan 100 MG Di flucan 100 MG 09/14/2020 12:00:00 AM EDT 1.0 {tablet} suspended Diflucan 100 MG eCW1 ([facility]) Fluconazole 100 MG Oral Tablet [Diflucan] Diflucan 100 MG Di flucan 100 MG 09/14/2020 12:00:00 AM EDT 1.0 {tablet} suspended Diflucan 100 MG eCW1 ([facility]) Triamcinolone Acetonide 1 MG/ML Topical Cream Triamcin olone Acetonide 0.1 % Triamcinolone Acetonide 0.1 % 09/14/2020 12:00:00 AM EDT 1.0 {appli cation} suspended Triamcinolone Acetonide 0 .1 % eCW1 ([facility]) Triamcinolone Acetonide 1 MG/ML Topical Cream Triamcin olone Acetonide 0.1 % Triamcinolone Acetonide 0.1 % 09/14/2020 12:00:00 AM EDT 1.0 {appli cation} active eCW1 ([facility]) Fluconazole 100 MG Oral Tablet [Diflucan] Diflucan 100 MG Di flucan 100 MG 09/14/2020 12:00:00 AM EDT 1.0 {tablet} suspended Diflucan 100 MG eCW1 ([facility]) Fluconazole 100 MG Oral Tablet [Diflucan] Diflucan 100 MG Di flucan 100 MG 09/14/2020 12:00:00 AM EDT 1.0 {tablet} suspended eCW1 ([facility]) Triamcinolone Acetonide 1 MG/ML Topical Cream Triamcin olone Acetonide 0.1 % Triamcinolone Acetonide 0.1 % 09/14/2020 12:00:00 AM EDT 1.0 {appli cation} active Triamcinolone Acetonide 0 .1 % eCW1 ([facility]) Triamcinolone Acetonide 1 MG/ML Topical Cream Triamcin olone Acetonide 0.1 % Triamcinolone Acetonide 0.1 % 09/14/2020 12:00:00 AM EDT 1.0 {appli cation} active Triamcinolone Acetonide 0 .1 % eCW1 ([facility]) Triamcinolone Acetonide 1 MG/ML Topical Cream Triamcin olone Acetonide 0.1 % Triamcinolone Acetonide 0.1 % 09/14/2020 12:00:00 AM EDT 1.0 {appli cation} active Triamcinolone Acetonide 0 .1 % eCW1 ([facility]) Triamcinolone Acetonide 1 MG/ML Topical Cream Triamcin olone Acetonide 0.1 % Triamcinolone Acetonide 0.1 % 09/14/2020 12:00:00 AM EDT 1.0 {appli cation} active Triamcinolone Acetonide 0 .1 % eCW1 ([facility]) Fluconazole 100 MG Oral Tablet [Diflucan] Diflucan 100 MG Di flucan 100 MG 09/14/2020 12:00:00 AM EDT 1.0 {tablet} suspended Diflucan 100 MG eCW1 ([facility]) Triamcinolone Acetonide 1 MG/ML Topical Cream Triamcin olone Acetonide 0.1 % Triamcinolone Acetonide 0.1 % 09/14/2020 12:00:00 AM EDT 1.0 {appli cation} active Triamcinolone Acetonide 0 .1 % eCW1 ([facility]) Fluconazole 100 MG Oral Tablet [Diflucan] Diflucan 100 MG Di flucan 100 MG 09/14/2020 12:00:00 AM EDT 1.0 {tablet} active Diflucan 100 MG eCW1 ([facility]) Triamcinolone Acetonide 1 MG/ML Topical Cream Triamcin olone Acetonide 0.1 % Triamcinolone Acetonide 0.1 % 09/14/2020 12:00:00 AM EDT 1.0 {appli cation} active Triamcinolone Acetonide 0 .1 % eCW1 ([facility]) Fluconazole 100 MG Oral Tablet [Diflucan] Diflucan 100 MG Di flucan 100 MG 09/14/2020 12:00:00 AM EDT 1.0 {tablet} active Diflucan 100 MG eCW1 ([facility]) Triamcinolone Acetonide 1 MG/ML Topical Cream Triamcin olone Acetonide 0.1 % Triamcinolone Acetonide 0.1 % 09/14/2020 12:00:00 AM EDT 1.0 {appli cation} suspended Triamcinolone Acetonide 0 .1 % eCW1 ([facility]) Fluconazole 100 MG Oral Tablet [Diflucan] Diflucan 100 MG Di flucan 100 MG 09/14/2020 12:00:00 AM EDT 1.0 {tablet} suspended Diflucan 100 MG eCW1 ([facility]) Triamcinolone Acetonide 1 MG/ML Topical Cream Triamcin olone Acetonide 0.1 % Triamcinolone Acetonide 0.1 % 09/14/2020 12:00:00 AM EDT 1.0 {appli cation} active Triamcinolone Acetonide 0 .1 % eCW1 ([facility]) Fluconazole 100 MG Oral Tablet [Diflucan] Diflucan 100 MG Di flucan 100 MG 09/14/2020 12:00:00 AM EDT 1.0 {tablet} suspended Diflucan 100 MG eCW1 ([facility]) Triamcinolone Acetonide 1 MG/ML Topical Cream Triamcin olone Acetonide 0.1 % Triamcinolone Acetonide 0.1 % 09/14/2020 12:00:00 AM EDT 1.0 {appli cation} suspended Triamcinolone Acetonide 0 .1 % eCW1 ([facility]) Triamcinolone Acetonide 1 MG/ML Topical Cream Triamcin olone Acetonide 0.1 % Triamcinolone Acetonide 0.1 % 09/14/2020 12:00:00 AM EDT 1.0 {appli cation} active Triamcinolone Acetonide 0 .1 % eCW1 ([facility]) Fluconazole 100 MG Oral Tablet [Diflucan] Diflucan 100 MG Di flucan 100 MG 09/14/2020 12:00:00 AM EDT 1.0 {tablet} suspended Diflucan 100 MG eCW1 ([facility]) Fluconazole 100 MG Oral Tablet [Diflucan] Diflucan 100 MG Di flucan 100 MG 09/14/2020 12:00:00 AM EDT 1.0 {tablet} suspended Diflucan 100 MG eCW1 ([facility]) Triamcinolone Acetonide 1 MG/ML Topical Cream Triamcin olone Acetonide 0.1 % Triamcinolone Acetonide 0.1 % 09/14/2020 12:00:00 AM EDT 1.0 {appli cation} active Triamcinolone Acetonide 0 .1 % eCW1 ([facility]) Triamcinolone Acetonide 1 MG/ML Topical Cream Triamcin olone Acetonide 0.1 % Triamcinolone Acetonide 0.1 % 09/14/2020 12:00:00 AM EDT 1.0 {appli cation} active Triamcinolone Acetonide 0 .1 % eCW1 ([facility]) Triamcinolone Acetonide 1 MG/ML Topical Cream Triamcin olone Acetonide 0.1 % Triamcinolone Acetonide 0.1 % 09/14/2020 12:00:00 AM EDT 1.0 {appli cation} suspended Triamcinolone Acetonide 0 .1 % eCW1 ([facility]) Triamcinolone Acetonide 1 MG/ML Topical Cream Triamcin olone Acetonide 0.1 % Triamcinolone Acetonide 0.1 % 09/14/2020 12:00:00 AM EDT 1.0 {appli cation} suspended Triamcinolone Acetonide 0 .1 % eCW1 ([facility]) Fluconazole 100 MG Oral Tablet [Diflucan] Diflucan 100 MG Di flucan 100 MG 09/14/2020 12:00:00 AM EDT 1.0 {tablet} active Diflucan 100 MG eCW1 ([facility]) Fluconazole 100 MG Oral Tablet [Diflucan] Diflucan 100 MG Di flucan 100 MG 09/14/2020 12:00:00 AM EDT 1.0 {tablet} suspended Diflucan 100 MG eCW1 ([facility]) Triamcinolone Acetonide 1 MG/ML Topical Cream Triamcin olone Acetonide 0.1 % Triamcinolone Acetonide 0.1 % 09/14/2020 12:00:00 AM EDT 1.0 {appli cation} active Triamcinolone Acetonide 0 .1 % eCW1 ([facility]) Triamcinolone Acetonide 1 MG/ML Topical Cream Triamcin olone Acetonide 0.1 % Triamcinolone Acetonide 0.1 % 09/14/2020 12:00:00 AM EDT 1.0 {appli cation} active Triamcinolone Acetonide 0 .1 % eCW1 ([facility]) Fluconazole 100 MG Oral Tablet [Diflucan] Diflucan 100 MG Di flucan 100 MG 09/14/2020 12:00:00 AM EDT 1.0 {tablet} active Diflucan 100 MG eCW1 ([facility]) Triamcinolone Acetonide 1 MG/ML Topical Cream Triamcin olone Acetonide 0.1 % Triamcinolone Acetonide 0.1 % 09/14/2020 12:00:00 AM EDT 1.0 {appli cation} active Triamcinolone Acetonide 0 .1 % eCW1 ([facility]) Triamcinolone Acetonide 1 MG/ML Topical Cream Triamcin olone Acetonide 0.1 % Triamcinolone Acetonide 0.1 % 09/14/2020 12:00:00 AM EDT 1.0 {appli cation} active Triamcinolone Acetonide 0 .1 % eCW1 ([facility]) Fluconazole 100 MG Oral Tablet [Diflucan] Diflucan 100 MG Di flucan 100 MG 09/14/2020 12:00:00 AM EDT 1.0 {tablet} suspended Diflucan 100 MG eCW1 ([facility]) Fluocinonide 0.5 MG/ML Topical Cream Fluocinonide 0.05 % Flu ocinonide 0.05 % 09/13/2020 12:00:00 AM EDT 1.0 {application} act elli Fluocinonide 0.05 % eCW1 ([facility]) Fluocinonide 0.5 MG/ML Topical Cream Fluocinonide 0.05 % Flu ocinonide 0.05 % 09/13/2020 12:00:00 AM EDT 1.0 {application} act elli Fluocinonide 0.05 % eCW1 ([facility]) Fluocinonide 0.5 MG/ML Topical Cream Fluocinonide 0.05 % Flu ocinonide 0.05 % 09/13/2020 12:00:00 AM EDT 1.0 {application} act elli Fluocinonide 0.05 % eCW1 ([facility]) Fluocinonide 0.5 MG/ML Topical Cream Fluocinonide 0.05 % Flu ocinonide 0.05 % 09/13/2020 12:00:00 AM EDT 1.0 {application} act elli Fluocinonide 0.05 % eCW1 ([facility]) Fluocinonide 0.5 MG/ML Topical Cream Fluocinonide 0.05 % Flu ocinonide 0.05 % 09/13/2020 12:00:00 AM EDT 1.0 {application} delroy pended Fluocinonide 0.05 % eCW1 ([facility]) Fluocinonide 0.5 MG/ML Topical Cream Fluocinonide 0.05 % Flu ocinonide 0.05 % 09/13/2020 12:00:00 AM EDT 1.0 {application} act elli Fluocinonide 0.05 % eCW1 ([facility]) Fluocinonide 0.5 MG/ML Topical Cream Fluocinonide 0.05 % Flu ocinonide 0.05 % 09/13/2020 12:00:00 AM EDT 1.0 {application} act elli Fluocinonide 0.05 % eCW1 ([facility]) Fluocinonide 0.5 MG/ML Topical Cream Fluocinonide 0.05 % Flu ocinonide 0.05 % 09/13/2020 12:00:00 AM EDT 1.0 {application} act elli Fluocinonide 0.05 % eCW1 ([facility]) Fluocinonide 0.5 MG/ML Topical Cream Fluocinonide 0.05 % Flu ocinonide 0.05 % 09/13/2020 12:00:00 AM EDT 1.0 {application} act elli Fluocinonide 0.05 % eCW1 ([facility]) Fluocinonide 0.5 MG/ML Topical Cream Fluocinonide 0.05 % Flu ocinonide 0.05 % 09/13/2020 12:00:00 AM EDT 1.0 {application} act elli Fluocinonide 0.05 % eCW1 ([facility]) Fluocinonide 0.5 MG/ML Topical Cream Fluocinonide 0.05 % Flu ocinonide 0.05 % 09/13/2020 12:00:00 AM EDT 1.0 {application} active eCW1 ([facility]) Fluocinonide 0.5 MG/ML Topical Cream Fluocinonide 0.05 % Flu ocinonide 0.05 % 09/13/2020 12:00:00 AM EDT 1.0 {application} act elli Fluocinonide 0.05 % eCW1 ([facility]) Fluocinonide 0.5 MG/ML Topical Cream Fluocinonide 0.05 % Flu ocinonide 0.05 % 09/13/2020 12:00:00 AM EDT 1.0 {application} act elli Fluocinonide 0.05 % eCW1 ([facility]) Fluocinonide 0.5 MG/ML Topical Cream Fluocinonide 0.05 % Flu ocinonide 0.05 % 09/13/2020 12:00:00 AM EDT 1.0 {application} delroy pended Fluocinonide 0.05 % eCW1 ([facility]) Fluocinonide 0.5 MG/ML Topical Cream Fluocinonide 0.05 % Flu ocinonide 0.05 % 09/13/2020 12:00:00 AM EDT 1.0 {application} act elli Fluocinonide 0.05 % eCW1 ([facility]) Fluocinonide 0.5 MG/ML Topical Cream Fluocinonide 0.05 % Flu ocinonide 0.05 % 09/13/2020 12:00:00 AM EDT 1.0 {application} act elli Fluocinonide 0.05 % eCW1 ([facility]) Fluocinonide 0.5 MG/ML Topical Cream Fluocinonide 0.05 % Flu ocinonide 0.05 % 09/13/2020 12:00:00 AM EDT 1.0 {application} act elli Fluocinonide 0.05 % eCW1 ([facility]) Fluocinonide 0.5 MG/ML Topical Cream Fluocinonide 0.05 % Flu ocinonide 0.05 % 09/13/2020 12:00:00 AM EDT 1.0 {application} delroy pended Fluocinonide 0.05 % eCW1 ([facility]) Fluocinonide 0.5 MG/ML Topical Cream Fluocinonide 0.05 % Flu ocinonide 0.05 % 09/13/2020 12:00:00 AM EDT 1.0 {application} act elli Fluocinonide 0.05 % eCW1 ([facility]) Fluocinonide 0.5 MG/ML Topical Cream Fluocinonide 0.05 % Flu ocinonide 0.05 % 09/13/2020 12:00:00 AM EDT 1.0 {application} act elli Fluocinonide 0.05 % eCW1 ([facility]) Fluocinonide 0.5 MG/ML Topical Cream Fluocinonide 0.05 % Flu ocinonide 0.05 % 09/13/2020 12:00:00 AM EDT 1.0 {application} act elli Fluocinonide 0.05 % eCW1 ([facility]) Fluocinonide 0.5 MG/ML Topical Cream Fluocinonide 0.05 % Flu ocinonide 0.05 % 09/13/2020 12:00:00 AM EDT 1.0 {application} act elli Fluocinonide 0.05 % eCW1 ([facility]) Fluocinonide 0.5 MG/ML Topical Cream Fluocinonide 0.05 % Flu ocinonide 0.05 % 09/13/2020 12:00:00 AM EDT 1.0 {application} delroy pended Fluocinonide 0.05 % eCW1 ([facility]) Fluocinonide 0.5 MG/ML Topical Cream Fluocinonide 0.05 % Flu ocinonide 0.05 % 09/13/2020 12:00:00 AM EDT 1.0 {application} act elli Fluocinonide 0.05 % eCW1 ([facility]) Fluocinonide 0.5 MG/ML Topical Cream Fluocinonide 0.05 % Flu ocinonide 0.05 % 09/13/2020 12:00:00 AM EDT 1.0 {application} delroy pended Fluocinonide 0.05 % eCW1 ([facility]) Fluocinonide 0.5 MG/ML Topical Cream Fluocinonide 0.05 % Flu ocinonide 0.05 % 09/13/2020 12:00:00 AM EDT 1.0 {application} act elli Fluocinonide 0.05 % eCW1 ([facility]) Fluocinonide 0.5 MG/ML Topical Cream Fluocinonide 0.05 % Flu ocinonide 0.05 % 09/13/2020 12:00:00 AM EDT 1.0 {application} act elli Fluocinonide 0.05 % eCW1 ([facility]) Ocrevus 300 MG/10ML Intravenous Solution (ocrelizumab) [id number] -[id number] 08/11/2020 12:00:00 AM EDT active Multiple scleros is, relapsing-remitting INFUSE 600 MG INTRAVENOUSLY EVERY 6 MONTHS [facility] Multiple sclerosis, relapsing-remitting onabotulinumtoxinA 100 UNT/ML Injectable Solution onabotulinumtoxin type A (BOTOX) injection 185 Units onabotulinumtoxin type A (BOTOX) injecti on 185 Units 07/28/2020 02:15:00 PM EDT 185 U Intramuscular completed Multiple sclerosis, relapsing-remitting 185 Units, Intramuscula r, Once, On Sun07/28/20 at 1415, For 1 dose [facility] Multiple sclerosis, relapsing-remitting Medication administered onsite Cyclosporine 0.5 MG/ML Ophthalmic Suspen liz [Restasis] Restasis 0.05% Ophthalmic Emulsion Restasis 0.05% Ophthalmic Emulsion 07/19/2020 12:00:00 AM EDT active cyclospo rine 0.5 MG/ML Ophthalmic Suspension [Restasis] SAMANTHA (Young Donato MD [facility]) Famotidine 40 MG Oral Tablet Famotidine 40 MG Oral Tablet 12:00:00 AM EDT 1 active famotidine 40 MG Oral Tablet SAMANTHA (Young Donato MD [facility]) Labetalol hydrochloride 100 MG Oral Tablet Labetalol H Cl 100 MG Oral Tablet Labetalol HCl 100 MG Oral Tablet 06/07/2020 12:00:00 AM EDT 1 active labetalol hydrochloride 100 MG Oral Tablet SAMANTHA (Lewis Donato MD [facility]) doxycycline hyclate 100 MG Oral Tablet Doxycycline Hyclate 0 06/02/2020 12:00:00 AM EDT active [facility] ([facility] Qbrexza 2.4 % Qbrexza 2.4 % 05/03/2020 12:00:00 AM EST active Qbrexza 2.4 % eCW1 ([facility]) Qbrexza 2.4 % Qbrexza 2.4 % 05/03/2020 12:00:00 AM EST active Qbrexza 2.4 % eCW1 ([facility]) Qbrexza 2.4 % Qbrexza 2.4 % 05/03/2020 12:00:00 AM EST active Qbrexza 2.4 % eCW1 ([facility]) Qbrexza 2.4 % Qbrexza 2.4 % 05/03/2020 12:00:00 AM EST active eCW1 ([facility]) Qbrexza 2.4 % Qbrexza 2.4 % 05/03/2020 12:00:00 AM EST active Qbrexza 2.4 % eCW1 ([facility]) Qbrexza 2.4 % Qbrexza 2.4 % 05/03/2020 12:00:00 AM EST active Qbrexza 2.4 % eCW1 ([facility]) Qbrexza 2.4 % Qbrexza 2.4 % 05/03/2020 12:00:00 AM EST active Qbrexza 2.4 % eCW1 ([facility]) Qbrexza 2.4 % Qbrexza 2.4 % 05/03/2020 12:00:00 AM EST active Qbrexza 2.4 % eCW1 ([facility]) Qbrexza 2.4 % Qbrexza 2.4 % 05/03/2020 12:00:00 AM EST active Qbrexza 2.4 % eCW1 ([facility]) Qbrexza 2.4 % Qbrexza 2.4 % 05/03/2020 12:00:00 AM EST active Qbrexza 2.4 % eCW1 ([facility]) Qbrexza 2.4 % Qbrexza 2.4 % 05/03/2020 12:00:00 AM EST active Qbrexza 2.4 % eCW1 ([facility]) Qbrexza 2.4 % Qbrexza 2.4 % 05/03/2020 12:00:00 AM EST active Qbrexza 2.4 % eCW1 ([facility]) Qbrexza 2.4 % Qbrexza 2.4 % 05/03/2020 12:00:00 AM EST active Qbrexza 2.4 % eCW1 ([facility]) Qbrexza 2.4 % Qbrexza 2.4 % 05/03/2020 12:00:00 AM EST active eCW1 ([facility]) Qbrexza 2.4 % Qbrexza 2.4 % 05/03/2020 12:00:00 AM EST active Qbrexza 2.4 % eCW1 ([facility]) atomoxetine 40 MG Oral Capsule Atomoxetine HCl 40 MG O ral Capsule (STRATTERA) Atomoxetine HCl 40 MG Oral Capsule (STRATTERA) 04/14/2020 12:00:00 AM EST aborted TAKE 1 CAPSULE BY MOUTH E VERY IN THE [facility] atomoxetine 40 MG Oral Capsule Atomoxetine HCl 40 MG Atomoxe bull HCl 40 MG 04/13/2020 12:00:00 AM EST 1.0 {capsule_in_the_morning} active Atomoxetine HCl 40 MG eCW1 ([facility]) atomoxetine 40 MG Oral Capsule Atomoxetine HCl 40 MG Atomoxe bull HCl 40 MG 04/13/2020 12:00:00 AM EST 1.0 {capsule_in_the_morning} active Atomoxetine HCl 40 MG eCW1 ([facility]) atomoxetine 40 MG Oral Capsule Atomoxetine HCl 40 MG Atomoxe bull HCl 40 MG 04/13/2020 12:00:00 AM EST 1.0 {capsule_in_the_morning} active Atomoxetine HCl 40 MG eCW1 ([facility]) atomoxetine 40 MG Oral Capsule Atomoxetine HCl 40 MG Atomoxe bull HCl 40 MG 04/13/2020 12:00:00 AM EST 1.0 {capsule_in_the_morning} active Atomoxetine HCl 40 MG eCW1 ([facility]) atomoxetine 40 MG Oral Capsule Atomoxetine HCl 40 MG Atomoxe bull HCl 40 MG 04/13/2020 12:00:00 AM EST 1.0 {capsule_in_the_morning} active Atomoxetine HCl 40 MG eCW1 ([facility]) atomoxetine 40 MG Oral Capsule Atomoxetine HCl 40 MG Atomoxe bull HCl 40 MG 04/13/2020 12:00:00 AM EST 1.0 {capsule_in_the_morning} active Atomoxetine HCl 40 MG eCW1 ([facility] [place]) atomoxetine 40 MG Oral Capsule Atomoxetine HCl 40 MG Atomoxe bull HCl 40 MG 04/13/2020 12:00:00 AM EST 1.0 {capsule_in_the_morning} active Atomoxetine HCl 40 MG eCW1 ([facility] [place]) atomoxetine 40 MG Oral Capsule Atomoxetine HCl 40 MG Atomoxe bull HCl 40 MG 04/13/2020 12:00:00 AM EST 1.0 {capsule_in_the_morning} active eCW1 ([facility] [place]) atomoxetine 40 MG Oral Capsule Atomoxetine HCl 40 MG Atomoxe bull HCl 40 MG 04/13/2020 12:00:00 AM EST 1.0 {capsule_in_the_morning} active Atomoxetine HCl 40 MG eCW1 ([facility] [place]) atomoxetine 40 MG Oral Capsule Atomoxetine HCl 40 MG Atomoxe bull HCl 40 MG 04/13/2020 12:00:00 AM EST 1.0 {capsule_in_the_morning} active Atomoxetine HCl 40 MG eCW1 ([facility] [place]) atomoxetine 40 MG Oral Capsule Atomoxetine HCl 40 MG Atomoxe bull HCl 40 MG 04/13/2020 12:00:00 AM EST 1.0 {capsule_in_the_morning} active Atomoxetine HCl 40 MG eCW1 ([facility] [place]) atomoxetine 40 MG Oral Capsule Atomoxetine HCl 40 MG Atomoxe bull HCl 40 MG 04/13/2020 12:00:00 AM EST 1.0 {capsule_in_the_morning} active Atomoxetine HCl 40 MG eCW1 ([facility] [place]) atomoxetine 40 MG Oral Capsule Atomoxetine HCl 40 MG Atomoxe bull HCl 40 MG 04/13/2020 12:00:00 AM EST 1.0 {capsule_in_the_morning} active Atomoxetine HCl 40 MG eCW1 ([facility] [place]) atomoxetine 40 MG Oral Capsule Atomoxetine HCl 40 MG Atomoxe bull HCl 40 MG 04/13/2020 12:00:00 AM EST 1.0 {capsule_in_the_morning} active Atomoxetine HCl 40 MG eCW1 ([facility] [place]) atomoxetine 40 MG Oral Capsule Atomoxetine HCl 40 MG Atomoxe bull HCl 40 MG 04/13/2020 12:00:00 AM EST 1.0 {capsule_in_the_morning} active eCW1 ([facility] [place]) diphenhydrAMINE (BENADRYL) injection 50 mg [id number] 03/18/2020 08:30:00 AM EST 50 mg Intravenous completed Multiple sclerosis , relapsing-remitting 50 mg, Intravenous, Once, Tonia 03/18/20 at 0830, For 1 dose [facility] Multiple sclerosis, relapsing-remitting Medication administered onsite methylPREDNISolone sodium succinate (SOLU-MEDROL) injection 125 mg 70817-154-92 03/18/2020 08:30:00 AM EST 125 mg Intravenous c ompleted Multiple sclerosis, relapsing-remitting 125 mg, Intravenous, On ce, Tonia 03/18/20 at 0830, For 1 dose [facility] Multiple sclerosis, relapsing-remitting Medication administered onsite NaCl infusion 0.9 % [id number] 03/18/2020 08:30:00 AM EST Intravenous completed Multiple sclerosis, relapsing-remitting at 250 mL/hr, Intravenous, Continuous, Starting Tonia 03/18/20 at 0830, For 1 hour [facility] Multiple sclerosis, relapsing-remitting Medication administered onsite ocrelizumab (OCREVUS) 600 mg in sodium chloride 0.9 % 250 mL infusion 03/18/2020 08:30:00 AM EST 600 mg Intravenous c ompleted Multiple sclerosis, relapsing-remitting 600 mg, Intravenous, On ce, Tonia 03/18/20 at 0830, For 1 dose
For 300 mg: Start infusing at 30 mL/hr; increase by 30 mL every 30 min; Max 180 mL/hr. For 600 mg: Start at 40 mL/hr; increase by 40 mL every 30 min; Max 200 mL/hr. FINAL CONCENTRATION = 1.2 mg/mL. Administer via 0.22 micron in-line filter.
[facility] Multiple sclerosis, relapsing-remitting Medication administered onsite 24 HR Methylphenidate Hydrochloride 54 M G Extended Release Oral Tablet [Concerta] Concerta 54 MG Concerta 54 MG 12/16/2019 12:00:00 AM EDT 1.0 {tablet_in_the_morning} active Concerta 54 MG eCW1 ([facility]) 24 HR Methylphenidate Hydrochloride 54 M G Extended Release Oral Tablet [Concerta] Concerta 54 MG Concerta 54 MG 12/16/2019 12:00:00 AM EDT 1.0 {tablet_in_the_morning} active Concerta 54 MG eCW1 ([facility]) 24 HR Methylphenidate Hydrochloride 54 M G Extended Release Oral Tablet [Concerta] Concerta 54 MG Concerta 54 MG 12/16/2019 12:00:00 AM EDT 1.0 {tablet_in_the_morning} active Concerta 54 MG eCW1 ([facility]) 24 HR Methylphenidate Hydrochloride 54 M G Extended Release Oral Tablet [Concerta] Concerta 54 MG Concerta 54 MG 12/16/2019 12:00:00 AM EDT 1.0 {tablet_in_the_morning} active Concerta 54 MG eCW1 ([facility]) 24 HR Methylphenidate Hydrochloride 54 M G Extended Release Oral Tablet [Concerta] Concerta 54 MG Concerta 54 MG 12/16/2019 12:00:00 AM EDT 1.0 {tablet_in_the_morning} active Concerta 54 MG eCW1 ([facility]) 24 HR Methylphenidate Hydrochloride 54 M G Extended Release Oral Tablet [Concerta] Concerta 54 MG Concerta 54 MG 12/16/2019 12:00:00 AM EDT 1.0 {tablet_in_the_morning} active Concerta 54 MG eCW1 ([facility]) 24 HR Methylphenidate Hydrochloride 54 M G Extended Release Oral Tablet [Concerta] Concerta 54 MG Concerta 54 MG 12/16/2019 12:00:00 AM EDT 1.0 {tablet_in_the_morning} active Concerta 54 MG eCW1 ([facility]) 24 HR Methylphenidate Hydrochloride 54 M G Extended Release Oral Tablet [Concerta] Concerta 54 MG Concerta 54 MG 12/16/2019 12:00:00 AM EDT 1.0 {tablet_in_the_morning} active Concerta 54 MG eCW1 ([facility]) 24 HR Methylphenidate Hydrochloride 54 M G Extended Release Oral Tablet [Concerta] Concerta 54 MG Concerta 54 MG 12/16/2019 12:00:00 AM EDT 1.0 {tablet_in_the_morning} active Concerta 54 MG eCW1 ([facility]) 24 HR Methylphenidate Hydrochloride 54 M G Extended Release Oral Tablet [Concerta] Concerta 54 MG Concerta 54 MG 12/16/2019 12:00:00 AM EDT 1.0 {tablet_in_the_morning} active Concerta 54 MG eCW1 ([facility]) gadobutrol (GADAVIST) contrast injection 7 mL [id number] 02:00:00 PM EDT 0.1 mL/kg Intravenous completed 7 mL (ro unded from 7.44 mL = 0.1 mL/kg 74.4 kg), Intravenous, 1 TIME IMAGING, 12/08/19 at 1400, For 1 dose, Imaging Protocol
Do not mix or administer in the same IV line with other medicat ions.
[facility] Medication administered onsite Nadolol 40 MG Oral Tablet Nadolol 40 MG Oral Tablet 04/30/2019 1 2:00:00 AM EST 1 aborted nadolol 40 MG Or al Tablet SAMANTHA ([facility]) lansoprazole 30 MG Delayed Release Oral Capsule Lansoprazole 30MG Oral Capsule Delayed Release Lansoprazole 30MG Oral Capsule Delayed Release 018 12:00:00 AM EST 1 aborted lansoprazole 30 MG Delayed Release Oral Capsule SAMANTHA ([facility]) 24 HR Methylphenidate Hydrochloride 36 M G Extended Release Oral Tablet [Concerta] Concerta 36MG Oral Tablet Extended Release Concerta 36MG Oral Tablet Extended Release 02/01/2018 12:00:00 AM EST 1 a borted 24 HR methylphenidate hydrochloride 36 MG Extended Release Oral Tablet [Concerta] SAMANTHA ([facility]) Spironolactone 100 MG Oral Tablet Spironolactone 100MG Oral Tablet Spironolactone 100MG Oral Tablet 02/01/2018 12:00:00 AM EST 1 aborted spironolactone 100 MG Oral Tablet SAMANTHA ([facility]) Ranitidine 150 MG Oral Capsule ranitidine HCl 150 mg o ral capsule ranitidine HCl 150 mg oral capsule 09/13/2017 04:58:32 PM EDT 1 capsule completed ranitidine HCl SAMANTHA ([facility]) 24 HR Methylphenidate Hydrochloride 36 M G Extended Release Oral Tablet methylphenidate (CONCERTA) 36 MG CR tablet methylphenidate (CONCERTA) 36 MG CR tablet 36 mg Oral aborted Take 36 mg by sheri th every morning [facility] Nadolol 40 MG Oral Tablet Nadolol 40 MG Oral Tablet (C ORGARD) Nadolol 40 MG Oral Tablet (CORGARD) 40 mg Oral aborted Take 40 mg by mouth Two Times Daily [facility] Insurance Providers Payer name Policy type / Coverage type Policy ID Covered republican ID Covered republican's relationship to pappas Policy Pappas Plan Information EXCELLUS H [id number] Self [id number] [facility] H[facility] PPO POS [id number] [facility] HMO/PPO/POS [id number] 0 [id number] MVP (HMO/PPO) HEALTH CARE [id number] 0 [id number] [employer] HE[employer] CARE [id number] SP [id number] MVP H [id number] Self [id number] [employer] HE[employer] C[employer] [id number] SP [id number] MVP HMO PPO HEALTH CARE [id number] 0 [id number] [facility] HMO PPO POS [id number] 0 [id number] [place]/307 [id number] SP [id number] EXCELLUS H [id number] Self [id number] [place]/307 [id number] SP [id number] EXCELLUS BC-BS PPO 306 [id number] SP [id number] [place]/307 [id number] SP [id number] [facility] HMO PPO POS [id number] 0 [id number] EXCELLUS BC-BS PPO 306 [id number] SP [id number] EXCELLUS BC-BS PPO 306 [id number] SP [id number] [place] P[place]/307 [id number] SP [id number] Excell[employer] Blue Cross and Blue Shield - [place] Blue Cross/B lue Shield [id number] Self [id number] COMMERCIAL GENERIC [id number] Self [id number] COMMERCIAL GENERIC U OCREVUSFINANCIALASSISTANCE Self OCREVUSFINANCIALASSISTANCE ANSI-Commercial [id number] br39y961-x1oc-3p71-84h7-k4b3w29301u2 ANSI-Commercial 91ns006u-7g1p-603d-5gei-4481rrs96t25 68ex631g-6k3m-301q-4kcl-9871sle78d55 ANSI-Commercial 51k18e27-9zib-4656-85t7-7ba245hjs2c2 74l98l21-7cnz-8428-28o1-4yu207bdy6m9 ANSI-Commercial 5q4h8696-3208-2sd0-wo57-40ayh38sus4g 7a7y3008-5481-7on7-gf84-77rxn32xiq4v ANSI-Commercial 9y647cru-6590-7921-su9j-m654xizm6213 3m432hxj-0962-5125-im7y-b125lmic1744 ANSI-Commercial 768s0hu6-wv4c-6vx2-xl39-of0b49v52170 320o4ew3-bn7b-3eu4-vf62-tf1p68r41655 ANSI-Commercial ifrlz87k-b649-1556-6646-x1b8466ko7lk djnzw22x-f619-4900-7051-q5i1094tc8bk ANSI-Commercial 41q6l96h-3yo8-4442-1877-oc0wi17k12kp 99p3n04x-3um0-8935-8516-vj0hi37x44bm BCBS OF [facility] [id number]/805 [id number] SP [id number] ANSI-Commercial 3g444i13-1on4-0i70-hq3q-37l47k8o5xuv 3x694c68-8ke5-0a14-te6d-85n58w0r3qno ANSI-Commercial q59445u6-b775-55i8-2igh-6rra401m9o08 u99017w1-g705-61p8-2aff-3vhz474p4g69 ANSI-Commercial 67619x2x-644a-2235-7635-4p07289492v4 69329g0e-040w-6122-9617-5q91185795f4 ANSI-Commercial u4084udl-4iy7-0vtb-715f-9td8i1na239j u0624vmz-0ok1-1dxe-386x-4rh0w0ym925u ANSI-Commercial 69y02dd9-y05z-389a-2707-640208b4g6y0 33a94cs8-d23n-408m-6116-176796l0l2t2 ANSI-Commercial 56031i23-l132-26xv-l782-38b863972o26 20317i41-n588-68rv-j853-53x895477q54 ANSI-Commercial d3x64023-g78o-7r83-60c2-x94e442v8542 o2i99764-p77s-5i27-87p1-y01f325h1517 ANSI-Commercial 6285a5rh-7k8d-185o-l5k1-db60843cvu34 3504m6qr-0g1f-507b-u6h1-cp25690xnf15 ANSI-Commercial 288f0904-19x0-8nk8-120i-fh9gh00vlq46 824i4899-35j3-0im0-420f-dc9md23wrd89 ANSI-Commercial y5u320a3-ev15-7w14-3905-k88zj0j45plf o0i031m8-wm89-7e37-9313-p04sd5w41xua ANSI-Commercial 5q941m1e-e4w9-936e-9581-35ydz8122nfd 4z704c5j-o1c4-024z-5848-78mhw0396fka ANSI-Commercial 1g54zr41-4dq3-44dp-lt96-2c0124604725 7f25nu43-4jy5-54ld-um44-4k2670745636 ANSI-Commercial kl315fl0-453r-8824-j225-590n11t8an49 qj131gy3-956k-8541-o071-666k47w7vr48 BCBS [id number] Blue Cross/Bl ue Shield [id number] Medicaid [id number] [id number] Medicaid [id number] BCBS [id number] Blue Cross/Bl ue Shield [id number] [facility] [id number] 82 [id number] ANSI-Commercial 95ha0z62-7541-7oe1-ah79-or422os945d8 32qw5s48-5863-1hc2-eb61-uz219ec941w3 ANSI-Commercial w25jo413-ncn9-6193-3k4l-ldt05fc869dn i89my148-pvv9-1223-3f3o-now45di317fi ANSI-Commercial 0p25n982-82hm-6znc-23at-z38g5a4sdo3x 8s91m563-22ji-1bwh-65xq-q12f6h1imz8c ANSI-Commercial 032ezfrk-8jm8-45219od1-1250-t3zz-7t08ol95j303 722fknxf-3st9-91085oe6-0633-y8jh-3g49mi51y237 ANSI-Commercial qp2z576n-99dt-5r78-18p3-d09764os59vk zh5a849s-29mc-1r24-63p8-i70497gp23lw ANSI-Commercial p90e9m41-v1wh-9c68-tx9c-z122k42na1z5 t60k2a85-u1tz-4q90-lj8t-m581l26mo9g9 ANSI-Commercial vm7100nj-ze8s-7m27-9767-7t9a13iysw71 ha7946lt-jz8m-8r44-3840-0x6z16aqoi29 ANSI-Commercial 7wp2rt32-6592-2431-2076-2790v708j3x6 7px3vf38-4700-2119-4081-8803j111u2x3 ANSI-Commercial a9m15t0p-1e9y-1svo-5y46-aev3p9m6vue8 i1c54m3b-8v6o-6xqp-0l62-jqr6n6d5baf9 ANSI-Commercial 6yyo97x7-508o-3p05-mg9g-l3gt993864b7 5pbf42d9-053z-7v03-ko9t-u6lu421995o3 ANSI-Commercial e92et206-hz11-5i99-476h-z7u8um373p9k r47av341-bt62-8c04-720v-v1n1dz260v9a ANSI-Commercial 59oq765j-u21i-0hb8-5439-s4483zl0a283 82yc539w-w51p-7zl7-8402-q4912tw3k266 ANSI-Commercial 5e38711n-x92m-4g43-g645-9ez30f6py6tu 8e50134w-u59t-2g41-c006-6zg60h2ni0di [facility] [id number] 82 [id number] ANSI-Commercial 03642843-9o6u-9914-780y-2sb21t53h75q 46934173-8b8l-1014-115m-3zg26r51j06t ANSI-Commercial h18l970u-3z24-5ju9-g575-92s6qzdp5v9h m96r214n-6q89-9dy6-s423-53m0kgei2g9l [facility] O [id number] O [id number] ANSI-Commercial o756nefg-2136-296j-y7ma-6b1m420k997g a212izxd-2633-318q-n9ir-7o0v446n194p ANSI-Commercial szgc984o-en73-67d8-j1hz-953a1ipdg33o mkdd156o-ac42-89y3-a4wz-776q4glct13a ANSI-Commercial 78n3f27l-n61o-916n-4492-87394x6a1mx2 60u1z66n-h26l-854z-3722-87452w0q2xv8 ANSI-Commercial on2xj42y-h816-408o-t8jl-926v972e0t39 kl1ww26i-i273-117y-y7xz-361d380h5o97 ANSI-Commercial 78lnh725-49v5-16ci-7vx7-pl838624d83x 21hvb139-74u3-83bz-3gi3-bx873863z92h ANSI-Commercial u34dpl39-85e2-1705-2m73-6t224hk03938 m21waz04-44t2-0972-5m95-9w482gt58540 ANSI-Commercial 1a4m1z31-23lf-774n-5t94-47sr401053v7 6c0a8a80-25cr-928d-0n95-82jx922110c5 ANSI-Commercial eh6l286w-d593-4auq-9801-r414s99292ea tj2m873g-p028-0ykw-0332-i781h29925vi ANSI-Commercial 8e0i65d7-5e81-3490-1173-m284m43yml7x 5j9q29a6-3b16-7041-3978-w316v29qba6m ANSI-Commercial 773w3u02-2427-7thv-sb8e-g49lnjqv84vb 995y2i29-6478-6bdc-is5s-k22zdpma07sa ANSI-Commercial us1236w7-3fe3-8814-67w5-s8p42p8be8tk az9372n7-9ew6-6687-52b2-o3b91r5ft4dc ANSI-Commercial e0z01404-0405-66y2-c5m0-904y4p8350f7 a6v72816-5946-30r5-e6m5-870y8o0620z9 ANSI-Commercial 7974g965-81g4-64oc-m815-69k6s3zm1dc2 0024a795-64b5-55mp-x234-86y5r7qy5ob8 ANSI-Commercial p81647az-z893-967v-c72j-hhx8b6483z12 n07457yt-v916-716u-p44j-tlq0o2801m10 ANSI-Commercial 124s40q8-058e-0ln9-uo91-m5v2v5r8ml16 521d09c5-763r-4ay9-xn56-v4b7u0m2ne59 ANSI-Commercial l996td2l-g038-1g3b-lq37-638j8c5b5dt1 i066ni9z-c052-9j3v-jc08-997s9o4f2ai7 ANSI-Commercial 5wf446xr-z5di-5o91-4f4v-7930a6qzb125 7wi919jx-j5by-5w73-0r1i-2243n4ioc829 ANSI-Commercial 36uf7ib1-4l88-323a-854t-91i3dbp8ji1o 85es6uz7-0y86-735l-903a-61e8gmx3jl5k ANSI-Commercial z45mfyxp-kaah-81fq-2j47-2tz6ok13ky55 j85efzca-gazx-38ru-0m81-0jo4xu58kh29 ANSI-Commercial c0h954r6-e6f7-9305-1349-603y97nbss22 c9u644n6-c6h4-4914-8275-410c33rsfi86 ANSI-Commercial 58tsvup5-16l4-3814-o720-91wk1znmi402 70gxubp3-69y5-3240-y457-27ad4mtex604 ANSI-Commercial o1q11653-2ej8-851d-o61c-4228dt4c1g7m p8k72203-9oe0-636m-w20k-3141jm9p3z8y ANSI-Commercial 66rpapl8-9x0t-58p6-w629-ka634824z5dn 11mrkmd1-4h0b-99u9-y483-yq232074y0jg ANSI-Commercial w768l66r-kao6-8azq-7c42-mcos4fb66340 n208b27x-rfx2-0igx-7i54-lnkv6wb17002 ANSI-Commercial vc10p071-z72z-519n-cwgn-kl0q5k1y1r26 uy23y595-t63t-102w-ipus-lk6m6p8h3a75 [facility] Health Maintenance Organization (HMO) [id number] 0 [id number] Self [id number] [facility] Health Maintenance Organization (O) [id number] Self [id number] [facility] [id number] SP [id number] [facility] [id number] SP [id number] [employer] [place] PPO 302/307 [id number] SP [id number] SELF PAY UNAVAILABLE UNAVAILA BLE EXCELLUS BCBS P [id number] S [id number] [employer] [place] PPO 302/307 [id number] SP [id number] [place] [place] PPO 302/307 [id number] SP [id number] BC[place] PPO 302/307 [id number] SP [id number] EXCELLUS BC-BS PPO 306 [id number] SP [id number] EXCELLUS BC-BS PPO 306 [id number] SP [id number] BCBS of [facility] Other 0 [id number] Self 0 BCBS of [facility] Other 0 [id number] Self 0 BCBS of [facility] Other 0 [id number] Self 0 EXCELLUS BCBS B [id number] S [id number] BCBS of [facility] Other 0 [id number] Self 0 [place] PPO 302/307 [id number] SP [id number] EXCELLUS BC-BS PPO 306 [id number] SP [id number] EXCELLUS BLUE CROSS BLUE SHIELD HEA [id number] S [id number] [employer] zss8f272-70h9-0gv5-a961-r3v62n5313ku fny9h514-22e4-8en1-p337-k5a93e7170lu [employer] 0vgq5g42-0y22-5v35-hqn8-49s9b65uw6l7 7gzw0k11-2m20-9x25-udm1-73k0u13gq3u9 ANSI-Simpler r69v46vv-8600-5495-z7ir-74x6k41p25r4 l15z69ux-5298-9050-a4ts-70h1g84h73r7 ANSI-Simpler dr1x7b28-73bj-6h41-b2t6-66dm57z4f854 jt0l8s16-43jq-0g95-v7f7-69qk36c7l388 ANSI-Simpler z531j77l-73q3-8192-n54v-8gm39944e5jx o303c29s-87e5-3498-d73w-9wk35324b2lb ANSI-Simpler 6k4453xe-1u8j-2167-14b5-n1m24aj55mfq 8z7745be-6r4k-6147-73i1-n1d03rp64dum ANSI-Commercial 53pf35zv-ppq4-701a-s0v4-608t308304w2 52ry98tv-amx4-266t-r2e1-707x436109s5 ANSI-Commercial 06tterqw-89i2-255469q2-8410-i45o-7b9017r71s59 15nphupv-19r4-414992m1-7350-k24w-4p0709y49c56 ANSI-Commercial 3se18wzf-a2l8-8043-1w09-t91c1222x2w9 3lv85aih-k0p9-8950-0g58-l28i7996k6h9 Problems, Conditions, and Diagnoses Code Display Name Description Problem Type Effective Dates Data Source(s) G96.191 Perineural cyst Perineural cyst Diagnosis 01/21/2021 10:5 7:36 AM EDT [facility] G43.709 Chronic migraine without aur a, not intractable, without status migrainosus Chronic migraine without aura, not intra ctable, without status migrainosus Diagnosis 10/25/2020 03:38:34 PM EDT Health system G93.2 Benign intracranial hypertension Benign intracra nial hypertension Diagnosis 10/22/2020 02:58:40 PM EDT [facility] [id number] Essential hypertension Essential hypertension Problem 12/31/2020 12:00:00 AM EDT PENELOPE ([facility], ) D48.5 [id number] 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 oblem 12/13/2020 12:00:00 AM EDT eCW1 ([facility]) E05.90 [id number] Subclinical hyperthyroidism Problem 10/14/19 12:00:00 AM EDT eCW1 ([facility]) L74.510 [id number] Primary focal hyperhidrosis of axill a Problem 02/16/2020 12:00:00 AM EST eCW1 ([facility]) Surgeries/Procedures Procedure Description Date Indications Data Source(s) OFFICE OUTPATIENT NEW 45 MINUTES 12/31/2020 12:00:00 A M EDT MEDENT ([facility]) Med: Derm 1% Lidocaine with Epinephrine Injection Intr adermally to marked areas 12/13/2020 12:00:00 AM EDT eCW1 ([facility]) Medication: Botox Therapeutic intradermal 12/07/2020 1 2:00:00 AM EDT eCW1 ([facility]) Medication: Botox Therapeutic intradermal 08/23/2020 1 2:00:00 AM EDT eCW1 ([facility]) 08/10/2020 12:00:00 AM EDT e CW1 ([facility]) Med: Derm Lidocaine with Epinephrine Inj ection 1% with 2 ml sodium bicarbonate Intradermally to marked areas 07/30/2020 12:00:00 AM EDT eCW1 ([facility]) GAMMAGLOBULIN IGA IGD IGG IGM EACH <td>IMMUNOGLOBULIN ASSAY</td><td>Routine</td><td>07/28/2020 1:36 PM EDT</td><td> Multiple sclerosis, relapsing-remitting</td><td> </td> 07/28/2020 01:36:00 PM EDT Multiple sclerosis, relapsing-remitting [facility] Multiple sclerosis, relapsing-remitting 25 HYDROXY INCLUDES FRACTIONS IF PERFORMED <td>VITAMIN D 25 HYDROXY, TOTAL</td><td>Routine</td><td>07/28/2020 1:36 PM EDT</td><td> Multiple sclerosis, relapsing-remitting Vitamin D deficiency</td><td> </td> 07/28/2020 01:36:00 PM EDT Vitamin D deficiencyMultiple sclerosis, relapsing-carley [facility] Vitamin D deficiency Multiple sclerosis, relapsing-remitting BLOOD COUNT COMPLETE AUTO&AUTO DIFRNTL WBC COUNT <td>C BC AND DIFFERENTIAL</td><td>Routine</td><td>07/28/2020 1:36 PM EDT</td><td> Multiple sclerosis, relapsing-remitting</td><td> </td> 07/28/2020 01:36:00 PM EDT Multiple sclerosis, relapsing-remitting [facility] Multiple sclerosis, relapsing-remitting Med: Derm 1% Lidocaine with Epinephrine Injection Intr adermally to marked areas 07/16/2020 12:00:00 AM EDT eCW1 ([facility]) Intermediate Eye Exam Established Patient Intermediate Eye Exam Established Patient 06/07/2020 12:00:00 AM EDT SAMANTHA ([facility]) Intermediate Eye Exam Established Patient Intermediate Eye Exam Established Patient 06/07/2020 12:00:00 AM EDT SAMANTHA ([facility]) Medication: Botox Therapeutic intradermal 05/17/2020 1 2:00:00 AM EST eCW1 ([facility]) MRI SPINAL CANAL CERVICAL W/O & W/CONTR MATRL <td>MR C ERVICAL SPINE WITH AND WITHOUT CONTRAST [id number]</td><td>Routine</td><td>12/08/2019 1:53 PM EDT</td><td> Multiple sclerosis, relapsing-remitting</td><td> </td> 12/08/2019 01:53:00 PM EDT Multiple sclerosis, relapsing-remitting [facility] Multiple sclerosis, relapsing-remitting MRI BRAIN BRAIN STEM W/O &W/CONTRAST MATERIAL <td>MR B RAIN WITH AND WITHOUT CONTRAST [id number]</td><td>Routine</td><td>12/08/2019 1:53 PM EDT</td><td> Multiple sclerosis, relapsing-remitting</td><td> </td> 12/08/2019 01:53:00 PM EDT Multiple sclerosis, relapsing-remitting [facility] Multiple sclerosis, relapsing-remitting MRI SPINAL CANAL THORACIC W/O & W/CONTR MATRL <td>MR T HORACIC SPINE WITH AND WITHOUT CONTRAST [id number]</td><td>Routine</td><td>12/08/2019 1:50 PM EDT</td><td> Multiple sclerosis, relapsing-remitting</td><td> </td> 12/08/2019 01:50:00 PM EDT Multiple sclerosis, relapsing-remitting [facility] Multiple sclerosis, relapsing-remitting Results ID Date Data Source [id number] 01/21/2021 03:14:25 PM EDT Health system MR THORACIC SPINE WITH AND WITHOUT CONTR AST [id number] RESULTInterpreted by:MARCIN Roblero THORACIC SPINE WITH AND WITHOUT IV CONTRASTClinical indication: 35-year-old female with RRMS. Comparison: December 08, 2019.TECHNIQUE;Thoracic spine was imaged in sagittal plane with T1 and T2- weighted and STIR sequences and in axial plane with T2 weighted sequences without IV contrast and following IV contrast administration, axial and sagittal T1 weighted images were obtained.FINDINGS;The vertebral bodies are normal in height and signal characteristics. No evidence of spondylolisthesis.The thoracic spine maintains its anatomic kyphosis.The thoracic cord is normal in configuration and signal. The thecal sac maintains normal configuration. The intervertebral disc are normal in height and signal intensity and shows no HNP. The visualized neural foramina are patent bilaterally throughout the thoracic spine.No abnormally enhancing lesion was visualized. No significant pre or paravertebral soft tissue abnormality.IMPRESSION:Essentially unremarkable study with no evidence of MS plaques. This document has been electronically signed by Eleonora Manuel MD on 01/21/2021 3:12 PM Name Value Range Interpretation Code Description Data Albina rce(s) Supporting Document(s) ID Date Data Source [id number] 01/21/2021 03:10:25 PM EDT Health system MR CERVICAL SPINE WITH AND WITHOUT CONTR AST [id number] RESULTInterpreted by:MARCIN Roblero CERVICAL SPINE WITH AND WITHOUT IV CONTRASTClinical indication ; 35-year-old female with RRMS.Comparison: December 08, 2019.TECHNIQUE;Cervical spine was imaged in sagittal plane with T1 and T2- weighted and STIR sequences and in axial plane with T2 weighted and MEDIC sequences without IV contrast and following administration of IV contrast, sagittal and axial images were obtained with T1 sequences. FINDINGS;The vertebral bodies are normal in height and signal intensity. The cervical spine is straight in alignment losing its anatomic lordosis but without significant spondylolisthesis.The cervical cord is normal in configuration and signal intensity. The visualized brain stem is normal in configuration and signal intensity.The posterior fossa structures are normal in configuration and signal intensity.The intervertebral disc are normal in height and shows no evidence of HNP. The spinal canal is intact.Mild neuroforaminal narrowing on the left at C4- C5 level.No evidence of syrinx or Chiari I malformation. The atlantoaxial distance is within normal limits.The visualized soft tissue is grossly unremark able. The airway is intact. No abnormally enhancing lesion.IMPRESSION:1. No evidence of MS plaques.2. Mild neuroforaminal narrowing on the left at C4-C5 level.3. Straight alignment of the cervical spine. This could be secondary to muscle spasm in the neck.This document has been electronically signed by Eleonora Manuel MD on 01/21/2021 3:08 PM Name Value Range Interpretation Code Description Data Albina rce(s) Supporting Document(s) ID Date Data Source [id number] 01/21/2021 03:04:24 PM [facility] MR BRAIN WITH AND WITHOUT CONTRAST [id number] FINAL RESULTInterpreted by:MARY Roblero HEAD WITH AND WITHOUT IV CONTRASTClinical indication: 35-year-old female with are RRMS.COMPARISON: December 08, 2019.TECHNIQUE;Brain was imaged in sagittal, coronal, and axial planes with multiple sequences with and without administration of IV contrast.FINDINGS;There is no significant diffusion restricted abnormality demonstrated. The ventricular system is age appropriate in size, shape and configuration. The cortical sulci is age appropriate in size, shape and configuration. There is no midline shift or mass effect. Normal flow- voids are seen bilaterally.Several scattered punctate foci of T2 and FLAIR high signal intensity redemonstrated within the white matter at the level of the jacobo radiata and centrum semiovale bilaterally showing no significant interval change in size and in number. Duarte and white matter differentiation is preserved. No hemosiderin deposition. No significant congenital anomaly.There is no focal area of abnormal post contrast increased signal intensity. No AVM or aneurysm.The visualized brain stem is unremarkable. The visualized posterior fossa structures are unremarkable. The mamillary bodies are unremarkable. The sella, hypophysis, and corpus callosum are unremarkable with normal posterior pituitary T1 bright spot. The internal auditory canals are symmetric and unremarkable.The cerebellopontine angle is unremarkable bilaterally. The visualized paranasal sinuses including the mastoid air cells show retention cysts in the right maxillary sinus.IMPRESSION:Stable very small burden MS plaques show no significant interval changes without evidence of active demyelination.Mucous retention cysts in the right maxillary sinus.This document has been electronically signed by Eleonora Manuel MD on 01/21/2021 3:02 PM Name Value Range Interpretation Code Description Data Albina rce(s) Supporting Document(s) ID Date Data Source [id number] 01/21/2021 02:41:30 PM EDT Health system MR LUMBAR SPINE WITHOUT CONTRAST [id number] NAL RESULTInterpreted by:MARCIN Roblero LUMBAR SPINE WITHOUT IV CONTRASTClinical Indication: Lumbosacral kyphosis. Please evaluate for growth.Comparison: None.TECHNIQUE;T1, T2, and diffusion weighted and STIR sequences were utilized in acquiring sagittal images with axial images acquired with T1 and T2 weighted technique without administration of IV contrast.FINDINGS;There is no significant diffusion restricted abnormality. The lumbar spine straight in alignment losing its anatomic lordosis without significant spondylolisthesis.The lumbar vertebral bodies are normal in height and no abnormal bone marrow signal characteristics and demonstrated at any level.The conus ends at mid L1 level without evidence of lipoma or tethering. Neural foramina are patent bilaterally throughout the lumbosacral spine.The lumbar discs are normal in height and signal intensity with no evidence of herniation of nucleolus pulposus. The spinal canal is intact. There is a Tarlov cyst at S3 level in midline measuring 1.1 x 1.8 x 1.9 cm (AP X TV X CC).No evidence of arachnoiditis.No significant pre or paravertebral soft tissue abnormality.IMPRESSION:1. Straight alignment of the lumbar spine. This could be secondary to muscle spasm in the lower back.2. A Tarlov cyst at S3 level in midline.This document has been electronically signed by Eleonora Manuel MD on 01/21/2021 2:39 PM Name Value Range Interpretation Code Description Data Albina rce(s) Supporting Document(s) ID Date Data Source [id number] 01/17/2021 03:35:50 PM EDT Health system Name Value Range Interpretation Code Description Data Albina rce(s) Supporting Document(s) Progress Note [facility] TCTFGf6lEkTTHgUa75/HFMrfWAXzn3WdNEvnQPf4RTvpMBOlQ2GfANA3dH4kHIR6LRhRVkIdUdZaYVAu lbm [file] VPRg0K ID Date Data Source SMC Hip,Ap,Lat 11/23/2020 12:00:00 AM EDT eCW1 ([facility]) Name Value Range Interpretation Code Description Data Albina rce(s) Supporting Document(s) SMC Hip,Ap,Lat eCW1 ([facility]) ID Date Data Source FSH & LH EVAL 11/05/2020 12:00:00 AM EDT eCW1 ([facility]) Name Value Range Interpretation Code Description Data Albina rce(s) Supporting Document(s) 0.6 LUTEINIZING HORMONE eCW1 ([facility]) 6.9 FOLLICLE STIMULATING HORMONE e CW1 ([facility]) ID Date Data Source ESTRADIOL 11/05/2020 12:00:00 AM EDT eCW1 ([facility]) Name Value Range Interpretation Code Description Data Albina rce(s) Supporting Document(s) < 19.0 ESTRADIOL eCW1 ([facility]) ID Date Data Source [id number] 10/25/2020 03:50:39 PM EDT Health system Name Value Range Interpretation Code Description Data Albina rce(s) Supporting Document(s) Progress Note [facility] FCJNGk8tWxXQAdYd48/SUScyFAGrg0FaXXmwBQc5GCpkSXVjF0ZpQJK7gR3rWDO0ISuIZlYlOtOjYKR7 lbm [file] MDAwMDAyMjIxMiAwMDAwMCBuDQowMDAwMDIyNDYyID UmVLTqDC6MDcPmIBNtHcR2ILgrKBOjUBDdce5CFGWfJTCmBiTvCOAbIWJgXKNpWWfwMDBrCPD9FOFjRJ ZuLLMaST9TTiWhDNBzZzG8YtOrDSDyIOLigy6JKDGxBLWoATT9IySuQSSaITEqLVe6xvMvySEdWYb4MM 2MU1ChdeUuIvHOVl5Hp818AJUbYWCxBv5RU5qsEa9z CSGrNLREPn5OJUh1Q7S6OgJfVIZsYGDvUpoaMLqiUMH5FLw9QgQ4IdggUKS+BIi7SGTrPXZxUaEdLYUv OGFyXGYbLSvmAYgpIRd8PGK7Cn0gQCEBLc8+JKcgiBWvpUlyMPJWIwT9DQG9EOcvFPIKWg0X ID Date Data Source [id number] 10/25/2020 08:09:36 AM EDT Health system CT ANGIOGRAPHY HEAD [id number] RESULTInt erpreted by:Saman Mejia, MDCT ANGIOGRAPHY HEAD [id number] INDICATION: New onset right oriental orthodox pulsing. Pain worse with increased ICP.TECHNIQUE: Contiguous axial CT images of the head were acquired from the base of the skull to the vertex without intravenous contrast administration. CT angiography of the head was then performed following intravenous administration of 75 cc of Omnipaque 350 injected at a rate of 5 cc/sec. Multiple MIP images in axial, coronal, and sagittal planes and 3D surfaced rendered images were then acquired using the source data. Automated dose lowering techniques and/or adjustment according to patient size were utilized for this examination.COMPARISON: MR angiography of the head performed at [facility] on 11/04/2017.FINDINGS: Non-enhanced CT head: The ventricles and cerebral sulci are normal. The basal cisterns are patent. There is no acute intracranial hemorrhage or evidence of acute infarction. No shift of the midline structures, space-occupying mass, or extra-axial abnormalities are shown.Imaged portions of the paranasal sinuses and mastoid air cells are clear. CTA: The intracranial segments of both internal carotid arteries, anterior, middle, and posterior cerebral arteries, anterior communicating artery, posterior communicating arteries, the posterior and anterior inferior cerebellar arteries, the superior cerebellar arteries, intracranial segments of the vertebral arteries, and the basilar artery are patent. No aneurysm, arteriovenous malformation, or hemodynamically significant flow stenosis is shown. CTV: Contrast filling consistent with patency is shown within the superior sagittal sinus, straight sinus, deep cerebral veins, transverse sinuses, and sigmoid sinuses. There are no filling defects in the cerebral venous sinuses.IMPRESSION: 1. No aneurysm, arteriovenous malformation, or hemodynamically significant flow stenosis. 2. No cerebral venous thrombosis. 3. No acute intracranial hemorrhage or evidence of acute infarction.This document has been electronically signed by Saman Mejia MD on 10/25/2020 8:07 AM Name Value Range Interpretation Code Description Data Albina rce(s) Supporting Document(s) ID Date Data Source [id number] 10/21/2020 10:00:44 AM EDT Health system Name Value Range Interpretation Code Description Data Albina rce(s) Supporting Document(s) Progress Note [facility] ILSHXb2yAwVXEqCe32/XIUntZODit1VxEPueYMn6TAmiDVAqV9FdXEH2kQ5kCAZ3IPjMFyXcRdLvVHD7 lbm [file] 76O6LNeJzNCNsU8rNLXt3vOm71OIWFaH0opZ9JwSAKblepFcTI51NU3J6ghU/jose g+QhmVDB9QbLpFTnOE [file] AgICAgICAgICAgICAgICAgICAgICAgICAgICAgICAg ICAgICAgICAgICAgICAgICAgICAgICAgICAgICAgICAgICAgICAgICAgDQogICAgICAgICAgICAgICAg ICAgICAgICAgICAgICAgICAgICAgICAgICAgICAgICAgICAgICAgICAgICAgICAgICAgICAgICAgICAg ICAgICAgICAgICAgICAgICAgICAgICAgDQogICAgIC AgICAgICAgICAgICAgICAgICAgICAgICAgICAgICAgICAgICAgICAgICAgICAgICAgICAgICAgICAgIC AgICAgICAgICAgICAgICAgICAgICAgICAgICAgICAgICAgDQogICAgICAgICAgICAgICAgICAgICAgIC AgICAgICAgICAgICAgICAgICAgICAgICAgICAgICAg ICAgICAgICAgICAgICAgICAgICAgICAgICAgICAgICAgICAgICAgICAgICAgDQogICAgICAgICAgICAg ICAgICAgICAgICAgICAgICAgICAgICAgICAgICAgICAgICAgICAgICAgICAgICAgICAgICAgICAgICAg ICAgICAgICAgICAgICAgICAgICAgICAgICAgDQogIC AgICAgICAgICAgICAgICAgICAgICAgICAgICAgICAgICAgICAgICAgICAgICAgICAgICAgICAgICAgIC AgICAgICAgICAgICAgICAgICAgICAgICAgICAgICAgICAgICAgDQogICAgICAgICAgICAgICAgICAgIC AgICAgICAgICAgICAgICAgICAgICAgICAgICAgICAg ICAgICAgICAgICAgICAgICAgICAgICAgICAgICAgICAgICAgICAgICAgICAgICAgDQogICAgICAgICAg ICAgICAgICAgICAgICAgICAgICAgICAgICAgICAgICAgICAgICAgICAgICAgICAgICAgICAgICAgICAg ICAgICAgICAgICAgICAgICAgICAgICAgICAgICAgDQ ogICAgICAgICAgICAgICAgICAgICAgICAgICAgICAgICAgICAgICAgICAgICAgICAgICAgICAgICAgIC AgICAgICAgICAgICAgICAgICAgICAgICAgICAgICAgICAgICAgICAgDQogICAgICAgICAgICAgICAgIC AgICAgICAgICAgICAgICAgICAgICAgICAgICAgICAg TAKfBGWsUQHjKBLwKYJtQRRkFOHeORIpUXPaDKBpLQApKHLbFOIeCVOyFNLbKCGlVODaLTu7H7otVTAu QDXmQK1kUFx1Kv6+OWnSMoFnALM0viIswP1SXP9hg8BhNVffYXXbg0AsOSr2OV1VICLeWEneWS2YMFha vn7TGFKaEFQoiDLMu3taEbFqPSE9PBDgUvvmDI7NZB YhR7jtgwGiONAvAVPATEiyXDCSGKdfORZKASBuUHFhTdCbRdWcNVDfGYVeKBLQYIO8CECaQmNlHPhiEW 4Nu8TxmJK0GAj+Rw8LCK1zn5ZnAZwqZQBdMQ8yoz6OIKaELzAxD6TioaB6DQF2HTDxBu6IRLIvQTXpbZ UlMFZmNHTEJfIhB8QebS78DJBYOa9+DQplbmRvYmoN YjF9CEEqs4LpLZr6SJ6NSPStGJy1hSWiPTEnO0Xhf6CuAq70YBOyVeokO18zBTyeUXOQI9dxBFleQK1V DCG7QGopZW5xQPMwNLQ1YcScULHOLA7WECMoUIBdtBRnQCMhYRQIDU0PQIlhEGM7AHAkwpQgaFAqKUna ZV6NESNpdaUwAkQxHRSARDd+Lj3HGV9ph2RdBCpwKr DnRC7rhm3ANXsCJiTfK4H7oUVuD5G2BZssFc6QGYIxVPZpFtEmHEHRQEqwQG8DKB3mujE5GT5ReUZfUL EvDXErfIJhYDt9C53ilLMyJHgvXM3FNHJ+Kwesi+Of9NWWOfYHIrZMHsTgRnIAJUQaAjJ5EwC1HEf0AkY3 IdWU88dRmhyrCaETteYS8UBH2oIDVcIAFSKZ4UhEJl yY8casVbFMMtTKGPPaJkJ25soQOpDHYgHWDmKZLzHs2GDFAwS9MkzvItlLzqjzAeMKPdWDXWPD6PXYzn ikErlJJheBnrDW71aIihBI9DOc5RCxYlTV8erq9BsIMzIp0EGSDvCg4VDTDtPEKaSMVtMAY1JXFcNaCk PHjkJRJtMKNyKIN0LHCmUUOdNB3VGsMcGZMfZgN9Ni yqNXQtWAGhii1KSGLuPKJcTGB7XoHkMAKqWNGnBTpmZADzZBNjEFE0AZXtFUTuMO6YQyElVSJqYAI5Fs CySCZbTZCgxm1BJZTxOUUbDxp1SALuLMGuVIJrNXgoUUEsXIL9FaO8UYYxOGNxTO4VMyEiTPAjOJU7Uf ElXQVwOJHawk7XLICoAODhLVY3MmAxEFAiOUHfKAnp LOOsBRB6EvqmMPFjSXIzUZ9FNwElTHGsLRL9BEXuYHFvUHNocn5FNKHzFDOnBOF6TULtNBHbWRTuCDjd ZESqXWN7ZgO2AAElQOApUH3OFsWhQLIpIAT4MjWlGVZzZKTqec2BNHAyQVZgAUG1LsAoSZMmLBVnSFgj MTOiZAB0Gar9APXjLTZkJF5RSnSvYQKwZZa9TVUhBV JnLRKaqj3EUGZoZEMqQGA4KgTdSGBsHUNpXJkqEQXiVPObBHJ0FCFrANLeWZ7RXjGhZLKyFrLmXOCmPV CmOXFnjy0BPEQfIJWyZMY1KcVmERPaQKGmPBliTMIaMIRqOGZ2WNCkOXEpXA9EErYcGACjQpM6KGksMI KrIZRein0WLGUdOZPgAwu8WhXmBAEcJYYyRZroABBk VHH4Ihm9XDPdYOXmIO7MOiKbBZPtNyY9MNNtIZTbBMLqnz6TQRUnHYBhOGuqRLLpRLXzDAAcXZcqFRDa OJC4MLGmWSOnZQDiDR6VBhYbRPMoZnOsXWLvPBToOEYvvb4USDMyIWVlDuW9SDCiMYVkYQYfSMbcUJOp AOQ1VlZ6QCWvAFWeBG4FLrAnDRJpVzD2AKUpNQJwNI Roro9UBRIuTGRcZxyjXnOeDIWcXXZfMOafNINgOIP4VWUhHODqITFjTN8XZhSpMNLgFts6FRIaJKMlFV Udjk3KWSTcFUAcGBZeNHZgGULlNDJfIEm3jpAzvTPoPBr6YE2TO3RtkhFdMlyOEh1Cu246XDI9AZDnDt 3LD9vmXy8pOLYcTPOZIm3UBNt8WpN2PDXqTEJaXWBa BUKiWBSaKhFrOPtaFTP3YRR7Uoc+JZlqFAD2GUMhOLF9ChIrFyA4LUBgW5TuWLXyFeJ1BDu8ES9eCJPY Cj4+CYijnVAqxOfrKOXTVrT3NCb8PHxxLBTTQe9X ID Date Data Source [id number] 09/29/2020 11:15:00 AM EDT [facility] Name Value Range Interpretation Code Description Data Albina rce(s) Supporting Document(s) EGD-dil [facility] UZXUKs5rCwCODrDrFUQrFrlWSHktAMigJGWpE7B5VCyiVl3NFSafskFsMCMoHj2+CQOgVM9mvf0dYIHk gMy [file] pdbzlvkofrdrQjitrs4WCtVW5E1g8NBe5nDkrEAQvO kj0espoSGVN2uxa/4TScHRNafuCxchaXv3ThiIVl0Z/qFu2GKTADbWdxY+nB7uJ+HAcPrSV989z9enEG v01swprL0d63cxCjfWCIhrihh5CopKVIxz3RettGV6Z2mtS0KQsaOi0xyJxqoS6snjWjnk7X/LRPaPOE 7bACCKa6VSnqizZQTVk5YD4EbypAyyskUl0/hMAZZb t9O+UdSi3DzKfJQ5s2yA7xDZw0RxBcb9XOx9v1UOpOWvnXEk+67rn6HGSmKLas9VzbDE6YOPCATG4Ow7 m/gfSVO5dPJLt3gLd2ZSEGwhMji3CO5Rb/eRqvhljxuR1sj3hsxccE7RQi1q1GrlJvlCnF1+yTP8WrGy h+xf6B/VwbJevJBDJuovUOs5mCKZuEU6xRTth2lWUe vMwIgDOZsjd3zY0QEddtsEkKXKTJxQOzskP8QYl1deLlYPAm93kKabxAcV1pIfK7nrRVrCxlLJ6Pg9ng jM8rqGvkj3UnykkqzO3CSfZ8h84FGgoIz2aaPsu+cLjSGOKZlRUnPFr+V/xxk1X+ZE32cDrrW49Haor/ 4X6Mgft9FPnsWfElU1pg0Kd9x0mjE+Txj+JNcpcnV1 qSnTqKd1Eqkja7Re+3t9Cs7bjpucC95n7F35oVgPPOVQFTZyJlnUaPF3S0+JmaP5UnooHsLW7CNLgVGn s6ST+Q8xBmc7Gb32GbKSvFNIGHkCw9PcLKH/XNRbYILRJyOditcFOlM312haoiNpbw06eXsTMh+rIV3A bLdtDJE41a4KmM0x7vrBLt/cwaBLcvqBEVepF5WHst 1kAAXn/GEEjkmgVjtCfj3ujzT7CrdtEk7qTvJmuNR55Uur5tbNueHS6rikMsuQKSqq02Qn4ZnG9fmCCY cVKqDAGzesOJqFrn44SPyq5mkg+Re0oYGMtQX785Ulg3Ucxl+wildlife biology technician/BCXjl9jtZpNbw/rIgnYmWuOMVrQ5 [file] 8+3HhfbW4S4y0U6kf+Y+H+/MuXPO+DLe3tM0Kp qtIqzH94BGmYt8GAS/6vetvrc+izF0h7OWhyNsRkaOKhWJAoe0qAjYW0X0pKJkXIzw0Nklng7surAS2F 2DQM8f48vRJRWDCw8s36d629+Z20Qk+YmZHDklL9dMm9hcK4PcrhqziMUYuvs7u1ZQw7WMfShCVHJ63m 2QIzhLpkzEGmZbfy0TaUmBNmU76SQtnTddhaxTOSYg X6M91Hx6Fa9i16PHyC2X6IcNZy1Srquz4VVVAkg/yyfKDN9lXkB8DQQJ4avmN/h6Dt0PASqNxmt2rXGw GghPDG7O74Vz/lo9Eo5NZ+wTmmNR9e7hgVhqB/QjNT3T2S6ehI2MrHx1g2nfvtpLN0ExhFOXEQCRwcRt T68BMrsZRiLbhaCk2kbeDFY4QccYkGZIm1DxSLDl4l hnP/alVl8ajZAt3vluEfiHrxbQv5BsXGzL85EW0Dd+fM6RJqfkryaXxXijcrqiAJQJqhmuF7My/VS4T3 Angela+KeFtz+kxUjaISSyde7aw4rKs2xMtKRAt8xVYq1oNSQICTBjaWkdLlRDoxC5B/jXsH8qq5yaTKkS7 [file] vpk teacher/XpnPyej7QmeyZOZaMsl6pWWXnvSl6dTM0XSwW/14emgZIJ6d7+KISMIQs3X2iP/mvr3ay/CEP3cwh [file] [facility]/jtHlIJySMwlchOcyQ/jdG+SUZPdDWv1/8Fmvdhp2vtHW7PXcOUw5zki4HDv9jdFifZYWRZrcdmha [file] 7EMRFSWGcRTBVDQTtDNXCZNRaEOQLPZVDZPAHRJD5F YCYCVeyINBWUfVZXPNMWxx3QZECQqk0SEJRKf2WZLMNHf6ICAAgcjzOcaXIfDS3YQbOdBZ6fop6VYsX2 GAT3eUWmFg5HGSxdRlidNKvqZXJNSc== ID Date Data Source [id number] 09/15/2020 01:25:43 PM EDT Health system Name Value Range Interpretation Code Description Data Albina rce(s) Supporting Document(s) Progress Note [facility] HDIAQl5jGpOVLoAt84/LPTcjJGMur5KfRKotJQc2BZsfOULiQ3KfTQA4bB7eSWC4STzLLuCmTqMoIfTg lbm [file] RSo8tvhCwX/5lYFJPw91elfM6RxrHADcCEfo2j+Mary Kate 5IxOJJ0PBQhdqSzknEuT1yy2l8j/KSYf5LswUppHrG7eiOIl2GlapKOH0zOWlpKxvNWnZ/IJQYyGcJQl jQukFu9QLNcWO9bEmmTB9bt7MgsWFjLVF/D8vJRXMotskRdBYRShC/g9+F7bPKyp2aejxpwdxUQhEwO9 FCcvPm1xhRtQiOwmRvnbxHtYdAmtoGlGgq5CUh0IFc siBhhp+9lZVL/RH5L6eMB5D0MZBOIELARqMFYvhi9VUcfDM+vzEhuaikOCQWoUg/vwm/lf1+2m6RjZzs 3A4ALAFH9kcmqwGmlfkJLEOxuHlakOC21kavPsmcVwmD0fC3fiKom/PCfcjD0xaquzIT/YnnxnRoXxXb gG2EbjNbxnHmd6WK5Np68NAp9ImpQTmjuhPQQBUDHB mn+MUVhGOs3W8dK5oI3OUhUGQxPWPWuLndCoDOrHxxGngQfsh0yNzVPliyrbZ1sJMOwx18ICNYHebUio qs4L3U03BQ67vPUXoejl13s8vk5FyEkU/yd+3Q/eGgNDwIqmZJdFudNCb9EjpJcFS/Pfz14W59HTsPJ4 mqSBMj12Jx2WiPVzxBhNMdx+x2Y+IXdUxQN2XSdYNE nrxV/HDiDhTNeCbRpK0gxZC3n6Nt/hPRU+34olGBohHji/3VatKM2UbFNpuvz1ywy1XhgiE2hHlkfPuv WVOx9j+HiAdrQY5Q6mTrY7qBMXxt9aFIawVfSkqUzh9eksSAnDu/G0HQtJNFZTG3nZHrqJgXtu5r0/Cristina [file] WOLKV9KUDu== ID Date Data Source [id number] 08/17/2020 08:45:00 AM EDT [facility] Name Value Range Interpretation Code Description Data Albina rce(s) Supporting Document(s) Follow Up [facility] AHMZVn8jScKSOgScXHXoYnlEIOjmOInxLUJdU6B6OLsvCz9NBEzabzXuMUFxNf9+ZQMoLV0zfr5kMMSy gMy [file] BWl1Ql0gU6zQJrh1+6OmGngxIK2yjCftmxz7Ppq+vpk teacher [file] outboard motors experimental mechanic/8ozXUWfqQY9dufqMY5oqRgLY4XDkoIyfS+Dp4DQa4j59SggJX+lGJwcZnjnhWPQaRq0LfCSC6VT9 [file] qZFsr+X8n0ImFKzNc++2KO3hK4Ee5KNXYAgWXHyjNtkwQoUC6ec2BwEG8jvzMRiWIjr9aNzS5YFiv+vpk teacher [file] TrzUqPGYT9eUuLpJ5Wy3b2q75uwZQb1mxRMi9i0/6YHg1zTHyxHhxyPve/J7PZnHVKLrDK3N1c3oe+jose g [file] 4sLSijDXKh/SS2cwyPjjGzG+M21EE6ZIMB7FsFF [file] vVZciiydVUfwA+21jB88EyfgvAZxy8xj+heating equipment repairer+j+YrEVadYfJGwTp/7CxTLslJeiB14H9NKGM0OP6Ddl3 [file] 6L5vuGOym/wRNBIXFQW0oj8E3HG5Z7qkb4GTqC+ixob/qmDWeeArxNmb6zu4O2jBXMfC9N381Q65y+CHECKER STOCKER [file] medical dosimetrist/z48a9xeo2aSqypKwN2Yt/5RQx/iWGgYVdLf7XbnG5hPuwpGQuAFsnkLchIq3V/omTPjtnrW9E8ik [file] LHWmGb/jGIbv1R7dUjbw2dYd257vhkj+J0G/Xn+pneumatic tool repairer [file] /1nGhgQn0yBXL7rlXb+microsoft crm developer+871jRa7BXNqciYE0CLA [file] qzbS2G9yZ+f2RYkeTzSfi0d8aNusN9HRymP6YvOlAvaKvCKm14Uf8/l7XqoEJlYi4vZh3z18b8cyo/PANTOGRAPH OPERATOR [file] Rj9u5YO17pPPfs5TjeQ0H+4n2jQASCEnnv5V3AbkuffbEs6w02s/uwS1dyPKVMsTrfjS+3+Pig Handler+LN7YhZ [file] zycBs5FVU8ZKBQ8s3Qrke88vh4yYKfslJjbzmn+WOOD AND HARDWARE OUTFITTER [file] triage technician/lAFLrGySIAVaz81v6hOTZW5PstM0nNaNM8XyAQ0cMOriZicOGHZmb/YRga7SQTlbWgzGGOm/Tlxj [file] bread wrapper/2BzseiFsQZQM+YTm86RbioDs/bRPYLIY6+z67LG9sEgfRlk44iuwAsjb/QuxG+YmeMAjkHjyvvZ6 4vPEyJEbSJP2ZN49z8ZPtwhALKXB5Llp87L0yci1vbd8vqk16yV2hvsHo8gcsAEgOiDHZ/6plhtE4qWE SBuJTqC1K50IFSHNuYrT4vIOYBSVaKJM0906HYp+wN 6neum3KhwwMexuzpBZP35/CqR14A80qmL2iJ8QLE4ulsaPXWypfCyk5tfV59kwZx9rPfOYWqcjKdRhQn j7H6Ot/83BFMEZSnCrMDMmEtszevRRiiAcqYi6gq87ixQKFzLDCFOhx/Xvf1w7cqqMZt/HBPR4EjjRh3 Q3tHltYXDPTC2kIm4VqtCcTVwxRgxUmybzX2r9+2bk qyT5Q070bT3ZaKkQygbuVJjtQlC3WuLjoRUtVuC5ee3rmgtaq13FfGiVkQWfAa+pKmExCm0YZni1WAqn oyRGxI5y6kITS6A1tlKuMqjVLEZbvW/RPJVbdHq5VONKh9FF8liiYv6R9OBSivJ0j14W1gUBWo8f9rHQ 2/cxJUNviSebXuV70qRiHEtK2Ik2kCx0knbQ/bh1eG tqsc0MlAgu2RLfXlZRhK6qLBujx1jJK5Hy8699SbGfUqTgOTu8n2EfLplr7T2v3bw4oayaO3kq22xGez F8m+OmW9UI+FGz98GkTef5uNDV4K3MznHFosgvhruoTMO6Ybo4AP2gaip/zrlHF9/iUZpoHCRp7pgPfG 9HEFbtLNN2d/+QE3Cf5fKjXuOuwjZSSWM/YJ55bCnj slSmVysPFIhR9F7DUAdyePcgpmHRCYHJu0wJeycHhX6T1MZDktOB9b/jl/tlZXuo/IbilQdLaY0DSJGr OvX6rh+yyCpbYxyxb4L+oWNykDMr3w16kgNJR0u9dqMHu6vUgs06VWAmTc2dTSxTxfgisOFjzTAIpJEH 62HJYWFLMSldfWvvpqGVXM+EAM8YeBIGVnGRLStPst /dz0WbMngwiIGFpZgYnC6hZ7JkfobXohgyLaw+lNLHxERBM//zPLL/kMxfSV/VHLyJsFIhucSLK MD8PAMkhimO/CNTA3J+lFGf/oZIOXpWA6sogVIxRPzf+9OyIe0EtQgHupCowqKpHcjZhIXv8D89Z/d5O CXAUx7QH7Nzdh+KMUYJMhP/6WbmAr53/LYkF/7QcUw h/+RoigxYJVB3aCupslk23YqiVYhIOoe4EPTa5sHOuWLN2EOz60rZRAB7CIXwhp2N3yd60nXmdLxNvEq XgPjmiar+iiGa4yAaeGp7N81PAom+xec1hbRqwvg/y0wtXftJvmjDXaBgUsZ71HL3Y5Vzc8e2FZN+HD2 MjsUAPrTlVznbUKLXZNCpktvaxTbYwow/+iX/xcK/Q [file] exnHjYDV5mIIoV9Ka8vMFpzCZuSae+Mary Anne/n8vY5KlwjsmMrOlUH/at4WNji2IltfejPUtqNykVoa0b7z [file] AMATO/93TmSPhrj7e69/jljJhJMKy+ESJzyRE4FYaH1TK1h3/ZIt15mnG6pHk1xPsDijERya4Z60OiUZ1ip yMu8R+UTWwobpr+F+WeaIspTIy75H7tHTsVgQx7PoP 7zGxb3WwEBus7yqmrIlYi1uqmqZSMsBkg97cjywX6YiLHJPZO5g7vBBmqt0siGVBKuSiAkx+AjEhxlHG vCsZFYCsRaTRS7ruM9bznN0J8SiF2GGQZI12zmwVTIifZ61ToUYuNnWtMllx73uwaLNFO4VuiJQct+mV 474rQ8j6IUwDteo4sGzhv1uC6/wVSSr7bRUuIXfL8e 3dCY97PSTrLGbxnQ3Odz/c/lfhuFblmHXEMgdCOo6o6Wnv4PNh6CqVATYvuAu5Ws2Tp7+LpWoQdE0+sp 38ud8Og/7EesNptT/X9gTzDBNH/52lZh9VIxnSeKw0ie95W7XkNssqVmIxA3uiHGUTSexajcW86vGbZI NomFHRIoArCwHT566bb/v2F4YlEmgUgIBI5sd7f0by hQIQw0Xsnzlq0mFCaMjA9XRN9377xEeFrApy9KM7jX2KopTp3Kr/Z5zmMn5dmNOm3nef+SSLU6UhdzlF nzYIFQ404U4WRzIkhSg+5cXTkh2gOqIP7Bw0muYSfCnuNzjHm8W2iGU4G2MVA/VYrkHT9o2WubAA7KHi 3PIL+HZxDQiL+0Y0v7iic6AvUWxWyqJFykY/qvjErh Jyc1QDolX80IX4z/rrntAPQeG/I+hRirte9Y7qa/XSV+hKg1tYatltqCmOD8xH8S0jprt243kQ3fw0I3 VTZRixi5u/XEUdx+chEVE7ZISkwzq6gLievTh81bauTihlR3L4UqPqpjNaMQaa0zQ489x0k444OaXx6T 1aAG48y9M5NHdXWD9CI167so5TsaLgaAH4urYD+As4 iWonBqEAj2m1FmF+T4xId+5sne9Jmnmeyefk5r4G4rr4KC10djrtU7B5s7F9GfLLKSt2wfow+ydg26W/ N/xEWtsK5BEmanDPzgFzslCwjyR/zwLKMpjbQ9gukNREuJKQ/client advisor/nOqZaAvImn4tR7LszAwQmD9weFQP [file] O9lz7jJtujHMQK/P/l35CsSjolxGuaWva50LLqqqPz/ZzZQZreec16e6zMwSkW6tasrFaKV49pRb+station installation supervisor [file] h/aBdIq5yL9wUyJsc/owgjJq3ICsaxVm2LC6lEEIDpAyQKhLsvdjya6b1vngZx/q9wFrcljubD6SQ/Jose G [file] P554HAr7TXEh3t+zCH4cfzF8TNogsS74KaHSpb+investigative agent [file] xjUs8FO8TJlNv+jose g/n0Qoel4zc4VKIgSqIXIvqa5VB [file] 04U30KtrEEGBdaKP91DHoIC4vHgdJ7oPM27RHd5HsvkHh+v7ONfP8vf6YJOCKL+Q2S9i66lFN+74G+vpk teacher [file] vpk teacher/72m7zad5pHt7so54G0+OCa9/DDrlCHLx+iWyZY/cJxYNdQXyyrZL34JL+5SZ5lXGwM/KiebGy8E2o [file] ocprmsVg1+N1vZCB+3e42/jooUQE4t0HBYuut96T/manufacturing technology professor/fplah/S55enW8it2zsl66kL6KQUSm4fgCA6 [file] vpk teacher/Ru2B3SdPgXGXSNEdXu2D/T2lwat1Sqxt1UtZIy3HIScJ7RqeE2qVEx0z/1stdADniG7aikyIdTAIB [file] gu5kFisdzqzBeYdlLGS/regional extension service specialist+QiWkd5Ds/wiWkcsSwaJ+adCOJAU/jgS6iV3wh8rjo+0hadEg9CBdDHC9 [file] 7h6DnEB1jpay+SGLc1+W+BUd3LGKt/hUWs+3B+Sofía/iNpZkfkCJHD1HRtUCksc6E8jeyIVXmgva2B8po [file] CHECKER STOCKER/u5RWY9dZfxuGtvsyAthakfY7ZO/PAIIuJxntVTa/oQi5ZbW4rMe6fjdmEZyODVhYP6TAPzO7rQWqM UlnE6cDFJF1qHSfZ1rEHM07CsYGbRn0YA4m7kUAsTa Vaishnavi/Iz8ogQFUqPAYlGxknR98ituaV8WcGqevIARFk1mx+62lL5xk19Hd8HAH873NMaeJCeSNBt1RwtKC [file] edfn6gY/vpk teacher/YuMHsQkbtrbBc/L2DgF2COZpVzmeXBa [file] wildlife biology technician+/9XxvbtZkMgGOv1S2AcNB2zgzBy7VBR5TC8mT/JiAQprn5kqYOcUv8Ez64nkSneCAhHb3IVIE8Acy [file] s96KdwZFSNW1X/YvaBp+2tQxX+pjVNJaU1FhqhJ7KS9lR0zvlIrc5Rj9j4s+Jatinder/V9/EIN4BSc6IhDi/ CZQLfDPP38eRGLrWViLmw8IegcmFHAhAe0zb0w9Cajh65GMFa6yCjdaXo0Bnw4liI82LqulmbhR53OAC Roq3JWHIwM8bjKNYLN+OCMO1GdlU0qGUP0WPeboEdm uU0NSZDrHTfPd/sYD8eguR+2meN34VogYAnVYFFbM3zJtUT7ya/3hV5Zx/giKQ6tDYzHaTpW0mmZvsaW FyWS69Bv4XKyE8bQe3E+42A4+TueBu4+Rolando/TidW/Zh1DzgFWbeTXdjwfKYDyMkgTE/uSBgh6AH7jj2Z FFTlVrMfph3jzaLCXumysHsjRAheuSoiKQP+c6HprS SuahXAUEUPq7GwyD1yw454JEk+U7yEZ2myrY972stU7pQv5r0VpGcYnFxYG7d7od+n7/fe/+lyeaaVLN 3lkXvH7t/7OEihtYNa1ErUQM50F702hRGOS1wRyVNB3TYe5uGKiJM8njFN5zIGPLjMUZEDnraEe8cRxu t/c905gNfN2bx866D8nU/+hmo7FDBDMbCSnLVrn4xz 66jOk9bG2US686kwLjWdFPkoF88YuY0xCuC0s7ppdsomNAybPOmmmkZFD6khNG/+81elhFq8GUQIFvUa Wo8AMBQcLpM/69b9kPg0QgQhTiA8fi6Nuw8qG5gY/lwepSujM+o6Iuc3c7DEsAsEkgOc383ulophc75W czHUNzmnzMoM/aph5f47gberJHRporUY/1CnmHC0fV /upr4IwqPaf1jx08T/telemarketing sales representative+mV2qq2gYNv7KtSKJOk8rMGhUTm4Z8rDE7dFQAqmemO5GeSeD/hPelL/Qbv f+n8orCc1PyTJXo1kaZoY9rdvjpgl+iexdlMQvrEEPjDaLYmWkJBh4nwzcuLC8Lw/yTbWco3RwkwdeSb cbBuNXtZMWmEc00A0RIqY4UCWH7Gg0O/g/97TAhlLA RL7B68Bd6yMlpvVlNDlMLJnNwTV7DO/5zbWd4YAi0akk4/tyBfdS4RFlLBw+pjS5KwJLsqcajk49zJ7W /vBGovlaFaqU1CGtN9BA3vol4IdP+IxFM81coZoTy5exWxy/yaemijVau5dtkpxjhQnT58KyJDiSnT7/ uE4prxrLRiYn5Q+bdTcpsHhl+9RziXbrN0kqa50PKI PzuLsaa+GDgee9rti/01gL9RxYSqNwsr+DSUq/Sn5QUAK8pFt+yN28WYcEL4F5VqbU7UvVAa4mKDtQmc oI8NiLyVd67K2CQfktz0+k+SrhIs/m5ydI7TUYUUnKoGkn6RKJhVgdjmOqaLGAylhQaiK/GpOJ2cIAvp YI2D9DcJYul2FNaQCPM5mmVUdiGcwfNnvd1IsWSEcB 1nZQxJMSndQ99drwjrS3QiXbq9N+JPzN2G6dFAFc94OY9n1SxuMjeLj5RQEE5waqkMtGoRdhntza78AC dnPnh1Wj2Kk2AzrJsaccMrrIThhM+t7hDfsPh+QxJ37spqKEfCy1O1U/LXP9oU8SPJlyK5pxUjaaDx22 OWpjlnb9BbsqgXtjwgF7cPaX4cSCnWv4qDsplux5dN [file] r5UihFozYyi2ArzxmhXnVYOrrj3G13CT9Ym08mWb/rBuuc9PJvhwSSwO+XKsuCeFpbMp0bJ0BqLp+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 [file] h0NaDCkMkg594sukWevYiY+JOSE G/OpvL+pO/OVMWG//YVPm53v7Fz/4u/1OS9luGqgxyayILVzPW6/4Df8 s8TPXZAe98mPqzJmQ7YzLanCtDZI5+bNGS6Z8D/1v8YRX5lfV93MLnhVDsP5VJjS4vtBCC8mHoqatT4W wL9RriyUsw4gLQaOkII2zhaMVFxxJnA1nPCBjUFht1 Jy2f/jFPzOi1/H7wpXvy2A/emqeZxEhlf9ARTqiXveYjE+shEzHJ8qo7VwnVNbjna29B/How8emivJvt E4/Qi48NXzLQWStLQngg5IUNQyL1vOVdc8f7d/eAKyvQahvruktoN5aBFTCIAFv/H03ZorQRyILH5jed GbHX7d8od+Dx0FVBu4xhX/rEvImjrXzgPsvcMSDj7x 4Xo5KpwNcn2zyfMYZ2dpZnR/fCaojHX283I+Q/8nT27GqfUJIFWD4rVMgjTjriy94FhSnC6AiY5zquue 0aiEyXqblQNohu70IiGEgqGeRmXUfsZzlu7UWpCtjxJwS2Xterw5zmK5HAgbNZ20/WTfXIBK/z9ic2FP zLvz0TbvwvX73EJ2Q0RKk25O5epydwVSd4weJdfA0w AOxfDuV3QStFlvRaouAflCPEHZ8kN/p8hR+SanEFyGuJvaqNoUw9GSKwu1zyzHKnOlF5f7ioF7Fug7bi o543DgXP5vhgnVkp5mbOGICjmZgRDXLr0THkRiQ0cXqVxcVOXWkJeMLOADR06zWt8JegDlh6V+hlVX/R KOfvFuzZ+LJAQVZDISjg9P8KzdiX4P21pAVOfX/BeU EQ9fF/1nKVlOiNPAczRVCpbHpZUMzwsq/bI4tRnKd+A+/hBo0atNB6tblKTtI3H6aq0wChHvISjfE+Wr bAEjgUxZRLXp6Jd/fX5XnOwEJVen3dTDv1tXCtEkfW/Estrada+LS5jM9UGvNF6AyxPc8cyaF87636LJ1bKyr kXnWd1xxYig+kIhEB76ngqCBupguNUetpgB7PTvqeD 1x2wxpXioC3OIoSiztHXR9ozq5IK/IfcWRq7wQJ1qZR5OAf1UL9ZpD+u819e/CZIXfDC8mj4duaNb5DX fCV6cmBYYZLA7nClJ10ZW4w/uAR9upG5WF76nVmBziZjh+7fNYOpDOFP/5bT4B8IidUeTNmr8Cebkmnl vbWpB+o5JrrUPNgKg+DeRl/8IxC3KhWkNXnvTexWkW z5fxG+rBKtmNnzzdLELKc0GiIkhRqqMsqM1DP//B7XX4nXj3WcnCwZFHYZZ+yjf6cxQ/91dHCDkhH9a9 NsSgcyqaPhHgAjWAqW5jgPKc8fLiHdRvAyr4kAUazB+vufsVWO/UCCtvI3xnhKKjutmGckReoCwQcg28 T5nJ5wDbkaQVR2pHgbsoyd0xXI197BOH54Sa8t7+Becky [file] M7CJpPa2+7VKLoh3akEWDHPHiZ+S3fbo7y/cuQQx48IUjFscr5FwqxNhBhLCNBalXnAFEXCvQxZz/regional extension service specialist [file] Ml8yV0spwP4gIrMALyfODsL7f5Bz3+OwUCD15zwtDMkgQ2YIknPsCYAZ+8T102Ktog+iS3KnFwGk/senior sql server dba [file] jxARZYgVS2yyNevReCH2D5CjC3vxNcKC6w7f8Oya/gZtYUPpUU6Vnad0drzVnnBNdRiG5gJN8Gwpr/jewel blocker and sawyer [file] I22HJ4FnUCihev0xfkrtmigjnLCnObj6W2Ulkiy1l+ 8FatH+AGoZkQuwcri1wjA262ZOiODoT2zl3lfnil8lx141m0r0tKJIuM5HAV75xUEOI3BItDamPBun/I wGup/FTgE+wK/5r/Ch90Ov0yhr2lVWzzuSW2YbWVu1FCy523l2wnYJOLPlwre8O/bJTXITh1SxC4wiL+ i23VrNB9m5uWJRtmQEk5nboo2D67J6VeeToDTpmlzS OEvFlqRec84QPW1edATtcBUUrZgOXRxnvK3ATinIc9Czy9pEEq3rgq8ZdNXEvT/tsYjVkhUj094klvJw 75wjYy7xlfpPTkRGE9R7qscQgs/MXEV9lhT5FIMP6+o74QICKEP9dwLcNBG/v0+d+D0Yh2dz1ddKLu6F anqO1cSvomYY8YBFfwKfW6TETrSJhGaFok6nLgN/It xKxUcu1MUbp4dry8RBE2zQfV9mklISVYruKLA8sRs8kMiVScUWNO2oQZW2DjIl9ovT4xEvnVurDi7ZJB 1hNAo8ppPDUbkvMbtIX0tGTZRAgVxLcdBhfdNK8V51LMy//c2C4DiFkg+TQByQpAOF2a15RaVP3x3+VY i4b9zHWlpIG2oiFqvlQx/IzmoDzzdrAzVeNrVwZZsk 8zbI9BYa9Ytn/fX00okQKRPLlZx+he36wMDb+ExFpYH64sM721tp57CEKwKw5qdROWr8kTOX+MfaZ/On D6jK9m/nKReSylSI7EvE5jdTjb1kse9ZEFxOH8qwe3T+fQ+ul0UdFQPjG41PZ0S+J5zXUnieLVSzCrjN h08S5z8vhq6s9RyVx44eQQwS3suQySNsJTw1E+ [file] bi8t//WkZJuIE7D2IT8h1Ky2tqisidckzH/79/client advisor/5 [file] iYGoeM8pxyiPaq1CcY+6r9F2D/KxVU2ERB8841431D+ZXJ7HfcY/misdraw hand+oEb616nNOT+kMsQL0cjQxwwv [file] OtlVEPYUIYDYTAJAUqDeONJOItO4GvWXDs0nXi4snF HkGMHfDi7QseJfQOHfJLLDP5ExiyFmSbZhFUigBNUiYOGqWq3MDXfmHBGwUK3+FgT4bkFwlR8RuPuuRN ClPISjRUXtDHVZAM8VbCdyLJXOOnWviDQWQt+AjWjKVXI9EB8EjfWLygELCiARSaG73hEBNxVZqmgASS GGEZmjGlxRUXBGeiKNfHSWgPr1zfw5PCEHOGOwFFsl wgNmgPIrSG6TOpIpPH5gkx4PCfF[id number]= ID Date Data Source [id number] 07/28/2020 02:06:43 PM EDT [facility] Name Value Range Interpretation Code Description Data Albina rce(s) Supporting Document(s) Progress Note [facility] WNJKMw5yIvSNKlNt57/HOIvsKGTay1LdWWmdFSn7MTidVJFzC6HgPFC1bO1jCWH6JHdYSaXjBmDnEVDy lbm MqUymKJgHoJHJoMmdLXdChXKpcEeiflVJwCS7NvWU8PTLlJ91dANZgVDHkE8BdLGJ1JxK+Vk2TRLJyuL PrMZ6TDevN8S8of9o9Sh9+qM2LGon5eEu7yLTwISvgrS5lAEpaKDD3g4cOsOBsLehmukFeb25e319mKJ boDuKZGTT7zH2ANkbZUOsfV3TaZAuD1f/+v7IB48Yy Uo9WtI0vf32t8F9/Om9h9oFU2f+zRLtPysKxiC9sngB16PX/g0kyB4eX5pkmpcm5EHVh2GaYOrbggrIA WzucsXPvR9kTGvq8zNjDOwSq3BGv2CILztH5qwgxO5bnf6+efMt53wcfnOZdNtXqUImqNSa9R41Pj01Z 9sLWaCy/Qjma46738D5M8D6AL29MX1z60qHJVF6wNY [file] WEPqLND3NFj9UKG6ALs9OMF5KGXeOmFrHB3CTo9ZBgP9BLL9mSDpGg2TNhOaCnDSTpLzCF8COOz= ID Date Data Source [id number] 07/28/2020 03:55:49 PM EDT [facility] Name Value Range Interpretation Code Description Data Albina rce(s) Supporting Document(s) Leukocytes [#/volume] in Blood by Automated count 9.1 10*3/uL 4-10 [facility] Erythrocytes [#/volume] in Blood by Automated count 4.60 10*6/uL 4.1- 5.3 [facility] Hemoglobin [Mass/volume] in Blood 12.1 g/dL 11.5-15.5 [facility] Hematocrit [Volume Fraction] of Blood by Automated count 38.7 % 3 6-45 [facility] Erythrocyte mean corpuscular volume [Entitic volume] by Auto mated count 84.2 fL 80-96 [facility] Erythrocyte mean corpuscular hemoglobin [Entitic mass] by Automated count 26.4 pg 27-33 L [facility] Erythrocyte mean corpuscular hemoglobin concentration [Mass/volume] by Automated count 31.3 g/dL 32.0-36.0 [facility] width [Ratio] by Automated count 13.5 % 11.5-14.5 [facility] Platelets [#/volume] in Blood by Automated count 302 10*3/uL 150-400 [facility] Differential cell count method - Blood [facility] Neutrophils/100 leukocytes in Blood by Automated count 67 % [facility] Lymphocytes/100 leukocytes in Blood by Automated count 24 % [facility] Monocytes/100 leukocytes in Blood by Automated count 7 % [facility] Eosinophils/100 leukocytes in Blood by Automated count 1 % [facility] Basophils/100 leukocytes in Blood by Automated count 1 % [facility] Neutrophils [#/volume] in Blood by Automated count 6.07 10*3/uL 1.8-7 .0 [facility] Lymphocytes [#/volume] in Blood by Automated count 2.19 10*3/uL 1.2-4 .0 [facility] Monocytes [#/volume] in Blood by Automated count 0.60 10*3/uL 0-0.8 [facility] Eosinophils [#/volume] in Blood by Automated count 0.12 10*3/uL 0-0.5 [facility] Basophils [#/volume] in Blood by Automated count 0.10 10*3/uL 0-0.2 [facility] Nucleated erythrocytes/100 leukocytes [Ratio] in Blood by Automated count 0 /100{WBCs} 0-0 [facility] ID Date Data Source [id number] 07/28/2020 04:14:08 PM EDT Health system Name Value Range Interpretation Code Description Data Albina rce(s) Supporting Document(s) IgG [Mass/volume] in Serum or Plasma 988 mg/dL 700-1600 [facility] IgA [Mass/volume] in Serum or Plasma 134 mg/dL 70-400 [facility] IgM [Mass/volume] in Serum or Plasma 51 mg/dL 30-230 [facility] ID Date Data Source [id number] 07/29/2020 11:14:16 AM [facility] Name Value Range Interpretation Code Description Data Albina rce(s) Supporting Document(s) Lymphocytes [#/volume] in Blood by Flow cytometry (FC) 2598 cell s/uL 7396-5136 [facility] CD19 cells/100 cells in Blood 0 % 6-23 [facility] CD19 cells [#/volume] in Blood 0 {cells}/uL 91-610 [facility] CD3 cells/100 cells in Blood 91 % 62-87 [facility] CD3 cells [#/volume] in Blood 2365 {cells}/uL 570-2400 [facility] CD3+CD4+ (T4 helper) cells/100 cells in Blood 52 % 32-64 [facility] CD3+CD4+ (T4 helper) cells [#/volume] in Blood 1307 {cells}/uL 430-18 00 [facility] CD3+CD8+ (T8 suppressor cells) cells/100 cells in Blood 35 % 15 -46 [facility] CD3+CD8+ (T8 suppressor cells) cells [#/volume] in Blood 886 {cells}/uL 210-1200 [facility] CD16+CD56+ cells/100 cells in Blood 8 % 4-26 [facility] CD16+CD56+ cells [#/volume] in Blood 206 {cells}/uL 78-470 [facility] CD3+CD4+ (T4 helper) cells/CD3+CD8+ (T8 suppressor cells) cells [# Ratio] in Blood 1.5 0.8-3.9 [facility] 02 [facility] Reference range established on 09/04/14.R eference ranges for adults and children 5 years - 54 years old per [employer].Reference ranges for adults >55 years of age per [facility].Pediatric reference ranges for children less than 5 years of age per [facility], Jesse Hernandez MD. ID Date Data Source [id number] 07/28/2020 04:54:08 PM EDT Health system Name Value Range Interpretation Code Description Data Albina rce(s) Supporting Document(s) Calcidiol [Mass/volume] in Serum or Plasma 62 ng/mL >30 [facility] ID Date Data Source [id number] 04/23/2020 09:57:23 AM EST Health system Name Value Range Interpretation Code Description Data Albina rce(s) Supporting Document(s) Progress Note [facility] PXGGUm4zLyPVIbRn28/HOGecMETqb5ZgPYqiSPt9LQigKWBgA9CfUIV1qX2cKQP0WEuACdDiDjCzKdU6 lbm [file] VlMjhLh+t8y23LR/o2X8Z35cZOO9tCZfKwH2dqimn/OkyTYTp7+zGxEdkhleiRHXOJ8qBI928mvV+dottie 2HtlsI1t+jyiHCQs18da0P8SaSEtJhwZzt54CGSQpx oq0Nz3LBXr7hBv4Zzskfalv/jWoQ3e9Tg/knamcaeVfi1GkWc3YwqfQi3q0fT+SIHqDQwL1qTYwUosz1 CW5rLtPyia30dhctn5gS97fv6Fyz76Lfu3RYEBw0U9eoHgS4Tk1DJQOkHNo2efvkDBew4hEML7vW21nA 23LzpjDoFNnUmsJ3aGGmanCB04Xq0N1hTXazSxZqmH IU6Qy63vZkvAilev8MRkuRiUJhMFt7VysIzSWJJgkiy5Xh1sMXNsbkcN6jRQGx5xJ9JrHW3ukh9Jgr05 zOLpwOFhpvhbfN7FWXPTEQ5MIc6yrdRbWNSJ5FGoNam4w+nASsKqEa7FQfg2jBeQZOfJYf6Nkw1vM0ev 2NbicghiNygBbaZLluCYdWU4Ycj5Oe4pDOVCH1dglu TAx2hCuh/H1DcdnILEacSN/0Fur7KpVMjgzDAyGKFmcjPEdJhaqASH2bLXGphwgeuag17ciAe7WotolA xMwtk+zM6kJYv6mhLTBjwVXoSJgTWRKKIZagoFtN/RqLKPUvv7ZenYsMTFCoMrlrmvzW8XQjxnjKIpvJ Mwwm3TWs+pHmPKWZAz4vgLQ8F4KY8pW1I2p8wcz0et Media Sales Executive/Adx6v3/FsE1V1Cf/Lvylu7WY9t17aXg4Zftr8D1xFY3ZWUBiYHkl5Da1RCbOS5NvEKlaBcVCZg6g [file] AgICAgICAgICAgICAgICAgICAgICAgICAgICAgICAgICAgICAgICAgICAgICAgICAgICAgICAgICAgIC AgICAgICAgICAgICAgICAgICAgICAgICANCiAgICAg ICAgICAgICAgICAgICAgICAgICAgICAgICAgICAgICAgICAgICAgICAgICAgICAgICAgICAgICAgICAg ICAgICAgICAgICAgICAgICAgICAgICAgICAgICAgICAgICANCiAgICAgICAgICAgICAgICAgICAgICAg ICAgICAgICAgICAgICAgICAgICAgICAgICAgICAgIC AgICAgICAgICAgICAgICAgICAgICAgICAgICAgICAgICAgICAgICAgICAgICANCiAgICAgICAgICAgIC AgICAgICAgICAgICAgICAgICAgICAgICAgICAgICAgICAgICAgICAgICAgICAgICAgICAgICAgICAgIC AgICAgICAgICAgICAgICAgICAgICAgICAgICANCiAg ICAgICAgICAgICAgICAgICAgICAgICAgICAgICAgICAgICAgICAgICAgICAgICAgICAgICAgICAgICAg ICAgICAgICAgICAgICAgICAgICAgICAgICAgICAgICAgICAgICANCiAgICAgICAgICAgICAgICAgICAg ICAgICAgICAgICAgICAgICAgICAgICAgICAgICAgIC AgICAgICAgICAgICAgICAgICAgICAgICAgICAgICAgICAgICAgICAgICAgICAgICANCiAgICAgICAgIC AgICAgICAgICAgICAgICAgICAgICAgICAgICAgICAgICAgICAgICAgICAgICAgICAgICAgICAgICAgIC AgICAgICAgICAgICAgICAgICAgICAgICAgICAgICAN CiAgICAgICAgICAgICAgICAgICAgICAgICAgICAgICAgICAgICAgICAgICAgICAgICAgICAgICAgICAg ICAgICAgICAgICAgICAgICAgICAgICAgICAgICAgICAgICAgICAgICANCiAgICAgICAgICAgICAgICAg ICAgICAgICAgICAgICAgICAgICAgICAgICAgICAgIC AgICAgICAgICAgICAgICAgICAgICAgICAgICAgICAgICAgICAgICAgICAgICAgICAgICANCiAgICAgIC AgICAgICAgICAgICAgICAgICAgICAgICAgICAgICAgICAgICAgICAgICAgICAgICAgICAgICAgICAgIC AgICAgICAgICAgICAgICAgICAgICAgICAgICAgICAg ICANCjw/wYFvZ7dqsPDztkB5M1xeKu1FTr6KPJ3iq1OkSYJuBHsqpcXpDrnYOrHjGOTjJpfOEuf9YTxb GX5SvVEqX4DuI0BmMJssZK2RDJCcXZXupQZwXEIpUJLyBiR3HNOmKNutUU4VfCLjSLzoMLHqYDZuYrCm IFIgOSAwIFIgMTEgMCBSIDEzIDAgUiAxNSAwIFIgMT hmEHGERSC2JYPaQfTpZQgyAB2Hk3EygXC2DJs+Cy8XAS2yu7IkEQblAfOnBU6vny4FTQwWOfTtL4Zhsl O5URQ7YEUrCl1KOWSnSCFrkDQxGfUhJRRFKqYoE3RbaZ15ZSXYYn6+NBjtrmSlTmrZDfF9CFGdv4VhRY g0VE9DRMVsJXb8gBKrSTPfU3Zqh2ZeJv54LMIwYsfe SBPcv8RmhDLLSNAaIBNqptUlPX3IYBX1ACAtRI0eLJChOJU9PhKmBCJIQD7ZEWEcBJIzgNOmUSOiAMEW AR5PJVuhOZR7FTQkwqVdkXRpCZguMK7HBJXffnPqJzFnLZYNZFp+Hm6IWP9rf7PiFItyBMZeEU7uir8U HExZFhBcN8O7qHTjZ1Z3NShaBd7QQMSfRWKzOzOzGC IYVQueRV0RZX0olsN5KV9SyADhFDPbCKKqgUQeVKi1N11uiECsZUfpKK2HCRW+Kwesi+Nv2NLTDqYQEjTK EwZpHqMPGZHtZvQ2XpX5MYl6YeC4KkLK86cQvbzdLbCXfiHM7AGN7bORMaSFAGMA8KyPZkhG6kshPsVh UjGDEUBqQzC90pmROfKZDgPFN0TRUjWe2FPXWjE9Hu czCqxCftxiEbVPSzSMANNU7OLZmdqxCjtQOkcBfdTX89eQyoZK9KDo2NQaKpBQ0pwq0KtKQcRo4DJDCe CL8KNPXgBEOpYTOlCIA3HTIsRnDqQXoxAXJwAVZiWGW0LPXaSGFlVH9CUcRkEDDqFDYaXpSlUTEgATAh ij5JSDPgDIQ5Mgg0TACaAUZmTLAoWBtwIESbXTRlNF H2LRDxLTLxKJ9MNuFyHKRoACI7TUGgQXIpPFOead4AJNWmECCaGtq4WYSuUAIbXPEdRCrpLRZzRLO2LM D0EUYuXIVvED1NWmDxNRVdHKvmBbLbYLOoQCLogx8QOAEjYUSdUTZ3QOKrOQTvPCPqUUqvAONcDSJ2XY O3WCZjEQSlGW7AOqAqGLInPORzIABqKAXqKVBzks4U PNDfFGZwLjCgGuEbFPCcDUGkZOlkPBMtVRF4RVY5ESRzKLEzXQ9TTbChHIWhIJS8VDYkSDIvKPFhtl8V YSZnBYClEnm4SmHmSFEcGJJlWGqnLOGsYWQ8AZC5PCSmEKRdNU6WYeNoPBZvFhA2WIErOOEzHRQyuc5T QILvQOOcCWq9IRKmRWMnFHUkKXxwHDDtMNY9YTR8AP PaYXLyVK8KMgWkPZFpIdR7TZVqOTMfFWRgfy7NCXDxPCJhWINvVbNzTHBoDJAsNOmxFGGjIXA3ZPMuQU VhBYIdPC3LKfUzVEHvVgC0AOAfZERlPSVhng0VQGQiKCLgEfu8ZtEnRHUzSMKhWKctGBEhTGC1QCV4AB EbUDQsWI2AHwQiLCKkZjscITHuXCOtFOLgxi8JLUVi VDUnOWp1LoNfYHSoPKMeZQadPKTfPFC0ZCv3CKTaZAXeGL8HSwLdNNYiEptwIHUhJOAnBCNowv8NOBKn DZMaPUY6EzOyQCEiFZLoXAqpFBLmYCL8IjKnLKCyUNErIY7PZcSpTMBsEFH5WJCmVLSkJWHvbg2KFDZr ERW8KPokJSGiZPDoWVWoULrvKQYkYSHzOEHoSRQtHV UwGK8EJuIlYNOvARF0UmwvGTItQJLqma5CAMQmJQU8LmdfQDTfGXFkQKRiJEwfOVDuTEBwEUe1SRHqYT EsAC1RFuWcAUUlSSWnQpBaYFFfEFNegz3HkOLctGhdrf7KMShEAi1MsGaxPID2QYthNn5uwYUcQYLbHM JMJk6FahFzMTChGUIBRSmmFESaGSA6BAN4EpNzIZxm DENiDsy3RVLdYMH4D7LuRLGfTJUeSvY2FXI4BDKcYUCbAEE8IPUnVihnG1S0GpscA9CqL0JqRAK+IF0g DQo+Up2Av4VyotY6rtTiYBl4KiC6PH3AKKYQN1DKUs== ID Date Data Source [id number] 04/19/2020 01:56:57 PM [facility] Name Value Range Interpretation Code Description Data Albina rce(s) Supporting Document(s) Progress Note [facility] KRDFNz1pGsHXFeJh45/MDQwmGAIwd6BlIHrvNDo3QFjgHDPtD9BvWCK5gP3jMYA7VHyJDfPhKzVgAkCk lbm [file] 3I+5Bwq9+f5QfgPX9G/Jose Antonio+txyr1pnMNJaqiw2aoCL [file] UyVBQaJhl0Qqw2UoYrFI9HCn6SSwJ6BMH2dNGvBa9GSdY7UYvPCrRmFK6DQYa= ID Date Data Source [id number] 03/22/2020 08:22:05 AM EST Health system Name Value Range Interpretation Code Description Data Albina rce(s) Supporting Document(s) Progress Note [facility] JRSPNs4fSmEJOnDa69/JTMzsOALht4PgPXutEIh6FPobNQJzQ6HrSPD0dT9lTXG3XIuCDfTcWbNbIKJ8 lbm [file] 9aakm2/eLm6QaDaagvP08UW/JZDa+w6Jfc85jOpOtbX8dUCw6B+5Bwq9+h7GclJK3E/Jose Antonio+jamf1qzEB [file] AgICAgICAgICAgICAgICAgICAgICAgICAgICAgICAgICAgICAgICAgICAgICAgICAgICAgICAgICAgIC AgICAgICAgICAgICANCiAgICAgICAgICAgICAgICAg ICAgICAgICAgICAgICAgICAgICAgICAgICAgICAgICAgICAgICAgICAgICAgICAgICAgICAgICAgICAg ICAgICAgICAgICAgICAgICAgICAgICANCiAgICAgICAgICAgICAgICAgICAgICAgICAgICAgICAgICAg ICAgICAgICAgICAgICAgICAgICAgICAgICAgICAgIC AgICAgICAgICAgICAgICAgICAgICAgICAgICAgICAgICANCiAgICAgICAgICAgICAgICAgICAgICAgIC AgICAgICAgICAgICAgICAgICAgICAgICAgICAgICAgICAgICAgICAgICAgICAgICAgICAgICAgICAgIC AgICAgICAgICAgICAgICANCiAgICAgICAgICAgICAg ICAgICAgICAgICAgICAgICAgICAgICAgICAgICAgICAgICAgICAgICAgICAgICAgICAgICAgICAgICAg ICAgICAgICAgICAgICAgICAgICAgICAgICANCiAgICAgICAgICAgICAgICAgICAgICAgICAgICAgICAg ICAgICAgICAgICAgICAgICAgICAgICAgICAgICAgIC AgICAgICAgICAgICAgICAgICAgICAgICAgICAgICAgICAgICANCiAgICAgICAgICAgICAgICAgICAgIC AgICAgICAgICAgICAgICAgICAgICAgICAgICAgICAgICAgICAgICAgICAgICAgICAgICAgICAgICAgIC AgICAgICAgICAgICAgICAgICANCiAgICAgICAgICAg ICAgICAgICAgICAgICAgICAgICAgICAgICAgICAgICAgICAgICAgICAgICAgICAgICAgICAgICAgICAg ICAgICAgICAgICAgICAgICAgICAgICAgICAgICANCiAgICAgICAgICAgICAgICAgICAgICAgICAgICAg ICAgICAgICAgICAgICAgICAgICAgICAgICAgICAgIC AgICAgICAgICAgICAgICAgICAgICAgICAgICAgICAgICAgICAgICANCiAgICAgICAgICAgICAgICAgIC AgICAgICAgICAgICAgICAgICAgICAgICAgICAgICAgICAgICAgICAgICAgICAgICAgICAgICAgICAgIC AgICAgICAgICAgICAgICAgICAgICANCjw/xNFwV1hx qIXxmqV8D0tsWx3GXa1KSG5rf2ByWRCbFEzlgyZsFhoVZvNiKGBdQqjCBdm7RDjkVB4EaCYvE4YyA7Ub NVxlCU0QDPIyAOHzvRHwKGNaJXEwTvI4QKPdXMwfVX1FbWOqFQbhXJXgPCQlCM9LFPArU221ecRbYU8X Gc4SLkQuQB3zgx1VYQlyZLLqFguSSxf3NPchQV1YlE QdvRUpPIWsZDEJMvQwI9hgv9ChYxWjBIZXXKqwIK9Bd2PzwPGnTLp+Pa9WGC0rt8JpZMmgFSWvIY0yxc 7BUMrDNfIjS3KpxAxgGTKig9olPNScTS6quPJcXDG0MMYmKt7eUXvuXRJCSVOyu5AqQNQUYUYwoHChUg 7bOZ1vGBZiMML6AfAzSPRQPR8AGPSwVGMurPEuVNFh JEQVKY7QVNhaTZW5HCAsupTfwFZnBNzuXE6RLSIoiwJvHExvKFWWVHd+Ar4NQW4bq4RiOHfdEXIqIO8h ev8VXBxWUaXlE8Y4oNRfG0X8DSrtDh2BJXNeSWZlYGppMVPTCBgxPU6TBU8ksuX1DT2JtENlFCMaEHJv gLDaMWn8Q66giNZlRDsbVP2BVRI+Kwesi+Qs6CYFSaHA DrHWVgLhOlEVAFFqHyT8TyC5JUe5CiI0KlNZ81bVfmigXyMCubOU3PVH2xVSJqOLSSCK2OfOZafD3qgc FfPTYsGJEOQqFtZ24ygOGxHLJkPPE2SLAtNp8NGSUxT1VgpbMqzQaqhjQgZYKwXRAHJC1RJKdhztCgsR CfgHcbFG20mFijCR3WWj8ESrAsGX3dce4HpWTvZx6P ENOiWn7NPHGrIERvDPTgWAD0DBMqFiTqPGsyJVRrMFMbVAB5AXMwGAQuXN7DVsSdLFDlRIwySXScEZVq WOFkau5QBPLaETOsBCsdIXYhHYLqDLItJFfbURTxSDSsRDO3NGTpIWOiWC9ZJqHyXBQhJZG2TnukLPVj ZLMuao8IGSMdMFLrZnQlNwSmEIWiSXQnJCodRZDhBG SwPUdkPJRdVCLiHS9YNoSwOOTuWIUpJGcbLWTkVPBbfe3XTLKmVGBgHwF0ZdTqZCBkRATrPLkxYAZvDX U2KYI9ESCxLGGiHQ9TBeMkYCZvVLP7VpvwZTPyVFFbxp7RSMQrDTVcQVzxUWWcEVHpFFQhHQtgUJNwCS Y8MEG4VFNvTCRgNY8DTlAdGWWcKRH5KXHvXOOhNCMk jj5RBDUmIBSzFrW7VUGyVFAiMVSyCShjXKExCYE1VBC2YKAhXXYsZP2IJpQkHPLpHViwZPUnAEMgNMKo ao3XAUNiXJVzUmU2XWPdXVPyZEZlTEujHFStJLS4IWE3LDLpPGRpIJ0NSiHdRWInLFq5FJupIKXdOJJg gg8STNSxDIJcGDB8NtMuUJMySAXkVVd5huJepQBaTH z6DM1BZ8VmkjYyLxCPAi9Xi903BTMwHHFhYq1YI9daMy2mEGLkKFEWLr0JGEy3PaJgKJWyDZFgGYQtVD A3IkSqP4YuPFs6EKE4EjRmNTN+JBnzWGLjSFP4Q0W0XnI5TRbkJDA9IhFoVUP7Buk2CqNwRS8pTSPMNw 4+LVptyFXhmXvzBAXIIrY0Zyg1YKxjSKHRIm9F ID Date Data Source [id number] 02/03/2020 12:45:00 PM EST [facility] Name Value Range Interpretation Code Description Data Albina rce(s) Supporting Document(s) Follow Up [facility] BPVVMq8cMhDEAaKiDWXuXhkHKWhdYMrkQZKfL4Z7BYsbTv9CMRrroyLzMGYlGl0+VVApPI6btx5tFLFn gMy [file] INC/vJdANHs3IZRbOWNgi+cAA3N1BGyfdOLESR+sewer tapper [file] [facility]/DhppIvzU9yPTPdCYK/tTDfDGxs0zuvKQgfzVKe/RCBZcb6fA7tNSyezltvAhwPtCJzYz6p+uvg [file] vgAWginaHevhvZ624axLN+0h9wJgjsZVtmVnIlABCoxB38hJGzvUZHpxR5/5Ek3Reyv/Mary Anne/MHbaJLN0 [file] LNFY9erosbQSpwpqkHdNsNK9K/xVreeDjyIdyweG/Tryl++cAUZS8k7MKbt0OjDPehw0m/client advisor+XDG/D9F [file] DENTAL PROFESSIONAL/kn105VBm2gqbcVhYFa1shS/lCwuFjAl/MBCvrrvb8Pk4elV2kMcoylMFRhi2j8Njn6IVB9JVtHyu [file] [facility]+v0+83kLn1BTDRiBJORJXSydthQkQ//gy3 [file] wmkSE3G3cRqcm1NjjjIieTaU/8QXq4Q9sswX19/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/WIQYoQWnPyq1bJy6WmV3bCCZboUeOd9gmi3f8 [file] K0ZMHCEUx2+Jose G+QJNHuCT3N0C7CSaxx8J3XMFs2Fen [file] HSakuC4FWzXvxA+7JxHWidt4U8f6Ux+Pwo1++wY [file] dsrX0aQr083+w7aAEbkpyBduNWmulgtKsRW9Uvb+Sod Stripper [file] CHECKER STOCKER+M120OMp+xFOn5B+RO/qVuZqbPmrb8xU4zjTrqSzQmg++5tGVbBjb0DGWX6f2GejAjtTOioB6vcecU [file] bn5mMzMYNQQ00EHGTKOgK42zha/KK9ZZ2/rNjiQynopJ4Ew8hzRaNL/Pig Handler/Qw3C6hRWDz6nrGQgV2ImD9 [file] GKb29ihMd5pQfHHOSEcSA+ASJB2Clk/Fte9zkX2jmoEYbfZHLW/kKWlM1Pgt50SodaNc23riiMawy+Jose G [file] +aHBMMKIi+baqBF0/LDNR44q3cxxyjHb4Gy5HQIeS1jA/nNOnKqU8S+xfNP2tbJeCjfcZfX8aCA/Rajinder Ji07nyTTD7tf/9GkyMpw/3WoIUiX+vFptAq+eU vxe74a0KWlO2Y/MSmZ3pRSDLif8c6QzeCKCdE8aD8rxMscLGLe90MqDEsX9jUndOC3e4sL+USurLkNvw /VDePymMqkwH2hS1mCgG5XrC7r9RvJ3iINzet8yEz0XLbBRc7/JGkQ3b/LWQ06x/4VZTvRlf+7aQC8P5 fSI4DQgKeCH8g0neapvSTqzzQTWvfgTgalaVmSnrdK p4o8IkDgaoNi0+VrCPuhE8C+soTlxjifeYndGcy+O6FFo/iX2QZX+0XtoV8TysrhOBhKAE3ruz/DzWYa i5PVqE9a3J+3KxKGFdf1pMOmgFWf++VxcLqh79sYym1QZW5XwBrzEZwUwfP8uiYPUMFEwA4+s25KWBzu 1BUktP5qniFIw57ECieGQOIiqczCVGjbVC+AdqkE75 aIbUB/o31uKOdL7nP9mKmkio+tn1KewQZc1foV8MMdnINKu24jIpZQ4UY+OHjIKjaXg7hMiXEIsr7AoV DGNT6YN3g4YT1zgvg+Pw5nJcl15Esu1SNggx3dVb6we3us7Wzvv1pt/xO7E2hosBXeZdbbkKGqrXt3KY w9+jrdtsAG1abhiRudguQwpE/XUd3oDrJRpdWApeyl [file] Xi3Aq1QkcbGl1XA5F5XdZOy5C4/gG9pjVExOnD9dYyRVT+jose g+2LlfTqDETfhExz+RYCxsho5pD+GZtVd [file] kAvDskR4a7DvUvzwSPZrYomYlCfOp3XcMJNgcx+Antoine OtdmAYbzN99m9cqgPUZaSR8knrPT7jSanyYhH5QRZg/pUhv13DufKLkf2IM9XbzIuNnml+sxKeedE8uq 3ddsm6SgFQqC+iCQH20ritfyi+WaZt1rNuOlzGVten0zcL83xoRAMBi0XbvE8CwH8Vb8wea0+hG3iwvT 9iUwjXKSWUSRS/zFnTX9YVFDShjEZuYsXf9xVL8MPe fW6f6/sy+cHwiT+m30l7oKQDoTdE4x//lVYjUXb67c05KjMifhxsnimEXaFidit9643x5eLL1ettJgxP GsBWFUAjEbMGpVjjy3Dew2CHd2n5YO7bxOlCf5Dt3YOLIQHls/Magnetic Tape Typewriter Operator/8FTDkK/9JBhq8L9pT6skp6zS2E [file] DaJoqJpIPs8/gPHgf01bz6Nme8vY5+0t6+lawton/nl3XGn3v5Ol52BuB535EU6uTZC4UbxeKumY32qJn9V7 mM+mtqNkl+VVTw952bls5j16a68lUJNktcz3wWyE/H dpk31nfMcdW89jW0/2k2SxD7srXnUy+qfPY3zm9BKHCC/PoyMtHCUkz6T8MEdC/B37Thqj/0OeK1+vp analytics i7k2AMbVo9Xs7sxerU24dyYcOgBslV3u1MEaozv+GKXRz7IZiqzAo03RlahHHypfzD0wmtp5CuLl/hLr qp/xER6maaAbGNIbfOca3CIJOeFf6w3Iw1uYFcdrWZ uiUf6NV/+qiSVqOX/WVl6nS1ZBB+7ejULNdlGjtbXX4nfvXqg+KUABaL2lW4YPafNl4VjIQDtUeKPnD6 PNRM8ktMp2Kb41vDbQJLogDkIcdpEeSrUmV6bzws9A5dLrWXHDBJck6o7nxz+jk3gemcZPoSvYNgLlc0 2exAbUTTsHwFFtzHTShGw9o+/nymzTufCz/5CJLWKn fM5//MUCgl2mzmbmxSGnk0I17iagUoD7lvBoas53c1+kNqfYOBoiTumkIdyw/3FkTeX2z1k/9UIg7BcK chXrxGIX+urJBHOxuqaGhVqWYG7Ox6+TWs6NcVAqrmFXd7LT0jgqBK1a9QZhO76fKcZaxVSAZBI4vQCP ZuNWecOb5/fIA4AQP1Q3TN8wqe2VE6poWezT/emOxI vqyPj5b+2xuqkp91uia09UMu+/fBFrbckobocJxoFzjtkXQR6NA8MQJfRivtsawQo1fxIUg8Nn62JQeZ wkoP0LCwbWNvU6QUb8NL0FeV9Ss0YBBwlBefzDjrgc8LnMopHryDtYqe4LtD1VSuzN0FY87Fewjqv7C/ VnwFCQb/M15u4ikHXKv2o2nfSkafTpizoj0Cic5uH3 0ijq8r6bjvO+kg44tojPQhz3ZXtkI2tJ2Y6y/ohm1vk/kCN8clYjR3u9S4nCczCJOqPoKU6JBbQCdAPe fyS7ywOIwuTn22VbK/jJOLrOHin8T7ansdKejowDLnFfUkTl6zdpssBAt6DWxiXnpqeCC9pDbfwMDhnh 87qalJmH3ZQz45ipb5GSM1eUJS65WwT6302vsKC7b3 [file] 01fLEd32QHqdxq91e+U+wildlife biology technician/za3B4qwoAHEHuB1Mlxm [file] bDH3BEw+HiXKzRLqdf108g9UfrUOr8E5cwiYrB5CQVW00KcuZBkJInsndvjECvydyY7ur0Z3eRhVk+Pig Handler [file] CHSLcd0d331JrscxpUtd2xRFKUCTfRn7WV/director of occupational health+Wz1e6ng8p/mi9GWaDYvyuYLjpOZnLo6POJfk4TL0m [file] [facility]+GemeXU3y4LjtR7bEfCFvqXyKIYB1FXjWTcKbrelgfdBITR7rA2iy0PYpvAuT6PMlqksdKebX+UsW [file] 4tnhEBxSMmiX7VTH+tRT/kJnjBylcwi/8kYSOAdmy2xihuZsMHaC3tMH1RSpE9TSPcXeDpqKiCnhr/Jose G Efqt9zK8XGxtSiuAh91ABc+69nMccQD/75JA7qznYv b4mQjDFuQ6AHhuCi2mHTG/rwtd87KFxyxCVebuipg26hl7onHxkpQ2zCVdmZ4BsYrjlwMHdEHCo7lpid FG6XNimpx7zmTYERSkk9ZJ2oYIfhBpkfQTdT+h8cWArNj23aHJCBQlOI3HGUe1ydzc//kW9R0tqS/Lhf MXZO23X2lIfX6ESRy25Yuv56VURpfqM49u18G74O2F [file] +3S8uL609Ixns0G0j5RTG0sTQUHJp1k+Pj8iC/NU+As1tzwdripi3EDUB6L/jrinmH0UtJGJQ3vM+Dexter biYHESiEgz2295us5/VXeoeyScmDKzE3C6PakImw+d qfkjGGndaC6A+Gmcse81J8vxbRPbBV12GsTlK8g2P1cP+j4tSUBtDridnCQAafR+9XRBshBOHE9RqFso 6ZLmMB5Uvp0KddL4vida1E+Q0jfPiaE+pH4prXmfUWp0a6mO38nFgztps4H29i9bIgFlaa2fOor/6QfZ /xwP/1UTGm2uNamYi6/ixdM/faYQlg0zTHC5Lg13cs HoziKgctl28o6VgsXfyqRsPnA3qMbVOxCgGOftCP1VV/xHKzBQTVNE5RK/vK7XHL2tksTfzUpComcSGA [facility]+KSSkR67dVp3kFlETZKQUx+Pevoe7Fvf8ToDcJdXcpVpez8fRaR4LpYtKZaqYTnjM2rcX54JJvdK [file] xeGTmblGcnbY8tLhtDWMOoCoqGevgew68OaMC7Bri/G3HaVj3txEbSiWBStUzAb3CmK4HVMnojdsg/wildlife biology technician [file] 2xNylK+jewel blocker and sawyer/NcZ/+X8/gcL+Qd/TcTnvun4z+PCb3AFX [file] +c/cAKNC0F8O7dMWgSWSPq5SZXS/GLmoHde0tXz+CHECKER STOCKER [file] YOvc6QspcI0TatC/M5InM1CngZIfsJttKb8BMTsH5OuPwR7/CfYfO2S1cS2AqlqtEpIy7/6LXV6Vj+client advisor [file] cCOHf2gb+/closing manager+ji8HCmJ9ajqjwgDbp3kTmMQYaHVLpwHrWVkqh6JmcfH7Jvs83n8pDmjwov1tZOZsHl [file] TvHWPdldzgeFLs+XOQsq1sIIEbRedaQ3zk+0e/João [file] pgU4JXoNsWt/ki866Lq4GfcG1vx2QtVsz/Jose G/baxSD [file] EEyyOeifg+vdyKrOkqwRQ/gzkOFDXXlCCGArmBLeRw 81bTcTAKKn5Z+2oV0iL0jbGXsKtioNxSPv+yTVHE9lY6BmjxNy1/quFzMT4D3IJthqxE6GvjL9Z3zBQb 91ne5o38Yr9ZJyWJDyyWstsWKfHgX7s4shoWErXFBOJS6XW6+NYdBf/Uy5nBLaOfsYZwStg08vRhqelx 6DSHzDm20ikXGk20O/BuJ03pkCDnubBvp+S5gRco3a yTX46T5/xLWrj3rz6OSr/4n7T+Zfef/OYvsCf2Iu8Qhb+vlvmrX6HRYUklwyIGEIQK7ffXFlNexY9tnX 4d0sP+9JqxubXzamT/A9ALKCk8ooHdjQpi9rF65SeX14ESPzGMD5fB5wn8ZdpnkmAl8YXFt8+0chfwfA fFbRrsrav3ItERa8apzz3/ocd0j5MhO4eG7S8Kaval L/Sxt2/Tf+G/+3Dd1+WM9+BFMWddpE7p4lU9zsI4+9QIapzVPVU29lYf8Rm8jUGonOmCNViSW+pzVyEC cHEPlk6+QU/exDrT0ZpGnr8w4q/uMvqhGbGEgON8VNslBy2gLfTlvcUktHb6Mi9Lxn5+SPPQUVfFR8BD 6hRHpp8/eHosw9jU3taP5HmeTjEKJdFWpNUySQcoEv c5Btc6q9yXfDkTIByWoO91GNNN8MOed5unoNSLxTYpvWP074km9O9uL9ISsYWizHRmSqYys22bqZPANf PhIPap4aODA4umSMStMo6PJ+Ry1LSh11QzZ8HJzMq+azC5wJBe8fkyllbsnAICYL5DypAOTt7jkrrtyt ZPaeXfmftesGd4IK4b0th/rSs+client advisor+wGQ6UCVOT7AJ5 [file] ZT6Z82i2zFsm/v3Okiqnpbea/L+T4r61Aucrgu1+JOSE G [file] JOSE G+NmfBU8oWqz3z1CjNVJat9OkecnbCzVA8QWXHU1u [file] 9f5bymYth9Nnm8iK0jpclu3H6Bgi8JU4jG+v5E1Am8ECikCntO8Fk3tr00lDe2+98wMhVcZnp5hW/Skip QJ32WPr3Tpi7Ditk8XGPaUH00lfWoPqvy0hlva5V1hxYGsR6LTvbYW2HcFXzLYlyLXBsIWFPAcqSn/c+ YUEmAb6dRYEhwcpwIUXZjpVU1Jps0cEdWyE4F6sOO6 4obfBijDBW2+ntJ+fEDXDdNRBcdi44m7zB8AgwsIi9L2yhFGynzJpT5lHYDwr1qU/qx03ebQixAbUKj4 4tiIq6J7gHx9wr5XWd11UicJVpq9rAJevX9iJABSJz+Jvc+DR4nx9vOhwOEQ25D1DBa6q5Oj8vZ3/XWK rhEJbCoN9RBafZ/yKZxMOOUyRMkAwXIABvQGpkXprf gz8KneQo6ugL3xj/SL8Z5QicZJyqaquVWm+OLN2tKq8Zu8J4/rXHvZh9iumxYxaNXVO+mOYwl09vFn2x 2CUe0PvMyrhPpiY2sOeFgpruBBZ7mWEfINJfjQOX+XBArLVxytOBiqa8jrkgd8Q34OlTOOTU9lb0VCJB IYmHp/c50C40ot00avM6SGCc+3aUpcEHPIEC4RNvLk y/X+Jose Manuel/kslhE9htqDO1v1zpZQQym7gRpRaTeJhjVHL+eB5EoApeTM+BTnkKvAF5D/9ZOr0WwRWXeSMM [file] L5vFnD/Tellez/ivxzFSowPZfcjKHV8kLYLMMBI8CkoCbOrAAIVN4BW4xcPkVqizjwBDT5/dy8orgPxHgvL xLwK28ppfWaVdrMLAiuZ9KA67O/7kpR7UB51DJ44g/VSmklEPQK98+59SggaajKll2OxTK/AaA3Jf7/n CywhuAtZP7HWYsK5w7fICtWRPzbqlCJBYUnqZDLWk9 xn7AKM+dJ42r6p8cN7s3XNDgJPrE7834QUiP3d7W0Cx+u9Pq3+E3ry9dImPPuOc/MTN7ecl4eg9B1Qn/ S8u5a00INE4+vOk64AtaZvFBY6wxxuGHqb2ceei3QZIcpuu/RRPjpdhP8DMSW47XpqWn+g3Y2SYPxZDw xDTSTkEKeAOjyA5hrj8QPAeFZMQO/MzJ9JtGnS9kyE 9z+8oeNkj7b0eq4pH9CreBvkAPRvwF0hHZsjWXwW1yCkaQl2oVe/JPq4FeH5e+vpk teacher+87yUGwNDIIVlmVH [file] fW0ve51GUdw/bSBZCeFKyN5cTUVGJR0kj9lcuVX+PANTOGRAPH 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 [file] OosR4R6WmNWVohis8/Jxg1RdXNf57Q8pziXkFDw/JOSE G [file] vOb3HF+A3h/NctEFj7r6QA/A7OM51lLDZcoib0s/JOSE G nElxqA6CR+fwUXNiaB5Gp+NH1WAfdfJ6rY6oK0k1KJTFeSbeqVBgFRq8YgJYH42TzFT07l0B3IUQXHUz m+x1U9cIFJV1ptjop73ZlddTcbhFmXrdZBjCqUctHTinB3R/T4Ov4E0lY9t9bjNkQnp5iThudEVZhopv DtALhlD10nfE2yYXi/M/1XKY999r/cgrVCgd1qPLU9 yuCr0imznuAuCKnHkUDFDYTS1W83C/sfFp5RI0bN5ISgfz8SwJa8smULXCRWdfCPZwuwKssXw3RyTK26 N/QgChgk+Z+KyJkr/LQ0ViXKfC1Uq8RBO+ps+mPSXKYC1ONdJ6rgncruL8f6n4+rIY09K6YEpboKPDmt biib42dwVCNeLIyYm1fQoEP6sWI5doutpLWai8tAYd 8sZORUoUZa+A9wF6gwThT/zwTWKtaRmQE3/Udx9rAjL29J2cox+KPdu9m8OGlVgklAIUotfT2s/wyJ7P xOHqfCtp/smlmiyK9aXCiC6bFxU8CWbHxeJXdAiN7+lb5tORwGZQc50wwupBaR+jewel blocker and sawyer/6EzOghIz+41aDn [file] CaD7OeL7NQZ/5DK0VzVDsD+LiGGzq4XTT12SMC+wildlife biology technician+vdHj5vS7L3n0/QPHbKxaskCXLWINyWFUBg5xn6 /Yf/50U+o8S1YE7p4VDMgFlTOAiY2x6a3hYIOw4bkO6RWx+djEyonq/7PcY0k7QL2gfiGthRfOpoKcfh x0LjaOIDXrSAf6lMY9YvPfTGEDJPiQ6GNR5HCGGkQI B2rQHMEQ1Gn1p2vGmEt/d9Mk39tVZOzuq/Sera+/P9+oz6BBFkYsXFpeG2zU2/eFOHabQDOFWAJBxAyNS [file] xoM+bpewP+uq9TtK/B6Aasg4CMsH++wildlife biology technician+xe9I7LUXOCMella6oKRTudnrt7I+64wyb57zRD6mkIf6vfb P6N8h12/bHc+smCAhhy7/KfVKns1P8wPMZNP+ZJ7OjgJbogSQt0/a1hnwFC3NoxxbDSVDJkQZhHA99gi Z245/xckvxSeLO+A0wemeDXpBu2n4n/9cKIafgwRE4 FBQWZzt1UPM34uskazBFj3PVzlCdoo0eR+Fpbr4vAvlBlNUk9Usv7om5eurSQzkd+K3knPHcizfKn/sP 1syq9RToPM8BUu9u+L2t2VlphHuXm4IR4hlVvOzNC/jG29s9zqc1ukv1V3/7rzug2P5yr4DuJUaJWK0r gZ5cHb8qgAjMbmuIHE7iV4A/F9tNWSb5hojxaocFpr 0/WQwt60T0TMC4nKjbkUAa/Ucy3joBgoXIzOQOxjA/dtGCBl3pgKmupdR9W7aW1NGpaABh4MGhrKZeT0 SkB/FL+6IUj7O33mXPhzSjk8ArKoFLYh5se+hqh277MSAO49gLA4pZ32HvOXPx345WzfjzDoA8Hzkd2S vbD22UWETYBnHa78UruUdl/P/NAerBtOTJaXMUJP7J CHECKER STOCKER/TBt6r9N9DrDxZ11PWXlrjpzwioeRcVOuaIuyZiZDEBqsXWCy9hoh6YM0DGzzQVXleCor8lMyhfeA6 [file] T9+q69hgVoZpLnd+Ydw6SkAjMaU9HreY3w7R0b/field application engineer [file] ogTm1Pz/+/pOAYJFblgjCyRPM7+0u48dzqlug8xi/8uu3h5jsFfiYNu/Jose G/yA3nn27/OS5Zu4D4gVsoX [file] CHECKER STOCKER/7rcAwoNO/Z4S1MAbC9AZNAXbFZdgityyRcGnPdjz1OePYUoRlM5iVdaGmn7wcEFW6S9bNqPFN+vFs [file] EHexhXiRo/Narvaez/bNvgX11c/fk9udfhtv+DxstvajgNTVwQVyqEyuAUIgFuy5Vsmjk3oqpQjLJrtSnLuQ OXvwoYVvByplZ0FcMdEc857+WiSXlE06BQkmkEdDUC bwURQvqMLyJpTGk4/lCnOPdwk9BPHI+JOSE G+Hz/8nFf6hFG5GzY4GxQkGYYytvlG1uACr1d6lBs0Dh/Zk4 [file] vbQ+AvMq7VtTtRjd4DhX5c0XpQI59y/mary anne+lxaR/8q [file] X+6Dh03nyKFeQV8uP2TDKrpM/QyBmClByTEnZJ01neBeqgnuPWfsaGvKp+César+eomcPgCkipkmiLHhIS [file] Ao//Q+jPzN9XvERjUl2M+PETEY+s79k3FDXNDFbPab9wkkj7MlJoDJ92bD9A2L045s8Rp+b7OKMeBKN9UP RTLiiz0Zg28MWHjeGA6Y88Md5NSnzXeRKtK+8X+mfU 6xHW0xg01H1OXDPFkjQvLhIrGpnB+blA4bXhCsNBI4R1fEA+cH+iRNBGqDMXUd6U09Dr4cnmuPUMsEDI cERI5NzdWtB1hPtBgnBAXrTiQnvrmth9YnrWK2AHLQzRg63BIwj8SLqXUhTrqQdO/XzWbLrQkUhgkRqR vHAVAkmNQJcJ/SAanlUhibQPdWkCCf5Hhkps1KGOGU r6giCXnO0CkeUZ2fheMvMT8PpiH0Bu0XBaScU2BS080jm1xM/eqmSq9BmEzm/LgRrxJIuHN3SxZHWu8U bBFFWtOYvF29EJat1+gKeFTwdQrgQyYXw/rZ6Fztoq461Om2aoV7oamQTTRiWQNZ24hr2eaimalA/Mary Kate [file] Xt3tsreTOULP06wQfeS0VSaefffINotgbGj3luoog8 Pig Handler+yy+ppi0HATzVe36Ftw/Kawm3w/QK5BYPjvrAKwqHea8k8aXRDCr/bhraWho1xoDXjzqiShm4o/tG2 XvGYjU79+IxkXmeyYahq5OBU7HdD4vUR3PlAwr8c9TfsrrTgY9pB+WxegJz1LBiAh8j1p0mOxNsvCnvW a/FzOjuruRVbELtRF+HQtdtcTbUOjmkSfuuaj6vGwt n4h/CvffAZGX/aasyObniI2Lf9rQIsraVCJ1wTSMVdYyg4ySo9MkxVzo07Dl34dbbghKxrEeR4WZP6Bn 0Eg5gnJh42aI+oam6bqF/YXa1vFsPGacom1FxUcJUBJeh0/Q0wWZjUdBdVtvZ+blwIxiV13+qbr/MTXX ZdfTQgxVRqlm6f2q8B1p0ytbvojLjCvYsZt5CdM05/ jYYOhyFnyTluLFRLqb6wQBfOEw/Qi4PeRuJi7O/j3Zf/B7ybUL/Of6d5C554SgHGgc6kF/l77yruO9dB sUJrxQTlRghT4yGvj+28Cshe2EtGHPd7ui2JK9bG2TLGy6GAMSt0oe6XeKcKOpI+YcoL3MrwFMwt+Joaquim [file] [place]+K0seUcBfn19gKmDfW5pTd0tQCDhdbnAxYYEbRT+wZXAFlzXd8tiU9Xp0BcgtxiiRyNrZChBSjQVTP niOlozKVlp+5DoBieLKlkYZ7vM1EWzOT9Ddb7XdRfL92/ZNUEWVp6XckZiHm2q1/OrE0XeoL6E0LRlSx pViNJRtqGPBoIOiENfxHJO95EROgJ92tUNYOqtaKj/ hvm6ak6rrTduW2pd9WqHPGTOEpcV2xzHrR/uJCX9ttnLc+gBYG9/OAg951i2P/wfzh75UIyiPQrA3JNp EeXMFfHD2uaPSp9WSv5+R3qqcEQ/fo/zq4GF0YRsB6ypyZRa4PFsvFYu8dTrhqTi9/hLU4C5oTt4AiXq W/EJfTiAqhyq8W82V1bm6UG1lu8pJVLVodrvMcZaJa Hdv4Eh2kzd+yT/JZR9Ezt2cUF+BCni08O35VEPs3mKT4NdlufzePVasbdt9zZvF7YMchX8RNK9ygZLut Z3i6SpLNvFi0VkGSa4PXY4YWb+9jwgCQPVhkwnVfXEhDViVkXnH0G4Uz4t3yMLR13jfLBM7/w5lLAXlP y/eXDAO8Rz5axCVrYSsOVZeoaogV5d7PclxPMjhFX7 GInd2+fHLfR3P5WbuSaN6YpFi6Ev/q5Ff7alG6JLVH992qr7++HhrbmWJp/N28mbKzuwucKtjj+43Tj0 iZETiVigzZeogqk8HFqImHkPFYx45T5my+vUpieRhTlstc7nC0TBT0EXIMXHZMOOC/706WFsBSeYWw9G +rGj/8kIS+aZVgCUONrP/HHF0g2ft8/BSqb3e41xTP iL7cTr1u2mTeKOaIxoGfAyhGjizEKwvham9xl/RR9sSJYIWyQa/X1XvyQ8mFSbVsDEUYptSiolVb+patient safety sitter [file] gKrVSXYkuN4YQFAOYWoKLr2YRl+Sod Stripper/npua7Gt8Oqe0 [file] FkPHlSjBRXO7otwgAAcMvFahqeM+outboard motors experimental mechanic/cMvJNP4RtY [file] FW6tFmL11kjsTX5dTUChrhN5YP/po91wLdlxRL78ueBU0bDtm7C7Lbbz+PANCosvWiK++Y+Mary Anne/pCtRO [file] ZEkifBQ13fc90/smLV++75fRjVjw8mQmwDg3qvg [file] D0tm4xgnNaJM1oq6EUN3ThLH4ST0kgHuvf+VSe0NICs+CTRY+fLphGLpmJdHjRXERMynKNUsRi+h+filler shredder [file] 9/53M8CRhmfW36D93+BuktV2339q3B6OZ4JkK2UJvh t3cav/6hz/G69gu45PWY/SpqF90ellT7D/bV9T5/MavjqwZRrOkjgWLMvo/zd3uL/wC7/wv+Dd2W/qO5 BN+9O85JRtbauuHqSqCblrxT4rpK1iTNGeZjuaAMGwvadUfLPm2fJdrzG5EgO6hMUnzKY8gl0ZG5OkxM vRDPGFQrNObJcSixXxWboB3M0STpIhhBdF+tML40WX 5gS9hWEtKyJIBFHYX/Ur4ecEQn6ReyRXhheAbdLX6I9Ay8SlpZ+uhVnV1Wvc6MtMrQqu17bM6IrwjrJT xF147am6RruQiru9Ss4QcBEPQr5GOqd2dCs5KQyVKBv3Thkov/G6+fvYNqiMYfAguINiggPNypsZ050s UJQkV/PWAyVGrzhCl4QLHHuREubpNVIBkB/9mFlzAj JJLCY1G121ZDZji01+J/4gDrBo08/xjKBtMuX7BQlrtuLoM1X+hIyVhwOs2zlcpEsnrRD2wI7H2DMlEg g9RCfZ5pZGzCnYxNiGLNMhK24MDgHa5RiNE/+S2sf1BumXklb+0WNrEHYdp3egz6O245EYfbRnqvdDVp d7naMToX1zmz1Q1Hx3oZ0h3gQq3ZC0nDkEeZmYkpIt e/cc6FCJsxn5/2pQdqEadPlD4251fHTb4xKyuOxdecDo7FEbJ1P+95+SM36hXYuRU5hnvHemJoqmJ9yd jSF3z+qKLafz8sdyMa4v+iv3NcdYxi9c50XdSSs7MX+rashi+1OTaksx0mtpcA31/48DTys/gLu2gLSKfJg u5vM5spmHmKjmx6azxRJWS/SmgqJ/Kjhfuwc1otUub 6nOAN/+GLd+I5eFYWqFwWnGdI1ZGKH1k3OCbSzvOTSWgyBm1UA4b5EO+foCACUTTfl3uTpl0oa5twhWa jV0W0V4bcZ+paHkNzhRxjJTsK0HyXNdeXHZ3KzmY2EWXCIUv/J9YaN8qBBYD5rTbRag/lkZQWn5+SxvK XD36+J5OCwJEN6IN0TUAfk98OM9/Z26+0ztlfUypyY TAbfOovbLczJsOVg+platform inspector/9uvMFyXsIKB9q1+H+5qR2L0Nv6J9cYRPqKqs2PgLYBY5rR+fU17y0wdyz/7 [file] WHtKqV3FMNCkw//power plant engineer/G8kOKsD5jFGgtF5yAL5mOlJJIk7PDVRxfM5Nl6M/qjujez/C83L2q5cw+/e20 [file] Fb0NT0e1RmRuEE+/6qXP0hRqI15mOBON3h1a/7H/jose g [file] LqAOS7duGznZ9ZOG0kz2GkLA7Wc3LjrhI0jaRzPQlwAPO3ZTgdTLtfDTUDRv== ID Date Data Source [id number] 01/26/2020 01:50:14 PM [facility] Name Value Range Interpretation Code Description Data Albina rce(s) Supporting Document(s) Progress Note [facility] BPPPAt4aCrKTOaJw21/XUIrcZFWku3XwJQucARq8NXruJLLjJ2WaEXR6zJ9eRPR1OBwUNvTzHyOyFRW4 lbm [file] f5D3VjGvbbDnIqUpp4SAYpAVV+GE5dALw+Du5Oy8UxyaY8uvCkLUaaIVayXj3MZOCEW9HEZh== ID Date Data Source [id number] 12/08/2019 03:27:38 PM EDT Health system MR THORACIC SPINE WITH AND WITHOUT CONTR AST [id number] RESULTInterpreted by:Polo Roblero MDClinical Indication: Multiple sclerosis.Technique: Axial and sagittal T2-weighted, sagittal T1 weighted, and sagittal STIR images of the thoracic spine were obtained on our Siemens 3.0 Kiki Magnetom Joi MRI scanner without intravenous contrast administration. Axial T1-weighted VIBE and sagittal T1-weighted images were then acquired following intravenous administration of mL of Gadavist.Comparison: None at the time of this dictation.Findings: There are no abnormal cord lesions visualized in the thoracic spine. There are no intradural extramedullary or extradural masses. Spinal cord signal is within normal limits. The paraspinal soft tissues are unremarkable. There is no abnormal enhancement following contrast administration.Vertebral body and intervertebral disc heights are preserved. There is no spondylolisthesis. The thoracic spine alignment is normal. No evidence for disc herniation within the thoracic spine. The central canal is patent. Neural foramina are patent. No evidence for cord impingement. The vertebral body marrow signal is normal. No evidence of arachnoiditis.Impression:Essentially unremarkable study with no abnormal lesions within the cord. No abnormal enhancement following intravenous contrast administration.This document has been electronically signed by Eleonora Manuel MD on 12/08/2019 3:25 PM Name Value Range Interpretation Code Description Data Albina rce(s) Supporting Document(s) ID Date Data Source [id number] 12/08/2019 03:24:48 PM EDT Health system MR CERVICAL SPINE WITH AND WITHOUT CONTR AST [id number] RESULTInterpreted by:Polo Roblero MDClinical Indication: Multiple sclerosis.Technique: Axial T2-weighted, axial T2 MEDIC, and sagittal T1, T2, and STIR MR images of the cervical spine were obtained on our Siemens 3.0 Kiki Magnetom Joi MRI scanner without intravenous contrast administration. Axial T1 VIBE and sagittal T1-weighted images were then acquired following intravenous administration of Gadavist.Comparison: None at our institution at the time of this dictation.Findings: There are no abnormal lesions within the cervical cord. There is no abnormal enhancement within the cord. There are no intradural extramedullary or extradural masses. The cerebellar tonsils are normally positioned. The paraspinal soft tissues are unremarkable. There is no abnormal enhancement following contrast administration.There is straightening of the normal cervical lordosis without significant spondylolisthesis. The remaining disc heights are normal. The vertebral body heights and intervertebral disc heights are preserved.C2-C3: No disc herniation visualized, the central canal and bilateral neuroforamina are patent.C3-C4: No disc herniation visualized, the central canal and bilateral neuroforamina are patent.C4-C5: Mild disc bulge visualized with mild effacement of the anterior thecal sac, the central canal is patent. There is mild neuroforaminal stenosis on the left due to uncovertebral joint hypertrophy, the right neuroforamina is patent.C5-C6: No disc herniation visualized, the central canal and bilateral neuroforamina are patent.C6-C7: Mild degenerative disc disease with mild disc bulge, the central canal and bilateral neuroforamina are patent.C7-T1: No disc herniation visualized, the central canal and bilateral neuroforamina are patent.IMPRESSION:1. No abnormal lesions visualized within the cervical cord. No abnormal enhancement following intravenous contrast administration.2. Mild neuroforaminal narrowing on the right at C4-C5 level.3. Relatively straight alignment of the cervical spine. This could be secondary to muscle spasm in the neck.This document has been electronically signed by Eleonora Manuel MD on 12/08/2019 3:22 PM Name Value Range Interpretation Code Description Data Albina rce(s) Supporting Document(s) ID Date Data Source [id number] 12/08/2019 02:57:48 PM EDT Health system MR BRAIN WITH AND WITHOUT CONTRAST [id number] FINAL RESULTInterpreted by:Polo Roblero MDEXAMINATION: MR BRAIN WITH AND WITHOUT IV CONTRAST [id number] INDICATION: 34 yo woman with MS, please eval for new lesions.TECHNIQUE: Multiplanar and multisequence MR images of the brain were obtained on our Siemens 3.0 Kiki Magnetom Joi MRI scanner.IV CONTRAST: Yes.COMPARISON: MRI of the brain dated 11/04/2018. FINDINGS: Redemonstration of several scattered very small foci of subcortical and periventricular white matter T2 and FLAIR hyperintensities within the bifrontal lobes at the level of the jacobo radiata and centrum semiovale, with no change in appearance and number. There are no gross new lesions identified. There is no abnormal enhancement after IV contrast administration. There are no abnormal areas of diffusion restriction. The ventricles and cerebral sulci are normal. The ventricles are midline. The basal cisterns are patent. There is no acute intracranial hemorrhage or evidence of acute infarction. No space-occupying mass, shift of the midline structures, or abnormal extra-axial fluid collections are present. The pituitary gland is not enlarged with normal posterior bright spot. The pineal and cervicomedullary regions are normal. Normal flow voids of the major intracranial arterial vessels are identified. There is no abnormal enhancement following contrast administration.Very mild focal mucosal thickening in the right maxillary sinus. The rest of the paranasal sinuses are clear. The mastoid air cells are clear bilaterally.IMPRESSION:1. Very mild burden of MS plaques without evidence of acute demyelination, unchanged from the previous study.2. Very mild right maxillary sinusitis.This document has been electronically signed by Eleonora Manuel MD on 12/08/2019 2:55 PM Name Value Range Interpretation Code Description Data Albina rce(s) Supporting Document(s) Procedure Social History Code Duration Value Status Description Data Source(s ) Smoking 12/25/2020 12:00:00 AM EDT Never Smoker completed Never S moker eCW1 ([facility]) Smoking 12/13/2020 12:00:00 AM EDT Never Smoker completed Never S moker eCW1 ([facility]) Smoking 12/07/2020 12:00:00 AM EDT Never Smoker completed Never S moker eCW1 ([facility]) Smoking 12/07/2020 12:00:00 AM EDT Never Smoker completed Never S moker eCW1 ([facility]) Smoking 11/23/2020 12:00:00 AM EDT Never Smoker completed Never S moker eCW1 ([facility]) Smoking 11/09/2020 07:39:41 AM EDT Never smoked tobacco (findi ng) completed Never smoked tobacco (finding) SAMANTHA ([facility] Donato [facility]) Smoking 11/05/2020 12:00:00 AM EDT Never Smoker completed Never S moker eCW1 ([facility]) Smoking 11/05/2020 12:00:00 AM EDT Never Smoker completed Never S moker eCW1 ([facility]) Smoking 11/05/2020 12:00:00 AM EDT Never Smoker completed Never S moker eCW1 ([facility]) Smoking 11/05/2020 12:00:00 AM EDT Never Smoker completed Never S moker eCW1 ([facility]) Alcohol intake 10/25/2020 12:00:00 AM EDT Current drinker of al cohol (finding) completed Current drinker of alcohol (finding) [facility] Tobacco use and exposure 10/25/2020 12:00:00 AM EDT Never used co mpleted Never used [facility] Smoking 10/25/2020 12:00:00 AM EDT Never smoker completed Never s moker [facility] Alcohol intake 10/21/2020 12:00:00 AM EDT Current drinker of al cohol (finding) completed Current drinker of alcohol (finding) [facility] Smoking 10/13/2020 12:00:00 AM EDT Never Smoker completed Never S moker eCW1 ([facility]) Smoking 10/13/2020 12:00:00 AM EDT Never Smoker completed Never S moker eCW1 ([facility]) Smoking 10/13/2020 12:00:00 AM EDT Never Smoker completed Never S moker eCW1 ([facility]) Smoking 10/13/2020 12:00:00 AM EDT Never Smoker completed Never S moker eCW1 ([facility]) Smoking 09/30/2020 12:00:00 AM EDT Never Smoker completed Never S moker eCW1 ([facility]) Smoking 09/30/2020 12:00:00 AM EDT Never Smoker completed Never S moker eCW1 ([facility]) Smoking 09/30/2020 12:00:00 AM EDT Never Smoker completed Never S moker eCW1 ([facility]) Smoking 09/30/2020 12:00:00 AM EDT Never Smoker completed Never S moker eCW1 ([facility]) Smoking 09/30/2020 12:00:00 AM EDT Never Smoker completed Never S moker eCW1 ([facility]) Smoking 09/30/2020 12:00:00 AM EDT Never Smoker completed Never S moker eCW1 ([facility]) Smoking 09/30/2020 12:00:00 AM EDT Never Smoker completed Never S moker eCW1 ([facility]) Smoking 09/30/2020 12:00:00 AM EDT Never Smoker completed Never S moker eCW1 ([facility]) Smoking 09/14/2020 12:00:00 AM EDT Never Smoker completed Never S moker eCW1 ([facility]) Smoking 09/14/2020 12:00:00 AM EDT Never Smoker completed Never S moker eCW1 ([facility]) Smoking 09/14/2020 12:00:00 AM EDT Never Smoker completed Never S moker eCW1 ([facility]) Smoking 09/14/2020 12:00:00 AM EDT Never Smoker completed Never S moker eCW1 ([facility]) Smoking 09/14/2020 12:00:00 AM EDT Never Smoker completed Never S moker eCW1 ([facility]) Smoking 09/03/2020 12:00:00 AM EDT Never Smoker completed Never S moker eCW1 ([facility]) Smoking 09/03/2020 12:00:00 AM EDT Never Smoker completed Never S moker eCW1 ([facility]) Smoking 08/23/2020 12:00:00 AM EDT Never Smoker completed Never S moker eCW1 ([facility]) Smoking 07/30/2020 12:00:00 AM EDT Never Smoker completed Never S moker eCW1 ([facility]) Smoking 07/30/2020 12:00:00 AM EDT Never Smoker completed Never S moker eCW1 ([facility]) Smoking 07/30/2020 12:00:00 AM EDT Never Smoker completed Never S moker eCW1 ([facility]) Smoking 07/30/2020 12:00:00 AM EDT Never Smoker completed Never S moker eCW1 ([facility]) Alcohol intake 07/28/2020 12:00:00 AM EDT Current drinker of al cohol (finding) completed Current drinker of alcohol (finding) [facility] Smoking 07/16/2020 12:00:00 AM EDT Never Smoker completed Never S moker eCW1 ([facility]) Smoking 07/16/2020 12:00:00 AM EDT Never Smoker completed Never S moker eCW1 ([facility]) Smoking 06/07/2020 09:10:13 AM EDT Never smoked tobacco (findi ng) completed Never smoked tobacco (finding) SAMANTHA ([facility] Donato MD [facility]) Smoking 05/17/2020 12:00:00 AM EST Never Smoker completed Never S moker eCW1 ([facility]) Smoking 05/17/2020 12:00:00 AM EST Never Smoker completed Never S moker eCW1 ([facility]) Smoking 05/17/2020 12:00:00 AM EST Never Smoker completed Never S moker eCW1 ([facility]) Smoking 05/17/2020 12:00:00 AM EST Never Smoker completed Never S moker eCW1 ([facility]) Smoking 05/17/2020 12:00:00 AM EST Never Smoker completed Never S moker eCW1 ([facility]) Alcohol intake 04/23/2020 12:00:00 AM EST Current drinker of al cohol (finding) completed Current drinker of alcohol (finding) [facility] Alcohol intake 03/18/2020 12:00:00 AM EST Current non-d maranda of alcohol (finding) completed Current non-drinker of alcohol (finding) [facility] Smoking 02/16/2020 12:00:00 AM EST Never Smoker completed Never S moker eCW1 ([facility]) Smoking 02/16/2020 12:00:00 AM EST Never Smoker completed Never S moker eCW1 ([facility]) Smoking 02/16/2020 12:00:00 AM EST Never Smoker completed Never S moker eCW1 ([facility]) Smoking 02/16/2020 12:00:00 AM EST Never Smoker completed Never S moker eCW1 ([facility]) Smoking 02/16/2020 12:00:00 AM EST Never Smoker completed Never S moker eCW1 ([facility]) Smoking 02/16/2020 12:00:00 AM EST Never Smoker completed Never S moker eCW1 ([facility]) Smoking 02/16/2020 12:00:00 AM EST Never Smoker completed Never S moker eCW1 ([facility]) Vital Signs ID Date Data Source UNK Name Value Range Interpretation Code Description Data Source(s) Body temperature 97.3 [degF] 97.3 [degF] MEDENT ([facility], ) Body mass index (BMI) [Ratio] 29.05 kg/m2 29.05 kg/m2 eCW1 ([facility]) Body height 66 [in_i] 66 [in_i] eCW1 ([facility]) Diastolic blood pressure 74 mm[Hg] 74 mm[Hg] eCW1 ([facility]) Body weight 180 [lb_av] 180 [lb_av] eCW1 [facility] Body weight 81.65 kg 81.65 kg eCW1 ([facility]) Systolic blood pressure 120 mm[Hg] 120 mm[Hg] e CW1 ([facility]) Body weight 179.2 [lb_av] 179.2 [lb_av] eCW1 ([facility]) Body weight 81.28 kg 81.28 kg eCW1 ([facility]) Body height 66 [in_i] 66 [in_i] eCW1 ([facility]) Body mass index (BMI) [Ratio] 28.92 kg/m2 28.92 kg/m2 eCW1 ([facility]) Systolic blood pressure 108 mm[Hg] 108 mm[Hg] e CW1 ([facility]) Diastolic blood pressure 74 mm[Hg] 74 mm[Hg] eCW1 ([facility]) Body weight 177.8 [lb_av] 177.8 [lb_av] eCW1 ([facility]) Body weight 80.65 kg 80.65 kg eCW1 ([facility]) Body height 66 [in_i] 66 [in_i] eCW1 ([facility]) Body mass index (BMI) [Ratio] 28.69 kg/m2 28.69 kg/m2 W1 ([facility]) Heart rate 98 /min 98 /min eCW1 ([facility]) Respiratory rate 17 /min 17 /min eCW1 ([facility]) Body temperature 96.1 [degF] 96.1 [degF] eCW1 ( [facility]) Systolic blood pressure 124 mm[Hg] 124 mm[Hg] e CW1 ([facility]) Diastolic blood pressure 71 mm[Hg] 71 mm[Hg] eCW1 ([facility]) Body weight 179.2 [lb_av] 179.2 [lb_av] eCW1 ([facility]) Body height 66 [in_i] 66 [in_i] eCW1 ([facility]) Body mass index (BMI) [Ratio] 28.92 kg/m2 28.92 kg/m2 eCW1 ([facility]) Systolic blood pressure 124 mm[Hg] 124 mm[Hg] e CW1 ([facility]) Diastolic blood pressure 78 mm[Hg] 78 mm[Hg] eCW1 ([facility]) Body weight 177 [lb_av] 177 [lb_av] eCW1 ([facility]) Body height 66 [in_i] 66 [in_i] eCW1 ([facility]) Body mass index (BMI) [Ratio] 28.57 kg/m2 28.57 kg/m2 eCW1 ([facility]) Heart rate 104 /min 104 /min eCW1 ([facility]) Respiratory rate 16 /min 16 /min eCW1 ([facility]) Body temperature 98.7 [degF] 98.7 [degF] eCW1 ( [facility]) Systolic blood pressure 111 mm[Hg] 111 mm[Hg] e CW1 ([facility]) Diastolic blood pressure 70 mm[Hg] 70 mm[Hg] eCW1 ([facility]) Body weight 178.0 [lb_av] 178.0 [lb_av] eCW1 ([facility]) Body weight 80.74 kg 80.74 kg eCW1 ([facility]) Body height 66 [in_i] 66 [in_i] eCW1 ([facility]) Body mass index (BMI) [Ratio] 28.73 kg/m2 28.73 kg/m2 eCW1 ([facility]) Systolic blood pressure 122 mm[Hg] 122 mm[Hg] e CW1 ([facility]) Diastolic blood pressure 86 mm[Hg] 86 mm[Hg] eCW1 ([facility]) Body weight 176.4 [lb_av] 176.4 [lb_av] eCW1 ([facility]) Body weight 80.01 kg 80.01 kg eCW1 ([facility]) Body height 66 [in_i] 66 [in_i] eCW1 ([facility]) Body mass index (BMI) [Ratio] 28.47 kg/m2 28.47 kg/m2 eCW1 ([facility]) Systolic blood pressure 118 mm[Hg] 118 mm[Hg] e CW1 ([facility]) Diastolic blood pressure 78 mm[Hg] 78 mm[Hg] eCW1 ([facility]) Body weight 174.0 [lb_av] 174.0 [lb_av] eCW1 ([facility]) Body height 66 [in_i] 66 [in_i] eCW1 ([facility]) Body mass index (BMI) [Ratio] 28.08 kg/m2 28.08 kg/m2 eCW1 ([facility]) Systolic blood pressure 116 mm[Hg] 116 mm[Hg] e CW1 ([facility]) Diastolic blood pressure 72 mm[Hg] 72 mm[Hg] eCW1 ([facility]) Systolic blood pressure 118 mm[Hg] 118 mm[Hg] e CW1 ([facility]) Body weight 173 [lb_av] 173 [lb_av] eCW1 ([facility]) Diastolic blood pressure 81 mm[Hg] 81 mm[Hg] eCW1 ([facility]) Body height 66 [in_i] 66 [in_i] eCW1 ([facility]) Body mass index (BMI) [Ratio] 27.92 kg/m2 27.92 kg/m2 eCW1 ([facility]) Body weight 176 [lb_av] 176 [lb_av] eCW1 ([facility]) Body height 66 [in_i] 66 [in_i] eCW1 ([facility]) Body mass index (BMI) [Ratio] 28.40 kg/m2 28.40 kg/m2 eCW1 ([facility]) Systolic blood pressure 120 mm[Hg] 120 mm[Hg] e CW1 ([facility]) Diastolic blood pressure 84 mm[Hg] 84 mm[Hg] eCW1 ([facility]) Systolic blood pressure 122 mm[Hg] 122 mm[Hg] e CW1 ([facility]) Body weight 180.0 [lb_av] 180.0 [lb_av] eCW1 ([facility]) Diastolic blood pressure 82 mm[Hg] 82 mm[Hg] eCW1 ([facility]) Body height 66 [in_i] 66 [in_i] eCW1 ([facility]) Body mass index (BMI) [Ratio] 29.05 kg/m2 29.05 kg/m2 eCW1 ([facility]) Body weight 172 [lb_av] 172 [lb_av] eCW1 ([facility]) Body height 66 [in_i] 66 [in_i] eCW1 ([facility]) Body mass index (BMI) [Ratio] 27.76 kg/m2 27.76 kg/m2 eCW1 ([facility]) Systolic blood pressure 124 mm[Hg] 124 mm[Hg] e CW1 ([facility]) Diastolic blood pressure 76 mm[Hg] 76 mm[Hg] eCW1 ([facility]) ID Date Data Source [id number] 10/21/2020 10:28:04 AM [facility] Name Value Range Interpretation Code Description Data Source(s) PREFERRED NAME [facility] ID Date Data Source [id number] 09/16/2020 01:36:08 PM EDT Health system Name Value Range Interpretation Code Description Data Source(s) PREFERRED NAME [facility]mer Vogel [facility] ID Date Data Source [id number] [facility] Range Interpretation Code Description Data Source(s) PREFERRED NAME [facility]mer Vogel [facility] ID Date Data Source [id number] 04/19/2020 01:51:47 PM [facility] Name Value Range Interpretation Code Description Data Source(s) PREFERRED NAME [facility]mer Vogel [facility] ID Date Data Source [id number] 04/23/2020 09:57:23 AM [facility] Name Value Range Interpretation Code Description Data Source(s) WEIGHT RECORDED 165 lb 165 lb [facility] Body height Measured 65 in 65 in [facility] PREFERRED NAME Umer Vogel [facility] PREFERRED NAME Umer Cheneya [facility] ID Date Data Source [id number] 04/27/2020 08:37:44 AM [facility] Name Value Range Interpretation Code Description Data Source(s) PREFERRED NAME [facility]mer Vogel [facility] ID Date Data Source [id number] 04/02/2020 08:27:29 AM [facility] Name Value Range Interpretation Code Description Data Source(s) PREFERRED NAME Umer Cheneya [facility] PREFERRED NAME Umer Cheneya [facility] ID Date Data Source [id number] 03/24/2020 12:31:53 PM [facility] Name Value Range Interpretation Code Description Data Source(s) PREFERRED NAME Umer Umer [facility] ID Date Data Source [id number] 03/22/2020 10:08:30 AM [facility] Name Value Range Interpretation Code Description Data Source(s) PREFERRED NAME Umer Umer [facility] PREFERRED NAME Umer Umer [facility] ID Date Data Source [id number] 02/05/2020 10:16:25 AM [facility] Name Value Range Interpretation Code Description Data Source(s) WEIGHT RECORDED 164 lb 164 lb [facility] Body height Measured 65 in 65 in [facility] WEIGHT RECORDED 164 lb 164 lb [facility] Body height Measured 65 in 65 in [facility] Patient Treatment Plan of Care Planned Activity Planned Date Details Description Data Source (s) Methylphenidate HCl ER 54 MG 01/13/2021 12:00:00 AM EDT eCW1 ([facility]) onabotulinumtoxinA 100 UNT/ML Injectable Solution 10/25/2020 03: 45:00 PM EDT [facility] Albuterol Sulfate HFA 108 (90 Base) MCG/ACT 10/05/2020 12:00:00 AM EDT eCW1 ([facility]) Fluconazole 150 MG Oral Tablet [Diflucan] 10/05/2020 12:00:00 AM ED T eCW1 ([facility]) Albuterol Sulfate HFA 108 (90 Base) MCG/ACT 10/05/2020 12:00:00 AM EDT eCW1 ([facility]) Fluconazole 150 MG Oral Tablet [Diflucan] 10/05/2020 12:00:00 AM ED T eCW1 ([facility]) Albuterol Sulfate HFA 108 (90 Base) MCG/ACT 10/05/2020 12:00:00 AM EDT eCW1 ([facility]) Fluconazole 150 MG Oral Tablet [Diflucan] 10/05/2020 12:00:00 AM ED T eCW1 ([facility]) Albuterol Sulfate HFA 108 (90 Base) MCG/ACT 10/05/2020 12:00:00 AM EDT eCW1 ([facility]) Fluconazole 150 MG Oral Tablet [Diflucan] 10/05/2020 12:00:00 AM ED T eCW1 ([facility]) Estradiol 0.1 MG/ML Vaginal Cream [Estrace] 10/01/2020 12:00:00 AM EDT eCW1 ([facility]) Estrogens, Conjugated (JAIL) 0.625 MG/ML Vaginal Cream [Premarin] 10/01/2020 12:00:00 AM EDT eCW1 ([facility]) Estradiol 0.1 MG/ML Vaginal Cream [Estrace] 10/01/2020 12:00:00 AM EDT eCW1 ([facility]) Estrogens, Conjugated (JAIL) 0.625 MG/ML Vaginal Cream [Premarin] 10/01/2020 12:00:00 AM EDT eCW1 ([facility]) Estradiol 0.1 MG/ML Vaginal Cream [Estrace] 10/01/2020 12:00:00 AM EDT eCW1 ([facility]) Estrogens, Conjugated (JAIL) 0.625 MG/ML Vaginal Cream [Premarin] 10/01/2020 12:00:00 AM EDT eCW1 ([facility]) Estradiol 0.1 MG/ML Vaginal Cream [Estrace] 10/01/2020 12:00:00 AM EDT eCW1 ([facility]) Estrogens, Conjugated (JAIL) 0.625 MG/ML Vaginal Cream [Premarin] 10/01/2020 12:00:00 AM EDT eCW1 ([facility]) Estradiol 0.1 MG/ML Vaginal Cream [Estrace] 10/01/2020 12:00:00 AM EDT eCW1 ([facility]) Estrogens, Conjugated (JAIL) 0.625 MG/ML Vaginal Cream [Premarin] 10/01/2020 12:00:00 AM EDT eCW1 ([facility]) Estradiol 0.1 MG/ML Vaginal Cream [Estrace] 10/01/2020 12:00:00 AM EDT eCW1 ([facility]) Estrogens, Conjugated (JAIL) 0.625 MG/ML Vaginal Cream [Premarin] 10/01/2020 12:00:00 AM EDT eCW1 ([facility]) Estradiol 0.1 MG/ML Vaginal Cream [Estrace] 10/01/2020 12:00:00 AM EDT eCW1 ([facility]) Estrogens, Conjugated (JAIL) 0.625 MG/ML Vaginal Cream [Premarin] 10/01/2020 12:00:00 AM EDT eCW1 ([facility]) Fluconazole 100 MG Oral Tablet [Diflucan] 09/14/2020 12:00:00 AM ED T eCW1 ([facility]) Fluconazole 100 MG Oral Tablet [Diflucan] 09/14/2020 12:00:00 AM ED T eCW1 ([facility]) Fluconazole 100 MG Oral Tablet [Diflucan] 09/14/2020 12:00:00 AM ED T eCW1 ([facility]) Fluconazole 100 MG Oral Tablet [Diflucan] 09/14/2020 12:00:00 AM ED T eCW1 ([facility]) Fluconazole 100 MG Oral Tablet [Diflucan] 09/14/2020 12:00:00 AM ED T eCW1 ([facility]) Fluconazole 100 MG Oral Tablet [Diflucan] 09/14/2020 12:00:00 AM ED T eCW1 ([facility]) Fluocinonide 0.5 MG/ML Topical Cream 09/13/2020 12:00:00 AM EDT eCW1 ([facility]) Ocrevus 300 MG/10ML Intravenous Solution (ocrelizumab) 08/11/2020 12:00:00 AM [facility]spital onabotulinumtoxinA 100 UNT/ML Injectable Solution 07/28/2020 02: 15:00 PM [facility] Cyclosporine 0.5 MG/ML Ophthalmic Suspension [Restasis ] 07/19/2020 12:00:00 AM EDT [place] ([facility]) Qbrexza 2.4 % 05/03/2020 12:00:00 AM EST eCW1 ([facility]) atomoxetine 40 MG Oral Capsule 04/14/2020 12:00:00 AM [facility] atomoxetine 40 MG Oral Capsule 04/13/2020 12:00:00 AM EST eCW1 ([facility]) atomoxetine 40 MG Oral Capsule 04/13/2020 12:00:00 AM EST eCW1 ([facility]) atomoxetine 40 MG Oral Capsule 04/13/2020 12:00:00 AM EST eCW1 ([facility]) atomoxetine 40 MG Oral Capsule 04/13/2020 12:00:00 AM EST eCW1 ([facility]) NaCl infusion 0.9 % 03/18/2020 08:30:00 AM [facility] ocrelizumab (OCREVUS) 600 mg in sodium chloride 0.9 % 250 mL infusion 03/18/2020 08:30:00 AM [facility] diphenhydrAMINE (BENADRYL) injection 50 mg 03/18/2020 08:30:00 AM E [facility] methylPREDNISolone sodium succinate (SOLU-MEDROL) inje ction 125 mg 03/18/2020 08:30:00 AM [facility] 24 HR Methylphenidate Hydrochloride 54 M G Extended Release Oral Tablet [Concerta] 12/16/2019 12:00:00 AM EDT eCW1 ([facility]) 24 HR Methylphenidate Hydrochloride 54 M G Extended Release Oral Tablet [Concerta] 12/16/2019 12:00:00 AM EDT eCW1 ([facility]) 24 HR Methylphenidate Hydrochloride 54 M G Extended Release Oral Tablet [Concerta] 12/16/2019 12:00:00 AM EDT eCW1 ([facility]) 24 HR Methylphenidate Hydrochloride 54 M G Extended Release Oral Tablet [Concerta] 12/16/2019 12:00:00 AM EDT eCW1 ([facility]) 24 HR Methylphenidate Hydrochloride 54 M G Extended Release Oral Tablet [Concerta] 12/16/2019 12:00:00 AM EDT eCW1 ([facility]) 24 HR Methylphenidate Hydrochloride 54 M G Extended Release Oral Tablet [Concerta] 12/16/2019 12:00:00 AM EDT eCW1 ([facility]) 24 HR Methylphenidate Hydrochloride 54 M G Extended Release Oral Tablet [Concerta] 12/16/2019 12:00:00 AM EDT eCW1 ([facility]) Ranitidine 150 MG Oral Capsule 09/13/2017 04:58:32 PM EDT [facility] ([facility]) Nadolol 40 MG Oral Tablet [facility] 24 HR Methylphenidate Hydrochloride 36 MG Extended Release Oral Tab [facility]
[2021-01-27] MEDS ORDERED: ACETAMINOPHEN 500 MG TAB PO ONE (09:35)
[2021-01-27] MEDS ORDERED: NS 1,000 ML IV ONE (09:35)
[2021-01-27] MEDS ORDERED: ONDANSETRON 4MG/2ML VIAL IV ONE (09:35)
[2021-01-27] MEDS ORDERED: KETOROLAC 30 MG/ML 1ML VIAL IV ONE (09:35)
--- OUTSIDE RECORDS SUMMARY | 2021-01-27 10:01 | CCD | Continuity of Care Document ---
Author Author Lela DEE Organization Unknown Address [address], [place] [address] Phone [phone] Problems Active Problems Provider Date Allergic rhinitis [...]
--- OUTSIDE RECORDS SUMMARY | 2021-01-27 10:01 | CCD | Continuity of Care Document ---
Author Author Lela DEE Organization Unknown Address [address], [place] [address] Phone [phone] Problems Active Problems Provider Date Allergic rhinitis [...]
--- OUTSIDE RECORDS SUMMARY | 2021-01-27 10:01 | CCD | Continuity of Care Document ---
Author Author Lela DEE Organization Unknown Address [address], [place] [address] Phone [phone] Problems Active Problems Provider Date Allergic rhinitis [...]
--- OUTSIDE RECORDS SUMMARY | 2021-01-27 10:05 | CCD ---
Author Author [facility] Organization [facility] Address Unknown Phone Unavailable Care Team Providers Care Associate Director Of Nursing Name Role Phone Apolinar ALCARAZ KEYANNA Unavailable [phone] Apolinar ALCARAZ KEYANNA Unavailable [phone] KIERAN, A. RUBY ON RAILS CONSULTANT KEYANNA Unavailable [phone] KIERAN, A. RUBY ON RAILS CONSULTANT KEYANNA Unavailable [phone] KIERAN, A. RUBY ON RAILS CONSULTANT KEYANNA Unavailable [phone] KIERAN, A. RUBY ON RAILS CONSULTANT KEYANNA Unavailable [phone] KIERAN, A. RUBY ON RAILS CONSULTANT KEYANNA Unavailable [phone] KIERAN, A. RUBY ON RAILS CONSULTANT KEYANNA Unavailable [phone] KIERAN, A. RUBY ON RAILS CONSULTANT KEYANNA Unavailable [phone] KIERAN, A. RUBY ON RAILS CONSULTANT KEYANNA Unavailable [phone] KIERAN, A. RUBY ON RAILS CONSULTANT KEYANNA Unavailable [phone] KIERAN, A. RUBY ON RAILS CONSULTANT KEYANNA Unavailable [phone] KIERAN, A. RUBY ON RAILS CONSULTANT KEYANNA Unavailable [phone] KIERAN, A. RUBY ON RAILS CONSULTANT KEYANNA Unavailable [phone] KIERAN, A. RUBY ON RAILS CONSULTANT KEYANNA Unavailable [phone] KIERAN, A. RUBY ON RAILS CONSULTANT KEYANNA Unavailable [phone] LUCINDA (JESS), Theron [...] (JESS), Theron MYERS MD Unavailable Unavailab le LUICNDA (JESS), Theron MYERS MD Unavailable Unavailab le [...] MD Unavailable Unavailab le LUCINDA (JESS), Theron YMERS MD Unavailable Unavailab le LUCINDA (JESS), Theron [...] Preet Vidal MD, FACS Unavailable Unavailable Burleson Dontao, Preet Vidal MD, FACS Unavailable Unavailable Burleson [...] Unavailable Unavailable FRANCIS, M KAITLIN Unavailable Unavailable Fajardo, Gabriela RUBY ON RAILS CONSULTANT Unavailable Unavailable Jeanie, Gabriela RUBY ON RAILS CONSULTANT Unavailable Unavailable Jeanie, Gabriela RUBY ON RAILS CONSULTANT Unavailable Unavailable Jaenie, Gabriela RUBY ON RAILS CONSULTANT Unavailable Unavailable Fajardo, Gabriela RUBY ON RAILS CONSULTANT Unavailable Unavailable Jeanie, Gabriela RUBY ON RAILS CONSULTANT Unavailable Unavailable Jeanie, Gabriela RUBY ON RAILS CONSULTANT Unavailable Unavailable Jeanie, Gabriela RUBY ON RAILS CONSULTANT Unavailable Unavailable Jeanie, Gabriela RUBY ON RAILS CONSULTANT Unavailable Unavailable Jeanie, Gabriela RUBY ON RAILS CONSULTANT Unavailable Unavailable Jeanie, Gabriela RUBY ON RAILS CONSULTANT Unavailable Unavailable Fajardo, Gabriela RUBY ON RAILS CONSULTANT Unavailable Unavailable Fajardo, Gabriela RUBY ON RAILS CONSULTANT Unavailable Unavailable Fajardo, Gabriela RUBY ON RAILS CONSULTANT Unavailable Unavailable Jeanie, Gabriela RUBY ON RAILS CONSULTANT Unavailable Unavailable Fajardo, Gabriela RUBY ON RAILS CONSULTANT Unavailable Unavailable Fajardo, Gabriela RUBY ON RAILS CONSULTANT Unavailable Unavailable Fajardo, Gabriela RUBY ON RAILS CONSULTANT Unavailable Unavailable Fajardo, Gabriela RUBY ON RAILS CONSULTANT Unavailable Unavailable Fajardo, Gabriela RUBY ON RAILS CONSULTANT Unavailable Unavailable Fajardo, Gabriela RUBY ON RAILS CONSULTANT Unavailable Unavailable Fajardo, Gabriela RUBY ON RAILS CONSULTANT Unavailable Unavailable Fajardo, Gabriela RUBY ON RAILS CONSULTANT Unavailable Unavailable Fajardo, Gabriela RUBY ON RAILS CONSULTANT Unavailable Unavailable Fajardo, Gabriela RUBY ON RAILS CONSULTANT Unavailable Unavailable Fajardo, Gabriela RUBY ON RAILS CONSULTANT Unavailable Unavailable Fajardo, Gabriela RUBY ON RAILS CONSULTANT Unavailable Unavailable Fajardo, Gabriela RUBY ON RAILS CONSULTANT Unavailable Unavailable Fajardo, Gabriela RUBY ON RAILS CONSULTANT Unavailable Unavailable Fajardo, Gabriela RUBY ON RAILS CONSULTANT Unavailable Unavailable Fajardo, Gabriela RUBY ON RAILS CONSULTANT Unavailable Unavailable Fajardo, Gabriela RUBY ON RAILS CONSULTANT Unavailable Unavailable Fajardo, Gabriela RUBY ON RAILS CONSULTANT Unavailable Unavailable Fajardo, Gabriela RUBY ON RAILS CONSULTANT Unavailable Unavailable Fajardo, Gabriela RUBY ON RAILS CONSULTANT Unavailable Unavailable KHAIRALLAH, RAMZI MD Unavailable Unavailable [...] E Pam PA Unavailable Unavailable MAI, E Pma PA Unavailable Unavailable MAI, E Pam PA Unavailable Unavailable MAI, E Pam PA Unavailable Unavailable MIA, E Pam PA Unavailable Unavailable MAI, E [...] is protected by Article 27-F of the [facility] Public Health law. If you continue you may have access to information: Regarding HIV / AIDS; Provided by facilities licensed or operated by the [facility] Office of Mental Health; or Provided by the [facility] Office for People With Developmental Disabilities. If such information is present, then the following [facility] mandated warning applies: This information has [...] law may result in a fine or half-way sentence or both. A general authorization for the release of medical or other information is NOT sufficient authorization for further disc losure. Family History Family Member Name Family Member Gender Family Member Status Date o f Status Description Data Source(s) Unknown Female Problem (finding) 11/14/2016 12:00:00 AM EDT NextGen ([facility]) Unknown Male Problem MEDENT ([facility] ) Encounters Encounter Providers Location Date Indications Data Source(s ) Outpatient Attender: SHAWN JIANG MDAttender: ESTUARDO PAIGE MD 04/18/2021 12:00:00 AM [facility] Outpatient 03/17/2021 12:00:00 AM [facility] Outpatient Attender: Faustino Murdock MD 02/02/2021 12:00:00 A M [facility] Outpatient Attender: KEYANNA ALCARAZ 09/2020 05:18:58 PM EST - 01/23/2021 05:42:43 PM EST [facility]uTa ([facility] ) Outpatient Referrer: Faustino Murdock MD 01/21/2021 12:0 0:00 AM EDT Perineural cyst [facility] Perineural cyst Outpatient Referrer: Faustino Murdock MD 01/21/2021 12:0 0:00 AM EDT Multiple sclerosis [facility] Multiple sclerosis Outpatient Attender: Kaitlin Ramos doris: KAITLIN Herndoner: ESTUARDO TITUS MD [id number] 01/17/2021 12:00:00 AM EDT - 01/17/2021 03:34:12 PM EDT [facility] Outpatient Attender: Faustino Murdock MD 01/14/2021 12:00:00 A M EDT [facility] Unknown [address] [place] [place] [address] 01/12/2021 12:00:00 AM EDT eCW1 ([facility]) Outpatient Attender: [place]/Sumeet/Heladio/Tammi rose 12/31/2020 03:00:00 PM EDT MEDENT ([facility] [place] [address] [place] [address] 12/13/2020 12:00:00 AM EDT eCW1 ([facility]) [place] [address] [place] [address] 12/07/2020 12:00:00 AM EDT eCW1 ([facility]) [place] [address] [place] [address] 12/07/2020 12:00:00 AM EDT eCW1 ([facility]) [place] [address] [place] [address] 11/23/2020 12:00:00 AM EDT eCW1 ([facility]) [place] [address] [place] [address] 11/11/2020 12:00:00 AM EDT eCW1 ([facility]) [place] [address] [place] [address] 11/08/2020 12:00:00 AM EDT eCW1 ([facility]) Unknown [address] [place] [address] 11/08/2020 12:00:00 AM EDT eCW1 ([facility]) [place] [address] [place] [address] 11/05/2020 12:00:00 AM EDT eCW1 ([facility]) [place] [address] [place] [address] 11/02/2020 12:00:00 AM EDT eCW1 ([facility]) Outpatient Attender: Kaitlin Ramos doris: KAITLIN Garcia: ESTUARDO TITUS MD [id number] 10/25/2020 12:00:00 AM EDT Chronic migra ine without aura, not intractable, without status migrainosus [facility] Chronic migraine without aura, not intra ctable, without status migrainosus [place] [address] [place] [address] 10/25/2020 12:00:00 AM EDT eCW1 ([facility]) Outpatient Referrer: Faustino Murdock MD 10/22/2020 12:0 0:00 AM EDT Benign intracranial hypertension [facility] Benign intracranial hypertension Outpatient Referrer: Faustino Murdock MD 10/22/2020 12:00:00 A M [facility] Outpatient Attender: Faustino Murdock MD [id number] 2020 12:00:00 AM EDT - 10/21/2020 10:27:47 AM T [facility] Unknown [address] [place] [address] 10/21/2020 12:00:00 AM EDT eCW1 ([facility]) [place] [address] [place] [address] 10/13/2020 12:00:00 AM EDT eCW1 ([facility]) Attender: LOUIS JANE MD (MITCHELL) 07/23/202 1 08:21:07 PM EDT [facility] [place] [address] [place] [address] 10/05/2020 12:00:00 AM EDT eCW1 ([facility]) Unknown [address] [place] [address] 10/05/2020 12:00:00 AM EDT eCW1 ([facility]) [place] [address] [place] [address] 10/04/2020 12:00:00 AM EDT eCW1 ([facility]) [place] [address] [place] [address] 10/04/2020 12:00:00 AM EDT eCW1 ([facility]) [place] [address] [place] [address] 10/04/2020 12:00:00 AM EDT eCW1 ([facility]) [place] [address] [place] [address] 10/03/2020 12:00:00 AM EDT eCW1 ([facility]) [place] [address] [place] [address] 10/01/2020 12:00:00 AM EDT eCW1 ([facility]) [place] [address] [place] [place] [address] 09/30/2020 12:00:00 AM EDT eCW1 ([facility]) [place] [address] [place] [place] [address] 09/21/2020 12:00:00 AM EDT eCW1 ([facility]) [place] [address] [place] [address] 09/16/2020 12:00:00 AM EDT eCW1 ([facility]) Outpatient Attender: Pam Rosas: Faustino Murdock MD [id number] 09/15/2020 12:00:00 AM EDT - 09/15/2020 01:52:21 PM EDT [facility] Outpatient [address] [place] [address] 09/14/2020 12:00:00 AM EDT eCW1 ([facility]) [place] [address] [place] [place] [address] 09/14/2020 12:00:00 AM EDT eCW1 ([facility]) [place] [address] [place] [address] 09/13/2020 12:00:00 AM EDT eCW1 ([facility]) [place] [address] [place] [address] 09/13/2020 12:00:00 AM EDT eCW1 ([facility]) [place] [address] [place] [address] 09/10/2020 12:00:00 AM EDT [facility]CW1 [facility] [place] [address] [place] [address] 08/23/2020 12:00:00 AM EDT eCW1 [facility] Attender: LOUIS JANE MD (MITCHELL) 08:21:06 PM EDT [facility] Attender: LOUIS JANE MD (MITCHELL) 08:21:06 PM EDT [facility] Unknown [address] [place] [address] 08/12/2020 12:00:00 AM EDT eCW1 ([facility] [place] [address] [place] [address] 08/12/2020 12:00:00 AM EDT eCW1 ([facility] Out[place] [address] [place] [address] 08/10/2020 12:00:00 AM EDT [facility]CW1 [facility]) [place] [address] [place] [address] 07/30/2020 12:00:00 AM EDT eCW1 ([facility]) Outpatient Attender: Gabriela Ware FNPReferrer: Gabriela ROBERTS 07/28/2020 12:00:00 AM EDT - 07/29/2020 12:00:00 AM EDT [facility] Multiple sclerosis Outpatient Attender: Pam MAI PAReferrer: BRIAN TITUS MD [id number] 07/28/2020 12:00:00 AM EDT [facility] Unknown [address] [place] [address] 07/21/2020 12:00:00 AM EDT eCW1 ([facility]) Outpatient Attender: ESTUARDO TITUS MD 07/19/2020 12:0 0:00 AM T [facility] Outpatient [address] [place] [address] 07/16/2020 12:00:00 AM EDT eCW1 ([facility]) Unknown [address] [place] [address] 07/15/2020 12:00:00 AM EDT eCW1 ([facility]) Outpatient<td ID="encounterTypeDescripti onID0">Rx Refills/Changes</td><td>Young Priest MD, FACS</td><td></td><td>07/19/2020</td><td>06/07/2020 8:18AM</td><td>06/07/2020 11:59PM</td><td><content ID="encounterDiagnosisID0- 0">Dry Eye Syndrome Both Eyes</content></td> Attender: Young Donato MD, FACS 06/07/2020 08:18:00 AM EDT - 06/07/2020 11:59:00 PM EDT Dry Eye Syndrome Both EyesDry Eye Syndrome Both Eyes SAMANTHA (Young Donato MD [facility]) Dry Eye Syndrome Both Eyes Dry Eye Syndrome Both Eyes Outpatient<td ID="encounterTypeDescripti onID1">7 Month Follow-Up</td><td>Young Priest MD, FACS</td><td>Young Priest MD [facility]</td><td>06/07/2020</td><td>8:16AM</td><td>9:10AM</td><td><content ID="encounterDiagnosisID1-0">Dry Eye Syndrome Both Eyes</content>, <content ID="encounterDiagnosisID1-1">Vitreous Disorders Degeneration</content>, <content ID="encounterDiagnosisID1-2">Optic Neuritis</content></td> Attender: Young Donato MD, FACS Young Priest MD [facility] 06/07/2020 08:16:00 AM EDT - 06/07/2020 09:10:00 AM EDT Optic NeuritisVitreous Disorders Degener ationDry Eye Syndrome Both EyesOptic NeuritisVitreous Disorders DegenerationDry Eye Syndrome Both EyesOptic NeuritisVitreous Disorders DegenerationDry Eye Syndrome Both Eyes SAMANTHA (Young Donato MD [facility]) Optic Neuritis 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 Optic Neuritis 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 Optic Neuritis 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 [address] 06/03/2020 12:00:00 AM EDT eCW1 ([facility]) Unknown [address] [place] [address] 06/02/2020 12:00:00 AM EDT eCW1 ([facility]) [place] [address] [place] [address] 05/17/2020 12:00:00 AM EST eCW1 ([facility]) [place] [address] [place] [address] 05/10/2020 12:00:00 AM EST eCW1 ([facility]) Outpatient Attender: Gabriela Ware [facility] [id number] 04/23/2020 12:00:00 AM [facility] Unknown [address] [place] [address] 04/23/2020 12:00:00 AM EST eCW1 ([facility]) Unknown [address] [place] [address] 04/20/2020 12:00:00 AM EST eCW1 ([facility]) Outpatient Attender: ESTUARDO TITUS MDReferrer: ESTUARDO TITUS MD [id number] 04/19/2020 12:00:00 AM EST - 04/19/2020 01:58:10 PM ES T Chronic migraine without aura, not intractable, without status migrainosus [facility] Chronic migraine without aura, not intra ctable, without status migrainosus Unknown [address] [place] [address] 04/13/2020 12:00:00 AM EST eCW1 ([facility]) [place] [address] [facility] [place] [address] 04/12/2020 12:00:00 AM EST eCW1 ([facility]) Outpatient Attender: Gabriela Ware [facility] 04/02/2020 12:00: 00 AM [facility] Outpatient Attender: Gabriela Ware [facility] 03/31/2020 12:00: 00 AM [facility] Attender: VINOD MELENDEZ MD [facility] 03/30/2020 07:07:00 PM EST - 03/30/2020 07:07:00 PM EST Next[facility] ( [facility]) [place] [address] [place] [address] 03/22/2020 12:00:00 AM EST eCW1 ([facility]) Outpatient Attender: Gabriela Ware FNPReferrer: Faustino edwards MD [id number] 03/18/2020 12:00:00 AM EST - 03/18/2020 03:11:50 PM EST Multiple sclerosis [facility] Multiple sclerosis Outpatient 03/16/2020 12:00:00 AM [facility] Outpatient [address] [place] [address] 02/16/2020 12:00:00 AM EST eCW1 ([facility]) Attender: LOUIS NOLASCO) MDReferrer: Jarret REYNOSO LOREN 02/03/2020 08:20:11 PM EST [facility] Attender: LOUIS NOLASCO) MDReferrer: Jarret IBARRAARYCHELLE LOREN 02/03/2020 08:20:11 PM EST [facility] Outpatient Attender: ESTUARDO TITUS MDReferrer: ESTUARDO TITUS MD [id number] 01/26/2020 12:00:00 AM EST [facility] Unknown [address] [place] [address] 01/22/2020 12:00:00 AM EST eCW1 ([facility]) [place] [address] [facility] [place] [address] 01/19/2020 12:00:00 AM EST eCW1 ([facility]) [place] [address] [place] [address] 01/09/2020 12:00:00 AM EDT eCW1 ([facility]) Unknown [address] [place] [address] 12/19/2019 12:00:00 AM EDT eCW1 ([facility]) Unknown [address] [address] 12/16/2019 12:00:00 AM EDT eCW1 ([facility]) Outpatient Referrer: Faustino Murdock MD 12/08/2019 12:0 0:00 AM EDT [facility] Multiple sclerosis Outpatient Referrer: Faustino Murdock MD 12/08/2019 12:0 0:00 AM EDT [facility] Multiple sclerosis Outpatient Attender: Faustino Murdock MD [id number] 10/17/2019 12:0 0:00 AM EDT [facility] Multiple sclerosis Immunizations Vaccine Date Status Description Data Source(s) COVID-19 VACCINE Moderna 04/19/2020 12:00:00 AM EST completed [facility] Vaccine Series Complete: YESThis Data wa s Submitted to [facility] Via [employer]. COVID-19 VACCINE Moderna 03/22/2020 12:00:00 AM EST completed [facility] Vaccine Series Complete: NOThis Data was Submitted to [facility] Via [employer]. Medications Medication Brand Name Start Date Product Form Dose Route Admi nistrative Instructions Pharmacy Instructions Status Indications Reaction Description Data Source(s) Methylphenidate HCl ER 54 MG Methylphenidate HCl ER 54 MG 12:00:00 AM EDT 1.0 {tablet_in_the_morning} active Methylphenidate HCl ER 54 MG eCW1 ([facility]) onabotulinumtoxinA 100 UNT/ML Injectable Solution onabotulinumtoxin type A (BOTOX) injection 185 Units onabotulinumtoxin type A (BOTOX) injecti on 185 Units 10/25/2020 03:45:00 PM EDT 185 U Intramuscular acti ve Chronic migraine [facility] Chronic migraine iohexol (OMNIPAQUE) 350 MG/ML contrast injection 100 mL 2805 8 10/22/2020 03:45:00 PM EDT 100 mL Intravenous completed 100 mL, Intravenous, 1 TIME IMAGING, On Sun10/22/20 at 1545, For 1 dose, Imaging [facility] Medication administered onsite Albuterol Sulfate HFA 108 (90 Base) MCG/ACT Albuterol Sulfate HFA 108 (90 Base) MCG/ACT 10/05/2020 12:00:00 AM EDT 1.0 {puff_as_needed} active Albuterol Sulfate HFA 108 (90 Base) MCG/ACT eCW1 ([facility]) Fluconazole 150 MG Oral Tablet [Diflucan] Diflucan 150 MG Di flucan 150 MG 10/05/2020 12:00:00 AM EDT 1.0 {tablet} active Diflucan 150 MG eCW1 ([facility]) Albuterol Sulfate HFA 108 (90 Base) MCG/ACT Albuterol Sulfate HFA 108 (90 Base) MCG/ACT 10/05/2020 12:00:00 AM EDT 1.0 {puff_as_needed} active Albuterol Sulfate HFA 108 (90 Base) MCG/ACT eCW1 ([facility]) Fluconazole 150 MG Oral Tablet [Diflucan] Diflucan 150 MG Di flucan 150 MG 10/05/2020 12:00:00 AM EDT 1.0 {tablet} active Diflucan 150 MG eCW1 ([facility]) Albuterol Sulfate HFA 108 (90 Base) MCG/ACT Albuterol Sulfate HFA 108 (90 Base) MCG/ACT 10/05/2020 12:00:00 AM EDT 1.0 {puff_as_needed} active Albuterol Sulfate HFA 108 (90 Base) MCG/ACT eCW1 ([facility]) Fluconazole 150 MG Oral Tablet [Diflucan] Diflucan 150 MG Di flucan 150 MG 10/05/2020 12:00:00 AM EDT 1.0 {tablet} suspended Diflucan 150 MG eCW1 ([facility]) Albuterol Sulfate HFA 108 (90 Base) MCG/ACT Albuterol Sulfate HFA 108 (90 Base) MCG/ACT 10/05/2020 12:00:00 AM EDT 1.0 {puff_as_needed} active Albuterol Sulfate HFA 108 (90 Base) MCG/ACT eCW1 ([facility]) Albuterol Sulfate HFA 108 (90 Base) MCG/ACT Albuterol Sulfate HFA 108 (90 Base) MCG/ACT 10/05/2020 12:00:00 AM EDT 1.0 {puff_as_needed} active eCW1 ([facility]) Fluconazole 150 MG Oral Tablet [Diflucan] Diflucan 150 MG Di flucan 150 MG 10/05/2020 12:00:00 AM EDT 1.0 {tablet} suspended Diflucan 150 MG eCW1 ([facility]) Fluconazole 150 MG Oral Tablet [Diflucan] Diflucan 150 MG Di flucan 150 MG 10/05/2020 12:00:00 AM EDT 1.0 {tablet} suspended Diflucan 150 MG eCW1 ([facility]) Fluconazole 150 MG Oral Tablet [Diflucan] Diflucan 150 MG Di flucan 150 MG 10/05/2020 12:00:00 AM EDT 1.0 {tablet} active Diflucan 150 MG eCW1 ([facility]) Fluconazole 150 MG Oral Tablet [Diflucan] Diflucan 150 MG Di flucan 150 MG 10/05/2020 12:00:00 AM EDT 1.0 {tablet} active eCW1 ([facility]) Albuterol Sulfate HFA 108 (90 Base) MCG/ACT Albuterol Sulfate HFA 108 (90 Base) MCG/ACT 10/05/2020 12:00:00 AM EDT 1.0 {puff_as_needed} active Albuterol Sulfate HFA 108 (90 Base) MCG/ACT eCW1 ([facility]) Fluconazole 150 MG Oral Tablet [Diflucan] Diflucan 150 MG Di flucan 150 MG 10/05/2020 12:00:00 AM EDT 1.0 {tablet} active Diflucan 150 MG eCW1 ([facility]) Fluconazole 150 MG Oral Tablet [Diflucan] Diflucan 150 MG Di flucan 150 MG 10/05/2020 12:00:00 AM EDT 1.0 {tablet} active Diflucan 150 MG eCW1 ([facility]) Albuterol Sulfate HFA 108 (90 Base) MCG/ACT Albuterol Sulfate HFA 108 (90 Base) MCG/ACT 10/05/2020 12:00:00 AM EDT 1.0 {puff_as_needed} active Albuterol Sulfate HFA 108 (90 Base) MCG/ACT eCW1 ([facility]) Fluconazole 150 MG Oral Tablet [Diflucan] Diflucan 150 MG Di flucan 150 MG 10/05/2020 12:00:00 AM EDT 1.0 {tablet} suspended Diflucan 150 MG eCW1 ([facility]) Albuterol Sulfate HFA 108 (90 Base) MCG/ACT Albuterol Sulfate HFA 108 (90 Base) MCG/ACT 10/05/2020 12:00:00 AM EDT 1.0 {puff_as_needed} active Albuterol Sulfate HFA 108 (90 Base) MCG/ACT eCW1 ([facility]) Albuterol Sulfate HFA 108 (90 Base) MCG/ACT Albuterol Sulfate HFA 108 (90 Base) MCG/ACT 10/05/2020 12:00:00 AM EDT 1.0 {puff_as_needed} active Albuterol Sulfate HFA 108 (90 Base) MCG/ACT eCW1 ([facility]) Fluconazole 150 MG Oral Tablet [Diflucan] Diflucan 150 MG Di flucan 150 MG 10/05/2020 12:00:00 AM EDT 1.0 {tablet} suspended Diflucan 150 MG eCW1 ([facility]) Albuterol Sulfate HFA 108 (90 Base) MCG/ACT Albuterol Sulfate HFA 108 (90 Base) MCG/ACT 10/05/2020 12:00:00 AM EDT 1.0 {puff_as_needed} active Albuterol Sulfate HFA 108 (90 Base) MCG/ACT eCW1 ([facility]) Albuterol Sulfate HFA 108 (90 Base) MCG/ACT Albuterol Sulfate HFA 108 (90 Base) MCG/ACT 10/05/2020 12:00:00 AM EDT 1.0 {puff_as_needed} active Albuterol Sulfate HFA 108 (90 Base) MCG/ACT eCW1 ([facility]) Fluconazole 150 MG Oral Tablet [Diflucan] Diflucan 150 MG Di flucan 150 MG 10/05/2020 12:00:00 AM EDT 1.0 {tablet} suspended Diflucan 150 MG eCW1 ([facility]) Albuterol Sulfate HFA 108 (90 Base) MCG/ACT Albuterol Sulfate HFA 108 (90 Base) MCG/ACT 10/05/2020 12:00:00 AM EDT 1.0 {puff_as_needed} active Albuterol Sulfate HFA 108 (90 Base) MCG/ACT eCW1 ([facility]) Albuterol Sulfate HFA 108 (90 Base) MCG/ACT Albuterol Sulfate HFA 108 (90 Base) MCG/ACT 10/05/2020 12:00:00 AM EDT 1.0 {puff_as_needed} active Albuterol Sulfate HFA 108 (90 Base) MCG/ACT eCW1 ([facility]) Albuterol Sulfate HFA 108 (90 Base) MCG/ACT Albuterol Sulfate HFA 108 (90 Base) MCG/ACT 10/05/2020 12:00:00 AM EDT 1.0 {puff_as_needed} active Albuterol Sulfate HFA 108 (90 Base) MCG/ACT eCW1 ([facility]) Albuterol Sulfate HFA 108 (90 Base) MCG/ACT Albuterol Sulfate HFA 108 (90 Base) MCG/ACT 10/05/2020 12:00:00 AM EDT 1.0 {puff_as_needed} active Albuterol Sulfate HFA 108 (90 Base) MCG/ACT eCW1 ([facility]) Fluconazole 150 MG Oral Tablet [Diflucan] Diflucan 150 MG Di flucan 150 MG 10/05/2020 12:00:00 AM EDT 1.0 {tablet} active Diflucan 150 MG eCW1 ([facility]) Albuterol Sulfate HFA 108 (90 Base) MCG/ACT Albuterol Sulfate HFA 108 (90 Base) MCG/ACT 10/05/2020 12:00:00 AM EDT 1.0 {puff_as_needed} active Albuterol Sulfate HFA 108 (90 Base) MCG/ACT eCW1 ([facility]) Fluconazole 150 MG Oral Tablet [Diflucan] Diflucan 150 MG Di flucan 150 MG 10/05/2020 12:00:00 AM EDT 1.0 {tablet} suspended Diflucan 150 MG eCW1 ([facility]) Fluconazole 150 MG Oral Tablet [Diflucan] Diflucan 150 MG Di flucan 150 MG 10/05/2020 12:00:00 AM EDT 1.0 {tablet} suspended Diflucan 150 MG eCW1 ([facility]) Albuterol Sulfate HFA 108 (90 Base) MCG/ACT Albuterol Sulfate HFA 108 (90 Base) MCG/ACT 10/05/2020 12:00:00 AM EDT 1.0 {puff_as_needed} active Albuterol Sulfate HFA 108 (90 Base) MCG/ACT eCW1 ([facility]) Fluconazole 150 MG Oral Tablet [Diflucan] Diflucan 150 MG Di flucan 150 MG 10/05/2020 12:00:00 AM EDT 1.0 {tablet} active Diflucan 150 MG eCW1 ([facility]) Fluconazole 150 MG Oral Tablet [Diflucan] Diflucan 150 MG Di flucan 150 MG 10/05/2020 12:00:00 AM EDT 1.0 {tablet} suspended Diflucan 150 MG eCW1 ([facility]) Estradiol 0.1 MG/ML Vaginal Cream [Estrace] Estrace 0.1 MG/G M Estrace 0.1 MG/GM 10/01/2020 12:00:00 AM EDT active Estrace 0.1 MG/GM eCW1 ([facility]) Estrogens, Conjugated (JAIL) 0.625 MG/ML Vaginal Cream [Premarin] Premarin 0.625 MG/GM Premarin 0.625 MG/GM 10/01/2020 12:00:00 AM EDT suspended Premarin 0.625 MG/GM eCW1 ([facility]) Estradiol 0.1 MG/ML Vaginal Cream [Estrace] Estrace 0.1 MG/G M Estrace 0.1 MG/GM 10/01/2020 12:00:00 AM EDT active Estrace 0.1 MG/GM eCW1 ([facility]) Estradiol 0.1 MG/ML Vaginal Cream [Estrace] Estrace 0.1 MG/G M Estrace 0.1 MG/GM 10/01/2020 12:00:00 AM EDT active Estrace 0.1 MG/GM eCW1 ([facility]) Estrogens, Conjugated (JAIL) 0.625 MG/ML Vaginal Cream [Premarin] Premarin 0.625 MG/GM Premarin 0.625 MG/GM 10/01/2020 12:00:00 AM EDT active Premarin 0.625 MG/GM eCW1 ([facility]) Estrogens, Conjugated (JAIL) 0.625 MG/ML Vaginal Cream [Premarin] Premarin 0.625 MG/GM Premarin 0.625 MG/GM 10/01/2020 12:00:00 AM EDT suspended Premarin 0.625 MG/GM eCW1 ([facility]) Estradiol 0.1 MG/ML Vaginal Cream [Estrace] Estrace 0.1 MG/G M Estrace 0.1 MG/GM 10/01/2020 12:00:00 AM EDT active Estrace 0.1 MG/GM eCW1 ([facility]) Estrogens, Conjugated (JAIL) 0.625 MG/ML Vaginal Cream [Premarin] Premarin 0.625 MG/GM Premarin 0.625 MG/GM 10/01/2020 12:00:00 AM EDT active Premarin 0.625 MG/GM eCW1 ([facility]) Estradiol 0.1 MG/ML Vaginal Cream [Estrace] Estrace 0.1 MG/G M Estrace 0.1 MG/GM 10/01/2020 12:00:00 AM EDT active Estrace 0.1 MG/GM eCW1 ([facility]) Estrogens, Conjugated (JAIL) 0.625 MG/ML Vaginal Cream [Premarin] Premarin 0.625 MG/GM Premarin 0.625 MG/GM 10/01/2020 12:00:00 AM EDT active Premarin 0.625 MG/GM eCW1 ([facility]) Estrogens, Conjugated (JAIL) 0.625 MG/ML Vaginal Cream [Premarin] Premarin 0.625 MG/GM Premarin 0.625 MG/GM 10/01/2020 12:00:00 AM EDT suspended Premarin 0.625 MG/GM eCW1 ([facility]) Estradiol 0.1 MG/ML Vaginal Cream [Estrace] Estrace 0.1 MG/G M Estrace 0.1 MG/GM 10/01/2020 12:00:00 AM EDT active Estrace 0.1 MG/GM eCW1 ([facility]) Estrogens, Conjugated (JAIL) 0.625 MG/ML Vaginal Cream [Premarin] Premarin 0.625 MG/GM Premarin 0.625 MG/GM 10/01/2020 12:00:00 AM EDT active Premarin 0.625 MG/GM eCW1 ([facility]) Estradiol 0.1 MG/ML Vaginal Cream [Estrace] Estrace 0.1 MG/G M Estrace 0.1 MG/GM 10/01/2020 12:00:00 AM EDT active Estrace 0.1 MG/GM eCW1 ([facility]) Estradiol 0.1 MG/ML Vaginal Cream [Estrace] Estrace 0.1 MG/G M Estrace 0.1 MG/GM 10/01/2020 12:00:00 AM EDT active Estrace 0.1 MG/GM eCW1 ([facility]) Estrogens, Conjugated (JAIL) 0.625 MG/ML Vaginal Cream [Premarin] Premarin 0.625 MG/GM Premarin 0.625 MG/GM 10/01/2020 12:00:00 AM EDT suspended Premarin 0.625 MG/GM eCW1 ([facility]) Estradiol 0.1 MG/ML Vaginal Cream [Estrace] Estrace 0.1 MG/G M Estrace 0.1 MG/GM 10/01/2020 12:00:00 AM EDT active Estrace 0.1 MG/GM eCW1 ([facility]) Estradiol 0.1 MG/ML Vaginal Cream [Estrace] Estrace 0.1 MG/G M Estrace 0.1 MG/GM 10/01/2020 12:00:00 AM EDT active Estrace 0.1 MG/GM eCW1 ([facility]) Estradiol 0.1 MG/ML Vaginal Cream [Estrace] Estrace 0.1 MG/G M Estrace 0.1 MG/GM 10/01/2020 12:00:00 AM EDT active Estrace 0.1 MG/GM eCW1 ([facility]) Estrogens, Conjugated (JAIL) 0.625 MG/ML Vaginal Cream [Premarin] Premarin 0.625 MG/GM Premarin 0.625 MG/GM 10/01/2020 12:00:00 AM EDT active Premarin 0.625 MG/GM eCW1 ([facility]) Estrogens, Conjugated (JAIL) 0.625 MG/ML Vaginal Cream [Premarin] Premarin 0.625 MG/GM Premarin 0.625 MG/GM 10/01/2020 12:00:00 AM EDT active eCW1 ([facility]) Estrogens, Conjugated (JAIL) 0.625 MG/ML Vaginal Cream [Premarin] Premarin 0.625 MG/GM Premarin 0.625 MG/GM 10/01/2020 12:00:00 AM EDT suspended Premarin 0.625 MG/GM eCW1 ([facility]) Estradiol 0.1 MG/ML Vaginal Cream [Estrace] Estrace 0.1 MG/G M Estrace 0.1 MG/GM 10/01/2020 12:00:00 AM EDT active Estrace 0.1 MG/GM eCW1 ([facility]) Estrogens, Conjugated (JAIL) 0.625 MG/ML Vaginal Cream [Premarin] Premarin 0.625 MG/GM Premarin 0.625 MG/GM 10/01/2020 12:00:00 AM EDT active Premarin 0.625 MG/GM eCW1 ([facility]) Estradiol 0.1 MG/ML Vaginal Cream [Estrace] Estrace 0.1 MG/G M Estrace 0.1 MG/GM 10/01/2020 12:00:00 AM EDT active Estrace 0.1 MG/GM eCW1 ([facility]) Estradiol 0.1 MG/ML Vaginal Cream [Estrace] Estrace 0.1 MG/G M Estrace 0.1 MG/GM 10/01/2020 12:00:00 AM EDT active Estrace 0.1 MG/GM eCW1 ([facility]) Estrogens, Conjugated (JAIL) 0.625 MG/ML Vaginal Cream [Premarin] Premarin 0.625 MG/GM Premarin 0.625 MG/GM 10/01/2020 12:00:00 AM EDT suspended Premarin 0.625 MG/GM eCW1 ([facility]) Estrogens, Conjugated (JAIL) 0.625 MG/ML Vaginal Cream [Premarin] Premarin 0.625 MG/GM Premarin 0.625 MG/GM 10/01/2020 12:00:00 AM EDT active Premarin 0.625 MG/GM eCW1 ([facility]) Estradiol 0.1 MG/ML Vaginal Cream [Estrace] Estrace 0.1 MG/G M Estrace 0.1 MG/GM 10/01/2020 12:00:00 AM EDT active Estrace 0.1 MG/GM eCW1 ([facility]) Estradiol 0.1 MG/ML Vaginal Cream [Estrace] Estrace 0.1 MG/G M Estrace 0.1 MG/GM 10/01/2020 12:00:00 AM EDT active Estrace 0.1 MG/GM eCW1 ([facility]) Estradiol 0.1 MG/ML Vaginal Cream [Estrace] Estrace 0.1 MG/G M Estrace 0.1 MG/GM 10/01/2020 12:00:00 AM EDT active Estrace 0.1 MG/GM eCW1 ([facility]) Estradiol 0.1 MG/ML Vaginal Cream [Estrace] Estrace 0.1 MG/G M Estrace 0.1 MG/GM 10/01/2020 12:00:00 AM EDT active eCW1 ([facility]) Estrogens, Conjugated (JAIL) 0.625 MG/ML Vaginal Cream [Premarin] Premarin 0.625 MG/GM Premarin 0.625 MG/GM 10/01/2020 12:00:00 AM EDT active Premarin 0.625 MG/GM eCW1 ([facility]) Estradiol 0.1 MG/ML Vaginal Cream [Estrace] Estrace 0.1 MG/G M Estrace 0.1 MG/GM 10/01/2020 12:00:00 AM EDT active Estrace 0.1 MG/GM eCW1 ([facility]) Estradiol 0.1 MG/ML Vaginal Cream [Estrace] Estrace 0.1 MG/G M Estrace 0.1 MG/GM 10/01/2020 12:00:00 AM EDT active Estrace 0.1 MG/GM eCW1 ([facility]) Estrogens, Conjugated (JAIL) 0.625 MG/ML Vaginal Cream [Premarin] Premarin 0.625 MG/GM Premarin 0.625 MG/GM 10/01/2020 12:00:00 AM EDT suspended Premarin 0.625 MG/GM eCW1 ([facility]) Estrogens, Conjugated (JAIL) 0.625 MG/ML Vaginal Cream [Premarin] Premarin 0.625 MG/GM Premarin 0.625 MG/GM 10/01/2020 12:00:00 AM EDT suspended Premarin 0.625 MG/GM eCW1 ([facility]) Estrogens, Conjugated (JAIL) 0.625 MG/ML Vaginal Cream [Premarin] Premarin 0.625 MG/GM Premarin 0.625 MG/GM 10/01/2020 12:00:00 AM EDT active Premarin 0.625 MG/GM eCW1 ([facility]) Estrogens, Conjugated (JAIL) 0.625 MG/ML Vaginal Cream [Premarin] Premarin 0.625 MG/GM Premarin 0.625 MG/GM 10/01/2020 12:00:00 AM EDT suspended Premarin 0.625 MG/GM eCW1 ([facility]) Estrogens, Conjugated (JAIL) 0.625 MG/ML Vaginal Cream [Premarin] Premarin 0.625 MG/GM Premarin 0.625 MG/GM 10/01/2020 12:00:00 AM EDT active Premarin 0.625 MG/GM eCW1 ([facility]) Fluconazole 100 MG Oral Tablet [Diflucan] Diflucan 100 MG Di flucan 100 MG 09/14/2020 12:00:00 AM EDT 1.0 {tablet} suspended Diflucan 100 MG eCW1 ([facility]) Triamcinolone Acetonide 1 MG/ML Topical Cream Triamcin olone Acetonide 0.1 % Triamcinolone Acetonide 0.1 % 09/14/2020 12:00:00 AM EDT 1.0 {appli cation} active Triamcinolone Acetonide 0 .1 % eCW1 ([facility]) Fluconazole 100 MG Oral Tablet [Diflucan] Diflucan 100 MG Di flucan 100 MG 09/14/2020 12:00:00 AM EDT 1.0 {tablet} suspended Diflucan 100 MG eCW1 ([facility]) Fluconazole 100 MG Oral Tablet [Diflucan] Diflucan 100 MG Di flucan 100 MG 09/14/2020 12:00:00 AM EDT 1.0 {tablet} active Diflucan 100 MG eCW1 ([facility]) Fluconazole 100 MG Oral Tablet [Diflucan] Diflucan 100 MG Di flucan 100 MG 09/14/2020 12:00:00 AM EDT 1.0 {tablet} suspended Diflucan 100 MG eCW1 ([facility]) Fluconazole 100 MG Oral Tablet [Diflucan] Diflucan 100 MG Di flucan 100 MG 09/14/2020 12:00:00 AM EDT 1.0 {tablet} suspended Diflucan 100 MG eCW1 ([facility]) Triamcinolone Acetonide 1 MG/ML Topical Cream Triamcin olone Acetonide 0.1 % Triamcinolone Acetonide 0.1 % 09/14/2020 12:00:00 AM EDT 1.0 {appli cation} active Triamcinolone Acetonide 0 .1 % eCW1 ([facility]) Fluconazole 100 MG Oral Tablet [Diflucan] Diflucan 100 MG Di flucan 100 MG 09/14/2020 12:00:00 AM EDT 1.0 {tablet} suspended Diflucan 100 MG eCW1 ([facility]) Fluconazole 100 MG Oral Tablet [Diflucan] Diflucan 100 MG Di flucan 100 MG 09/14/2020 12:00:00 AM EDT 1.0 {tablet} suspended Diflucan 100 MG eCW1 ([facility]) Fluconazole 100 MG Oral Tablet [Diflucan] Diflucan 100 MG Di flucan 100 MG 09/14/2020 12:00:00 AM EDT 1.0 {tablet} suspended Diflucan 100 MG eCW1 ([facility]) Fluconazole 100 MG Oral Tablet [Diflucan] Diflucan 100 MG Di flucan 100 MG 09/14/2020 12:00:00 AM EDT 1.0 {tablet} suspended Diflucan 100 MG eCW1 ([facility]) Triamcinolone Acetonide 1 MG/ML Topical Cream Triamcin olone Acetonide 0.1 % Triamcinolone Acetonide 0.1 % 09/14/2020 12:00:00 AM EDT 1.0 {appli cation} active Triamcinolone Acetonide 0 .1 % eCW1 ([facility]) Fluconazole 100 MG Oral Tablet [Diflucan] Diflucan 100 MG Di flucan 100 MG 09/14/2020 12:00:00 AM EDT 1.0 {tablet} active Diflucan 100 MG eCW1 ([facility]) Triamcinolone Acetonide 1 MG/ML Topical Cream Triamcin olone Acetonide 0.1 % Triamcinolone Acetonide 0.1 % 09/14/2020 12:00:00 AM EDT 1.0 {appli cation} active Triamcinolone Acetonide 0 .1 % eCW1 ([facility]) Fluconazole 100 MG Oral Tablet [Diflucan] Diflucan 100 MG Di flucan 100 MG 09/14/2020 12:00:00 AM EDT 1.0 {tablet} suspended Diflucan 100 MG eCW1 ([facility]) Triamcinolone Acetonide 1 MG/ML Topical Cream Triamcin olone Acetonide 0.1 % Triamcinolone Acetonide 0.1 % 09/14/2020 12:00:00 AM EDT 1.0 {appli cation} active Triamcinolone Acetonide 0 .1 % eCW1 ([facility]) Triamcinolone Acetonide 1 MG/ML Topical Cream Triamcin olone Acetonide 0.1 % Triamcinolone Acetonide 0.1 % 09/14/2020 12:00:00 AM EDT 1.0 {appli cation} active Triamcinolone Acetonide 0 .1 % eCW1 ([facility]) Fluconazole 100 MG Oral Tablet [Diflucan] Diflucan 100 MG Di flucan 100 MG 09/14/2020 12:00:00 AM EDT 1.0 {tablet} suspended Diflucan 100 MG eCW1 ([facility]) Fluconazole 100 MG Oral Tablet [Diflucan] Diflucan 100 MG Di flucan 100 MG 09/14/2020 12:00:00 AM EDT 1.0 {tablet} suspended Diflucan 100 MG eCW1 ([facility]) Triamcinolone Acetonide 1 MG/ML Topical Cream Triamcin olone Acetonide 0.1 % Triamcinolone Acetonide 0.1 % 09/14/2020 12:00:00 AM EDT 1.0 {appli cation} suspended Triamcinolone Acetonide 0 .1 % eCW1 ([facility]) Triamcinolone Acetonide 1 MG/ML Topical Cream Triamcin olone Acetonide 0.1 % Triamcinolone Acetonide 0.1 % 09/14/2020 12:00:00 AM EDT 1.0 {appli cation} active eCW1 ([facility]) Fluconazole 100 MG Oral Tablet [Diflucan] Diflucan 100 MG Di flucan 100 MG 09/14/2020 12:00:00 AM EDT 1.0 {tablet} suspended Diflucan 100 MG eCW1 ([facility]) Fluconazole 100 MG Oral Tablet [Diflucan] Diflucan 100 MG Di flucan 100 MG 09/14/2020 12:00:00 AM EDT 1.0 {tablet} suspended eCW1 ([facility]) Triamcinolone Acetonide 1 MG/ML Topical Cream Triamcin olone Acetonide 0.1 % Triamcinolone Acetonide 0.1 % 09/14/2020 12:00:00 AM EDT 1.0 {appli cation} active Triamcinolone Acetonide 0 .1 % eCW1 ([facility]) Triamcinolone Acetonide 1 MG/ML Topical Cream Triamcin olone Acetonide 0.1 % Triamcinolone Acetonide 0.1 % 09/14/2020 12:00:00 AM EDT 1.0 {appli cation} active Triamcinolone Acetonide 0 .1 % eCW1 ([facility]) Triamcinolone Acetonide 1 MG/ML Topical Cream Triamcin olone Acetonide 0.1 % Triamcinolone Acetonide 0.1 % 09/14/2020 12:00:00 AM EDT 1.0 {appli cation} active Triamcinolone Acetonide 0 .1 % eCW1 ([facility]) Triamcinolone Acetonide 1 MG/ML Topical Cream Triamcin olone Acetonide 0.1 % Triamcinolone Acetonide 0.1 % 09/14/2020 12:00:00 AM EDT 1.0 {appli cation} active Triamcinolone Acetonide 0 .1 % eCW1 ([facility]) Fluconazole 100 MG Oral Tablet [Diflucan] Diflucan 100 MG Di flucan 100 MG 09/14/2020 12:00:00 AM EDT 1.0 {tablet} suspended Diflucan 100 MG eCW1 ([facility]) Triamcinolone Acetonide 1 MG/ML Topical Cream Triamcin olone Acetonide 0.1 % Triamcinolone Acetonide 0.1 % 09/14/2020 12:00:00 AM EDT 1.0 {appli cation} active Triamcinolone Acetonide 0 .1 % eCW1 ([facility]) Fluconazole 100 MG Oral Tablet [Diflucan] Diflucan 100 MG Di flucan 100 MG 09/14/2020 12:00:00 AM EDT 1.0 {tablet} active Diflucan 100 MG eCW1 ([facility]) Triamcinolone Acetonide 1 MG/ML Topical Cream Triamcin olone Acetonide 0.1 % Triamcinolone Acetonide 0.1 % 09/14/2020 12:00:00 AM EDT 1.0 {appli cation} active Triamcinolone Acetonide 0 .1 % eCW1 ([facility]) Fluconazole 100 MG Oral Tablet [Diflucan] Diflucan 100 MG Di flucan 100 MG 09/14/2020 12:00:00 AM EDT 1.0 {tablet} active Diflucan 100 MG eCW1 ([facility]) Triamcinolone Acetonide 1 MG/ML Topical Cream Triamcin olone Acetonide 0.1 % Triamcinolone Acetonide 0.1 % 09/14/2020 12:00:00 AM EDT 1.0 {appli cation} suspended Triamcinolone Acetonide 0 .1 % eCW1 ([facility]) Fluconazole 100 MG Oral Tablet [Diflucan] Diflucan 100 MG Di flucan 100 MG 09/14/2020 12:00:00 AM EDT 1.0 {tablet} suspended Diflucan 100 MG eCW1 ([facility]) Triamcinolone Acetonide 1 MG/ML Topical Cream Triamcin olone Acetonide 0.1 % Triamcinolone Acetonide 0.1 % 09/14/2020 12:00:00 AM EDT 1.0 {appli cation} active Triamcinolone Acetonide 0 .1 % eCW1 ([facility]) Fluconazole 100 MG Oral Tablet [Diflucan] Diflucan 100 MG Di flucan 100 MG 09/14/2020 12:00:00 AM EDT 1.0 {tablet} suspended Diflucan 100 MG eCW1 ([facility]) Triamcinolone Acetonide 1 MG/ML Topical Cream Triamcin olone Acetonide 0.1 % Triamcinolone Acetonide 0.1 % 09/14/2020 12:00:00 AM EDT 1.0 {appli cation} suspended Triamcinolone Acetonide 0 .1 % eCW1 ([facility]) Triamcinolone Acetonide 1 MG/ML Topical Cream Triamcin olone Acetonide 0.1 % Triamcinolone Acetonide 0.1 % 09/14/2020 12:00:00 AM EDT 1.0 {appli cation} active Triamcinolone Acetonide 0 .1 % eCW1 ([facility]) Fluconazole 100 MG Oral Tablet [Diflucan] Diflucan 100 MG Di flucan 100 MG 09/14/2020 12:00:00 AM EDT 1.0 {tablet} suspended Diflucan 100 MG eCW1 ([facility]) Fluconazole 100 MG Oral Tablet [Diflucan] Diflucan 100 MG Di flucan 100 MG 09/14/2020 12:00:00 AM EDT 1.0 {tablet} suspended Diflucan 100 MG eCW1 ([facility]) Triamcinolone Acetonide 1 MG/ML Topical Cream Triamcin olone Acetonide 0.1 % Triamcinolone Acetonide 0.1 % 09/14/2020 12:00:00 AM EDT 1.0 {appli cation} active Triamcinolone Acetonide 0 .1 % eCW1 ([facility]) Triamcinolone Acetonide 1 MG/ML Topical Cream Triamcin olone Acetonide 0.1 % Triamcinolone Acetonide 0.1 % 09/14/2020 12:00:00 AM EDT 1.0 {appli cation} active Triamcinolone Acetonide 0 .1 % eCW1 ([facility]) Triamcinolone Acetonide 1 MG/ML Topical Cream Triamcin olone Acetonide 0.1 % Triamcinolone Acetonide 0.1 % 09/14/2020 12:00:00 AM EDT 1.0 {appli cation} suspended Triamcinolone Acetonide 0 .1 % eCW1 ([facility]) Triamcinolone Acetonide 1 MG/ML Topical Cream Triamcin olone Acetonide 0.1 % Triamcinolone Acetonide 0.1 % 09/14/2020 12:00:00 AM EDT 1.0 {appli cation} suspended Triamcinolone Acetonide 0 .1 % eCW1 ([facility]) Fluconazole 100 MG Oral Tablet [Diflucan] Diflucan 100 MG Di flucan 100 MG 09/14/2020 12:00:00 AM EDT 1.0 {tablet} active Diflucan 100 MG eCW1 ([facility]) Fluconazole 100 MG Oral Tablet [Diflucan] Diflucan 100 MG Di flucan 100 MG 09/14/2020 12:00:00 AM EDT 1.0 {tablet} suspended Diflucan 100 MG eCW1 ([facility]) Triamcinolone Acetonide 1 MG/ML Topical Cream Triamcin olone Acetonide 0.1 % Triamcinolone Acetonide 0.1 % 09/14/2020 12:00:00 AM EDT 1.0 {appli cation} active Triamcinolone Acetonide 0 .1 % eCW1 ([facility]) Triamcinolone Acetonide 1 MG/ML Topical Cream Triamcin olone Acetonide 0.1 % Triamcinolone Acetonide 0.1 % 09/14/2020 12:00:00 AM EDT 1.0 {appli cation} active Triamcinolone Acetonide 0 .1 % eCW1 ([facility]) Fluconazole 100 MG Oral Tablet [Diflucan] Diflucan 100 MG Di flucan 100 MG 09/14/2020 12:00:00 AM EDT 1.0 {tablet} active Diflucan 100 MG eCW1 ([facility]) Triamcinolone Acetonide 1 MG/ML Topical Cream Triamcin olone Acetonide 0.1 % Triamcinolone Acetonide 0.1 % 09/14/2020 12:00:00 AM EDT 1.0 {appli cation} active Triamcinolone Acetonide 0 .1 % eCW1 ([facility]) Triamcinolone Acetonide 1 MG/ML Topical Cream Triamcin olone Acetonide 0.1 % Triamcinolone Acetonide 0.1 % 09/14/2020 12:00:00 AM EDT 1.0 {appli cation} active Triamcinolone Acetonide 0 .1 % eCW1 ([facility]) Fluconazole 100 MG Oral Tablet [Diflucan] Diflucan 100 MG Di flucan 100 MG 09/14/2020 12:00:00 AM EDT 1.0 {tablet} suspended Diflucan 100 MG eCW1 ([facility]) Fluocinonide 0.5 MG/ML Topical Cream Fluocinonide 0.05 % Flu ocinonide 0.05 % 09/13/2020 12:00:00 AM EDT 1.0 {application} act elli Fluocinonide 0.05 % eCW1 ([facility]) Fluocinonide 0.5 MG/ML Topical Cream Fluocinonide 0.05 % Flu ocinonide 0.05 % 09/13/2020 12:00:00 AM EDT 1.0 {application} act elli Fluocinonide 0.05 % eCW1 ([facility]) Fluocinonide 0.5 MG/ML Topical Cream Fluocinonide 0.05 % Flu ocinonide 0.05 % 09/13/2020 12:00:00 AM EDT 1.0 {application} act elli Fluocinonide 0.05 % eCW1 ([facility]) Fluocinonide 0.5 MG/ML Topical Cream Fluocinonide 0.05 % Flu ocinonide 0.05 % 09/13/2020 12:00:00 AM EDT 1.0 {application} act elli Fluocinonide 0.05 % eCW1 ([facility]) Fluocinonide 0.5 MG/ML Topical Cream Fluocinonide 0.05 % Flu ocinonide 0.05 % 09/13/2020 12:00:00 AM EDT 1.0 {application} delroy pended Fluocinonide 0.05 % eCW1 ([facility]) Fluocinonide 0.5 MG/ML Topical Cream Fluocinonide 0.05 % Flu ocinonide 0.05 % 09/13/2020 12:00:00 AM EDT 1.0 {application} act elli Fluocinonide 0.05 % eCW1 ([facility]) Fluocinonide 0.5 MG/ML Topical Cream Fluocinonide 0.05 % Flu ocinonide 0.05 % 09/13/2020 12:00:00 AM EDT 1.0 {application} act elli Fluocinonide 0.05 % eCW1 ([facility]) Fluocinonide 0.5 MG/ML Topical Cream Fluocinonide 0.05 % Flu ocinonide 0.05 % 09/13/2020 12:00:00 AM EDT 1.0 {application} act elli Fluocinonide 0.05 % eCW1 ([facility]) Fluocinonide 0.5 MG/ML Topical Cream Fluocinonide 0.05 % Flu ocinonide 0.05 % 09/13/2020 12:00:00 AM EDT 1.0 {application} act elli Fluocinonide 0.05 % eCW1 ([facility]) Fluocinonide 0.5 MG/ML Topical Cream Fluocinonide 0.05 % Flu ocinonide 0.05 % 09/13/2020 12:00:00 AM EDT 1.0 {application} act elli Fluocinonide 0.05 % eCW1 ([facility]) Fluocinonide 0.5 MG/ML Topical Cream Fluocinonide 0.05 % Flu ocinonide 0.05 % 09/13/2020 12:00:00 AM EDT 1.0 {application} active eCW1 ([facility]) Fluocinonide 0.5 MG/ML Topical Cream Fluocinonide 0.05 % Flu ocinonide 0.05 % 09/13/2020 12:00:00 AM EDT 1.0 {application} act elli Fluocinonide 0.05 % eCW1 ([facility]) Fluocinonide 0.5 MG/ML Topical Cream Fluocinonide 0.05 % Flu ocinonide 0.05 % 09/13/2020 12:00:00 AM EDT 1.0 {application} act elli Fluocinonide 0.05 % eCW1 ([facility]) Fluocinonide 0.5 MG/ML Topical Cream Fluocinonide 0.05 % Flu ocinonide 0.05 % 09/13/2020 12:00:00 AM EDT 1.0 {application} delroy pended Fluocinonide 0.05 % eCW1 ([facility]) Fluocinonide 0.5 MG/ML Topical Cream Fluocinonide 0.05 % Flu ocinonide 0.05 % 09/13/2020 12:00:00 AM EDT 1.0 {application} act elli Fluocinonide 0.05 % eCW1 ([facility]) Fluocinonide 0.5 MG/ML Topical Cream Fluocinonide 0.05 % Flu ocinonide 0.05 % 09/13/2020 12:00:00 AM EDT 1.0 {application} act elli Fluocinonide 0.05 % eCW1 ([facility]) Fluocinonide 0.5 MG/ML Topical Cream Fluocinonide 0.05 % Flu ocinonide 0.05 % 09/13/2020 12:00:00 AM EDT 1.0 {application} act elli Fluocinonide 0.05 % eCW1 ([facility]) Fluocinonide 0.5 MG/ML Topical Cream Fluocinonide 0.05 % Flu ocinonide 0.05 % 09/13/2020 12:00:00 AM EDT 1.0 {application} delroy pended Fluocinonide 0.05 % eCW1 ([facility]) Fluocinonide 0.5 MG/ML Topical Cream Fluocinonide 0.05 % Flu ocinonide 0.05 % 09/13/2020 12:00:00 AM EDT 1.0 {application} act elli Fluocinonide 0.05 % eCW1 ([facility]) Fluocinonide 0.5 MG/ML Topical Cream Fluocinonide 0.05 % Flu ocinonide 0.05 % 09/13/2020 12:00:00 AM EDT 1.0 {application} act elli Fluocinonide 0.05 % eCW1 ([facility]) Fluocinonide 0.5 MG/ML Topical Cream Fluocinonide 0.05 % Flu ocinonide 0.05 % 09/13/2020 12:00:00 AM EDT 1.0 {application} act elli Fluocinonide 0.05 % eCW1 ([facility]) Fluocinonide 0.5 MG/ML Topical Cream Fluocinonide 0.05 % Flu ocinonide 0.05 % 09/13/2020 12:00:00 AM EDT 1.0 {application} act elli Fluocinonide 0.05 % eCW1 ([facility]) Fluocinonide 0.5 MG/ML Topical Cream Fluocinonide 0.05 % Flu ocinonide 0.05 % 09/13/2020 12:00:00 AM EDT 1.0 {application} delroy pended Fluocinonide 0.05 % eCW1 ([facility]) Fluocinonide 0.5 MG/ML Topical Cream Fluocinonide 0.05 % Flu ocinonide 0.05 % 09/13/2020 12:00:00 AM EDT 1.0 {application} act elli Fluocinonide 0.05 % eCW1 ([facility]) Fluocinonide 0.5 MG/ML Topical Cream Fluocinonide 0.05 % Flu ocinonide 0.05 % 09/13/2020 12:00:00 AM EDT 1.0 {application} delroy pended Fluocinonide 0.05 % eCW1 ([facility]) Fluocinonide 0.5 MG/ML Topical Cream Fluocinonide 0.05 % Flu ocinonide 0.05 % 09/13/2020 12:00:00 AM EDT 1.0 {application} act elli Fluocinonide 0.05 % eCW1 ([facility]) Fluocinonide 0.5 MG/ML Topical Cream Fluocinonide 0.05 % Flu ocinonide 0.05 % 09/13/2020 12:00:00 AM EDT 1.0 {application} act elli Fluocinonide 0.05 % eCW1 ([facility]) Ocrevus 300 MG/10ML Intravenous Solution (ocrelizumab) 00309 -150-01 08/11/2020 12:00:00 AM EDT active Multiple scleros is, relapsing-remitting INFUSE 600 MG INTRAVENOUSLY EVERY 6 MONTHS [facility] Multiple sclerosis, relapsing-remitting onabotulinumtoxinA 100 UNT/ML Injectable Solution onabotulinumtoxin type A (BOTOX) injection 185 Units onabotulinumtoxin type A (BOTOX) injecti on 185 Units 07/28/2020 02:15:00 PM EDT 185 U Intramuscular completed Multiple sclerosis, relapsing-remitting 185 Units, Intramuscula r, Once, On Sun07/28/20 at 1415, For 1 dose [facility] Multiple sclerosis, relapsing-remitting Medication administered onsite Cyclosporine 0.5 MG/ML Ophthalmic Suspen liz [Restasis] Restasis 0.05% Ophthalmic Emulsion Restasis 0.05% Ophthalmic Emulsion 07/19/2020 12:00:00 AM EDT active cyclospo rine 0.5 MG/ML Ophthalmic Suspension [Restasis] SAMANTHA (Young Donato MD [facility]) Famotidine 40 MG Oral Tablet Famotidine 40 MG Oral Tablet 12:00:00 AM EDT 1 active famotidine 40 MG Oral Tablet SAMANTHA (Young Donato MD [facility]) Labetalol hydrochloride 100 MG Oral Tablet Labetalol H Cl 100 MG Oral Tablet Labetalol HCl 100 MG Oral Tablet 06/07/2020 12:00:00 AM EDT 1 active labetalol hydrochloride 100 MG Oral Tablet SAMANTHA (Lewis Donato MD [facility]) doxycycline hyclate 100 MG Oral Tablet Doxycycline Hyclate 0 06/02/2020 12:00:00 AM EDT active [facility] ([facility]) Qbrexza 2.4 % Qbrexza 2.4 % 05/03/2020 12:00:00 AM EST active Qbrexza 2.4 % eCW1 ([facility]) Qbrexza 2.4 % Qbrexza 2.4 % 05/03/2020 12:00:00 AM EST active Qbrexza 2.4 % eCW1 ([facility]) Qbrexza 2.4 % Qbrexza 2.4 % 05/03/2020 12:00:00 AM EST active Qbrexza 2.4 % eCW1 ([facility]) Qbrexza 2.4 % Qbrexza 2.4 % 05/03/2020 12:00:00 AM EST active eCW1 ([facility]) Qbrexza 2.4 % Qbrexza 2.4 % 05/03/2020 12:00:00 AM EST active Qbrexza 2.4 % eCW1 ([facility]) Qbrexza 2.4 % Qbrexza 2.4 % 05/03/2020 12:00:00 AM EST active Qbrexza 2.4 % eCW1 ([facility]) Qbrexza 2.4 % Qbrexza 2.4 % 05/03/2020 12:00:00 AM EST active Qbrexza 2.4 % eCW1 ([facility]) Qbrexza 2.4 % Qbrexza 2.4 % 05/03/2020 12:00:00 AM EST active Qbrexza 2.4 % eCW1 ([facility]) Qbrexza 2.4 % Qbrexza 2.4 % 05/03/2020 12:00:00 AM EST active Qbrexza 2.4 % eCW1 ([facility]) Qbrexza 2.4 % Qbrexza 2.4 % 05/03/2020 12:00:00 AM EST active Qbrexza 2.4 % eCW1 ([facility]) Qbrexza 2.4 % Qbrexza 2.4 % 05/03/2020 12:00:00 AM EST active Qbrexza 2.4 % eCW1 ([facility]) Qbrexza 2.4 % Qbrexza 2.4 % 05/03/2020 12:00:00 AM EST active Qbrexza 2.4 % eCW1 ([facility]) Qbrexza 2.4 % Qbrexza 2.4 % 05/03/2020 12:00:00 AM EST active Qbrexza 2.4 % eCW1 ([facility]) Qbrexza 2.4 % Qbrexza 2.4 % 05/03/2020 12:00:00 AM EST active eCW1 ([facility]) Qbrexza 2.4 % Qbrexza 2.4 % 05/03/2020 12:00:00 AM EST active Qbrexza 2.4 % eCW1 ([facility]) atomoxetine 40 MG Oral Capsule Atomoxetine HCl 40 MG O ral Capsule (STRATTERA) Atomoxetine HCl 40 MG Oral Capsule (STRATTERA) 04/14/2020 12:00:00 AM EST aborted TAKE 1 CAPSULE BY MOUTH E VERY IN THE [facility] atomoxetine 40 MG Oral Capsule Atomoxetine HCl 40 MG Atomoxe bull HCl 40 MG 04/13/2020 12:00:00 AM EST 1.0 {capsule_in_the_morning} active Atomoxetine HCl 40 MG eCW1 ([facility]) atomoxetine 40 MG Oral Capsule Atomoxetine HCl 40 MG Atomoxe bull HCl 40 MG 04/13/2020 12:00:00 AM EST 1.0 {capsule_in_the_morning} active Atomoxetine HCl 40 MG eCW1 ([facility]) atomoxetine 40 MG Oral Capsule Atomoxetine HCl 40 MG Atomoxe bull HCl 40 MG 04/13/2020 12:00:00 AM EST 1.0 {capsule_in_the_morning} active Atomoxetine HCl 40 MG eCW1 ([facility]) atomoxetine 40 MG Oral Capsule Atomoxetine HCl 40 MG Atomoxe bull HCl 40 MG 04/13/2020 12:00:00 AM EST 1.0 {capsule_in_the_morning} active Atomoxetine HCl 40 MG eCW1 ([facility]) atomoxetine 40 MG Oral Capsule Atomoxetine HCl 40 MG Atomoxe bull HCl 40 MG 04/13/2020 12:00:00 AM EST 1.0 {capsule_in_the_morning} active Atomoxetine HCl 40 MG eCW1 ([facility]) atomoxetine 40 MG Oral Capsule Atomoxetine HCl 40 MG Atomoxe bull HCl 40 MG 04/13/2020 12:00:00 AM EST 1.0 {capsule_in_the_morning} active Atomoxetine HCl 40 MG eCW1 ([facility]) atomoxetine 40 MG Oral Capsule Atomoxetine HCl 40 MG Atomoxe bull HCl 40 MG 04/13/2020 12:00:00 AM EST 1.0 {capsule_in_the_morning} active Atomoxetine HCl 40 MG eCW1 ([facility]) atomoxetine 40 MG Oral Capsule Atomoxetine HCl 40 MG Atomoxe bull HCl 40 MG 04/13/2020 12:00:00 AM EST 1.0 {capsule_in_the_morning} active eCW1 ([facility]) atomoxetine 40 MG Oral Capsule Atomoxetine HCl 40 MG Atomoxe bull HCl 40 MG 04/13/2020 12:00:00 AM EST 1.0 {capsule_in_the_morning} active Atomoxetine HCl 40 MG eCW1 ([facility]) atomoxetine 40 MG Oral Capsule Atomoxetine HCl 40 MG Atomoxe bull HCl 40 MG 04/13/2020 12:00:00 AM EST 1.0 {capsule_in_the_morning} active Atomoxetine HCl 40 MG eCW1 ([facility]) atomoxetine 40 MG Oral Capsule Atomoxetine HCl 40 MG Atomoxe bull HCl 40 MG 04/13/2020 12:00:00 AM EST 1.0 {capsule_in_the_morning} active Atomoxetine HCl 40 MG eCW1 ([facility]) atomoxetine 40 MG Oral Capsule Atomoxetine HCl 40 MG Atomoxe bull HCl 40 MG 04/13/2020 12:00:00 AM EST 1.0 {capsule_in_the_morning} active Atomoxetine HCl 40 MG eCW1 ([facility]) atomoxetine 40 MG Oral Capsule Atomoxetine HCl 40 MG Atomoxe bull HCl 40 MG 04/13/2020 12:00:00 AM EST 1.0 {capsule_in_the_morning} active Atomoxetine HCl 40 MG eCW1 ([facility]) atomoxetine 40 MG Oral Capsule Atomoxetine HCl 40 MG Atomoxe bull HCl 40 MG 04/13/2020 12:00:00 AM EST 1.0 {capsule_in_the_morning} active Atomoxetine HCl 40 MG eCW1 ([facility]) atomoxetine 40 MG Oral Capsule Atomoxetine HCl 40 MG Atomoxe bull HCl 40 MG 04/13/2020 12:00:00 AM EST 1.0 {capsule_in_the_morning} active eCW1 ([facility]) diphenhydrAMINE (BENADRYL) injection 50 mg [id number] 03/18/2020 08:30:00 AM EST 50 mg Intravenous completed Multiple sclerosis , relapsing-remitting 50 mg, Intravenous, Once, Tonia 03/18/20 at 0830, For 1 dose [facility] Multiple sclerosis, relapsing-remitting Medication administered onsite methylPREDNISolone sodium succinate (SOLU-MEDROL) injection 125 mg [id number] 03/18/2020 08:30:00 AM EST 125 mg Intravenous c ompleted Multiple sclerosis, relapsing-remitting 125 mg, Intravenous, On ce, Tonia 03/18/20 at 0830, For 1 dose [facility] Multiple sclerosis, relapsing-remitting Medication administered onsite NaCl infusion 0.9 % [id number] 03/18/2020 08:30:00 AM EST Intravenous completed Multiple sclerosis, relapsing-remitting at 250 mL/hr, Intravenous, Continuous, Starting Tonia 03/18/20 at 0830, For 1 hour [facility] Multiple sclerosis, relapsing-remitting Medication administered onsite ocrelizumab [...] mg/mL. Administer via 0.22 micron in-line filter.
[facility] Multiple sclerosis, relapsing-remitting Medication administered onsite 24 HR Methylphenidate Hydrochloride 54 M G Extended Release Oral Tablet [Concerta] Concerta 54 MG Concerta 54 MG 12/16/2019 12:00:00 AM EDT 1.0 {tablet_in_the_morning} active Concerta 54 MG eCW1 ([facility]) 24 HR Methylphenidate Hydrochloride 54 M G Extended Release Oral Tablet [Concerta] Concerta 54 MG Concerta 54 MG 12/16/2019 12:00:00 AM EDT 1.0 {tablet_in_the_morning} active Concerta 54 MG eCW1 ([facility]) 24 HR Methylphenidate Hydrochloride 54 M G Extended Release Oral Tablet [Concerta] Concerta 54 MG Concerta 54 MG 12/16/2019 12:00:00 AM EDT 1.0 {tablet_in_the_morning} active Concerta 54 MG eCW1 ([facility]) 24 HR Methylphenidate Hydrochloride 54 M G Extended Release Oral Tablet [Concerta] Concerta 54 MG Concerta 54 MG 12/16/2019 12:00:00 AM EDT 1.0 {tablet_in_the_morning} active Concerta 54 MG eCW1 ([facility]) 24 HR Methylphenidate Hydrochloride 54 M G Extended Release Oral Tablet [Concerta] Concerta 54 MG Concerta 54 MG 12/16/2019 12:00:00 AM EDT 1.0 {tablet_in_the_morning} active Concerta 54 MG eCW1 ([facility]) 24 HR Methylphenidate Hydrochloride 54 M G Extended Release Oral Tablet [Concerta] Concerta 54 MG Concerta 54 MG 12/16/2019 12:00:00 AM EDT 1.0 {tablet_in_the_morning} active Concerta 54 MG eCW1 ([facility]) 24 HR Methylphenidate Hydrochloride 54 M G Extended Release Oral Tablet [Concerta] Concerta 54 MG Concerta 54 MG 12/16/2019 12:00:00 AM EDT 1.0 {tablet_in_the_morning} active Concerta 54 MG eCW1 ([facility]) 24 HR Methylphenidate Hydrochloride 54 M G Extended Release Oral Tablet [Concerta] Concerta 54 MG Concerta 54 MG 12/16/2019 12:00:00 AM EDT 1.0 {tablet_in_the_morning} active Concerta 54 MG eCW1 ([facility]) 24 HR Methylphenidate Hydrochloride 54 M G Extended Release Oral Tablet [Concerta] Concerta 54 MG Concerta 54 MG 12/16/2019 12:00:00 AM EDT 1.0 {tablet_in_the_morning} active Concerta 54 MG eCW1 ([facility]) 24 HR Methylphenidate Hydrochloride 54 M G Extended Release Oral Tablet [Concerta] Concerta 54 MG Concerta 54 MG 12/16/2019 12:00:00 AM EDT 1.0 {tablet_in_the_morning} active Concerta 54 MG eCW1 ([facility]) gadobutrol (GADAVIST) contrast injection 7 mL [id number] 02:00:00 PM EDT 0.1 mL/kg Intravenous completed 7 mL (ro unded from 7.44 mL = 0.1 mL/kg 74.4 kg), Intravenous, 1 TIME IMAGING, 12/08/19 at 1400, For 1 dose, Imaging Protocol
Do not mix or administer in the same IV line with other medicat ions.
[facility] Medication administered onsite Nadolol 40 MG Oral Tablet Nadolol 40 MG Oral Tablet 04/30/2019 1 2:00:00 AM EST 1 aborted nadolol 40 MG Or al Tablet SAMANTHA (Young Donato MD [facility]) lansoprazole 30 MG Delayed Release Oral Capsule Lansoprazole 30MG Oral Capsule Delayed Release Lansoprazole 30MG Oral Capsule Delayed Release 018 12:00:00 AM EST 1 aborted lansoprazole 30 MG Delayed Release Oral Capsule SAMANTHA (Young Donato MD [facility]) 24 HR Methylphenidate Hydrochloride 36 M G Extended Release Oral Tablet [Concerta] Concerta 36MG Oral Tablet Extended Release Concerta 36MG Oral Tablet Extended Release 02/01/2018 12:00:00 AM EST 1 a borted 24 HR methylphenidate hydrochloride 36 MG Extended Release Oral Tablet [Concerta] SAMANTHA (Young Donato MD [facility]) Spironolactone 100 MG Oral Tablet Spironolactone 100MG Oral Tablet Spironolactone 100MG Oral Tablet 02/01/2018 12:00:00 AM EST 1 aborted spironolactone 100 MG Oral Tablet SAMANTHA (Young Donato MD [facility]) Ranitidine 150 MG Oral Capsule ranitidine HCl [...] 36 mg by sheri th every morning [facility] Nadolol 40 MG Oral Tablet Nadolol 40 MG Oral Tablet (C ORGARD) Nadolol 40 MG Oral Tablet (CORGARD) 40 mg Oral aborted Take 40 mg by mouth Two Times Daily [facility] Insurance Providers Payer name Policy type / Coverage type Policy ID Covered alliance party ID Covered alliance party's relationship to pappas Policy Pappas Plan Information EXCELLUS H [id number] Self [id number] [facility] HMO PPO POS [id number] [facility] HMO/PPO/POS [id number] MVP (HMO/PPO) HEALTH CARE [id number] [facility] [id number] SP [id number] MVP H [id number] Self [id number] [facility] [id number] SP [id number] MVP HMO PPO HEALTH CARE [id number] 0 [id number] [facility] HMO PPO POS [id number] [place]/307 [id number] SP [id number] EXCELLUS H [id number] Self [id number] [place] P[place]/307 [id number] SP [id number] EXCELLUS BC-BS PPO 306 [id number] SP [id number] [place]/307 [id number] SP [id number] [facility] HMO PPO POS [id number] EXCELLUS BC-BS PPO 306 [id number] SP [id number] EXCELLUS BC-BS PPO 306 [id number] SP [id number] [place]/307 [id number] SP [id number] Excellus Blue Cross and Blue Shield - [place] Blue Cross/B lue Shield [id number] Self [id number] COMMERCIAL GENERIC [id number] Self [id number] COMMERCIAL GENERIC U OCREVUSFINANCIALASSISTANCE Self OCREVUSFINANCIALASSISTANCE ANSI-Commercial [id number] ANSI-Commercial [id number]-[id number]-428x-0bvk-[id number] 55tr072m-3k1t-087y-4gye-[id number] ANSI-Commercial [id number]-[id number] 67m36i34-4lge-1699-29q8-6jm625vys1o3 ANSI-Commercial [id number]-wu69-56gvs26cte9k 3z9f2844-9485-6dj3-ql60-22rww28dri0j ANSI-Commercial 7c568deb-9029-8023-fp9l-f326rcap8848 5b467jrq-7780-8440-xu7a-f356tzer6273 ANSI-Commercial [id number]-xq9v-5tt3-ur54-[id number] 155y4ng0-qa7e-2hf3-he44-gj2k17d77621 ANSI-Commercial zmbjr47y-g485-3396-5622-b3b8158qv2lm wnmou72h-v281-5823-9771-i4m5534uz4dc ANSI-Commercial 68b7g44w-0ma9-9284-7166-qe8jc65m67xr 56x2g10c-4ta1-7637-9706-cm9rq73i89ax [facility]BS [facility] 305/805 [id number] SP [id number] ANSI-Commercial 5m523f30-2yu2-4h45-pr1l-79d10f4x4vxp 2z046m38-5sn3-3m36-mk6t-28k95g0p5uoj ANSI-Commercial g94658u5-a136-34m6-4trn-5grc925w3w76 x02195a5-u370-06m7-4gtw-1wbc617c8s25 ANSI-Commercial 67773f6t-927e-[id number] 35327o2f-982y-[id number] ANSI-Commercial c5900nox-8hq2-0ixo-657k-7og5u3gr163o i7458zsz-8of2-7gva-134x-1wc3d7py210i ANSI-Commercial 72b35uo7-y53l-418m-4562-719537u1k3l6 09f50fu1-k29i-842t-1706-139819y3q0g1 ANSI-Commercial 54612x86-d892-56fl-x668-11e800592e87 31875a47-c694-33dh-e942-54v269168k30 ANSI-Commercial b5u97255-u77y-4i32-73j7-v19m099g4585 v0r44942-r32t-0s51-06t8-j11s901k1268 ANSI-Commercial 0531i2ay-7g2t-489m-m4p3-lw48508qmy42 7505w4xs-1x9b-362q-d9i7-mu25423dez71 ANSI-Commercial 526p1573-61z2-0qu4-297p-oq3an14etn91 248i2605-31s4-7mm8-780v-mu8kb82nhc55 ANSI-Commercial c5s098q7-wi49-5d62-4893-o36yp7k49ecd u7e331w3-gf07-4n54-8011-d52fz5d94loz ANSI-Commercial 0e756n3z-f4u8-412h-1414-09tci8185xhr 0y982y7u-d9a7-444t-6040-66due9976hrh ANSI-Commercial 0n41aj51-5md1-97fk-nn62-2n7202213264 0d94re33-4pq3-65ic-az78-9j9818351053 ANSI-Commercial fb114iq1-752s-2594-j927-420z66w3ub36 tn176zq2-501m-1841-q400-330k27n3vj99 BCBS [id number] Blue Cross/Bl ue Shield [id number] Medicaid [id number] Medicaid [id number] BCBS [id number] Blue Cross/Bl ue Shield [id number] [facility] [id number] ANSI-Commercial 06rb3h03-3067-1ro4-bx71-pj758or609o4 04jq1u91-1665-0uv0-hi66-dv539ed350z5 ANSI-Commercial j45pi962-ntx1-7440-7d7s-hoy43sz224pu v47uo825-srr7-7504-5p4a-nli69ou099tl ANSI-Commercial 9p07e853-98fl-6iea-18lj-e49u8l0hnu0w 7c99r423-68xs-8kco-43ec-w95s7o4mcy3h ANSI-Commercial 509mqunq-0sh4-58793bj7-3411-h7hg-0s96pd81c085 729wqhvr-2ob8-79275wq4-1825-m0tm-1s76ao71f832 ANSI-Commercial ee1s396q-70zd-2e57-35e2-j86302bt87of qr2e659i-02fi-3t43-33t9-o90809sp69ad ANSI-Commercial q69u3j05-s2fl-9k84-jm8y-w717d24zr9y2 s25x7w70-l2ld-5x33-ux0r-h435w25lw5c2 ANSI-Commercial bg4708pr-iq5v-3t53-8892-0v5j52oufc04 au3063xy-uo3l-4l42-3828-1o6d48gdzv64 ANSI-Commercial 7oo3lu40-3779-5994-7533-3004q349c2g4 7bx2cr18-7933-7321-7671-2341x980h3g5 ANSI-Commercial h0q55y4v-1f8d-8edh-7x57-nzj9r1r3vzh6 x1v56n1a-8i7s-7iui-1i75-lty0j2f0wuc2 ANSI-Commercial 0jpx06m0-631l-6p60-pb2q-u2vb709623w6 2wqm81u1-640m-5m51-ta4i-h6cf673396h6 ANSI-Commercial y64bs265-or50-7z25-354c-b2k5yd936v5d j95ti873-ui27-9o61-906b-j9e5gc207w2t ANSI-Commercial 94ur263j-p96j-6ij5-9935-h9110cy0m900 97ib075t-q88f-4ig8-7625-o7814xx5t279 ANSI-Commercial 7x20215a-t77g-4s51-h014-1ij70i0do8gu 4l54088j-m77a-0t02-m433-3xg89x1bg7pw [facility] [id number] ANSI-Commercial 59838295-0o1q-8170-482i-6dr89e56t50n 50920827-4t7j-8012-104i-1wj03n64q04n ANSI-Commercial a60z723k-5s78-2mq8-f262-26o3qpsf8j7n a74t580q-9m11-6cz6-p420-85g8bcfh6p4m [facility] O [id number] O [id number] ANSI-Commercial r584gqtz-7840-422z-m7lh-4j2m708y424p u340mvht-3914-021e-f0pc-7n4p488k917e ANSI-Commercial oczn025n-gg20-38s0-e2yj-959q5frpn21s vrmt037i-ng82-72u1-h0rg-166y3upsq47p ANSI-Commercial 90q2l79p-j68c-514h-2279-38775k2b3uq8 01a0u19z-z41n-808d-8880-95933g8b4aw1 ANSI-Commercial ey4av75u-s873-807g-m9ox-184a595k1f44 gk7cd60k-v976-118n-f0st-623d468x7v19 ANSI-Commercial 92irj084-10j5-46mi-1vi7-zw652353h34v 27zoj654-25s8-58si-8io6-ai817202d58y ANSI-Commercial i84maz21-08b5-8020-3k69-1u374iq61394 p53onh88-28q3-6391-7b96-4s658jv60880 ANSI-Commercial 7i1b2o99-77wg-751t-1s09-23kl461672f9 1j1p0w18-24ui-055o-5m06-30jw617876m4 ANSI-Commercial dz9o921m-l080-1ftl-7442-c350o69968kv oi5d969v-n190-4wld-8775-y502c69403se ANSI-Commercial 6i8x92j1-3j83-5378-4405-r373c83flj6s 4b2h59d7-0b37-2649-2712-l233x29tey9d ANSI-Commercial 437v1r20-3335-9ugu-gu4p-v14bsgoq21vx 557z1h56-7040-3vtm-mb0g-y49whbyk07lu ANSI-Commercial vz0989q6-2um8-2981-47g2-k6w97l3qe4fw uv0813b4-3bt5-4615-19v8-u9k22z9zb1yu ANSI-Commercial k0q72357-0245-43t4-l6d8-117r8k7468u2 j0e02247-6658-78d1-j5s3-917w5s7585s2 ANSI-Commercial 3514x989-36l0-78hc-q982-65r4s1pe5fv3 1264n198-22c7-64vq-q270-46q5q4yq2vd9 ANSI-Commercial d18396qb-u496-972t-s72b-kan5a7208h75 h39249yv-d382-884r-o96w-rjs6e6883f06 ANSI-Commercial 127c32g0-181o-7ir4-cy76-m2x5c2f1hr33 904z62r7-879j-0hj3-qe04-l7u6y3j2fv41 ANSI-Commercial i119vk8n-h175-8a9f-bs27-160d9i3r5iz3 p623dr6w-o298-8h2n-dc00-031d5q0a0tn1 ANSI-Commercial 9zh442qd-f3ne-7y57-4d3l-7392b2ivw569 5qh921qa-r3no-4v45-5v2f-2153v9hwi167 ANSI-Commercial 97sd6az0-5u34-773m-240x-52e8mbi5mq7j 66tc3zt7-8z67-034n-759u-98y6fbt6ub0c ANSI-Commercial p29silgz-oemb-66oo-8a54-8sj4xw31tz68 m56cqbbe-bdrf-68nu-0l93-9rl6si87tm20 ANSI-Commercial f2m243k5-j6r2-0031-1535-419y18iknt84 r1v098s7-x4f9-1070-7070-508a64keel48 ANSI-Commercial 96ajjyj0-38y8-6282-o494-29gw0vhmr930 73xrenm7-78d5-4074-r550-91sk2iaje586 ANSI-Commercial k1f90287-0mc4-184o-p59w-9498xi5q1o8u p9s23923-5ag6-489b-r36r-0332qy0b5h5e ANSI-Commercial 17labez1-4z5x-55f0-c237-rq170748m0ln 82uxbqp7-0k9j-[id number] ANSI-Commercial [id number] ANSI-Commercial [id number] [facility] Health Maintenance Organization (HMO) [id number] 0 [id number] Self [id number] [facility] Health Maintenance Organization (O) [id number] Self [id number] [facility] [id number] SP [id number] [facility] [id number] SP [id number] [employer] [place] PPO [place]/307 [id number] SP [id number] SELF PAY UNAVAILABLE UNAVAILA BLE [employer] P [id number] S VYS [id number] [employer] [place] PPO 302/307 [id number] SP [id number] [employer] [place] PPO 302/307 [id number] SP [id number] [employer] [place] PPO 302/307 [id number] SP [id number] [employer] BC-BS PPO 306 [id number] SP [id number] [employer] BC-BS PPO 306 [id number] SP [id number] [facility] [facility] Other 0 [id number] Self 0 [employer] [facility] Other 0 [id number] Self 0 [employer] [facility] Other 0 [id number] Self 0 [employer] BCBS B [id number] S [id number] [employer] [facility] Other 0 [id number] Self 0 [employer] [place] PPO 302/307 [id number] SP [id number] [employer] BC-BS PPO 306 [id number] SP [id number] [employer] [id number] S [id number] [employer] [id number] [employer] [id number] [employer] [id number] [employer] [id number] [employer] [id number] [employer] [id number] ANSI-Commercial [id number] ANSI-Commercial [id number] ANSI-Commercial [id number] Problems, Conditions, and Diagnoses Code Display Name Description Problem Type Effective Dates Data Source(s) G96.191 Perineural cyst Perineural cyst Diagnosis 01/21/2021 10:5 7:36 AM EDT [facility] G43.709 Chronic migraine without aur a, not intractable, without status migrainosus Chronic migraine without aura, not intra ctable, without status migrainosus Diagnosis 10/25/2020 03:38:34 PM EDT [facility] G93.2 Benign intracranial hypertension Benign intracra nial hypertension Diagnosis 10/22/2020 02:58:40 PM EDT [facility] [id number] Essential hypertension Essential hypertension Problem 12/31/2020 12:00:00 AM EDT [facility] ([facility], ) D48.5 [id number] 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 oblem 12/13/2020 12:00:00 AM EDT eCW1 ([facility]) E05.90 [id number] Subclinical hyperthyroidism Problem 10/14/19 12:00:00 AM EDT eCW1 ([facility]) L74.510 [id number] Primary focal hyperhidrosis of axill a Problem 02/16/2020 12:00:00 AM EST eCW1 ([facility]) Surgeries/Procedures Procedure Description Date Indications Data Source(s) OFFICE OUTPATIENT NEW 45 MINUTES 12/31/2020 12:00:00 A M EDT [facility] ([facility]) Med: Derm 1% Lidocaine with Epinephrine Injection Intr adermally to marked areas 12/13/2020 12:00:00 AM EDT eCW1 ([facility]) Medication: Botox Therapeutic intradermal 12/07/2020 1 2:00:00 AM EDT eCW1 ([facility]) Medication: Botox Therapeutic intradermal 08/23/2020 1 2:00:00 AM EDT eCW1 ([facility]) 08/10/2020 12:00:00 AM EDT e CW1 ([facility]) Med: Derm Lidocaine with Epinephrine Inj ection 1% with 2 ml sodium bicarbonate Intradermally to marked areas 07/30/2020 12:00:00 AM EDT eCW1 ([facility]) GAMMAGLOBULIN IGA IGD IGG IGM EACH <td>IMMUNOGLOBULIN ASSAY</td><td>Routine</td><td>07/28/2020 1:36 PM EDT</td><td> Multiple sclerosis, relapsing-remitting</td><td> </td> 07/28/2020 01:36:00 PM EDT Multiple sclerosis, relapsing-remitting [facility] Multiple sclerosis, relapsing-remitting 25 HYDROXY INCLUDES FRACTIONS IF PERFORMED <td>VITAMIN D 25 HYDROXY, TOTAL</td><td>Routine</td><td>07/28/2020 1:36 PM EDT</td><td> Multiple sclerosis, relapsing-remitting Vitamin D deficiency</td><td> </td> 07/28/2020 01:36:00 PM EDT Vitamin D deficiencyMultiple sclerosis, relapsing-[facility] Vitamin D deficiency Multiple sclerosis, relapsing-remitting BLOOD COUNT COMPLETE AUTO&AUTO DIFRNTL WBC COUNT <td>C BC AND DIFFERENTIAL</td><td>Routine</td><td>07/28/2020 1:36 PM EDT</td><td> Multiple sclerosis, relapsing-remitting</td><td> </td> 07/28/2020 01:36:00 PM EDT Multiple sclerosis, relapsing-remitting [facility] Multiple sclerosis, relapsing-remitting Med: Derm 1% Lidocaine with Epinephrine Injection Intr adermally to marked areas 07/16/2020 12:00:00 AM EDT eCW1 ([facility]) Intermediate Eye Exam Established Patient Intermediate Eye Exam Established Patient 06/07/2020 12:00:00 AM EDT SAMANTHA (Zach Donato MD [facility]) Intermediate Eye Exam Established Patient Intermediate Eye Exam Established Patient 06/07/2020 12:00:00 AM EDT SAMANTHA (Zach Donato MD [facility]) Medication: Botox Therapeutic intradermal 05/17/2020 1 2:00:00 AM EST eCW1 ([facility]) MRI SPINAL CANAL CERVICAL W/O & W/CONTR MATRL <td>MR C ERVICAL SPINE WITH AND WITHOUT CONTRAST [id number]</td><td>Routine</td><td>12/08/2019 1:53 PM EDT</td><td> Multiple sclerosis, relapsing-remitting</td><td> </td> 12/08/2019 01:53:00 PM EDT Multiple sclerosis, relapsing-remitting [facility] Multiple sclerosis, relapsing-remitting MRI BRAIN BRAIN STEM W/O &W/CONTRAST MATERIAL <td>MR B RAIN WITH AND WITHOUT CONTRAST [id number]</td><td>Routine</td><td>12/08/2019 1:53 PM EDT</td><td> Multiple sclerosis, relapsing-remitting</td><td> </td> 12/08/2019 01:53:00 PM EDT Multiple sclerosis, relapsing-remitting [facility] Multiple sclerosis, relapsing-remitting MRI SPINAL CANAL THORACIC W/O & W/CONTR MATRL <td>MR T HORACIC SPINE WITH AND WITHOUT CONTRAST [id number]</td><td>Routine</td><td>12/08/2019 1:50 PM EDT</td><td> Multiple sclerosis, relapsing-remitting</td><td> </td> 12/08/2019 01:50:00 PM EDT Multiple sclerosis, relapsing-remitting [facility] Multiple sclerosis, relapsing-remitting Results ID Date Data Source [id number] 01/21/2021 03:14:25 PM EDT [facility] MR THORACIC SPINE WITH AND WITHOUT CONTR AST [id number] RESULTInterpreted by:MARCIN Roblero THORACIC SPINE WITH AND [...] rce(s) Supporting Document(s) ID Date Data Source [id number] 01/21/2021 03:10:25 PM EDT [facility] MR CERVICAL SPINE WITH AND WITHOUT CONTR AST [id number] RESULTInterpreted by:MARCIN Roblero CERVICAL SPINE WITH AND [...] rce(s) Supporting Document(s) ID Date Data Source [id number] 01/21/2021 03:04:24 PM [facility] MR BRAIN WITH AND WITHOUT CONTRAST [id number] FINAL RESULTInterpreted by:MARY Roblero HEAD WITH AND [...] rce(s) Supporting Document(s) ID Date Data Source [id number] 01/21/2021 02:41:30 PM EDT [facility] MR LUMBAR SPINE WITHOUT CONTRAST [id number] NAL RESULTInterpreted by:MARCIN Roblero LUMBAR SPINE WITHOUT [...] rce(s) Supporting Document(s) ID Date Data Source [id number] 01/17/2021 03:35:50 PM EDT [facility] Name Value Range Interpretation Code Description Data Albina rce(s) Supporting Document(s) Progress Note [facility] ATEZMu9qTwCKVhTd84/GYZgsNWMbw2AfYAdjTXm8IKlnACIhD3XbHFW3jB5jNMV3YBbYWlMhOgVoHJPn lbm [file] VPRg0K ID Date Data Source [facility] Hip,Ap,Lat 11/23/2020 12:00:00 AM EDT eCW1 ([facility]) Name Value Range Interpretation Code Description Data Albina rce(s) Supporting Document(s) SMC Hip,Ap,Lat eCW1 ([facility]) ID Date Data Source FSH & LH EVAL 11/05/2020 12:00:00 AM EDT eCW1 ([facility]) Name Value Range Interpretation Code Description Data Albina rce(s) Supporting Document(s) 0.6 LUTEINIZING HORMONE eCW1 ([facility]) 6.9 FOLLICLE STIMULATING HORMONE e CW1 ([facility]) ID Date Data Source ESTRADIOL 11/05/2020 12:00:00 AM EDT eCW1 ([facility]) Name Value Range Interpretation Code Description Data Albina rce(s) Supporting Document(s) < 19.0 ESTRADIOL eCW1 ([facility]) ID Date Data Source [id number] 10/25/2020 03:50:39 PM EDT [facility] Name Value Range Interpretation Code Description Data Albina rce(s) Supporting Document(s) Progress Note [facility] TPXGUb7pLlHTRbHq74/DQGcdCYMsq4EuSIldHAn9DOtoKWTdA0LwKAJ4uH9eVYW9NLlERqHyXnLyDLZ3 lbm [file] MDAwMDAyMjIxMiAwMDAwMCBuDQowMDAwMDIyNDYyID UqQIBtMJ9TKvPwHTJaFyU0JOwuPROkGJYybq2NEFNuTQTeYyLzZKMlIQDcBNDiGZoeJWNdRZS0GSKvIA BrGOWpSW2BArBaEXAtWrR1OsThCPOeMXSdkx4AXHHeJMWlFNQ7PsKtYIYdEKWrYGz2kjGmfIQqUTw5IO 1SG0SoohUfXkVRDr3Lt261PBSqQJDtAt7MR0fmPd7k BIJwAKHKCi3WDVr1J5Y7YxNrUECpUZGpBfyuKOkvEUI7GFe4ZaY0QghbQZJ+LMg1SDQxRXWiFjNnXRPi WOJeIUXvLQrjZBxsSMy8UDM4Fs1cPOGIKt1+SVolsQKtvSscBJJOBrG3EXF5IEylPPPEVf5P ID Date Data Source [id number] 10/25/2020 08:09:36 AM EDT [facility] CT ANGIOGRAPHY HEAD [id number] RESULTInt erpreted by:Saman Mejia, MDCT ANGIOGRAPHY HEAD [id number] INDICATION: New onset right quaker pulsing. Pain worse with increased ICP.TECHNIQUE: Contiguous [...] MR angiography of the head performed at [facility] on 11/04/2017.FINDINGS: Non-enhanced CT head: The [...] rce(s) Supporting Document(s) ID Date Data Source [id number] 10/21/2020 10:00:44 AM EDT [facility] Name Value Range Interpretation Code Description Data Albina rce(s) Supporting Document(s) Progress Note [facility] AZAHBr4dYcWKKfEb29/BQQikJPRar6LgWSvwWDy1FSgoSOSvO6UyFYW2vK9eNPA8EZaYMzQkTgSrQLK4 lbm [file] 55C1WVhPpLLCvO5dGMSo2hGi04SQBLmW1pjB7HlMVSlcoeZpZL01KT8J4yfA/jose g+BinAZC7DtMcXAbCQ [file] AgICAgICAgICAgICAgICAgICAgICAgICAgICAgICAg ICAgICAgICAgICAgICAgICAgICAgICAgICAgICAgICAgICAgICAgICAgDQogICAgICAgICAgICAgICAg ICAgICAgICAgICAgICAgICAgICAgICAgICAgICAgICAgICAgICAgICAgICAgICAgICAgICAgICAgICAg ICAgICAgICAgICAgICAgICAgICAgICAgDQogICAgIC AgICAgICAgICAgICAgICAgICAgICAgICAgICAgICAgICAgICAgICAgICAgICAgICAgICAgICAgICAgIC AgICAgICAgICAgICAgICAgICAgICAgICAgICAgICAgICAgDQogICAgICAgICAgICAgICAgICAgICAgIC AgICAgICAgICAgICAgICAgICAgICAgICAgICAgICAg ICAgICAgICAgICAgICAgICAgICAgICAgICAgICAgICAgICAgICAgICAgICAgDQogICAgICAgICAgICAg ICAgICAgICAgICAgICAgICAgICAgICAgICAgICAgICAgICAgICAgICAgICAgICAgICAgICAgICAgICAg ICAgICAgICAgICAgICAgICAgICAgICAgICAgDQogIC AgICAgICAgICAgICAgICAgICAgICAgICAgICAgICAgICAgICAgICAgICAgICAgICAgICAgICAgICAgIC AgICAgICAgICAgICAgICAgICAgICAgICAgICAgICAgICAgICAgDQogICAgICAgICAgICAgICAgICAgIC AgICAgICAgICAgICAgICAgICAgICAgICAgICAgICAg ICAgICAgICAgICAgICAgICAgICAgICAgICAgICAgICAgICAgICAgICAgICAgICAgDQogICAgICAgICAg ICAgICAgICAgICAgICAgICAgICAgICAgICAgICAgICAgICAgICAgICAgICAgICAgICAgICAgICAgICAg ICAgICAgICAgICAgICAgICAgICAgICAgICAgICAgDQ ogICAgICAgICAgICAgICAgICAgICAgICAgICAgICAgICAgICAgICAgICAgICAgICAgICAgICAgICAgIC AgICAgICAgICAgICAgICAgICAgICAgICAgICAgICAgICAgICAgICAgDQogICAgICAgICAgICAgICAgIC AgICAgICAgICAgICAgICAgICAgICAgICAgICAgICAg WEOzLQCmXHVfSXQrUJNqQUEbOEHlTDQuNAViLTZtOQJsUZHoRGCrQZCaWKCbAWGnISJyXEq6C3ilUYCs YZQxDN0bIUx9Kq0+RPeWNxChIHG7vyDlcH5ZML7jf2QtFNekEFBxa2UuBEm6OJ7MBSByYMjoWL1XAPtt he6XUFEuPGKzqMCKw6rnFiGePOZ3NJTpBiygLD8VVE FdW0slueLqCYNnKLJHNFvyVDXRZKliQOYKEKYbPAWkWaPnTxLkWRDwGBOeKCSMNIE9LPOaXjLcEVctGD 4Bw6YfnHH3XNp+Da9BCA4aj0NuBCqgKLZpFD2usi7CNNcFPaPvX5GcisL3NKF5TSZwIg7DBMThNSXzeK MfJNXqRUGZSvLpH7FtyJ87XYSBUl5+DQplbmRvYmoN BjI5PYEcf5JuHIn1HQ4GFHZsNHb2kRQtJAIaK4Rpz4SoSo66JZHzCpzjH23aERzoWBQEP8nxKHvsTH3U XTH9BRsgET5tKYAzMJC9GtZaANTYRP3QMEKfGCFbaYEhNBCbGNZQTR5DYEkdTMG2MJMyvvMhcZSrTSjx NY9IGSStphCcWgOgWJTUBWq+Sz3MTI1mm4WcSMdwQt CuRW8jpn3RMBcHIuUlI1F6bKBgZ7Z6NKyuLw7TLBRsVAYmRaBzOIKZFHaoAH5IJH2ogsF1LG3JeRKyTK FnRJWqkBTeNGv6C22hqKAnVHpyHE4FNUP+Kwesi+Vj7QJZOlOQIuHMHlUsFlHKLQMuShN1VuZ8CAq8HbZ6 UiEM89aBcuxoFyYPytIE9UZN8fSKQxIUZNMJ7VcPYp hB8uobJrBWGsDLNEIdAyP11pzUJlRKLvAABlAHYyTs8CMKShE3LsbfKzjWybbvFuLBLsOFPKLI7HMOsz ydKzzAKsvZvnPO32pNpgDK9ZVn4JBsKdTH4scw4EgJVsRu8BBWArOy1LHFUmFDZcIDIeUTA9SBNyZmBs YNloWKXjSUToFFU6KHOlYPHyQK8ACiFeMTNbIxQ1Vd bgGGPaEWJtjj6ZGTXqPFIkZMD7CdBtWHRcABUhXHjaVHOaNSXpDNS4DOPlYJFnRI4FPzJmFWYsMCT8Hx VmJLNnBHAstp1NZLAwLPYjSaj1DXFlUSJiYPEcRPsvUQTyHFO2XuE5OAJwYROrDB8PSeTlTZXdOYI1Ix WiRGNvGQUtri5IBBImSCZmSFG0ZtPvHSKhKIHrEDzm WDFsVAF1UcyhWXLkWTJiXT2APfIwURWfTYW5BNNyHOEwKRUuuw4FJOFuBVNeZXM3UTDpDPBlFPAdZIfl IEGgCAU9LtU0UIYrZPRuZM5LUjLfIRSxMUQ4TuCgLEGxIZEsgu5DOAZyYWCaSCD3FkNiSZSbMWBhMTio HWRnJAC1Zph0FMJaNOTfDD3XHdUmBGQrWNl1RZQfLV XiUIZhua4LAKEfOSRhWEN1DgVwKUSaUENfCKrfOOJvTHFbKLD6DDKvXEZcVJ4XUlGaFRBjBdKjVLCsSJ TqNGMlwt8MASXwBBZdOYV6LsJdEOJhRJDqBKodUWFgSLXiUSP3FWBcEGJaIW6WPuBsTRWeJdH6HSusRU QbLQBotq0BKGKnIYMrKww1XgEwJHOzSXPoDLlrIRBn KKX0Bki0VPTiCKTpUG0PMkYiHBZbYpT3RRXlDKVoTCQihk8HRGAsFGHeBGcoDTUnXQOpLCBnPGiqPMCd HVQ1KNGqQXPaHTOpXX6AEqZeRIYuJpIfHAOsLUGmDBTgcw1QPODjRMEsPkB9IAAoEYAzYHLmREvxCUXx PIK9FvQ1TRKxRMWiUY0LGyIfXHJbJpM1LHCrBUDaTF Akzt9XVTYvELUmFzqnTvOyYNEoOKEgCZjqNAMwTUU3WZFyJLEdGABrWL9IMsHkUIBdRrb0VOIaWXMvMQ Eipv5DTFDxXJPwMWDeJTIvKFTwSRXzTPr2hmMqbADtAUn7ZH6JV9VvhhVaCipEZt7Rx606JDE7COPzCa 3XX4zhBv8cPEVsLXYULz9JWMk4NjX0OBAdFMLiFCBq MNMaXVSoKwFmXGvmKJT2LCV8Oyk+LNgzJQM0JMNzXKD7QgUdXkB5PSUjO8RqHFOgMoG9SPl2GM5fADPB Cj4+ILwllCTzlOsxTCOMYnT0EBh7AAheMXVXIa1Q ID Date Data Source [id number] 09/29/2020 11:15:00 AM EDT [facility] Name Value Range Interpretation Code Description Data Albina rce(s) Supporting Document(s) EGD-dil [facility] LUVJIj1hNaPOMzNeOPIlXknCERraHRrrMHTwF3F7DUytSg8GUHybqjZwLFMiEa4+JVJhSL6rip7aPFGr gMy [file] vutuqmjoqqjhJauowf3BNvAJ1P6b8KTm3mHvrVOGlR ip6txdaUJWA3bjh/5IAmSPYubiQpksrOt7GzhSRz3X/cDl6UAOVAsRzmB+nB7uJ+BPyPmPA864t1ujDE i59pryoS3y11zbYokAQVjcagx2YxoJRQjw2WrwvPA2J6sfT9RYwcNp3pbFqjwH7qxtYlzi5K/LRPaPOE 8dAPLEa0CVsyrxLWNWb1IM3BizhPkujhNx5/hMAZZb t9O+JwRm8KzAeGL1s3oD6lMCx9ZwVtz5OUd8i7HHcJCiiPXf+53kb4EOKyGMyv3UbaBP8DZELSUR4Cp5 m/xmXFS8qSKDl4zLe7QYFKscXsx9YA3Lx/wNoqpzgppA2xq4njgbwS7XNt1h7JpgQhzLpR5+yAY5WuOx h+xf6B/NaeCaxQCFQhvoGAq9mKOWbSK7yUAxm9eBOv sNkEhEJYpja1tA0RVpxhzXzZTPXYwVGzwjU4RZa6jrCdNCXo59sCembKzK9zMwX1oaPBlNorJD9Rr3ob fX8qfAxfu3TxbznkwN3HOzL4f73IQshNl1jlEal+cLjSGOKZlRUnPFr+V/xxk1X+PL39kTvuI71Ddhv/ 0U8Ikwc7CPhbJyZbN4mw2Qm6q8nbC+Txj+JNcpcnV1 sFtNlYm2Llunp5Wn+7l2Qk7tchcdV63f8P07jCvVDPWZREDaQdrLxJA6V7+SqoZ4YuwkHbVV0HMDsGDl s6ST+H6lZgz0Sn90CgYHiDHSWOcIz0QnVEG/VMBuHRMIOmKjjwuRXzR294svmkRneg68sIjXUn+rIV3A lMfpJVN21n2LtQ8m9cfKYb/tymZZxvkEKDqyL5BIzo 1kAAXn/NGUqbyyKglNrm7dcuB4GxbhLi4eJfHuzUR24Cuf8jrFkxTT9khbWsgOZXdj20Yn5GpT3nlQZH qGYtZPUjgyWFoErw23BCbt2lcu+Ep7wRADqMN144Bif4Uogb+insulation cutter/JUIod0itMeJpd/rIgnYmWuOMVrQ5 [file] 8+9NtauZ9I0i9C4zh+Y+H+/MuXPO+MXf9dB2Qc irQcuU55LJoJt4VGJ/6vetvrc+pwL2q1UEqoTsPgwMQpYYVjj2hKkMU8Q6qYRoLDqj6Yvttm9pjfNA9U 7PKR5b20uRRYPBIc4g65k439+Z20Qk+TuQOLaqM7zYe1bnD6BkgfdxcDXSjtb9v6TKo0GDjJrEUUQ52c 5NBdqBmftNMzJuyl6QkXlOToR03MMfvLzhfozBITXu W0V12Nd3Pt1f84LKtS6C6MeMOo1Oaodf4WACTrj/krhZTQ5eLbO3ZYTW3gfnL/o1Dz6VNEyWyxl5vXVh KltKFO1I20Th/ll6Kf5PO+bVgbBN7x8ttRjjE/KbBP0O1J9edC8LgLz2u7xqfsvWI8MotDWEDRTDveEy V37JGbzSIfYbjlDf1ijrSVH1QmpKaOKYv6UuUXYz8o hnP/duMh1gwBGp1crnNgtSkyjVk9VvDTgA91EW4Wq+mN5IBmmhgipEnDmzksgvBSWGwckvX6Af/VS4T3 Angela+KeFtz+yoJjtNGAbpp3df0iRk9hTtQRVk4zRYg4eIIHMRPTarEyfBdBRqdT7Z/sDxB2sx7adDZzL8 [file] bead inspector/GrsBqsg3NxrkXQWbJgn9qHDRqgAq6xVH6KFuM/62mpcTOD9u7+GOLEFJi6C0hH/mvr3ay/KNC8hua [file] [facility]/jtHlIJySMwlchOcyQ/jdG+SUZPdDWv1/7Ofqjju4mdPH8QSvCCf0pda0LUk7nbWweQRCOGfsqfva [file] 4VWPDFNWqARUWIWKjKAGGRIQcIAMEAQJTFKIKBWL4C AQXMHqtGRULQmCUTAARVav8WRSVNze4VXHCYk2DIMUNSq9PJATqudlZveNDoOJ9GJnWfAK9nlu8VZcG6 BPV2qCAtXc9JWMszMvfuQQliDOVVJz== ID Date Data Source [id number] 09/15/2020 01:25:43 PM EDT [facility] Name Value Range Interpretation Code Description Data Albina rce(s) Supporting Document(s) Progress Note [facility] HTAADz7lYeUVQfWl51/AFYdvYBAoq0QmTDoeKIb2ZWxpLJWoI0CdHNR3uV7wLSS9FDiRZuGwYlQcQiAr lbm [file] JMw6revRpP/8dJMANi17kpaT2SwsGJRiXQsr9l+Mary Kate 7JoEVB5WYAeelSeuiMpE3qd3e2v/QNRp0IwaZfzTpI3nyLJi8BteiLOK8sWRnlGftNCvB/IJQYyGcJQl bIsaNf0ECUgSK7mIshBV2xo6MypTMfMRU/G3fGEEAondlEhRRZXlF/g9+N2xPUzv2vdddbxppXMsVcX1 AGvjYm7ekWrEqXnsKsynxWzXiAzweZfJmw5UHq9ONv siBhhp+9lZVL/IJ7X5pOQ0M0JBXYJKUMAxVDYeez1IXguOW+vzEhuaikOCQWoUg/vwm/lf1+1x3RtVja 8T2WYLLT6jcizyTmeopADALdmBvhrBD13ikwJdxaIcmE4vN3hsWzi/LJnfwJ1jfmgvZA/YnnxnRoXxXb yO6RkdNzzhTid0BQ2Jx22TJt8YpzIErsgyHFMQLSON mn+YPZjQZu2N1lU9hS7FAuIWFdZMZTdHgrHsIIbWkcRmtUvzb4aWxKXkidggM0hMAOly99RJCBHguApg cn4B2Y31DF56aRPRciwl68c8qp7JdCtK/yd+3Q/wDrKOwIxrSGfVaxGSd5OwmCtZH/Qjx70Y74PWsLF4 ohLGEg22Ca6ClVQvyNsSWdj+x2Y+DOxGgVU8FYgLIL nrxV/MSqJmDSsEoPgC4lcWI0z1Qz/hPRU+34olGBohHji/6YyhHT0HbHNpsyb7vmv5JvefD5uVbubAbo WVOx9j+TeJunYH6C7xCzS2aKNTkx4tUWnhFnWxfQoc0xfrZQuYf/V3JOrZVJLHD6kHPpmNfGox0a9/Cristina [file] [id number]== ID Date Data Source [id number] 08/17/2020 08:45:00 AM EDT [facility] Name Value Range Interpretation Code Description Data Albina rce(s) Supporting Document(s) Follow Up [facility] AVLFWc4rYoPOEtVlMYUbUwnGDZdbJBkjJJCqR1T1PPafZe1QEMyfhaZoPPIjAr0+PGShVV0koy3jUFSn gMy [file] RDv5Bv1uX9tJDio1+9IrUgsiVQ9fhJlsflt6Vbk+bead inspector [file] 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/1fsZEQouCH1eldiCJ4onOxDU5PPouWbjC+Gd6TPw4m09OpmVT+hPWwcQfoksLPDfWx2KxQSF2QE6 [file] qZFsr+A6i5SbVHoJt++4TK3eB0Ew6GTMDHgGEUnfLuaxWiKZ2oy6NzEP5kamWIgZEiz3mAkX8HLgd+bead inspector [file] VcqRrAKUN4hYlNmG6Ss7a2w90rxRTm7vfMSu3r6/4YAv1sZWooZhmyHnl/A4FQfDRVJnKM1T6e2ca+jose g [file] 4sLSijDXKh/DX2spmXpuGmX+D76MF8WCYE5DcSQ [file] 5R7haWIcu/xLNRITKRC9aj1G4DH0O2rmz2LRsI+ixob/ppSPyjXayPnb6sr9I7dIKMnL2K697I36z+REPAIRER KILN CAR [file] splitting machine feeder/p41d1faw7vPcreQlW3Sz/5RQx/wPNaBUeHw5JhpO4dDysbUEmRUuaqMqdZt5X/fgXUypkqO0Q5cm [file] LHWmGb/cDZzn9O8fXkee8oXe378zhpz+J0G/Xn+timber poisoner [file] /3wLqgWn0aTQD0pmJe+hand crown pouncer+124iQt0KKOpxsTV2VMZ [file] uamM4A2eE+z4JPllOuJrv0v3sFueA6APmhA9OpHoGwrVoHVm46Ti9/c0IikQRyVc5sDr6g64b7uiq/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 [file] Iz7m2IV60gUYji0HfjC4S+1u1wVTIZZllk2B3GffloftWu5u44j/ioY6zrJSCJwVfwjB+3+Lens Examiner+LN7YhZ [file] sjoWd6ZBO4VGFX5v8Sgpo81bl3aLUdpsLskanh+DIESEL MECHANIC APPRENTICE [file] show worker/gUKSyJwFVPSgm63v6qEGMY4EgwB7xYeOG8XrEF9jBNbkJtfEUICvr/QSxp0WEZtuBrpQGKs/Tlxj [file] patient transition specialist/2BzseiFsQZQM+UFx68EvmnZf/bRPYLIY6+t12XT5mOazIgj92wjcMazd/QuxG+YmeMAjkHjyvvZ6 8zCMcPAdIAF4BU23m1CWxquYQUNU9Phm03D5xrv8xhh7bwn73cQ6wgqFw5njnKErHhRGK/5bwjbI0vME XNeUZeL8X09TGYWUtDpR2wNTFWEGcQQC9832AMg+wN 6sciq2MoqpDftfbeBFL70/FaB46E28ceO8vY5IUF9vjbxIUEosiSlr1xkH56gkEm0tMtKPNaluQiMbXo j7H6Ot/06AYUJNRhEyEPMkPidmpjKDdkSvuTm9sw78uaOTSxELYIJgs/Lsd7l8oxyUTe/KSBX9VleDv9 A1dZubSMKXCR8zEt8MxoJwHJnzFcaHpjszT8p2+2bk ojX7V910lU7JoXvBcfslOXuxNiW4McRbjASkQcX8hp8dfosyn44ByLvBkHUrDp+bMdLuRs0TZja2AZog zxCJhM0c5oKXY1W2dcSwHohTZUOvqV/AREPabTe1ALTQp3MO3jfeSe5Z6IZKehQ5h82E0aFXCq0j3hQK 2/tsUPVhzGwlVxY47aViSJwT1Ef1hWp0hnjB/bh1eG xmds1HzGph2CJgUmZMsW7sCRqtz9sUU0Sl8319HqLnFdFoEHg3t5QqQbno0L5m6su3vgrnF3ey79pFqw F8m+OmW9UI+ZGe83PsTun4fBBH8I8OqtTVrfdplvbuGHI6Hgm3VL5tdgr/zrlHF9/vMPosYSAl9sjGfC 1JLBwrSYR3m/+UL6Dn0kFwWkUerhDZTJI/LC79dCqw zvGsGrvNABqP3J1WNVsvjYjhvgDOYYWEj3sHbbwNeO2Y1FPMydIP4m/jl/tlZXuo/LlnrStAzR2MTRXk OvX6rh+ugXfnRtcul2W+lBLvxQVc4n98qvTVY5s2piDYm5hPuw86XTFjTv3jPFgPffvqmMFqxQOIyZTI 62HJYWFLMSldfWvvpqGVXM+CYS0AdFKFMiWJUOmMzs /mh8PqEyzfvPAFzOlAjR5nD1BdcutIvjzvEls+lNLHxERBM//zPLL/kMxfSV/VHLyJsFIhucSLK BG0ZTHwzrsJ/CNTA3J+lFGf/tMJOWdTH6affEGpGQbr+7BqNs2YiTiWljHuorDmEgqDjRDj4T04V/d5O TAEKg4HA0Agdu+KMUYJMhP/7IopRh15/LYkF/7QcUw h/+RcokhKUEV3sAtvban08OkjKPlVVkh7RRYp7rEYtUYF0ZGw26kHCUF0GHOelv9R3qv27aBhmWeTjOd XgPjmiar+ayMp7dJrgAq6I51AXgf+nvz5ynVyygm/b0rmJdmEqjkFHkRnMnW12MW1M7Rhx1o8USY+HD2 MjsUAPrTlVznbUKLXZNCpktvaxTbYwow/+iX/xcK/Q [file] zunGdAWY3dSMkP7Vc7lIVyuFFlQjp+Mary Anne/h4vP2ZoqttnErOeMS/vu3XDpe1HozndkMTiuDjdOgn7s5o [file] AMATO/46FqDLybv2i91/jljJhJMKy+RPKdeYS9YLxO9LT2w8/FGh15nwR6jTa4hVaLelMBbi8J46VzWD4cj yMu8R+UTWwobpr+F+XplIpsHDo62D6zJVeFsGa3OkB 3eMot5JeNSbt4lywpKuDl6cwjjDOSxMzu59vqzbX6HcLRUPVG0o4fDBvoa4qaKGOUiTdQyr+AjEhxlHG bLgNXSLnWxNDO5jvX3dpsN3R4RwG8CVLBQ39iqaZJVdaD21NeUUmHhNkOauh18zupYIQN2TyrMPgr+mV 965jY1e2PCeLhes2bCcdc6aN4/nBIFa0mEXvMFaN6f 1fWB22PGSxPDemwB3Ulj/c/fpfzOebbKONReoGHi9j3Xgo0BJo2XkFTPAssAa3Tw7Jm8+LpWoQdE0+sp 51em5Eo/7EesNptT/H0dPbIDAS/42mSb2JVtaJxAs5bs02T2JfWfxlCiJeR2bhJZSBMfkxtcJ33dJjRR MjqFHSCzMaDqNX425ns/h7X7LyLmzWcSMH9rd6d2ih mMDEk8Xfgwzn3nVFnOeA7FAB1274rHwZoOit2ED1jU3NedUd6Lz/G8lbKi5wkQXj1ceq+YGZV9GsisjM xqCIYH764B6EBpCerCp+1mGZtd6vXtUY6Yc6rpBQkMisRzsFi3V8eQC2E2HKH/EEjaNH0e6KqwLS7WMz 3PIL+HZxDQiL+2H1j4gny8FzGWlHrfCFboI/qvjErh Lna0HOyxU08MG4z/rrntAPQeG/I+zXygro6G3rx/XSV+oBc3iFflpfkGqZY2nJ6I8shnd941rM6yc5G2 HZWIqjk1j/XEUdx+puSFG3EQHlrer8iAinuJu05kzhScinO1P0LpDrohTsEBfr2jH345l1m153ZyJc7Z 5xHL29h5O3KAjXMY6VE339db1OsmQvqAP7uvVM+As4 lZinIgMYj2x4ImD+T4xId+4htd5Sdliwrygn0j4M7em9VG33sqmtQ9P7r6E2QeRJMYm2natn+ydg26W/ N/uJUdcS3BUrvqWRspArwjVkweE/hgVIBlmpV2lokJXQaDAF/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/uRsRuHsSke3nL6EelGsKjA0afVBF [file] A7kx4yHjwwHCDZ/P/y38ReMybynEanPmz54ZVrllMj/CiSOLkide69b3bOqGnV7bvfpWwID03yUi+wire brusher [file] h/jUyKk1cW7lCfTvn/twvfVa2HPjyfKc1HJ8fHIOSqNvRIdVsosyii1z7vcnWg/v4oLjyvdlrW2FZ/Jose G [file] Z173ALw2WYIn9z+fCT7vnkJ8IVeidY84HqMFrj+career technical counselor [file] jbHm7US1UUwOq+jose g/t2Sira1ym6LGVdOxQDKqpt2YU [file] 34D15TmbSVSNgvZD94GTvSI7oEgtQ4kNU11JOm1YfasYe+h8BWgS6oy7WMOZWG+O8I9r75eIN+74G+bead inspector [file] bead inspector/88m9ufa6yQr0ae48X3+OCa9/DDrlCHLx+iWyZY/mXfIOnCWmvxNM70AJ+8MK9qUQiE/JkbvCp0T4h [file] ocprmsVg1+N1vZCB+3e42/sbyBPH4a9PHTpeh73T/5th grade teacher/fplah/H17gcQ0nz0ngu85qS7LRTIz8piPY8 [file] bead inspector/Bm6K2ZdCbDYDIOAuUu0Q/C5awhh1Dxqh7OtVIk3FHNnC0JpuZ2gAIm2p/4uiwRGwlD0riboMaVVME [file] nr6tGnvljkeYgOxgYLK/human relations teacher+KcJni2Vg/wiWkcsSwaJ+adCOJAU/yoM3wV6zx5vwm+3hriOe9PTkBKM4 [file] 1a0VgLN3xnkx+SGLc1+W+UIv7TFTk/hUWs+3B+Sofía/jHgArnoYHVA1XDcURfol7M8nzqZVQhcbt2P2mn [file] Uzair/lzUwyLqT/tVgqxu8e54jwnvC/n4rzeik30gvPfpqsQ8/vJw3UGp8pQk1S05B49h6f4Z6gnbumc2w TLdy3Iz6YsIpbuJ4Jo3NW77VuD8llRYdPr6z8qR5uNftY/HE1C8mnDbQReoGhMHaWl0OYkuhnTrxdb5H iD6poF17yM9GQa4Jo4X0aqG2xd9oohUhUdnUE6lTJ1 upHOm9iGm1ChMfIvstlWBiTupM5rSE4sRsBZ0QH1D1/ms1cHQH2KjhPWT03NvJarYhMoqj8eAthU9BeG 7FUMflPPM4E2VWrsftWpADwtDk9daJ6mM9ZOqljCuHtdwYrh6drIVXuw+z9RN3exN3t2gQomte6TAhfD nOQPHYJt9rajEMf/PxMnyw/CJRsT2Op6xood9q4WAY P3KHm0v7OdhQXduHDGEEK/2DT6rifRONobBY0aEpHnOT8itYw2A0hxhxIlD685Ztxtfweg/sarfxdjbn qa6xSpx6Tt6nkdIVdnytPIKQkGtlmC4quKkAm0prcjqOa9FjPNqC1QyWpIuLzmByVolBMNn2l02WGytj ueNVs+JAl8igp7gHKjXlD9p+x58l27wOlGMVtavwfo WqhEhkxxH84abFDwTpj2y5GRLuiw0MhEIOz0uJBiYlv2RczAu3TnqOXTUbxFRWUzxZzK3Zr5WN7sFM+b t+/QEstNXnV4hV06Ied4UuKH6ZPiR6fip38uyalsrDd3nr/gCVvLn4EIs6bv/0LQKrVgLwPkxtm+hB17 /L32i40dE1N5ywbw0yEuwIg9rnktOd4eT+[place]/WB [file] REPAIRER KILN CAR/c5AEO7nKnxgHtdmeAvlkzwM4UY/PAIIuJxntVTa/gEr4UvH0pMr0xsilJAoBUOkQF2FUUkL2xANnY PkrA3zSVCD5cOCrJ7gMCF31XbWSgBi2YZ4q2uQBuTh Vaishnavi/Id5gaFACbWEZvHnbqX57yhdcM0UsPuopBHZHi7sw+10zX4be02Ah3KPN088UUjuVGyRAFo3FjfJW [file] gccw0uJ/bead inspector/YuMHsQkbtrbBc/K8XeW2EOMnZxfcVEl [file] insulation cutter+/6FldbnPhMsPVk9S6WgUU6vylZk8SHI2LD1lW/WwYKrxv0knAJoUf0Nh58ujNekJSxFj8UYMC7Fek [file] n66FqkEWXTC0Q/YvaBp+2tQxX+pyKTMcQ5HhnbQ4AQ1lN7xstSms8Bl6n3x+Jatinder/V9/FPL6JEg9YxGx/ IWHHuTTR50uMYRsOGtRmi1QouowLJAwIr3qv5j5Oamf15HBKo0dCwoxIo6Smc9wpF78CckgztlI81AHI Tng4VIDPvH9arKGKMF+AOJI4ZxrC1oOFT6NZlieEnp qJ2QMVVuVKoPg/lGS3marO+0vnI81TotWPtFEAEtW3iDcKT0xd/3hV5Zx/lyMP6wAHpHwUeA3kgHptzT BsBI41Cc4UXfT3lQh5B+42A4+TueBu4+Rolando/TidW/Hl0JohZTsfNKzkxtMEOoEncKU/aDOuz2WE4ui4P AGOkWtTfsh0swlKGZbvzhCcxMRusiMudQDW+c6HprS LrmnNSBHYIw1KbvN2ym099ZRz+B5bWR2zbsH322hiB9aIx5e4DsRnSdJeVM3d8rl+n7/fe/+lyeaaVLN 9zyJhG1a/0EMgklPOb6SiNUY56T374yBNTN9gClDJI4HHr0jAWdDD0vjEC7mBXXSzHSMTWnrdVs9dQcu t/g472tVwL5ib431Y1jN/+gdh8VEDQYjXHkDWln8sz 72xJd1iM0JF042bmEyPaYPjyM59ImJ1aUpS4n9vunhazBQttLMynkiYCG8xlXB/+46vhnUb5MIOMZdJf Mg9JTHVhKhR/95m4zAh9EuAwApO6tt2Ype0iK2kB/lwepSujM+m8Iio8a7UVrDdEidRw662rrhteb09A czHUNzmnzMoM/lew9m11ziqaVXPvsyWF/0SrmSJ0zG /tqj2YxaTmx3pm94P/paper final inspector+hG1xi9uVJr8PfARWTe4eKTnNDn6Y0hWO7zQLTfilhW6HcGrW/hPelL/Qbv f+r8gsNy6NjOHWy8hkHpZ3wjylzii+jnakcUBgdQHOnGyDMbSyQWo5gsmlxDN5Ix/yVuHrd7HyviapCc asGmDJpBBLfDu94D0TEpL0DGMF7Jy1A/g/97TAhlLA PR5B92Hq7xHceuWgVHtXCEyHqSS1DT/9pvPy0NBw2zoq2/klBunJ6VViTZe+sxA4CsXHedwfvs16aK5Q /uJRjlpgJryD2ZWuW4DQ0zcf8RxK+JjJV65jdAiCe2prZyt/xeydzoDal4kndbwtvTaE12CpVKpQjV5/ xM9wwrtUDvRw8L+bdTcpsHhl+7LlfDggC5vqs46PEI PzuLsaa+AQmft7yva/77nQ0BlRVyDusu+DSUq/Jt4ZADP5iPk+sL81YCoRS8A5UvaV3RaNOz3cHCmOsu iH0AzEfZv09F7CXyssk8+k+SrhIs/t4dvK2KHORJbCyRtx0JANcOnaczXhqGBGzruZodA/YfBA0xIMwe XR5I0MhTPgt7NGgMXVE5xvNMeePxdnDtxe3DqNECrU 5kSIuCGXorV47bvakoG3GcWiz8B+ATkM1K8nFCUy93GP0y4QhvTbwLi4JFVS9uprmWaTlUtmwjrd20KY paGto8Hf6Pf9JgoKkiptVkrEOmiU+c6fSilSo+MmQ10nkgEMpSj9T2T/UEF2kZ7LQRukA2jaLcbmEp01 RPuhkjr0KbupkOvubzR9vBzN3oEIoIo8vUqgsit4sV [file] m7FlsPvjXui3KnkigfMqGNAahr8L06QX5Jn63eCn/pNpiv4KHgewNQpA+EXsbCpGdwHw2iG3PoVm+development vice president [file] x4EhEKkIzh582ddvHfpWxK+JOSE G/OpvL+pO/OVMWG//EEZb50d1Zz/4u/0BK0zbIevtmljHDCzGD5/4Df8 v9XZETNk79vKcaIyM6ApSfdMvRXR0+jNWF1A3G/7h4NJS7gcD76SPsdXBwW7PSyK7urZTK6mPbwgzA7H tK1BhbgXwn1nEJgQrVO5wtiYIGohUiM0wKGQtLGwc5 Jy2f/jFPzOi1/H4lrXlu0K/rrasCoDxsx2GFOgnIpxWfY+evNuKK0ay1DahRLqsqt00T/Wfc8ttdtAfu E4/Xy33OCiKVYLsKXdes5WCGEeU9kEWnh1m3w/vUWulUuayqjplvT9wYFLYMOPy/W51YlgQNbPWQ0moi FbQI3g2jz+Rn8GOBb4maP/jKnHqhnTrbMebvEHFq5k 6Xs6VusAzt2tfdCKO0gsYsD/pEjzgVG221G+Q/2oU43YxbTMXIJG7qYZtlRvvft09DsDpG1ScH2qdsmk 9bpHrEvpxEOwgi65QvSOpaNqLbZQinKiyo0PRcWtleUdM2Fxfqv1sqR1FDpeKO34/WTfXIBK/r4nq1RP pFzl3QdcflQ79UB3B2GTy63K4drtarVUz1iqSrkB6v ZPtiOjL9CJwNkuKuczTwyTBTMA1uW/p8hR+NqnRYwIgLbdgLgPm9SYJra6seuXBwEhI0y2rtU6Uwx1sv e764NiLT8iyrgNrz7seMSSVmgCiJIBTg4PAvPtY6cRwMdsDEATvDkGGCGJP58zYm3DqrXnw7V+hlVX/R KOfvFuzZ+MIOJHAZRUau1G1ExkbP9M54uCCHeX/BeU EQ9fF/1nKVlOiNPAczRVCpbHpZUMzwsq/nZ3zZyGj+A+/fTh9xrUX9engROwE8Q1ds6dVpAnPFzkN+Wr lGIhzVzCNPEs0Sr/fW1EhOgWRHrb7cSTv6uMZaMxyE/Estrada+GX2qK1YZdEE6QncGo4pjfW99786OT5zJcp aCiWq6mqJmr+mXaHS64ngpVTkautBDdxkwM2PHoliN 4z1yrtEntV6FNnMubtJUM6rfw6WC/ReuDTz7jFC2vUB4FSj0JJ1CgW+u819e/LIPFwJO7xl3sikBm1FZ zLC5grDPRWAX1rUgF37CI4x/qHQ8dbM2BX14eYuSltMsm+7fNYOpDOFP/1yK9P6WqfAjVLxc4Xwbvdxd vbWpB+y8FznRUSoRo+DeRl/6FxT0IoUiDAvdQtkDwA z5fxG+kXXrqHsyatJNBXp6EuQzhOnuRvkE5KN//A6BS6aFy7ZvfScIHPJFX+neu5jiM/65sDBQcfB6b7 KgSgaxdiBySoAdOQnZ1opXZr2iUrAcSbTvc7kNMrvK+vufsVWO/VNAbtM5ffyYSuhmvKcdBzxAbBgs94 V1dD5bPfkuWGG2vYcfazgc8xXL336VMG52Ek5f5+Becky [file] B9OVeXq4+5AUOtl1idSAMDZNpE+N4wjc8r/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 [file] 2kcfR7743nrzezGa3od9l1NiDtO4jM34snJ2UD329U S8tSgtMI9gUwOQfDFLCOu/rbjUBc6cNEAgtNwA3dPE2cccJsgDVzihoR6RTA6Fmy28devRFZ+Gij0Fwx MAV0ZP9tJgKR8os68sEvu8j9vN0XMSsjzA5fm5i4bDmw6p3/mJ41/+xh7WC3L2hDUN+jZG7A7EOW0ah/ 1bi0QnM8awJWsGaGlrF8B7Yu8ELhxZDDbQe/tCDxmK cGBZJ2udXkpNAEjtHvDtnYbLhbkgRMv4NyhJhEn7FbD2RHwvwU/63Bdc9N0gUE0GCKKfXrLoOYWOf/ey 4DmnQqkILmMBpBuLpsMDddoLcn7T9c3EAzgoQvEdWipFngqU9EJ34fvhHYne5vNz+zyZNzucYCKKyk2E e00nYhuaGCdgTaCwvgvxd5KRUOM+3tdtbTNZ/yeouq 4nMU3j2hgalB9JACxKmFZutglH/fwIwbOW1v6D7yfUoJd0axUW/RiY4tCAIH3CQic46AML/0fn5qFH/Z SZmfmVopviOJBPuL3a1Kwun9aKA/nursing home/H7TzvuzrGEgvnG5Awehb5TtPsaYqeo6j5x9My9J8UU2E1jz [file] Qw5cV5ctvR3kHvRCUchWGbF8k4Gw7+FpCFH04fgaNFxeW6CLvgClWVLH+4M253Ohzn+qJ4EfPvSt/salesperson handbags [file] GdKlDuAql+dpIPOW774t4krHasxBgTpPdNzo5E+VZt8CwBMCjajpDhbIP7zsP5QkuuhEE1U/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/rYP/ [file] dsOWNFeYP1dnWhtLjLI7G3HaO1csIsZK7x7g2Eve/eMmBFRrBH3Dngk4dfrYanPUgHxZ9vPN6Yops/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 [file] O13RX0MqECjppi4uwvzgdwhtdEKrWyr4N3Pvfzg2n+ 8FatH+EOaDoXlffua2wuO021XVhYJlV2eq6gtvas6bb146n7m0eLNSsW8UZC12mHFXF2CSdQcyUBpv/I wGup/FTgE+wK/5r/Zy29Mc9pft3yFKxkdTI0FeSKy4EDi364c1iwVRRXBdgqq7C/fTPEYBv3WzW6lpM+ a52MsCR2d2eGHXudBVd7hoch6O68E8YetQwDLnlcmC KHeBvjLll01ALY4zkSDjjFZNdTcTTUglqO2ZUtrRs4Don0iEWc2pfe3PxJGWqY/szSbAxjDi234wroOb 70clVx5cdjbXBcGBB8I1hjlHau/CGRK5qaQ1HHXJ7+x02OFSPHT1ipCaEGF/v0+d+W5Zi7gy1vbCTb7S evnL6iQejpRZ3YQWuzMeR2UJYdJDsJxAuk8lGbC/It oMqQao9XEvt0yqq2NWZ0nHeL5qrpGRHOpkPXX9rDm0kPyEKjYIDG9sDFG8WjWw0ctY8sKaxSifNq2SSJ 4jNRc2ruKGGqjaPwmQS8tCILOWjLbMydGcstSP8M89UDp//g3F8EcDce+SFMyRqBKW6e23NiAR9l4+VY c5u8oMEupMF1ruYuorRr/IzmoDzzdrAzVeNrVwZZsk 7cjE5SDl3Sxs/pQ83ftOXKYUgMj+os09aQAc+EuFvYM56cY208el62QCPhWt9lcBDOd5yAQG+MfaZ/On D6jK9m/jXNkCthTP1PgR1jnVhv6ywc7CARuVZ6haj9I+fQ+wu1JwGNKcF18KA4H+A0eYDmkuZQTuSdzN u41O6i4lza0k6WuUr97xPZaA4egZyPHzNCv1B+ [file] bi8t//MmUSgEW7F4HN4e5Hz5mdgmxevvzJ/79/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 [file] hQTksW7yyndQcn9ZsN+6r9F2D/OgPA0BLK2801854K+XVL0WifH/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+mAn225bJXZ+fQjBJ9tyOulek [file] BqpXQHCDABKEJYIVGuUyVMLLUeO9NiTOBr8wJt4woT AyJKWtIj0PwiHmJKPoNKMQM8UujzVyGkGcNWczMTHgJRJuGy5XOUxxSIJnYL8+KwA1fbYjzN5HyHzlRP JuTWJxYMJjFVGMGG9UmPdmOTKVAvFlfQCPQk+FeNsXPJS2QI3DyvHHbqMSPgIXXaD45iBLBbMSkiqKCE CUDNtxEstASCTUroCNbWXVcFx7wpi4JCORLVGuSIwq ktOohXWdVZ5KJoBiPZ7xst1KJpK5QCI3bVNuYn5CJcV6HcCeGg2KYGOPA0B= ID Date Data Source [id number] 07/28/2020 02:06:43 PM EDT [facility] Name Value Range Interpretation Code Description Data Albina rce(s) Supporting Document(s) Progress Note [facility] OBFZHg2eHuFHOcEt80/DHBauGQOyc4TcVLapKDu3DIlkOFIcV8WrGXN6hT9iQOC2ONeZFfKtYbTsKZIs lbm HuSedLLePiIJKxOufEQtTbNFjsByfukOMoXW0HrUR9PVZvN44zFDErGUOeU1YrMKZ2RbJ+Xs0RDYCugW AmJK7TZhwX2X2wg1w1Kq3+hE3TGsf0kIg8qDJwFBdfsZ4rAIyrEQB8q8hPfRRlEmaaljSjj09v861bHB ybKhRMMLL0aB5SCbpRRLtvW8SjEToP4v/+q8PT36Gx Xy5WqT8di10m1I0/Tj7i5lAI5g+tHVyNbmZmzV6llpS19JM/x2laO9rC7qldxgx7XREq3KvVShlcpzQC ZrvryJGmS2wMMbl7iNpEGxBx2FZp5YOHeqV1mhsyK2vjj9+zgIv37nyqeHKfJwNcDMeoKFr6I40Mx15S 9sLWaCy/Oyql36905G4C3P9IC45PA2g77vLTFT6vEJ [file] AHLsYIY6CZf2XJW9VXb7DLP3TJBaOnHjJC5ODq3DMdN4MDH1pIZiZx4XLzFhJzRVSbAgGI7XJYq= ID Date Data Source [id number] 07/28/2020 03:55:49 PM EDT [facility] Name Value Range Interpretation Code Description Data Albina rce(s) Supporting Document(s) Leukocytes [#/volume] in Blood by Automated count 9.1 10*3/uL 4-10 [facility] Erythrocytes [#/volume] in Blood by Automated count 4.60 10*6/uL 4.1- 5.3 [facility] Hemoglobin [Mass/volume] in Blood 12.1 g/dL 11.5-15.5 [facility] Hematocrit [Volume Fraction] of Blood by Automated count 38.7 % 3 6-45 [facility] Erythrocyte mean corpuscular volume [Entitic volume] by Auto mated count 84.2 fL 80-96 [facility] Erythrocyte mean corpuscular hemoglobin [Entitic mass] by Automated count 26.4 pg 27-33 L [facility] Erythrocyte mean corpuscular hemoglobin concentration [Mass/volume] by Automated count 31.3 g/dL 32.0-36.0 [facility] distribution width [Ratio] by Automated count 13.5 % 11.5-14.5 [facility] Platelets [#/volume] in Blood by Automated count 302 10*3/uL 150-400 [facility] Differential cell count method - Blood [facility] Neutrophils/100 leukocytes in Blood by Automated count 67 % [facility] Lymphocytes/100 leukocytes in Blood by Automated count 24 % [facility] Monocytes/100 leukocytes in Blood by Automated count 7 % [facility] Eosinophils/100 leukocytes in Blood by Automated count 1 % [facility] Basophils/100 leukocytes in Blood by Automated count 1 % [facility] Neutrophils [#/volume] in Blood by Automated count 6.07 10*3/uL 1.8-7 .0 [facility] Lymphocytes [#/volume] in Blood by Automated count 2.19 10*3/uL 1.2-4 .0 [facility] Monocytes [#/volume] in Blood by Automated count 0.60 10*3/uL 0-0.8 [facility] Eosinophils [#/volume] in Blood by Automated count 0.12 10*3/uL 0-0.5 [facility] Basophils [#/volume] in Blood by Automated count 0.10 10*3/uL 0-0.2 [facility] Nucleated erythrocytes/100 leukocytes [Ratio] in Blood by Automated count 0 /100{WBCs} 0-0 [facility] ID Date Data Source [id number] 07/28/2020 04:14:08 PM EDT [facility] Name Value Range Interpretation Code Description Data Albina rce(s) Supporting Document(s) IgG [Mass/volume] in Serum or Plasma 988 mg/dL 700-1600 [facility] IgA [Mass/volume] in Serum or Plasma 134 mg/dL 70-400 [facility] IgM [Mass/volume] in Serum or Plasma 51 mg/dL 30-230 [facility] ID Date Data Source [id number] 07/29/2020 11:14:16 AM [facility] Name Value Range Interpretation Code Description Data Albina rce(s) Supporting Document(s) Lymphocytes [#/volume] in Blood by Flow cytometry (FC) 2598 cell s/uL 1784-3653 [facility] CD19 cells/100 cells in Blood 0 % 6-23 [facility] CD19 cells [#/volume] in Blood 0 {cells}/uL 91-610 [facility] CD3 cells/100 cells in Blood 91 % 62-87 [facility] CD3 cells [#/volume] in Blood 2365 {cells}/uL 570-2400 [facility] CD3+CD4+ (T4 helper) cells/100 cells in Blood 52 % 32-64 [facility] CD3+CD4+ (T4 helper) cells [#/volume] in Blood 1307 {cells}/uL 430-18 00 [facility] CD3+CD8+ (T8 suppressor cells) cells/100 cells in Blood 35 % 15 -46 [facility] CD3+CD8+ (T8 suppressor cells) cells [#/volume] in Blood 886 {cells}/uL 210-1200 [facility] CD16+CD56+ cells/100 cells in Blood 8 % 4-26 [facility] CD16+CD56+ cells [#/volume] in Blood 206 {cells}/uL 78-470 [facility] CD3+CD4+ (T4 helper) cells/CD3+CD8+ (T8 suppressor cells) cells [# Ratio] in Blood 1.5 0.8-3.9 [facility] 02 [facility] Reference range established on 09/04/14.R eference ranges for adults and children 5 years - 54 years old per [employer].Reference ranges for adults >55 years of age per [facility].Pediatric reference ranges for children less than 5 years of age per [facility]'s [facility], Jesse Hernandez MD. ID Date Data Source [id number] 07/28/2020 04:54:08 PM EDT [facility] Name Value Range Interpretation Code Description Data Albina rce(s) Supporting Document(s) Calcidiol [Mass/volume] in Serum or Plasma 62 ng/mL >30 [facility] ID Date Data Source [id number] 04/23/2020 09:57:23 AM EST [facility] Name Value Range Interpretation Code Description Data Albina rce(s) Supporting Document(s) Progress Note [facility] JTMDWb2cZtSFAdLj28/LNIigKTQke6UpRRybMUt5SWtjPSXiW3SwWEW1uW6eRKM9YSbBZjZxVoYiPcV1 lbm [file] VlMjhLh+r4c80LK/m5C9Q04pGBD1nXNdYeN3flaxy/OkyTYTp7+iZfWviuvbuQRTFZ0tCA453oaK+dottie 8QokwJ8m+voqEIWr36go6S0OhRBvIetWny75IBYWtt zd3Ys2YMVz9mOq3Uafcyocy/yGrN2c0Xk/erjtzuvYpa7FdPw2XtkoNg3e9gH+ADIwVUcN6mYRdBdvb1 KU3sPeIqkd06qibbi0uR99zz8Tpj96Xvl5FVCZb2J0qrGkV2Va3UUYVhSNv2bxzyZZlm7cGLR5xA20eD 11XxzaVuVZaMxfA5eLVvnxEW87Ui3N2mOJhyTbXgqR RB8Ja18iEybNivum8ROrlYfLQcBFc5NezMlCACBzsab8Ja7tDPIcdaxL6zWFSw1vX6ZvTR5ymm2Ozp55 rFCdwNIsodktvQ0VXBHLRP9YCx8ewjKaDFDG7OAfZvx4m+kWEvCgHb1DSga3gOuPZYvIBz4Whb3fF2zb 5JtlwacyBxrBpnSXfcBNlVL6Ucf0Ny6zCSCTU7beej TUh4oTmg/R2TblwJVPixKG/2Sni4VjXXzqfTBwQIFqarOOwYbszLSK2aKDLhbhswzen15ouAs0SjpoyF xMwtk+lH2yHBk9arJCDxuDQnDOjNJSZUAFkjhUrD/CnUAFVbg9TniOxOLRUjCemjwsvD3JCjmtpPBczC Wiwj3OMv+jJbCLPOLz6zdDS4X4LU8oD5Y9k5vuv3lm Accreditation Manager/Adx6v3/CwF9F2Wg/Zbkmw8KL1l16dCl7Btgg5C5iGR1QOGRvHNyw7Gw5BAhGE0GhMNfcRlKUZp1s [file] AgICAgICAgICAgICAgICAgICAgICAgICAgICAgICAgICAgICAgICAgICAgICAgICAgICAgICAgICAgIC AgICAgICAgICAgICAgICAgICAgICAgICANCiAgICAg ICAgICAgICAgICAgICAgICAgICAgICAgICAgICAgICAgICAgICAgICAgICAgICAgICAgICAgICAgICAg ICAgICAgICAgICAgICAgICAgICAgICAgICAgICAgICAgICANCiAgICAgICAgICAgICAgICAgICAgICAg ICAgICAgICAgICAgICAgICAgICAgICAgICAgICAgIC AgICAgICAgICAgICAgICAgICAgICAgICAgICAgICAgICAgICAgICAgICAgICANCiAgICAgICAgICAgIC AgICAgICAgICAgICAgICAgICAgICAgICAgICAgICAgICAgICAgICAgICAgICAgICAgICAgICAgICAgIC AgICAgICAgICAgICAgICAgICAgICAgICAgICANCiAg ICAgICAgICAgICAgICAgICAgICAgICAgICAgICAgICAgICAgICAgICAgICAgICAgICAgICAgICAgICAg ICAgICAgICAgICAgICAgICAgICAgICAgICAgICAgICAgICAgICANCiAgICAgICAgICAgICAgICAgICAg ICAgICAgICAgICAgICAgICAgICAgICAgICAgICAgIC AgICAgICAgICAgICAgICAgICAgICAgICAgICAgICAgICAgICAgICAgICAgICAgICANCiAgICAgICAgIC AgICAgICAgICAgICAgICAgICAgICAgICAgICAgICAgICAgICAgICAgICAgICAgICAgICAgICAgICAgIC AgICAgICAgICAgICAgICAgICAgICAgICAgICAgICAN CiAgICAgICAgICAgICAgICAgICAgICAgICAgICAgICAgICAgICAgICAgICAgICAgICAgICAgICAgICAg ICAgICAgICAgICAgICAgICAgICAgICAgICAgICAgICAgICAgICAgICANCiAgICAgICAgICAgICAgICAg ICAgICAgICAgICAgICAgICAgICAgICAgICAgICAgIC AgICAgICAgICAgICAgICAgICAgICAgICAgICAgICAgICAgICAgICAgICAgICAgICAgICANCiAgICAgIC AgICAgICAgICAgICAgICAgICAgICAgICAgICAgICAgICAgICAgICAgICAgICAgICAgICAgICAgICAgIC AgICAgICAgICAgICAgICAgICAgICAgICAgICAgICAg ICANCjw/fKNtM0rkxAIgmnX3B0bdQr2JZu5SUE7lg5WcZQOoVGiqjePzVioXIrZcSXSkGjsHJhx8JCdz WP6AlORwR1QkQ0FpVErnAN9XJTMpQKZnkWHeHHLdJBCgGvM9HLBmLEzhYO7YxORnZDcnIQQlNEZmRpQs IFIgOSAwIFIgMTEgMCBSIDEzIDAgUiAxNSAwIFIgMT vaSZEQPSB1NKZxXuHhPTxqPQ5Qh4JteZG6FSt+Iv0WZS1qy0TbWKczIuOyDG3lmj8CMVvTYvGqH9Gnqo S7RUY3BUEcEm7RNZMwGDLwqZWzBnWrHPFPQwYtD8XceC26CXCGDv4+UKjvyeBzDvhTVwD6MPLek7CvYD b6PC1PKBWnIZi7lAWdBJVuS3Waq9SnLs25PLQlNqvm OVVtv2BcbTHLHNCgVTLzuvUqQN6XSOW0FKAcFB3mTRYeGBX8EaJgJQGULK6PBSAvQBHrcZHsYECuSRUF BZ9DLFpbMMR8TYWkazMtcBPbBZolMU1DIIFzmsIeFjNiXCOPYJt+Wt5WCC9az5WzWBewBRTgFV2pvn5I FJgUPnMyD4D7rAFwR8J4YVicNf1NSPPeUSUbCmWeRA GWKFupBP4NRD6ulhE4XG5XrWUeMUJeAWFanGBsPGk0C44flXAjOUhnQQ6BDDX+Kwesi+Pp4OSMJxSXIuVP HeFsBdOYCWXuQiR6JkJ5OXl5AtH3HnRU54jNodniTmLTovWQ0DJE6yMWCaQZEKJK1PkZZlmH1esqCvSe RzOUAZKfFgE39tdUTaCUOlMYX6TSInIm4OIVHgX8Ew cdMjvPpgneGuJEAoFCYDWN6NHJsdfgHmmLZxjZtbBL62hUltRL5VPo7JIqZpZZ8jvr4RoVJpXi0NGFLm BA3YVAMlSPFzZPZsBDQ8JCSiOxDnPDrzVQGjMPJuXFU4GPVcYUZwQN8YJwCwPHQqGSFfWqHfUUUfYXIh bl2CXBFpROC1Fjr3VXDxPACcDRHoDVhgDKJwQJCaRD M9TEXwORBxRY2XLiJbXXVkBKA3VJGvEQIcTHNkeb7FVFVeTZSmRyk4HUPkFZTuYWNrTQdfBSEhLYG8PV O9LSDiKRFhAG5XFsPyDLRuRTudLgDrLOKqMJAtpm3MTIXiFVXxGOF5KNBlQBUtZUKaOEijHFYkCGH7KV Z3CEQzUDJjGI5UAuLwTNEuNKVnKCYkPHTwWGQuvx0U KYJiIOAkPzMtLxReKGNjQMBmRXiuXPSbMGA4ZVJ7BSSiDPOiXI8OLnSeVGSeNVB8FSTfUUUrNEUpbx5F ROWxGUVaUfh3SzLiTMYwMJThVLweATWaYMD7QQE7CEXiLAAwKR2KIhZcVAHdHxP2NAPhKAKkTSVqyi8V BPSuNHJnLDk2CBUjLLHqSYJkSEoxRNJcSTV7HSA4OT FcUWItHD0NMeQkLJAzXbF2AOFiMOPtVPSjdu7QVBKbUNExATEkGiHdDUPwLFCaBIpyRTHvDHL3CIZfQP OuODUxID3RFuBkBMFeBeJ4RSPqGPHfBWZjbb4IYLVvOGSrUlr4QsSdIXMzYYTgJUfjMNXgFKF7JMI8DB AxURUvEK9LIaYeVUBpAnftVPZcPPCpKAKgnf6DLQDi PNBbMUz6FfXrXGNiJJOkIQbhOYApZWK0PIf9JSFvKTDaDN1UGlJdGUIlNozvXJGgFNVxCRVrit8OGVDi CBMiOOE1FgPvZXIfUBErNXcaFIBfYGE7PkLyZDEfLRGkKU4ROiOvCZJuQLC9BCRwOPNnLNBism2CUFKn IXS0VAlpXSDaKHPhQMMjSTdlTVCwLHLiXKPuTHZzCD XeHE8IOoSpCZLxPWQ9AkdtVGFlQNFpvr5IAKSqWPU0KncgWGNgLTMfHFOmDHraMOPlMYCwFWo8HUNiWI CcNF6AHlDrYJLkKXQfIzAaVEUdPNGzkf5ZlDBkdDixry5UGIbBTg9SoLzaZGS1ZFbvIa5okXXeFEFmLB YGYr2NcrWvGCKwPOFDAEwgBISmUYJ6MAG9PwDgBWlw BPKuRka7IFKmZQM6M2KsMICxUTRzEjT6GTO2XXLvRZMwWEM8AXFeHglgD4G7NbcsP9FdA3YcLGL+IF0g DQo+Fr7Wq6ZghyD8cnWoMNh7YxN6AC2PWWDLQ9NPTz== ID Date Data Source [id number] 04/19/2020 01:56:57 PM [facility] Name Value Range Interpretation Code Description Data Albina rce(s) Supporting Document(s) Progress Note [facility] ZOXSQc1gUbUIXePy49/SLXseXKLfp5XqEZapQDx0LQnnIVSbN6VrIEK4bY1xHUS3CPcKMvWrYzStIqZu lbm [file] 3I+5Bwq9+e7SsiTN3B/Jose Antonio+xkyq0fqTOMnfsk3rrVZ [file] WzZTJjXla7Exi3BjUkMM8ZAj9GHrC6RDR0mLOjDn5ASnL6IGqGEbGrSD3IABt= ID Date Data Source [id number] 03/22/2020 08:22:05 AM EST [facility] Name Value Range Interpretation Code Description Data Albina rce(s) Supporting Document(s) Progress Note [facility] QSJWQe5wCrJTAeLl62/UOPjfXTQmd0DqVGjtSHv8ROvdOIPlB4VdCHU9hF5qVES4WWiEFeStJpCbZIM9 lbm [file] 9aakm2/fXq1AoXlnseH22AU/JZDa+i6Wfw25qNdXebY2uWOp8Y+5Bwq9+h0GfmIP9L/Jose Antonio+dknk7mgWB [file] AgICAgICAgICAgICAgICAgICAgICAgICAgICAgICAgICAgICAgICAgICAgICAgICAgICAgICAgICAgIC AgICAgICAgICAgICANCiAgICAgICAgICAgICAgICAg ICAgICAgICAgICAgICAgICAgICAgICAgICAgICAgICAgICAgICAgICAgICAgICAgICAgICAgICAgICAg ICAgICAgICAgICAgICAgICAgICAgICANCiAgICAgICAgICAgICAgICAgICAgICAgICAgICAgICAgICAg ICAgICAgICAgICAgICAgICAgICAgICAgICAgICAgIC AgICAgICAgICAgICAgICAgICAgICAgICAgICAgICAgICANCiAgICAgICAgICAgICAgICAgICAgICAgIC AgICAgICAgICAgICAgICAgICAgICAgICAgICAgICAgICAgICAgICAgICAgICAgICAgICAgICAgICAgIC AgICAgICAgICAgICAgICANCiAgICAgICAgICAgICAg ICAgICAgICAgICAgICAgICAgICAgICAgICAgICAgICAgICAgICAgICAgICAgICAgICAgICAgICAgICAg ICAgICAgICAgICAgICAgICAgICAgICAgICANCiAgICAgICAgICAgICAgICAgICAgICAgICAgICAgICAg ICAgICAgICAgICAgICAgICAgICAgICAgICAgICAgIC AgICAgICAgICAgICAgICAgICAgICAgICAgICAgICAgICAgICANCiAgICAgICAgICAgICAgICAgICAgIC AgICAgICAgICAgICAgICAgICAgICAgICAgICAgICAgICAgICAgICAgICAgICAgICAgICAgICAgICAgIC AgICAgICAgICAgICAgICAgICANCiAgICAgICAgICAg ICAgICAgICAgICAgICAgICAgICAgICAgICAgICAgICAgICAgICAgICAgICAgICAgICAgICAgICAgICAg ICAgICAgICAgICAgICAgICAgICAgICAgICAgICANCiAgICAgICAgICAgICAgICAgICAgICAgICAgICAg ICAgICAgICAgICAgICAgICAgICAgICAgICAgICAgIC AgICAgICAgICAgICAgICAgICAgICAgICAgICAgICAgICAgICAgICANCiAgICAgICAgICAgICAgICAgIC AgICAgICAgICAgICAgICAgICAgICAgICAgICAgICAgICAgICAgICAgICAgICAgICAgICAgICAgICAgIC AgICAgICAgICAgICAgICAgICAgICANCjw/qXGcG8mv iJMoudU3G9xeFa7TGl6ULA2pq9BhIKQhLMnuthBfXcwZObKhFNTpPxuEXev5FIfmBF7GcTByL6GwO4If XOgpTT7XTKHvKUOspSYxXPZkTOGlJoE5UTRlUVavLJ1NvTRaUMzrSZRsTAQwRT0ISCBwB975umLlLN4W Qd1WZlMuYX5qmj4OOQauLMVnCmxDSuu7HLoaWU2SqS VuxRDiHDVvQTVJIbSmH7lgw7LtZnRiREWVOGjzMD0Ye1LhoGVxZRx+Uh5WAW8vb9ZbYClaFYYoKL5xpx 4SQHhYBzHbY5IjnUaiKBYua7whNNVjKW2xxHNnLNB0ILBbTq9cHTxgBZEURFKul7YbEUREOXQlhHKjFu 0aTM2iCUCiMPI7OcEhVNGMQH0LQWGvYWPawWEpWNYc CRZVVJ3MPYvqIHB4AVHwwgXxfRFzWDlwNZ7TNXIfrpTrKInkIBMHSWl+Kr7SBU6mn3VvCPgaFZGiLO7d fa2RULmBJgBqZ4X3jQOtI7W3UMpnHf4GYPVbPJKvYSgsKLGJLResCM8SZT3utfP7HQ1YoGUnQOBpZCDx lNElDAq5I19csAImJVlkMF0LWJK+Kwesi+Mg3OWUQrDJ JoQWUfQgQdVHJREyZnH0AgJ1HBp5RwK8GlXY20vKfxgiBaWZlrUG0ISR0mYHOwSFPEBE9FqWFjyP2omi UxLQZfSMNGEfTaB63cxFHeXHWqLEL7KDNeBw0STMTtH4GmvzGfaSkvlsQwBUNgWBIMSI8EALoydeNxsU RqdHpfEY96kTtvWX5MTz8LNuJhMC2stz8HxNErGi7S PAVfQw2BKLTfYSPxHLBmCZQ5IUHyYrXeKEtzHSOlCHXoAZF1SCEwCRXuPQ8ANeDiJEXjOOscXSJxLHEo VFVnlj2VHVZiKYHcURjrRYCiKQCnJVKfWNbpAWNuGHTeDTC2BFCgOGWxKF0ZYpWsWCAkKJS0HrsdROCc NTWahe2XRQYjKBZbFbHnPmPfTIKeSWQbVKzdRKAzMC EyPGnlJHSfVQHnXT5WCoHiTADyNURaBZwiCXKwXGRazf4LJVPtIPQsTbB3EaOrBOYgDNTvPUkqIRIwKA B2HZK4NKXvDXKnVY1OUhIqDIJgWQW9PzwbLDVsKRFoti9XSKIwVPCzPHxqMMQtAKClKEKqSErzNCVoZL R8VNW7FDZlBLFvZD4WPxPqKIYhVEO6IGOxFMDxIDKn io3CXGHlMALaWaO5IZVpEIHlKFUiSUxpFQUuMOI7QFA4NZYpVYXzIG3SKoMxKHAfCQweLCZgKLCtRACb gg7BHIHrFAPtCcR3BLHsAIJsPUKoGSltNDUmQYA1BFD9JOPnLYQbBU7ROcMrAEKcTXn7SSyqNOKnWVVj ib0DSQOlXVXdRNN6QrHsZSPsHFGqAEl3nrBioVNoNW n7QQ7LQ6GjrnYzLjANRg9Ox801ZVZkYWTaCu7NW3qpNr1aBGDqQUGSRi8YXBi4TtWsXJIsISGiCARvWF G3XaDdV7GmTZh1TKE5IdPfIJG+EMtaSAZqYBX0A7X4KvA9QWdlFKZ1BwJkVCL6Dvu0DoNoWH8tOTSJHm 4+ENytnBRqtGzhEXCQAoA4Nwi5FVsfBMKNNp0C ID Date Data Source [id number] 02/03/2020 12:45:00 PM EST [facility] Name Value Range Interpretation Code Description Data Albina rce(s) Supporting Document(s) Follow Up [facility] OEBBRv7gFlMJHdUwBVGlUipAFHshEQgyHVHzA3B6IVrwOk6FOXxregYtPZThFj6+ZKDbSG0qan8xMIPl gMy [file] INC/kJnVBSz7MIZkCLPry+nVC6K5YFhqlVZWGI+benefits specialist [file] [facility]/MgdkSseU2jFFPaTWU/tRIkOVjs9tgjVTnihUZb/XONKwh6mX3rDDnfuvirAmgCoAWjNp6b+uvg [file] hgLRmefjZamahQ296mbDR+8g8fBtflLZfcHbLxJKJqlC68aTWowVVKokH5/0Tv1Shgb/Mary Anne/MHbaJLN0 [file] MAGE9cnqmpXOhnqdsFhMzKK3S/xVreeDjyIdyweG/Tryl++yZDSX4c2WYro7JaZMoop7q/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+XDG/D9F [file] FILAMENT TESTER/bo290EQu9xmegRgPWw0chY/lCwuFjAl/BSInyieg0Rs3lrA6rFxfxfLKIhe3v1Tzr7CTE2ZPoYns [file] PREMIER HEALTHIuxNM+v0+45gFl5LMSDyVRKYNYVytxiIxJ//gy3 [file] X1WFBTOHe5+Jose G+LYNGeQJ6G0L8WPwjz9F1JOOy1Nes [file] HWobtJ5IYzXqdH+9HdMNxcx6H7g6Rp+Pwo1++wY [file] preC9rVt402+j2tOBbehxPjmKOlntkzVoNA6Bdr+[employer] [file] REPAIRER KILN CAR+D171MPg+xFOn5B+RO/iQcAmoJvnn4bL5skHwfOhVwy++2hZAwRad7BXZH7f7ClcRhaVCnyH2wahwB [file] oi4jIpJSQLI58ICRJIQrW42rtg/KK9ZZ2/zBweCwayjC3Gx9nbLyWV/Lens Examiner/Wq0A9xWHFz1ohRPtP2XnO9 [file] AIt63zyXa9mWyQVUDQuBU+FGPO4Qzu/Ffp0wxJ5rjvTFqkGFXQ/cYEiR3Ivq71YripQa54qncEmnn+Jose G [file] +aHBMMKIi+baqBF0/HNBR59g8xbxlpXi4Ii9MCNjU7yU/sBZuQtM2I+waJQ6dqUmWnjmWoH3aJD/Rajinder Xv35hiRGL0tl/9GkyMpw/3WoIUiX+vFptAq+eU wjv39x6ECuQ8R/QIaA2uYPSWhm5i0HiyKGLhQ4mB9kmGgwFMAi35TyAYqD2gWteXN4y8fN+USurLkNvw /VOfHspEbcxD2kZ6hDkB8UuW7x0ZxE7zTFwbv3uAm4HCiSVl1/JGkQ3b/LWQ06x/4VZTvRlf+9aEF3D0 cFZ5UGxEyZP3s2sdvcnZMjmgPRUrncHseifLmOtphV k1w6MqWzsxAu6+HzPGoyV0Y+soTlxjifeYndGcy+O6FFo/iX2QZX+0OxsX5QxpoyBAxXPV6yla/DzWYa m4XAiZ4c4M+7TvIVTbw4yCKyeWGd++EjnSlq13gDko9KNP2JgThwFThBzsW5lwHDLHIHiC1+k81CYZsb 8CWqbV3cnzQLf34UQqrWCQYwumvZVGspQN+AdqkE75 aIbUB/f82hCKrC5qC7dWfajy+js9WlbPOu9fuI5ZMzuELHr69lJbFG6LD+RLjXQvsZn2aLyEVBtq0XdM OSVA8IH0g2TF7hxbm+Gw1rVei02Zwu4QMfou7dKk1lx8pm4Yamo1vd/wP3O2onoCTgAoubfRDxpBa5FB w9+iooqfWT7zpqtMlsqsClnQ/HQt8zEcIKydAVwykx [file] Ge5Uy3RdxtFl9RM3T1KtYSm7F2/sE4jtDOdKuX7dBhWNY+jose g+2LlfTqDETfhExz+EFYapqt4pY+GZtVd [file] gJpTfsV2t7EpYvjqDCQeJewYpHtLx3AaOPIxui+Antoine HbkeNPgnB51j5mwsKVLgNW4uboGJ5rFzwjIzZ4ZUKw/zCyg01MrqDXua7DN6AjtYhXirp+diAupsK8lv 1yotn1MtETiD+pMFX80afckla+DzAh5iTqDsiBJvhm0piN84qrHQURz7WspK5ElZ2Qo1ott0+wD3hayY 9iUwjXKSWUSRS/zOmRK9RTGJKprDSbFwPw0aUA8VVv fW6f6/sy+cHwiT+v79f9hBZNfMpF5y//oTKvAJs03a22BfXkjkrowkfSNfBiflb8675y0kTE8qeiTtkY IsUXELRxWcKHvMfrh6Pjq9MUo4q7EJ0enReNd5Cd3GIUZVBpy/Shactor Helper/8FTDkK/6LJaw5P0bR7yfr1mV3F [file] DaJoqJpIPs8/gAPbo45sp0Wig3cO3+0t6+lawton/hq5TXi2k8Io22LjE557NN1vZSS7EvsoSgxA08vHa6Z0 mM+mtqNkl+RILj405owd2d26k53yDEQpeqh4rWmM/H zqe96agXcaW06oS5/0l9DiX7krTmYn+nyBE4qn6FXBWT/HkyHlHORjg1U6OSnH/B67Reae/0OeK1+it software developer x2q3LYcWf8Au1eejiA05hrUnMyJhhP4o4RQxoxg+BYNQq3HKsklNm05PxzhJWnsszK0moyr8MgQe/hLr qp/kFC8mhjUqWWFloFio8JQGItOy8m7Gk1qBCsrnMD vwVg4QN/+qiSVqOX/XXo8fV5LRH+5ssFKIfpProaJC9uegDrq+HRSIrB6dR0BWnzXj6JpUFKoDsKJvB8 KYUK3caBr1Zt73jWaMWAmcUlKnecQzDaNnE8rkoo9F2yVmJVLXDPzn2y3sgj+qj6xhraUTpGiWMnWzt8 5vxYmLKCrNzSPvoLKVbWr7l+/nymzTufCz/5CJLWKn fM5//UMJzr7zpgkqiKJbj9B51pbnTxV5xlUrnq46l5+kNqfYOBoiTumkIdyw/6RsIxS0r9z/6AXn3QcY chXrxGIX+nrAQDMslscLmUzTLR8Yi5+GNf1PoQVohdROb5IP2mksKG5t8GOxA49yRgCerEULTYX1kGYJ ZuNWecOb5/zPY3WZW1N8BW3hnt9PM5pgUaiW/emOxI fvuOb9h+4smell11jqf77CVu+/vXZxwixrngzVtwCkfolCYQ7QX0NUEcFctszhlRe2cpGVw9Bm79CZeG hoyK3KAdxOLjX1CSq9QL9YjF6Mr9JABoiXqocXrydw3QuXdmXpyCeDid5EbL8CJfbM5PZ57Nracrh7P/ VnwFCQb/J05g9ohDCPn9h6ojBakzZwzfao3Qtn1mQ1 5qbo3e5vvoA+xy88iohNEkm8RGebK1sR6I0w/ohm1vk/yBL7wlAzJ6n4V8pEstEDKxAhAW2WCkCEcUVi llB9glGIarBm60KaO/uZOOsXJnw8X9xcjbZnfecRYoFjMhWr8slowxRUr1JUrfAsvqfQT0cTizaEZumq 83cgeNuO4STu08uce9RFD4wVKZ25GaO2974tsYT0p1 [file] 77mZGe78PKyzkq72e+U+insulation cutter/yd6G4wjbDIHYsM8Hrih [file] fwi+m5ybn8d8avA6UCzo+a7jkJmDH2XlHXmX+Qlg9XDQTEMDXMy+0dveALH4U3mJJILQ2B6GfuYh/PASCUA YAQUI [file] tSO0OGf+CfQCjKFbez843n5QvoRXh7Y5zewQwX8NJCT26KgvNVdKIdqwxeaAQscyzO6rs0C7fVyAj+Lens Examiner [file] [facility]+BktnXA0g6DjoL7zQgXUoyNwABCW8GXxBSnVopwpbjuNPIF3wA1ab3UJfrPmT7MOpygiwOhiA+UsW [file] 4bebLUuPYnoD3VQN+tRT/kJnjBylcwi/1vPADCfxy7wzjsQdUWbC0ePL1JTbL5ZWHuYcSbiKsJhov/Jose G Peiv7mO1PYeaOmqQg05MBa+69nMccQD/83JT1jccHq h7wYjIFtZ0WBgrAy7wUSW/nchu42DAfspUYwvovbc69xu3zeWahkG6qCYmtR9NgGuastPYuEPYb1suym UE4IFmeek9ijECZHQco3DJ7oBWtcLcbcYHiS+r2jZTsTm56lWHMFGrBY9MBOl5ilje//cU4K4qpN/Lhf BIID57B4uBsJ4RVRl01Gxa56DFAfatA31c69E38H7W [file] +6N4iZ989Laep0R3t6CFD1rCQESNt5u+Pj8iC/NU+Ea9aentxxax4MTGB3Q/mhvhaC4ZyBUZU8jZ+Dexter ozMEZJjTqa2583im5/BPhwjyQbqTGtS8I3WueXvw+d ywsiDKaxrN9Q+Iarfz30K4nlxIJgTQ13LxJdU0k2S7eG+f9mXVVwPouipWUZnnD+8CJFtmRJGP7ZvCqw 4ESpWU7Qid8UqdR3wbyl0I+H6ssZheL+cH0sfVqbKVx1o3eR89fYevvjr9X05g5dVqOxuy9sOgk/6QfZ /xwP/7IJXw1aTlvIr9/ixdM/jfCLkx9zPZM9Ca81ol DfqsVkizl01v8CynWraiNcIfQ4zZvZVeWmZOgeNA5NX/kOJhBMTRLA4JN/aJ1ULA1vkvEenBqEpwtEUO [facility]+QEIyA28vEz3sPpQNQLYPl+Ohkit4Opp0MzUvTdBsqLbxf6hLsQ4ZgIyWThrMXnyK8mmD48FLglQ [file] uwBVclhYlzmH2lWzzRYSAcItjAgxiek45UcXD9Oxf/B1KaJa5hiMuHvATZiXyNl9QiQ5FUFvlatch/insulation cutter [file] 2xNylK+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/NcZ/+X8/gcL+Qd/QeIszhq1a+NFv0MAA [file] +c/oJMTJ4O6H7cEXoCPSHh2IZAV/LJfgMuh7aDj+REPAIRER KILN CAR [file] BEqb7DqaaY6XxcJ/Q4HaX3UvoYWtfEhbWu6VFXrF7IdWnO3/DaOoT6B7pQ3ZeimgWaRa2/4UGR1Uh+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 [file] O7Mn+NVXDrCAOt3PHn3UDh7/asphalt paving superintendent/RstTGt+oR/knvgMWwPSuFwa7YixvOt6RRwkB/i1BtkMANCWPsqq1 [file] hIVTo7pg+/arts manager+yj1DErN0gdikgtEer2yRvMBBuRGVwsGvKFwxg9NaabA2Ant59k7sDgwspj3bBVOqPk [file] TvHWPdldzgeFLs+YRBda7vEFZhSwhvR8cz+0e/João [file] kjT6WIuXzWl/zy479Ss6UarB5pv4LiBvg/Jose G/baxSD [file] EEyyOeifg+vdyKrOkqwRQ/gzkOFDXXlCCGArmBLeRw 03cFeDDKXi2C+2kL9bF2qgPKsUdmdDdFRw+uUPYJ9pJ2OqifGq0/foQlBC0N4JEeshyH0AryO6A6zVMr 71vv1e61Ip2SObHWCywYklhDGhRqP7v5gvaUQzPDWJLV2DH8+NYdBf/Vh3dLMcVklPSyAcr13xSzvaiz 4YPQlGh72qbCJd20B/AtK68bjWIhrtBht+Q4bAvl6r hVT26B7/nXLiw6wt3NFy/4n7T+Zfef/DSrkZt4Xp2Ero+tncukO8VCQHvbfsHCJJAU0xdTBdBxeK5pbG 4d0sP+9JqxubXzamT/U1XIKEn1gnZeySkt0sQ74YqU40TDCcLES1wY5jq6WruezsYy4IMAm5+0chfwfA gUvPzciln2GmGOm0ebgn5/gii1u2FmH1qH6C3Rmszv L/Sxt2/Tf+G/+3Dd1+WM9+OQBSdauT3n4fI5oqZ7+4DKcroLQOT71aXx4Gs3lAJiyIvVTQwQX+pzVyEC cHEPlk6+QU/vjTqV5NsGdu3h2q/qRebkCyAJhLJ3XCgeMg1bXtLeifSkfXo0Wx2Ncx1+TLTXTZxIW6CK 0gKTpm7/oNtys4rS1raG4NjyXeYMDkZIoPIpAKszUm n6Exo7y0aRwMzXRLgRgF60OIZE2ETir3ykbWGAnNMigHM771ba9C9qG1SMtLLepEBjHlOss40ntWQUVm YxXSsg0gMYT8qkTWShNo5OL+Zs2CMn82HsY4RFjFc+bjZ1tPPa1jltbsijgTPBTV2ZxeBGEd2kvkeljk HApkRphclnhPy2NP8q2gz/rSs+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+aSF0TXMDP3HA1 [file] VK2J29r6eSyc/d4Ixfiatasu/L+K8t19Cininf3+JOSE G [file] JOSE G+CbnPJ2dRxz2e2SuUNAic7PyspdhJrAI9SCLAB3x [file] 4h6senRvx5Ouo0sT8mcbgt1I5Qjk2HH6mT+l6B3Ut6VIlyXmtW5Dp5vl82vXh2+76kSgCvNll9wF/Skip ZF49FSv0Yvu5Aqqj3BOTdNA10uvJeGqdo7gotj5R0stRWnR9DYvpHH4AoKTyGNmmRMAwNYNXAgdBi/c+ TNNoJz2lBUIgsjlaDTMJzyOP4Xho6rSbScO7Q2bRY7 5jihLnoFJT9+ntJ+xFARWyEYMjha15t0hF3SnckOk8Y6rvXGffmRsV7dVBQbf5vC/wf06dfTogQgPSw6 2vnQl2V0aGq0qu1ZUz07UyrXGqf9vGAzoT7mCZPWYh+Jvc+MY6bp8hKedEVN76V6EUn5e2Hl4uF7/XWK mnKKhCbZ8DCycF/yKZxMOOUyRMkAwXIABvQGpkXprf gw9XnvSm8uvM6bt/ER1Q7HwhNJdotlkNYb+FRA4eIu7Be7E9/lREwDy4tmaqDcyNPZA+uWEaw94xZh0m 6QSi0YjZgmbJoqN9nSwStskrXCA9oJMsPEQjeVQM+JKCgLLonrNQvhx7kibpz0U96XpBSNYL9kj2SQIG IYmHp/d76K47um33hfD9BCFi+8qGmdXVTMYE2CRaXk y/X+Jose Manuel/xezrQ1bgrZN4g3hdOUBay8zEkFiNiFidLNH+iO5PpFdcII+KRsqEaMD8O/7XEm0PwYLJeXVX [file] L5vFnD/Tellez/lzpbHLtvGGbyaQPR7rUJTKGCL1HgmCcYiAGZMS8CN4yuGvNgslduFLL3/op4jyeQsGzuL dHwZ53egfLdJjjGLZbqE9EM98F/3ueV3ZC29RC87g/TAywwARXO79+79KdqclnAzn2NtNO/JsQ4Gf6/n YxhufTiBJ5TSSfI7a0vBSbNSGsfswUTKJJjqSRIZb6 xn7AKM+nU15m8q6aW3u4KFRdGRoU6927MSmS4i0L3Kv+u9Pq3+X8pa3gVhPJsOa/HNL2wrd6qi8O6Pm/ M6i3b44YPL2+wKq61GwvIaWEX6tbsuNUam5yzlq9RFEgyfa/SGPedriI9MJDJ95LnnFb+y6S1HUBpKRb cGBASwRJvLJdaD7kle0IUXiYSZXA/YzK6GfSeN9nhU 9z+4jzRcy9t8qn0xH7TqdJsjFGLuvZ7mXGrrMGbR6aMlqYk2nKm/CGu4TkB5b+bead inspector+87yUGwNDIIVlmVH [file] gI3jd87ZIco/qHIQUgWBwP4vHOWZBB2iv1opyRQ+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 [file] MtvP5W8TqEKLijib7/Tja1KzIGs73F8dwcIwKXd/JOSE G [file] vOb3HF+A3h/OulAMt0m6WT/R3UY02eEXGquip0m/JOSE G aQxszZ2MU+yfUBKcpF3Tl+VH9EJrakQ8sD0cK1q4MZZGpUqeqLOyQCp5ZrQFA95FnIL78t0X4KFVGUMx m+k6C2kSCJQ4xegwi56ChysUzeyIkMfcZYyQwAqmOJgbJ5U/N9Vf2E3tV5u2idFoAhf9bPoxnQZZocak KcBXnoH29hnR7qVJj/M/4UKN803o/jmqOSpt2hREI4 pbCm8wnyrfVmHTiCeARKDIPX8A82X/jsLh5QG4tI3YLvfx2WfBq3ypXIOXTGktQTMtfpVniAh7RgDW15 N/QgChgk+Z+KyJkr/GJ3CbQJuE1Cj5VLU+ps+qOEEJYD3GHvC7lcpkpgK8h0k2+lIT73C8ACjyqJJTrc jqni60ygWVBlYXpQx2zTwZJ3vJH7tbijtAPcl4oATn 8sZORUoUZa+X0yQ4alUbD/zwTWKtaRmQE3/Qqe7rXtC21G6otd+GNja8s2MXiQjyiAWXxdhF6v/wyJ7P xOHqfCtp/qxmnpdO7fGQsB7fIzJ0RVzUtiOBzPvY6+nx4hEIrFHNk86qnmcAwR+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/6EzOghIz+41aDn [file] xoM+bpewP+uq9TtK/P6Oqjc2TUtE++insulation cutter+lj4C8BXBIHZnqge0nYRGfclgq1Q+67myp28aLX7krUv5ucr X3X9r83/bHc+smCAhhy7/EgPZua9O6pCFZXI+PE1JafRzkwHBa8/k2koxYH3XucacICMWEsAJnLA28uw Z245/xckvxSeLO+H6svjfXXeFo7a3s/7jRDqblzNY4 WKRSIjz4NMK10secedISb3VWpiNvup9aO+Wgcm0xMonLxTGc5Lko4dd6vhiUMotk+U1asGBdkizJc/sP 2vua9HFfIZ8RGx1n+A3e2ZzzuSdXj3MV4ukOtUlGN/jF33a2xcp8voq9E3/4cjuo1S1en3NiMGgIUV2f gP9vTt6kaZmDxebUJU0lH7X/P7zUEZa8pljjvcdZuz 0/GDov66M6KVZ8cOqxtUIh/Xhs7mtDenWUbZGJnfU/oqWGKm8giDmzxrW7U3eG7SNwvAUz2DZuiRVlO6 SkB/FL+5UGe3B96kHCiqOuq4GgFyNRCj4co+hru476TWNZ95xKR9oI29EjEAJq736FaxqkQjG9Kdtx7V rhZ72LMAWDRqSz31EilNhn/P/UIbkFoONGwZVLEJ4D REPAIRER KILN CAR/KPt0w0O0VuBoT92WRLpqttlyvaxOaTUsqAywSoYKEDgoGHNx9mge5ZB0KDcuCFXtcKoh4jWwhdbK8 [file] T9+j46tkUzXaIrr+Fzr9ZzYoHdR7PtzK2m0F2v/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 [file] ojQb7Fy/+/pOAYJFblgjCyRPM7+5z19valmoj0ar/6ou5z1rsSzbMGe/Jose G/tS3sy09/WU6Mq5I9rRuaU [file] REPAIRER KILN CAR/7rcAwoNO/N3J9WZhB8JYKUZsGPfnxidxRiMqLhuw1WeZQXyOlE2rXzfZzk0kzLFV6N5iRsIVY+vFs [file] EHexhXiRo/Narvaez/wYbdJ43k/xt2oqlsbe+FegqjngsYTRoJFabPpkJKTgOcz3Yoibb2yrmLiGLkgZsCrE UJwblFGiWdxcG0BwXuUm921+HoXFxX85FUzwbIrEOF bwURQvqMLyJpTGk4/wNrOKkwb5UOWC+JOSE G+Hz/2uOp6bTL2GwE8UyJrOHUleecH5sQGd2a6hFr3Th/Zk4 [file] vbQ+RtVt3OpKcFex3EwP5t9ZiRC37e/mary anne+lxaR/8q [file] X+3Dp58nrDMeHO9kA7LPVbhG/VxOpCuJeFFtUQ63zmHsznqpTNyroGeBy+César+eomcPgCkipkmiLHhIS [file] Ao//Q+dGgW8DpQSoNt1J+PETEY+n19z4SDXOUQpTna5mafv8XxNqZU00qC2B5V094z3Nb+i0CJEtFNA5QZ MLVmtx7Cj18HCClyDR5Z55Ij4LEhaYfLZsO+8X+mfU 2nRP4zh13N7KBQHGvkRmZnIgEddP+mmZ7cNnTfDML6Z9iMP+cH+yNJOUsRJFWc9Q81Fs7qmnjDPRpBYP fGDV1BcgFtO1yCeQksMERvZlLohtfou8EdfSG4BPSIsJy78IIli7ZPnGRsCpsPqU/XzWbLrQkUhgkRqR vHAVAkmNQJcJ/WYxzpEzyyTIfVjDEq7Iidxr1QAYYZ q3bhQTtT6WwyNK5eizTcIW2DfbG4Ul7LMxNtN6XS898ez9kI/trpXh0WfTdz/XnNqiEEtHZ6IoPJVj8M sLZZRdRHmL26JDri4+gKeFTwdQrgQyYXw/wF7Jzkkh409Qd4sgC0odzCQSXtCCWI34eh7pbhdkbW/Mary Kate [file] Vw4uijlWPGGB04zEvfF4ALrsofdWRdmeiZh2xlpyt2 Lens Examiner+yy+nbq2LRInXr07Fbj/Kawm3w/MG2XYVjmvFMyjXwv6e9hARFHf/wyfsOiu7epVBtfrzVot6c/tG2 JaJYaR37+TahAthiCqtk3ROI8GlZ3aRZ1MjCxo4u0JpindCiF1wO+YendAp6TVaLz9i1h4vMjStfUbuO a/FzOjuruRVbELtRF+HTgfrhGxUNuteGvucxv0aQbw n4h/CvffAZGX/mfdvDvrwR8La7xLWnwdWEE5eSTVReAtm0eBj6BrjKcn37Wy11evjxeTblRaB5OPM5Gg 3Um4iiIy08qM+mvy4kiQ/MPk3rBeYTjzig6UqWsJOCQrf2/M8bQVdFhWjEokT+jxhZwtS71+qbr/MTXX YapIPilWQsrn9z9y4C2n8weyldhCkHfBvEl2FzJ67/ vCXSmoZolVysDPLBny7bUPyKKb/Fn4FpDmKt4N/j3Zf/B7ybUL/Jr8i0E666OnVVlg3pR/j93eqzV7wJ vDCbdPAvHyeG2kOwf+61Bxyb3ZgFPEz2dl5KW5cD2AZJl2HEJPa2gk2IyHiZNoK+JdfI8CaqKYax+Joaquim [file] [place]+Y5dcOyPzf32dXhLeN1yZq9bHTHsksrHoLPEiGL+yBOINeqRw5eeB7Wi6HnlpepuExBqYNaAGyBPWU niOlozKVlp+8DpDiuXUyjQL3vP0YQwCQ0Ehv1LeTvB06/IUMVITd8CdmTsVe4v2/YlS9GvmP0Q2FEdKh hZrEWBldEZOjWWgJQlbXVS09PQYiZ07nGHVYqqqEd/ qav1hr3bmZezK5oy8PgRSMEGOyjN5vdKcY/kTQU1ohlYl+gBYG9/RLv985f9E/lbbx44HNktZAkS4NBd FfYRVwRF2fcEFl6SXf0+Z0reiNL/fo/on6BO1YNbZ8pqaCZp7UUqbWFw3cDhqqTm3/vMW9Z7gYm0AoIr W/WGsHqYdmax9O07R5tx4PZ2mr0pNMSXelhbIwMxRk Cwt9Xg6vzf+yT/AUK5Wrv6vIS+AKle37W71TMWl9hTJ5XsrqnfqQZjlrzn3uImZ5MWakO0ZCE0daNEtb X7g6UaZRsEd3RoPUv5GON6OSt+2ksdIGHLcfscHaXIgBLpAfAvA5Q6Dn2k8cUIM70wkJLY2/s7wYSXiK y/iGYDL8Ou7lmWLmWLgPIIcvhygM5p4XgaoVNegMD7 GInd2+lZPzB9L7GpdPmH5TbPq0Yg/e0Od5uoC3MVRG548ur6++HhrbmWJp/T54saXsehxgWzez+43Tj0 fKIUtZcrrAbzsqc6GHlJzKzKPNt42V0bu+qUgqkFmYpumd4mG5QOD6OAJUXKSYNWJ/035EUfUUvLIp3T +rGj/8kIS+aZVgCUONrP/CHK1l9dm1/LLoy3p26uFV qK7tNy6x0sNgVWhVofPsLrmJnemUTmurcf9oo/VU2hQTSSUaCr/P9HdgV0hOSjHfQXIJynMshiXi+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 [file] kQrJHEQhaQ3KXRZVFVvGIi8KJu+[employer]/xtih8Jv2Zmn0 [file] XfFQpHiSUTH4xfucEErTcMpvnbN+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/dZpNWD0LyW [file] DR1cVbS34oguVN4uCQFwhdM3TG/ju63rSlyqJF21paNC9qVck3U0Vxqo+PANCosvWiK++Y+Mary Anne/pCtRO [file] BKsouTY25cq03/smLV++83rMfGcu8pCpeWv2mug [file] A4ck0lcpOwZL4fn8TTO9IqAP0BS2teGmdg+SXu9QACi+CTRY+fLphGLpmJdHjRXERMynKNUsRi+h+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 [file] 9/39Z6MPdzhZ05H30+NbuzA5125x2J9WI9EiU2PZta t3cav/6hz/L44nf34DSX/IvmM20xgtW7S/bV9T5/MavjqwZRrOkjgWLMvo/zd3uL/wC7/wv+Dd2W/qO5 BN+9O06TFpmxntBsBwHddsuR7uaR1gZOTxSvgdVLIgicjHuOIe0gZwmyV8GtL9zZJqbTG8ub0ZW4KqzM qFTRHNVuHKtHlCfuIsFrkE8S0ACdOamKdV+pAD86PU 3aW8eIMhAlVZZCPVE/Pp6krASh3EbvRNqaoAbyAJ5D1Ku0HaoB+faIkF1Lrx4PwLaUrs47lF1JkzcbPN aJ159jb2BhbAibp9Le0TxIZOXg5KDdn0dEv3GIwCYQv6Weioq/G6+oyAXisWKyDmyDEsvcBJccrE215u UJQkV/BVLqBOzohDe1KKRZcQBdwdGAFRuP/9mFlzAj WUJVB2V510JGAgb10+J/0zZiAg13/vhKOlQzW8KYlvkkAzB9G+vAqYnyLx9hlpeFztqUX7xV3S8SHrHw n2WGzC4aASyDbQsBgLWFTkE85OFbCj4MyEU/+K3la9YgyCwum+7AXkOAYll7nqs3O256QNlsZdlhzPRk q2eoIOqR1gmx0B8Vx2vL4f6aZe7PK5yOhUfAqBmxGx e/mz1WSTtif5/1qDznFowCcY5401jQHe6gRhyNmmsfDw2ZPsC7J+95+JZ10qMHtXG7bbwYovVvdjD6fp jSF3z+pFWyse2uysOs1s+xk6NjqBcd2j99YkZBx7DI+rashi+2TFnevp3czkpL12/48DTys/gOm6qGXDhWt g8tP8kvvJqZrep0holHZUP/SmgqJ/Wbhmhxy8jeNcj 6nOAN/+GLd+O9hIPHhLjGuQsV8MRYM5p2FGxIvhXYEIkbNe3NT9d6NW+iuXUHPOCxp7nNbm5ku4glfKy fH6M9F3chO+leMyKuvEekWPdI6SqPSqtNTA7MwxC4WIMKVVx/M5MpF8hZRAO9xCoUbn/lkZQWn5+SxvK XD36+U6SEbBGO0LK8LHQri37PV1/Z26+0ztlfUypyY TAbfOovbLczJsOVg+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/4gdJUoOqKWF8i3+H+5dK6C0Aq4D4yWGEaDmd3BkLGKG6tA+uH02x5oper/7 [file] PGvOjG5BOKSut//protective services officer/K9eSFhV6wPTtfI4vIA7pByPVSb3BYONkuL5Oo6I/qjujez/M87O4r1wq+/e20 [file] Rd5TE1k4EeVdZR+/1cFB5bQpT71vBDHP7r0r/7H/jose g [file] DtNDV3shGdaN9VYZ4sn1HgAL7Di9RsxgP8kpZcAHobSDB6WIjnCEeiMBZXHg== ID Date Data Source [id number] 01/26/2020 01:50:14 PM [facility] Name Value Range Interpretation Code Description Data Albina rce(s) Supporting Document(s) Progress Note [facility] RBWQKe7hMfAYYrOl85/LZDxgMNZlv6LdIHuzSJf7NMzgIDUeF1KcICH3iI2vYWO2SGtGOcPuYlAcMGC1 lbm [file] v9W9EfOfozWuLxWup2IKDrPAR+SG9sYBb+Dy7Ub2CverR3goTpJAefDFiuUy6CLJJMM5YZPp== ID Date Data Source [id number] 12/08/2019 03:27:38 PM EDT [facility] MR THORACIC SPINE WITH AND WITHOUT CONTR AST [id number] RESULTInterpreted by:Polo Roblero MDClinical Indication: Multiple sclerosis.Technique: [...] rce(s) Supporting Document(s) ID Date Data Source [id number] 12/08/2019 03:24:48 PM EDT [facility] MR CERVICAL SPINE WITH AND WITHOUT CONTR AST [id number] RESULTInterpreted by:Polo Roblero MDClinical Indication: Multiple sclerosis.Technique: [...] rce(s) Supporting Document(s) ID Date Data Source [id number] 12/08/2019 02:57:48 PM EDT [facility] MR BRAIN WITH AND WITHOUT CONTRAST [id number] FINAL RESULTInterpreted by:Polo Roblero MDEXAMINATION: MR BRAIN WITH AND WITHOUT IV CONTRAST [id number] INDICATION: 34 yo woman with MS, please [...] completed Never S moker eCW1 ([facility]) Smoking 12/13/2020 12:00:00 AM EDT Never Smoker completed Never S moker eCW1 ([facility]) Smoking 12/07/2020 12:00:00 AM EDT Never Smoker completed Never S moker eCW1 ([facility]) Smoking 12/07/2020 12:00:00 AM EDT Never Smoker completed Never S moker eCW1 ([facility]) Smoking 11/23/2020 12:00:00 AM EDT Never Smoker completed Never S moker eCW1 ([facility]) Smoking 11/09/2020 07:39:41 AM EDT Never smoked tobacco (findi ng) completed Never smoked tobacco (finding) SAMANTHA (Young Donato MD [facility]) Smoking 11/05/2020 12:00:00 AM EDT Never Smoker completed Never S moker eCW1 ([facility]) Smoking 11/05/2020 12:00:00 AM EDT Never Smoker completed Never S moker eCW1 ([facility]) Smoking 11/05/2020 12:00:00 AM EDT Never Smoker completed Never S moker eCW1 ([facility]) Smoking 11/05/2020 12:00:00 AM EDT Never Smoker completed Never S moker eCW1 ([facility]) Alcohol intake 10/25/2020 12:00:00 AM EDT Current drinker of al cohol (finding) completed Current drinker of alcohol (finding) [facility] Tobacco use and exposure 10/25/2020 12:00:00 AM EDT Never used co mpleted Never used [facility] Smoking 10/25/2020 12:00:00 AM EDT Never smoker completed Never s moker [facility] Alcohol intake 10/21/2020 12:00:00 AM EDT Current drinker of al cohol (finding) completed Current drinker of alcohol (finding) [facility] Smoking 10/13/2020 12:00:00 AM EDT Never Smoker completed Never S moker eCW1 ([facility]) Smoking 10/13/2020 12:00:00 AM EDT Never Smoker completed Never S moker eCW1 ([facility]) Smoking 10/13/2020 12:00:00 AM EDT Never Smoker completed Never S moker eCW1 ([facility]) Smoking 10/13/2020 12:00:00 AM EDT Never Smoker completed Never S moker eCW1 ([facility]) Smoking 09/30/2020 12:00:00 AM EDT Never Smoker completed Never S moker eCW1 ([facility]) Smoking 09/30/2020 12:00:00 AM EDT Never Smoker completed Never S moker eCW1 ([facility]) Smoking 09/30/2020 12:00:00 AM EDT Never Smoker completed Never S moker eCW1 ([facility]) Smoking 09/30/2020 12:00:00 AM EDT Never Smoker completed Never S moker eCW1 ([facility]) Smoking 09/30/2020 12:00:00 AM EDT Never Smoker completed Never S moker eCW1 ([facility]) Smoking 09/30/2020 12:00:00 AM EDT Never Smoker completed Never S moker eCW1 ([facility]) Smoking 09/30/2020 12:00:00 AM EDT Never Smoker completed Never S moker eCW1 ([facility]) Smoking 09/30/2020 12:00:00 AM EDT Never Smoker completed Never S moker eCW1 ([facility]) Smoking 09/14/2020 12:00:00 AM EDT Never Smoker completed Never S moker eCW1 ([facility]) Smoking 09/14/2020 12:00:00 AM EDT Never Smoker completed Never S moker eCW1 ([facility]) Smoking 09/14/2020 12:00:00 AM EDT Never Smoker completed Never S moker eCW1 ([facility]) Smoking 09/14/2020 12:00:00 AM EDT Never Smoker completed Never S moker eCW1 ([facility]) Smoking 09/14/2020 12:00:00 AM EDT Never Smoker completed Never S moker eCW1 ([facility]) Smoking 09/03/2020 12:00:00 AM EDT Never Smoker completed Never S moker eCW1 ([facility]) Smoking 09/03/2020 12:00:00 AM EDT Never Smoker completed Never S moker eCW1 ([facility]) Smoking 08/23/2020 12:00:00 AM EDT Never Smoker completed Never S moker eCW1 ([facility]) Smoking 07/30/2020 12:00:00 AM EDT Never Smoker completed Never S moker eCW1 ([facility]) Smoking 07/30/2020 12:00:00 AM EDT Never Smoker completed Never S moker eCW1 ([facility]) Smoking 07/30/2020 12:00:00 AM EDT Never Smoker completed Never S moker eCW1 ([facility]) Smoking 07/30/2020 12:00:00 AM EDT Never Smoker completed Never S moker eCW1 ([facility]) Alcohol intake 07/28/2020 12:00:00 AM EDT Current drinker of al cohol (finding) completed Current drinker of alcohol (finding) [facility] Smoking 07/16/2020 12:00:00 AM EDT Never Smoker completed Never S moker eCW1 ([facility]) Smoking 07/16/2020 12:00:00 AM EDT Never Smoker completed Never S moker eCW1 ([facility]) Smoking 06/07/2020 09:10:13 AM EDT Never smoked tobacco (findi ng) completed Never smoked tobacco (finding) SAMANTHA (Young Donato MD [facility]) Smoking 05/17/2020 12:00:00 AM EST Never Smoker completed Never S moker eCW1 ([facility]) Smoking 05/17/2020 12:00:00 AM EST Never Smoker completed Never S moker eCW1 ([facility]) Smoking 05/17/2020 12:00:00 AM EST Never Smoker completed Never S moker eCW1 ([facility]) Smoking 05/17/2020 12:00:00 AM EST Never Smoker completed Never S moker eCW1 ([facility]) Smoking 05/17/2020 12:00:00 AM EST Never Smoker completed Never S moker eCW1 ([facility]) Alcohol intake 04/23/2020 12:00:00 AM EST Current drinker of al cohol (finding) completed Current drinker of alcohol (finding) [facility] Alcohol intake 03/18/2020 12:00:00 AM EST Current non-d maranda of alcohol (finding) completed Current non-drinker of alcohol (finding) [facility] Smoking 02/16/2020 12:00:00 AM EST Never Smoker completed Never S moker eCW1 ([facility]) Smoking 02/16/2020 12:00:00 AM EST Never Smoker completed Never S moker eCW1 ([facility]) Smoking 02/16/2020 12:00:00 AM EST Never Smoker completed Never S moker eCW1 ([facility]) Smoking 02/16/2020 12:00:00 AM EST Never Smoker completed Never S moker eCW1 ([facility]) Smoking 02/16/2020 12:00:00 AM EST Never Smoker completed Never S moker eCW1 ([facility]) Smoking 02/16/2020 12:00:00 AM EST Never Smoker completed Never S moker eCW1 ([facility]) Smoking 02/16/2020 12:00:00 AM EST Never Smoker completed Never S moker eCW1 ([facility]) Vital Signs ID Date Data Source UNK Name Value Range Interpretation Code Description Data Source(s) Body temperature 97.3 [degF] 97.3 [degF] MEDENT ([facility], ) Body weight 180 [lb_av] 180 [lb_av] eCW1 ([facility]) Body height 66 [in_i] 66 [in_i] eCW1 ([facility]) Body mass index (BMI) [Ratio] 29.05 kg/m2 29.05 kg/m2 eCW1 ([facility]) Systolic blood pressure 120 mm[Hg] 120 mm[Hg] e CW1 ([facility]) Body weight 81.65 kg 81.65 kg eCW1 ([facility]) Diastolic blood pressure 74 mm[Hg] 74 mm[Hg] eCW1 ([facility]) Body weight 179.2 [lb_av] 179.2 [lb_av] eCW1 ([facility]) Body weight 81.28 kg 81.28 kg eCW1 ([facility]) Body height 66 [in_i] 66 [in_i] eCW1 ([facility]) Body mass index (BMI) [Ratio] 28.92 kg/m2 28.92 kg/m2 eCW1 ([facility]) Systolic blood pressure 108 mm[Hg] 108 mm[Hg] e CW1 ([facility]) Diastolic blood pressure 74 mm[Hg] 74 mm[Hg] eCW1 ([facility]) Body weight 177.8 [lb_av] 177.8 [lb_av] eCW1 ([facility]) Body weight 80.65 kg 80.65 kg eCW1 ([facility]) Body height 66 [in_i] 66 [in_i] eCW1 ([facility]) Body mass index (BMI) [Ratio] 28.69 kg/m2 28.69 kg/m2 W1 ([facility]) Heart rate 98 /min 98 /min eCW1 ([facility]) Respiratory rate 17 /min 17 /min eCW1 ([facility]) Body temperature 96.1 [degF] 96.1 [degF] eCW1 ( [facility]) Systolic blood pressure 124 mm[Hg] 124 mm[Hg] e CW1 ([facility]) Diastolic blood pressure 71 mm[Hg] 71 mm[Hg] eCW1 ([facility]) Body weight 179.2 [lb_av] 179.2 [lb_av] eCW1 ([facility]) Body height 66 [in_i] 66 [in_i] eCW1 ([facility]) Body mass index (BMI) [Ratio] 28.92 kg/m2 28.92 kg/m2 eCW1 ([facility]) Systolic blood pressure 124 mm[Hg] 124 mm[Hg] e CW1 ([facility]) Diastolic blood pressure 78 mm[Hg] 78 mm[Hg] eCW1 ([facility]) Body weight 177 [lb_av] 177 [lb_av] eCW1 ([facility]) Body height 66 [in_i] 66 [in_i] eCW1 ([facility]) Body mass index (BMI) [Ratio] 28.57 kg/m2 28.57 kg/m2 eCW1 ([facility]) Heart rate 104 /min 104 /min eCW1 ([facility]) Respiratory rate 16 /min 16 /min eCW1 ([facility]) Body temperature 98.7 [degF] 98.7 [degF] eCW1 ( [facility]) Systolic blood pressure 111 mm[Hg] 111 mm[Hg] e CW1 ([facility]) Diastolic blood pressure 70 mm[Hg] 70 mm[Hg] eCW1 ([facility]) Body weight 178.0 [lb_av] 178.0 [lb_av] eCW1 ([facility]) Body weight 80.74 kg 80.74 kg eCW1 ([facility]) Body height 66 [in_i] 66 [in_i] eCW1 ([facility]) Body mass index (BMI) [Ratio] 28.73 kg/m2 28.73 kg/m2 eCW1 ([facility]) Systolic blood pressure 122 mm[Hg] 122 mm[Hg] e CW1 ([facility]) Diastolic blood pressure 86 mm[Hg] 86 mm[Hg] eCW1 ([facility]) Body weight 176.4 [lb_av] 176.4 [lb_av] eCW1 ([facility]) Body weight 80.01 kg 80.01 kg eCW1 ([facility]) Body height 66 [in_i] 66 [in_i] eCW1 ([facility]) Body mass index (BMI) [Ratio] 28.47 kg/m2 28.47 kg/m2 eCW1 ([facility]) Systolic blood pressure 118 mm[Hg] 118 mm[Hg] e CW1 ([facility]) Diastolic blood pressure 78 mm[Hg] 78 mm[Hg] eCW1 ([facility]) Body weight 174.0 [lb_av] 174.0 [lb_av] eCW1 ([facility]) Body height 66 [in_i] 66 [in_i] eCW1 ([facility]) Body mass index (BMI) [Ratio] 28.08 kg/m2 28.08 kg/m2 eCW1 ([facility]) Systolic blood pressure 116 mm[Hg] 116 mm[Hg] e CW1 ([facility]) Diastolic blood pressure 72 mm[Hg] 72 mm[Hg] eCW1 ([facility]) Systolic blood pressure 118 mm[Hg] 118 mm[Hg] e CW1 ([facility]) Diastolic blood pressure 81 mm[Hg] 81 mm[Hg] eCW1 ([facility]) Body weight 173 [lb_av] 173 [lb_av] eCW1 ([facility]) Body height 66 [in_i] 66 [in_i] eCW1 ([facility]) Body mass index (BMI) [Ratio] 27.92 kg/m2 27.92 kg/m2 eCW1 ([facility]) Body weight 176 [lb_av] 176 [lb_av] eCW1 ([facility]) Body height 66 [in_i] 66 [in_i] eCW1 ([facility]) Body mass index (BMI) [Ratio] 28.40 kg/m2 28.40 kg/m2 eCW1 ([facility]) Systolic blood pressure 120 mm[Hg] 120 mm[Hg] e CW1 ([facility]) Diastolic blood pressure 84 mm[Hg] 84 mm[Hg] eCW1 ([facility]) Systolic blood pressure 122 mm[Hg] 122 mm[Hg] e CW1 ([facility]) Diastolic blood pressure 82 mm[Hg] 82 mm[Hg] eCW1 ([facility]) Body weight 180.0 [lb_av] 180.0 [lb_av] eCW1 ([facility]) Body height 66 [in_i] 66 [in_i] eCW1 ([facility]) Body mass index (BMI) [Ratio] 29.05 kg/m2 29.05 kg/m2 eCW1 ([facility]) Body weight 172 [lb_av] 172 [lb_av] eCW1 ([facility]) Body height 66 [in_i] 66 [in_i] eCW1 ([facility]) Body mass index (BMI) [Ratio] 27.76 kg/m2 27.76 kg/m2 eCW1 ([facility]) Systolic blood pressure 124 mm[Hg] 124 mm[Hg] e CW1 ([facility]) Diastolic blood pressure 76 mm[Hg] 76 mm[Hg] eCW1 ([facility]) ID Date Data Source [id number] 10/21/2020 10:28:04 AM [facility] Name Value Range Interpretation Code Description Data Source(s) PREFERRED NAME [facility] ID Date Data Source [id number] 09/16/2020 01:36:08 PM EDT [facility] Name Value Range Interpretation Code Description Data Source(s) PREFERRED NAME Umer Vogel [facility] ID Date Data Source [id number] [facility] Name Value Range Interpretation Code Description Data Source(s) PREFERRED NAME Umer Vogel [facility] ID Date Data Source [id number] 04/19/2020 01:51:47 PM [facility] Name Value Range Interpretation Code Description Data Source(s) PREFERRED NAME Umer Vogel [facility] ID Date Data Source [id number] 04/23/2020 09:57:23 AM [facility] Name Value Range Interpretation Code Description Data Source(s) WEIGHT RECORDED 165 lb 165 lb [facility] Body height Measured 65 in 65 in [facility] PREFERRED NAME Umer Vogel [facility] PREFERRED NAME Umer Cheneya [facility] ID Date Data Source [id number] 04/27/2020 08:37:44 AM [facility] Name Value Range Interpretation Code Description Data Source(s) PREFERRED NAME Umer Vogel [facility] ID Date Data Source [id number] 04/02/2020 08:27:29 AM [facility] Name Value Range Interpretation Code Description Data Source(s) PREFERRED NAME Umer Cheneya [facility] PREFERRED NAME Umer Cheneya [facility] ID Date Data Source [id number] 03/24/2020 12:31:53 PM [facility] Name Value Range Interpretation Code Description Data Source(s) PREFERRED NAME Umer Umer [facility] ID Date Data Source [id number] 03/22/2020 10:08:30 AM [facility] Name Value Range Interpretation Code Description Data Source(s) PREFERRED NAME Umer Umer [facility] PREFERRED NAME Umer Umer [facility] ID Date Data Source [id number] 02/05/2020 10:16:25 AM [facility] Name Value Range Interpretation Code Description Data Source(s) WEIGHT RECORDED 164 lb 164 lb [facility] Body height Measured 65 in 65 in [facility] WEIGHT RECORDED 164 lb 164 lb [facility] Body height Measured 65 in 65 in [facility] Patient Treatment Plan of Care Planned Activity Planned Date Details Description Data Source (s) Methylphenidate HCl ER 54 MG 01/13/2021 12:00:00 AM EDT eCW1 ([facility]) onabotulinumtoxinA 100 UNT/ML Injectable Solution 10/25/2020 03: 45:00 PM EDT [facility] Albuterol Sulfate HFA 108 (90 Base) MCG/ACT 10/05/2020 12:00:00 AM EDT eCW1 ([facility]) Fluconazole 150 MG Oral Tablet [Diflucan] 10/05/2020 12:00:00 AM ED T eCW1 ([facility]) Albuterol Sulfate HFA 108 (90 Base) MCG/ACT 10/05/2020 12:00:00 AM EDT eCW1 ([facility]) Fluconazole 150 MG Oral Tablet [Diflucan] 10/05/2020 12:00:00 AM ED T eCW1 ([facility]) Albuterol Sulfate HFA 108 (90 Base) MCG/ACT 10/05/2020 12:00:00 AM EDT eCW1 ([facility]) Fluconazole 150 MG Oral Tablet [Diflucan] 10/05/2020 12:00:00 AM ED T eCW1 ([facility]) Albuterol Sulfate HFA 108 (90 Base) MCG/ACT 10/05/2020 12:00:00 AM EDT eCW1 ([facility]) Fluconazole 150 MG Oral Tablet [Diflucan] 10/05/2020 12:00:00 AM ED T eCW1 ([facility]) Estradiol 0.1 MG/ML Vaginal Cream [Estrace] 10/01/2020 12:00:00 AM EDT eCW1 ([facility]) Estrogens, Conjugated (JAIL) 0.625 MG/ML Vaginal Cream [Premarin] 10/01/2020 12:00:00 AM EDT eCW1 ([facility]) Estradiol 0.1 MG/ML Vaginal Cream [Estrace] 10/01/2020 12:00:00 AM EDT eCW1 ([facility]) Estrogens, Conjugated (JAIL) 0.625 MG/ML Vaginal Cream [Premarin] 10/01/2020 12:00:00 AM EDT eCW1 ([facility]) Estradiol 0.1 MG/ML Vaginal Cream [Estrace] 10/01/2020 12:00:00 AM EDT eCW1 ([facility]) Estrogens, Conjugated (JAIL) 0.625 MG/ML Vaginal Cream [Premarin] 10/01/2020 12:00:00 AM EDT eCW1 ([facility]) Estradiol 0.1 MG/ML Vaginal Cream [Estrace] 10/01/2020 12:00:00 AM EDT eCW1 ([facility]) Estrogens, Conjugated (JAIL) 0.625 MG/ML Vaginal Cream [Premarin] 10/01/2020 12:00:00 AM EDT eCW1 ([facility]) Estradiol 0.1 MG/ML Vaginal Cream [Estrace] 10/01/2020 12:00:00 AM EDT eCW1 ([facility]) Estrogens, Conjugated (JAIL) 0.625 MG/ML Vaginal Cream [Premarin] 10/01/2020 12:00:00 AM EDT eCW1 ([facility]) Estradiol 0.1 MG/ML Vaginal Cream [Estrace] 10/01/2020 12:00:00 AM EDT eCW1 ([facility]) Estrogens, Conjugated (JAIL) 0.625 MG/ML Vaginal Cream [Premarin] 10/01/2020 12:00:00 AM EDT eCW1 ([facility]) Estradiol 0.1 MG/ML Vaginal Cream [Estrace] 10/01/2020 12:00:00 AM EDT eCW1 ([facility]) Estrogens, Conjugated (JAIL) 0.625 MG/ML Vaginal Cream [Premarin] 10/01/2020 12:00:00 AM EDT eCW1 ([facility]) Fluconazole 100 MG Oral Tablet [Diflucan] 09/14/2020 12:00:00 AM ED T eCW1 ([facility]) Fluconazole 100 MG Oral Tablet [Diflucan] 09/14/2020 12:00:00 AM ED T eCW1 ([facility]) Fluconazole 100 MG Oral Tablet [Diflucan] 09/14/2020 12:00:00 AM ED T eCW1 ([facility]) Fluconazole 100 MG Oral Tablet [Diflucan] 09/14/2020 12:00:00 AM ED T eCW1 ([facility]) Fluconazole 100 MG Oral Tablet [Diflucan] 09/14/2020 12:00:00 AM ED T eCW1 ([facility]) Fluconazole 100 MG Oral Tablet [Diflucan] 09/14/2020 12:00:00 AM ED T eCW1 ([facility]) Fluocinonide 0.5 MG/ML Topical Cream 09/13/2020 12:00:00 AM EDT eCW1 ([facility]) Ocrevus 300 MG/10ML Intravenous Solution (ocrelizumab) 08/11/2020 12:00:00 AM [facility] ospital onabotulinumtoxinA 100 UNT/ML Injectable Solution 07/28/2020 02: 15:00 PM [facility] Cyclosporine 0.5 MG/ML Ophthalmic Suspension [Restasis ] 07/19/2020 12:00:00 AM EDT [place] (Young Donato MD [facility]) Qbrexza 2.4 % 05/03/2020 12:00:00 AM EST eCW1 ([facility]) atomoxetine 40 MG Oral Capsule 04/14/2020 12:00:00 AM [facility] atomoxetine 40 MG Oral Capsule 04/13/2020 12:00:00 AM EST eCW1 ([facility]) atomoxetine 40 MG Oral Capsule 04/13/2020 12:00:00 AM EST eCW1 ([facility]) atomoxetine 40 MG Oral Capsule 04/13/2020 12:00:00 AM EST eCW1 ([facility]) atomoxetine 40 MG Oral Capsule 04/13/2020 12:00:00 AM EST eCW1 ([facility]) NaCl infusion 0.9 % 03/18/2020 08:30:00 AM [facility] ocrelizumab (OCREVUS) 600 mg in sodium chloride 0.9 % 250 mL infusion 03/18/2020 08:30:00 AM [facility]sp[facility] diphenhydrAMINE (BENADRYL) injection 50 mg 03/18/2020 08:30:00 AM E [facility] methylPREDNISolone sodium succinate (SOLU-MEDROL) inje ction 125 mg 03/18/2020 08:30:00 AM [facility]spital 24 HR Methylphenidate Hydrochloride 54 M G Extended Release Oral Tablet [Concerta] 12/16/2019 12:00:00 AM EDT eCW1 ([facility]) 24 HR Methylphenidate Hydrochloride 54 M G Extended Release Oral Tablet [Concerta] 12/16/2019 12:00:00 AM EDT eCW1 ([facility]) 24 HR Methylphenidate Hydrochloride 54 M G Extended Release Oral Tablet [Concerta] 12/16/2019 12:00:00 AM EDT eCW1 ([facility]) 24 HR Methylphenidate Hydrochloride 54 M G Extended Release Oral Tablet [Concerta] 12/16/2019 12:00:00 AM EDT eCW1 ([facility]) 24 HR Methylphenidate Hydrochloride 54 M G Extended Release Oral Tablet [Concerta] 12/16/2019 12:00:00 AM EDT eCW1 ([facility]) 24 HR Methylphenidate Hydrochloride 54 M G Extended Release Oral Tablet [Concerta] 12/16/2019 12:00:00 AM EDT eCW1 ([facility]) 24 HR Methylphenidate Hydrochloride 54 M G Extended Release Oral Tablet [Concerta] 12/16/2019 12:00:00 AM EDT eCW1 ([facility]) Ranitidine 150 MG Oral Capsule 09/13/2017 04:58:32 PM EDT SAMANTHA ([facility]) Nadolol 40 MG Oral Tablet [facility] 24 HR Methylphenidate Hydrochloride 36 MG Extended Release Oral Tab [facility]
[2021-01-27] MEDS ORDERED: POTASSIUM CHLORIDE 10MEQ SR TABLET PO ONE (10:40)
[2021-01-27 11:53] VITALS: BP 124/47
== END 2021-01-27 11:52 | disposition home or self-care (01) ==
LOC: M ED 08:36
DX: U07.1 COVID-19 (principal); E87.6 Hypokalemia; G35 Multiple sclerosis; I49.8 Other specified cardiac arrhythmias; Z79.3 Long term (current) use of hormonal contraceptives; Z79.899 Other long term (current) drug therapy; Z91.040 Latex allergy status; Z88.8 Allergy status to other drugs, medicaments and biological substances
CPT/HCPCS: 36415; 80047; 96361; 96374; 96375; 99284; J1885; J2405

== ENCOUNTER → 2021-06-10 | Outpatient (CLI) | payer BC ==
[~2021-06-10] MED LIST changes: -CEFD1CAP8 PO; +CEFD300C41 PO; -MONT10TA10 PO; +MONT10TA97 PO; +ONDA-84 PO; -ONDA8TAB10 PO; -SUMA4INJ3 INJ; +SUMA4INJ6 INJ
[2021-06-10 17:24] LABS: ALBUMIN 4.3 GM/DL (3.2-5.2); ALT/SGPT 29 U/L (12-78); BILIRUBIN,TOTAL 0.4 MG/DL (0.2-1.0); BLOOD UREA NITROGEN 12 MG/DL (7-18); CALCIUM LEVEL 9.6 MG/DL (8.5-10.1); CARBON DIOXIDE LEVEL 31 MEQ/L (21-32); CHLORIDE LEVEL 104 MEQ/L (98-107); CREATININE FOR GFR 0.69 MG/DL (0.55-1.30); FREE T4 1.14 NG/DL (0.76-1.46); GLOMERULAR FILTRATION RATE > 60.0 (>60); GLUCOSE, FASTING 100 MG/DL (70-100); POTASSIUM SERUM 4.1 MEQ/L (3.5-5.1); SODIUM LEVEL 137 MEQ/L (136-145); TOTAL PROTEIN 7.6 GM/DL (6.4-8.2)
[2021-06-10 18:31] LABS: THYROID PEROXIDASE ANTIBODY 43.8 U/ML (<60.0); TOTAL 25(OH) VITAMIN D 36.4 NG/ML (30.0-100.0)
== END ==
LOC: M RAD 15:28
PROVIDERS: ATTEND Registered Nurse Diabetes Educator
DX: R94.6 Abnormal results of thyroid function studies (principal); E04.2 Nontoxic multinodular goiter; E55.9 Vitamin D deficiency, unspecified

== ENCOUNTER → 2021-07-06 | Outpatient (CLI) | payer BC | LOC: M LAB 17:15 | PROVIDERS: ATTEND Allergy & Immunology Allergy | DX: D84.9 Immunodeficiency, unspecified (principal) ==

== ENCOUNTER → 2021-08-25 | Outpatient (CLI) | payer BC | LOC: M LAB 12:23 | PROVIDERS: ATTEND Allergy & Immunology Allergy | DX: R10.2 Pelvic and perineal pain (principal) ==

== ENCOUNTER → 2021-08-29 | Outpatient (CLI) | payer BC ==
[2021-08-29 08:37] LABS: HEMATOCRIT 42.5 % (36.0-47.0); HEMOGLOBIN 13.7 g/dl (12.0-15.5); MEAN CORPUSCULAR HEMOGLOBIN 31.9 pg (27.0-33.0); MEAN CORPUSCULAR HGB CONC 32.2 g/dl (32.0-36.5); MEAN CORPUSCULAR VOLUME 98.8 fl (80.0-96.0); PLATELET COUNT, AUTOMATED 265 10^3/uL (150-450)
[2021-08-29 09:05] LABS: HCG, SERUM QUANTITATIVE < 1.0 MIU/ML
== END ==
LOC: M LAB 07:58
PROVIDERS: ATTEND Obstetrics & Gynecology Reproductive Endocrinology
DX: Z32.00 Encounter for pregnancy test, result unknown (principal)

== ENCOUNTER → 2021-09-30 | Outpatient (CLI) | payer BC ==
[2021-09-30 14:30] LABS: HCG, SERUM QUALITATIVE NEGATIVE (NEGATIVE)
== END ==
LOC: M LAB 13:41
PROVIDERS: ATTEND Allergy & Immunology Allergy
DX: Z32.00 Encounter for pregnancy test, result unknown (principal)

== ENCOUNTER → 2021-10-03 | Outpatient (CLI) | payer BC ==
[2021-10-03 18:15] LABS: HEMATOCRIT 38.1 % (36.0-47.0); HEMOGLOBIN 12.1 g/dl (12.0-15.5); MEAN CORPUSCULAR HEMOGLOBIN 31.6 pg (27.0-33.0); MEAN CORPUSCULAR HGB CONC 31.8 g/dl (32.0-36.5); MEAN CORPUSCULAR VOLUME 99.5 fl (80.0-96.0); PLATELET COUNT, AUTOMATED 300 10^3/uL (150-450); RED BLOOD COUNT 3.83 10^6/uL (4.00-5.40)
[2021-10-03 18:25] LABS: WHITE BLOOD COUNT 69.8 10^3/uL (4.0-10.0)
[2021-10-03 18:37] LABS: HCG, SERUM QUANTITATIVE < 1.0 MIU/ML
[2021-10-03 18:54] LABS: PROGESTERONE 38.46 NG/ML
== END ==
LOC: M LAB 17:26
PROVIDERS: ATTEND Obstetrics & Gynecology Reproductive Endocrinology
DX: Z32.00 Encounter for pregnancy test, result unknown (principal)

== ENCOUNTER → 2021-10-19 | Outpatient (CLI) | payer BC | LOC: M RAD 13:03 | DX: E05.90 Thyrotoxicosis, unspecified without thyrotoxic crisis or storm (principal); R94.6 Abnormal results of thyroid function studies | CPT/HCPCS: 78012; A9516 ==

== ENCOUNTER → 2021-10-21 | Outpatient (CLI) | payer BC ==
[2021-10-21 15:08] LABS: ALBUMIN 3.6 GM/DL (3.2-5.2); ALT/SGPT 31 U/L (12-78); BILIRUBIN,TOTAL 0.2 MG/DL (0.2-1.0); BLOOD UREA NITROGEN 9 MG/DL (7-18); CALCIUM LEVEL 9.1 MG/DL (8.5-10.1); CARBON DIOXIDE LEVEL 28 MEQ/L (21-32); CHLORIDE LEVEL 101 MEQ/L (98-107); GLOMERULAR FILTRATION RATE > 60.0 (>60); GLUCOSE, FASTING 137 MG/DL (70-100); POTASSIUM SERUM 3.9 MEQ/L (3.5-5.1); SODIUM LEVEL 137 MEQ/L (136-145); TOTAL PROTEIN 7.1 GM/DL (6.4-8.2)
== END ==
LOC: M RAD 12:20
PROVIDERS: ATTEND Student in an Organized Health Care Education/Training Program
DX: M79.89 Other specified soft tissue disorders (principal)

== ENCOUNTER → 2022-01-09 | Outpatient (CLI) | payer BC ==
[2022-01-09 19:34] LABS: BASO # 0.1 10^3/uL (0.0-0.2); BASO % 0.8 % (0.0-1.0); EOS # 0.3 10^3/uL (0.0-0.5); EOS % 3.3 % (0.0-3.0); HEMATOCRIT 34.3 % (36.0-47.0); HEMOGLOBIN 10.8 g/dl (12.0-15.5); LYMPH # 2.6 10^3/uL (1.5-5.0); LYMPH % 32.4 % (24.0-44.0); MEAN CORPUSCULAR HEMOGLOBIN 28.7 pg (27.0-33.0); MEAN CORPUSCULAR HGB CONC 31.5 g/dl (32.0-36.5); MEAN CORPUSCULAR VOLUME 91.2 fl (80.0-96.0); MONO # 0.4 10^3/uL (0.0-0.8); MONO % 5.4 % (2.0-8.0); NEUTROPHILS # 4.6 10^3/uL (1.5-8.5); NEUTROPHILS % 57.8 % (36.0-66.0); RED BLOOD COUNT 3.76 10^6/uL (4.00-5.40)
[2022-01-09 20:09] LABS: PERCENT SATURATION 22.2 % (13.2-45.0)
[2022-01-09 20:38] LABS: PLATELET COUNT, AUTOMATED 148 10^3/uL (150-450)
== END ==
LOC: M LAB 18:30
PROVIDERS: ATTEND Student in an Organized Health Care Education/Training Program
DX: D50.9 Iron deficiency anemia, unspecified (principal)

== ENCOUNTER → 2022-05-11 | Outpatient (CLI) | payer BC | LOC: M WHC 10:13 | PROVIDERS: ATTEND Student in an Organized Health Care Education/Training Program | DX: N64.4 Mastodynia (principal); Z97.8 Presence of other specified devices; N63.12 Unspecified lump in the right breast, upper inner quadrant | CPT/HCPCS: 76641; 76642; 77066; G0279 ==

== ENCOUNTER → 2023-11-21 | Outpatient (REF) | payer BC ==
[~2023-11-21] MED LIST changes: +CEFD1CAP9 PO; -CEFD300C41 PO; +ESOM1CAP20 PO; -ESOM1CAP5 PO; -K-TA10TA2 PO; +POTA-165 PO; -SUMA4INJ6 INJ; +SUMA4PEN INJ
== END ==
LOC: M SFHCDERM 09:08
PROVIDERS: ATTEND Physician Assistant
DX: B07.9 Viral wart, unspecified (principal)

== ENCOUNTER → 2023-11-21 | Outpatient (REF) | payer BC | LOC: M SFHCDERM 17:23 | PROVIDERS: ATTEND Physician Assistant | DX: T14.8XXA Other injury of unspecified body region, initial encounter (principal) ==